=== PATIENT | female | born 1945 | race Caucasian/White ===

== ENCOUNTER → 2019-07-01 11:04 | Outpatient (REF) | payer MEDICARE, SELFPAY | LOC: ANHLAB 11:04 | PROVIDERS: PCP Family Medicine; Visit Provider Nurse Practitioner Family | DX: C44.519 Basal cell carcinoma of skin of other part of trunk (principal) | CPT/HCPCS: 88305; 88331 ==

== ENCOUNTER 2019-09-17 15:41 | Outpatient (CLI) | payer MEDICARE, SELFPAY ==
[2019-09-17 15:53] LABS: Basophils Percent Auto 0.2 % (0.2-1.2); Eosinophils Absolute Auto 0.1 K/mm3 (0-0.3); Eosinophils Percent Auto 2.5 % (0-4.4); Hematocrit 38.9 % (37.0-47.0); Hemoglobin 12.9 g/dL (12.0-15.0); Immature Granulocyte Absolute 0.01 K/mm3 (0.00-0.031); Immature Granulocyte Percent A 0.2 % (0-0.5); Lymphocytes Absolute Auto 0.54 K/mm3 (0.9-3.2); Lymphocytes Percent Auto 10.2 % (18.3-44.2); Mean Corpuscular HGB Conc 33.2 g/dl (32-36); Mean Corpuscular Volume 90.5 fl (80-100); Mean Platelet Volume 9.7 fl (7.4-10.4); Monocytes Absolute Auto 0.5 K/mm3 (0.1-0.6); Monocytes Percent Auto 8.7 % (2.6-8.5); Neutrophils Absolute Auto 4.1 K/mm3 (1.3-6.7); Neutrophils Percent Auto 78.2 % (45.5-73.1); Platelet Count Result 171 k/mm3 (150-375); Red Cell Distribution Width 13.5 % (11.5-14.5); White Blood Count 5.3 K/mm3 (4.5-10.0)
[2019-09-17 15:58] LABS: Blood Urea Nitrogen 20 mg/dL (8-26); Carbon Dioxide 28 mmol/L (22-30); Chloride 104 mmol/L (98-109); Estimated Glomerular Filt Rate > 60; Glucose 113 mg/dL (70-105); Potassium 3.3 mmol/L (3.5-4.9); Sodium 143 mmol/L (138-146)
[2019-09-17 16:30] LABS: Alanine Aminotransferase 19 U/L (4-35); Albumin Level 4.3 g/dL (3.5-5.1); Alkaline Phosphatase 82 U/L (38-126); Aspartate Amino Transferase 23 U/L (14-36); Bilirubin,Total 0.2 mg/dL (0.2-1.3); Blood Urea Nitrogen 19 mg/dL (7-17); Calcium 9.4 mg/dL (8.4-10.2); Carbon Dioxide 27 mmol/L (22-30); Chloride 106 mmol/L (98-107); Estimated Glomerular Filt Rate > 60; Glucose 118 mg/dL (65-105); Potassium 3.7 mmol/L (3.4-5.0); Sodium 139 mmol/L (137-145)
[2019-09-21 12:57] LABS: CA 27.29 <8 U/mL (<38)
== END 2019-09-17 15:42 | disposition home or self-care (01) ==
LOC: ANHLAB 15:49
PROVIDERS: PCP Family Medicine; Visit Provider Internal Medicine Hematology & Oncology
DX: C50.919 Malignant neoplasm of unspecified site of unspecified female breast (principal)
CPT/HCPCS: 36415; 80048; 80053; 85025; 86300

== ENCOUNTER → 2019-11-11 13:43 | Outpatient (REF) | payer MEDICARE, SELFPAY | LOC: ANHLAB 13:43 | PROVIDERS: PCP Family Medicine; Visit Provider Nurse Practitioner Family | DX: L72.0 Epidermal cyst (principal) | CPT/HCPCS: 88304 ==

== ENCOUNTER 2020-03-30 06:50 | Outpatient (NON) | payer MEDICARE, SELFPAY ==
[2020-03-30 23:47] LABS: SARS-CoV-2 RNA PCR Negative
== END 2020-03-30 06:51 ==
LOC: ANHCOVIDDT 07:02
PROVIDERS: PCP Family Medicine; Visit Provider Nurse Practitioner
DX: Z20.828 Contact with and (suspected) exposure to other viral communicable diseases (principal)
CPT/HCPCS: 87635; C9803; U0003

== ENCOUNTER 2020-04-13 13:48 | Outpatient (CLI) | payer MEDICARE, SELFPAY ==
[2020-04-13 14:03] LABS: Basophils Percent Auto 0.2 % (0.2-1.2); Eosinophils Absolute Auto 0.1 K/mm3 (0-0.3); Eosinophils Percent Auto 2.2 % (0-4.4); Hematocrit 42.3 % (37.0-47.0); Hemoglobin 13.8 g/dL (12.0-15.0); Immature Granulocyte Absolute 0.01 K/mm3 (0.00-0.031); Immature Granulocyte Percent A 0.2 % (0-0.5); Lymphocytes Absolute Auto 0.91 K/mm3 (0.9-3.2); Lymphocytes Percent Auto 22.3 % (18.3-44.2); Mean Corpuscular HGB Conc 32.6 g/dl (32-36); Mean Corpuscular Hemoglobin 29.6 pg (26-34); Mean Corpuscular Volume 90.6 fl (80-100); Monocytes Absolute Auto 0.4 K/mm3 (0.1-0.6); Monocytes Percent Auto 9.3 % (2.6-8.5); Neutrophils Absolute Auto 2.7 K/mm3 (1.3-6.7); Neutrophils Percent Auto 65.8 % (45.5-73.1); Platelet Count Result 193 k/mm3 (150-375); Red Blood Count 4.67 M/mm3 (4.2-5.4); Red Cell Distribution Width 13.5 % (11.5-14.5); White Blood Count 4.1 K/mm3 (4.5-10.0)
[2020-04-13 14:06] LABS: Blood Urea Nitrogen 18 mg/dL (8-26); Carbon Dioxide 30 mmol/L (22-30); Chloride 104 mmol/L (98-109); Estimated Glomerular Filt Rate 54; Glucose 90 mg/dL (70-105); Potassium 3.9 mmol/L (3.5-4.9); Sodium 141 mmol/L (138-146)
[2020-04-19 07:27] LABS: CA 15-3 2 U/mL (<32)
== END 2020-04-13 13:49 | disposition home or self-care (01) ==
LOC: ANHLAB 13:49
PROVIDERS: PCP Family Medicine; Visit Provider Internal Medicine Hematology & Oncology
DX: C50.411 Malignant neoplasm of upper-outer quadrant of right female breast (principal); Z17.0 Estrogen receptor positive status [ER+]
CPT/HCPCS: 36415; 80048; 85025; 86300

== ENCOUNTER 2020-07-06 11:24 | Outpatient (CLI) | payer MEDICARE, SELFPAY ==
[2020-07-06 11:38] LABS: Eosinophils Absolute Auto 0.1 K/mm3 (0-0.3); Eosinophils Percent Auto 2.8 % (0-4.4); Hematocrit 41.9 % (37.0-47.0); Hemoglobin 13.6 g/dL (12.0-15.0); Immature Granulocyte Absolute 0.01 K/mm3 (0.00-0.031); Immature Granulocyte Percent A 0.2 % (0-0.5); Lymphocytes Absolute Auto 0.99 K/mm3 (0.9-3.2); Lymphocytes Percent Auto 23.2 % (18.3-44.2); Mean Corpuscular HGB Conc 32.5 g/dl (32-36); Mean Corpuscular Hemoglobin 29.1 pg (26-34); Mean Corpuscular Volume 89.5 fl (80-100); Monocytes Absolute Auto 0.4 K/mm3 (0.1-0.6); Monocytes Percent Auto 10.3 % (2.6-8.5); Neutrophils Absolute Auto 2.7 K/mm3 (1.3-6.7); Neutrophils Percent Auto 63.5 % (45.5-73.1); Platelet Count Result 188 k/mm3 (150-375); Red Blood Count 4.68 M/mm3 (4.2-5.4); Red Cell Distribution Width 13.8 % (11.5-14.5); White Blood Count 4.3 K/mm3 (4.5-10.0)
[2020-07-06 12:29] LABS: Alanine Aminotransferase 28 U/L (4-35); Albumin Level 4.5 g/dL (3.5-5.1); Alkaline Phosphatase 83 U/L (38-126); Anion Gap 6 mmol/L (8-16); Aspartate Amino Transferase 29 U/L (14-36); Bilirubin,Total 0.4 mg/dL (0.2-1.3); Blood Urea Nitrogen 19 mg/dL (7-17); Calcium 9.6 mg/dL (8.4-10.2); Carbon Dioxide 29 mmol/L (22-30); Chloride 106 mmol/L (98-107); Estimated Glomerular Filt Rate > 60; Glucose 87 mg/dL (65-105); Potassium 4.1 mmol/L (3.4-5.0); Sodium 141 mmol/L (137-145)
[2020-07-09 07:44] LABS: CA 15-3 1 U/mL (<32)
== END 2020-07-06 11:25 | disposition home or self-care (01) ==
LOC: ANHLAB 11:26
PROVIDERS: PCP Family Medicine; Visit Provider Internal Medicine Hematology & Oncology
DX: C50.411 Malignant neoplasm of upper-outer quadrant of right female breast (principal); Z17.0 Estrogen receptor positive status [ER+]
CPT/HCPCS: 36415; 80053; 85025; 86300

== ENCOUNTER 2021-02-28 09:47 | Outpatient (CLI) | payer MEDICARE, SELFPAY ==
--- NOTE | ~2021-02-28 | CT_ITS ---
EXAMINATION: CT diagnostic chest w con DATE: 02/28/2021 10:34 INDICATION: Abnormal sputum TECHNIQUE: Transaxial computed tomographic images of the chest were obtained after the administration of 75 cc of Omnipaque 350 intravenous contrast. The dose-length product (DLP) was 375.63 mGy-cm. Ite rative reconstruction was used. COMPARISON: 05/09/2017 FINDINGS: There is severe emphysema. There are scattered small pulmonary nodules of the lungs which l ikely reflect old granulomatous disease. There is a 7 mm nodule of the right middle lobe abutting the major fissure on image 82. There is no pleural effusion or pneumothorax. The lungs are free of focal airspace opacities. Multinodular goiter is again noted. No pathologically enlarged thoracic lymph no nereyda are identified. The heart size is normal. Interval surgical changes noted in the breasts. There a re also changes of left axillary lymph node dissection. There is a small sliding hiatal hernia. The g allbladder is surgically absent. There is mild enlargement of the common bile duct and central intrah epatic ducts which is likely due to post cholecystectomy state. There is moderate thoracic spondylosi s. IMPRESSION: 1. 7 mm nodule of the right middle lobe which could reflect old granulomatous disease. Follow-up CT i n six months is recommended. 2. Severe emphysema. Reviewed, dictated and finalized at location A. IMPRESSION: 1. 7 mm nodule of the right middle lobe which could reflect old granulomatous d isease. Follow-up CT in six months is recommended. 2. Severe emphysema.
[2021-02-28 10:27] LABS: Estimated Glomerular Filt Rate 48
== END 2021-02-28 09:48 | disposition home or self-care (01) ==
PROVIDERS: PCP Hospitalist; Visit Provider Nurse Practitioner Family
DX: R05.8 Other specified cough (principal); R09.3 Abnormal sputum; A31.0 Pulmonary mycobacterial infection; J43.9 Emphysema, unspecified
CPT/HCPCS: 71260; Q9967

== ENCOUNTER 2022-07-03 09:30 | Outpatient (RCR) | payer MEDICARE, SELFPAY ==
[2022-04-17 11:32] VITALS: PULSE 65
== END 2022-07-31 09:55 | disposition home or self-care (01) ==
LOC: ANHCPREHAB 09:30
PROVIDERS: PCP Hospitalist
DX: J43.9 Emphysema, unspecified (principal)
CPT/HCPCS: 94625

== ENCOUNTER 2023-12-03 15:42 | Inpatient (IN) | payer MEDICARE, SELFPAY ==
[2023-12-03] VITALS (13 sets, daily range): BP systolic 107–165; BP diastolic 63–92; PULSE 74–106; RESP 13–24; TEMP 36.6; O2SAT 94–97; BMI 34.5
--- NOTE | ~2023-12-03 | XR_ITS ---
XR chest 2V 12/03/2023 16:29 Indication: Shortness of breath Procedure: AP and lateral views of the chest Comparison: Comparison to multiple prior studies sequentially, with oldest reviewed study dated 12/16/2008. Findings: There are bilateral interstitial infiltrates of the mid and lower lungs. No significant eff usion. The lungs are hyperinflated which is consistent with, but not diagnostic of chronic obstructiv e pulmonary disease. No acute osseous abnormality. Impression: 1: Bilateral interstitial infiltrates which may reflect edema or pneumonia. Reviewed, dictated and finalized at location B. Impression: 1: Bilateral interstitial infiltrates which may reflect edema or pneumonia.
--- NOTE | ~2023-12-03 | XR_ITS ---
XR thoracic spine 2V 12/06/2023 12:26 Indication: Back pain. Left flank pain and bruising. Procedure: 2 views thoracic spine Comparison: No prior studies for comparison. Findings: Vertebral body heights are maintained. There is mild scoliosis. Mild multilevel spondylosis . No acute fracture or traumatic malalignment. No paraspinal soft tissue abnormality. Impression: 1: Mild thoracic spondylosis with dextroscoliosis of the lower thoracic spine. Reviewed, dictated and finalized at location B. Impression: 1: Mild thoracic spondylosis with dextroscoliosis of the lower thoracic spine.
--- NOTE | ~2023-12-03 | US_ITS ---
EXAMINATION: US abdomen complete DATE: 12/05/2023 15:07 INDICATION: Right and left upper quadrant abdominal pain TECHNIQUE: Multiple grayscale and Doppler ultrasound images of the abdomen were obtained. COMPARISON: None FINDINGS: The pancreatic head and body are normal in appearance. The pancreatic tail is not visualized. Visual ized abdominal aorta is normal in caliber measuring 1.6 cm in the mid aorta tapering to 1.5 cm the di stal aorta. Visualized proximal inferior vena cava is normal. Liver has normal contour, with a smooth surface. There is increased parenchymal echogenicity and coarsened echotexture consistent with diffu se hepatic steatosis. No liver lesion identified. No intrahepatic biliary duct dilation suspected. P ortal venous flow was seen in the hepatopetal, normal direction and has normal Doppler waveform. Gall bladder is not visualized and reportedly surgically absent. Common bile duct measures 8 mm which is w ithin normal limits for age particularly post prior cholecystectomy. Visualized portion of the right kidney demonstrates normal contour and echogenicity with no hydronephrosis.. IMPRESSION: 1. Diffuse hepatic steatosis. 2. Status post cholecystectomy. Reviewed, dictated and finalized at location A.
--- NOTE | 2023-12-03 15:47 | ECG_ITS ---
Test Date: 2023-12-03 15:49:36 Measurements Intervals [employer] Rate: 83 P: 26 TX: 146 QRS: -24 QRSD: 129 T: 88 QT: 349 QTc: 412 Interpretive Statements SINUS RHYTHM INTRAVENTRICULAR CONDUCTION DELAY LEFT VENTRICULAR HYPERTROPHY AND ST-T CHANGE BORDERLINE R WAVE PROGRESSION, ANTERIOR LEADS CONSIDER HIGH LATERAL INFARCT, AGE INDETERMINATE BASELINE ARTIFACT- I, II, AVR, AVL ABNORMAL ECG No previous ECG available for comparison Electronically Signed On 12-03-2023 15:58:44 CDT by Jefferson Elias D.O.
[2023-12-03 16:14] LABS: Basophils Percent Auto 0.1 % (0.2-1.2); Hematocrit 42.7 % (37.0-47.0); Hemoglobin 14.1 g/dL (12.0-15.0); Immature Granulocyte Absolute 0.02 K/mm3 (0.00-0.031); Immature Granulocyte Percent A 0.3 % (0-0.5); Lymphocytes Absolute Auto 0.23 K/mm3 (0.9-3.2); Lymphocytes Percent Auto 3.4 % (18.3-44.2); Mean Corpuscular Hemoglobin 29.6 pg (26-34); Mean Corpuscular Volume 89.5 fl (80-100); Mean Platelet Volume 10.4 fl (7.4-10.4); Monocytes Absolute Auto 0.4 K/mm3 (0.1-0.6); Monocytes Percent Auto 5.9 % (2.6-8.5); Neutrophils Absolute Auto 6.2 K/mm3 (1.3-6.7); Neutrophils Percent Auto 90.3 % (45.5-73.1); Platelet Count Result 167 k/mm3 (150-375); Red Blood Count 4.77 M/mm3 (4.2-5.4); Red Cell Distribution Width 15.3 % (11.5-14.5); White Blood Count 6.8 K/mm3 (4.5-10.0)
[2023-12-03 16:21] LABS: Alanine Aminotransferase 33 U/L (6-35); Albumin Level 4.8 g/dL (3.5-5.1); Alkaline Phosphatase 66 U/L (38-126); Anion Gap 11 mmol/L (4-12); Aspartate Amino Transferase 43 U/L (14-36); Bilirubin,Total 0.7 mg/dL (0.2-1.3); Blood Urea Nitrogen 23 mg/dL (7-17); Calcium 9.7 mg/dL (8.4-10.2); Carbon Dioxide 26 mmol/L (22-30); Chloride 100 mmol/L (98-107); Estimated CRCL calculation 40 ml/min; Estimated Glomerular Filt Rate 53; Glucose 107 mg/dL (65-110); Potassium 3.5 mmol/L (3.4-5.0); Sodium 137 mmol/L (137-145)
[2023-12-03 16:54] LABS: Influenza A QL RT-PCR Negative (Negative); Influenza B QL RT-PCR Negative (Negative); RSV RNA, RT-PCR Negative (Negative); SARS-CoV-2 RNA PCR Negative (Negative)
--- NOTE | 2023-12-03 17:13 | ED.SOB ---
HPI - SOB/Dyspnea General Chief Complaint: Shortness of Breath/Dyspnea Stated Complaint: SOB/flank pain Time Seen by Provider: 12/03/23 16:14 History of Present Illness HPI Narrative: Patient is a 78-year-old female with a history of COPD presenting with shortness of breath. Patient states that about 5 days ago she noticed increasingly productive cough. States that she has been increasingly short of breath. She went to urgent care and was started on prednisone and a Z-Bill. Unfortunately her symptoms have continued. States that she usually only uses oxygen with exertion but she now needs that even when she is just sitting. States that she has some left flank pain that feels like a muscle strain that is worsened when she coughs. She denies any chest pain. No lightheadedness or fevers. No abdominal pain, nausea vomiting, diarrhea. No leg swelling. Related Data Home Medications Medication Instructions Recorded Confirmed celecoxib 200 mg capsule (Celebrex) 200 mg PO DAILY 06/03/19 12/03/23 docusate sodium 100 mg capsule 100 mg PO DAILY 06/03/19 01/02/21 (Stool Softener) magnesium 200 mg tablet 200 mg PO HS 02/04/20 12/03/23 calcium carbonate 250 mg-vitamin 2 tablet PO BID 12/03/23 12/03/23 D3 3.125 mcg (125 unit) tablet chlordiazepoxide HCl 10 mg capsule 10 - 20 mg PO PRN PRN Anxiety 12/03/23 12/03/23 diltiazem HCl 120 mg 120 mg PO DAILY 12/03/23 12/03/23 capsule,extended release 24 hr, controlled famotidine 20 mg tablet 20 mg PO HS 12/03/23 12/03/23 fluticasone fur. 200 mcg-umeclid 1 inh inhalation DAILY 12/03/23 12/03/23 62.5 mcg-vilant 25 mcg inhalat.powder (Trelegy Ellipta) hydrochlorothiazide 25 mg tablet 25 mg PO DAILY 12/03/23 12/03/23 levalbuterol HCl 1.25 mg/3 mL 1.25 mg inhalation TID 12/03/23 12/03/23 solution for nebulization levothyroxine 150 mcg tablet 150 mcg PO DAILY 12/03/23 12/03/23 montelukast 10 mg tablet 10 mg PO HS 12/03/23 12/03/23 omeprazole 40 mg capsule,delayed 40 mg PO DAILY 12/03/23 12/03/23 release sertraline 100 mg tablet 100 mg PO HS 12/03/23 12/03/23 Allergies Allergy/AdvReac Type Severity Reaction Status Date / Time naproxen Allergy Unknown unk Verified 12/03/23 15:52 nitrofurantoin Allergy Unknown unk Verified 12/03/23 15:52 Penicillins Allergy Unknown hives Verified 12/03/23 15:52 Sulfa (Sulfonamide Allergy Unknown Nausea and Verified 12/03/23 15:52 Antibiotics) Vomiting Review of Systems Review of Systems: All systems reviewed & are unremarkable except as noted in HPI and below [facility] Past Medical History Medical History (Updated 12/03/23 @ 22:24 by Rebecca Branch MD) Allergies Anxiety Arthritis Basal cell carcinoma of skin Bilateral breast cancer Invasive lobular carcinoma right breast status post mastectomy and 2018 and radiation and 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 Cancer of right lung Status post radiation in 2023. Chronic obstructive pulmonary disease Chronic respiratory failure with hypoxia Colon polyps Depression Dyslipidemia Gastroesophageal reflux disease Hypertension Thyroid cancer Status post thyroidectomy and radioactive iodine. Surgical History Surgical History (Updated 12/03/23 @ 20:22 by Sherri Graham PA-C) History of arthroscopy of left knee (09/2015) History of bladder repair surgery History of bunionectomy (2002) History of cardiac catheterization History of cholecystectomy (1968) History of colonoscopy with polypectomy History of lumpectomy of left breast (2019) History of partial mastectomy of right breast (2017) History of tonsillectomy (1960) History of total abdominal hysterectomy and bilateral salpingo-oophorectomy (1987) History of tubal ligation Family History Family History Mother Family history of lung cancer, Onset Age: 72 Father COPD (chronic obstructive pulmonary disease) Other Family history of malignant neoplasm Social History Social History (Updated 12/03/23 @ 20:23 by Sherri Graham PA-C) Social History: Surrogate medical decision maker: Gee Zarate (spouse) and Kaitlynn Jackson (daughter). Code status: Full code. She would not want to be on prolonged life support. Smoking packs per day: 1.5 Smoking cigarettes per day: 30.0 Years smoked: 30 Smoking pack-years: 45.00 Smoking status: Former smoker Tobacco type: cigarettes Second hand tobacco smoke exposure: No Smoking end date: 05/13/96 Alcohol intake: current Alcohol use details: 1 mixed drink a week. Substance use: never Substance use type: does not use Do You Feel Safe in your Home?: Yes Lack of Transportation: No Lack of Food: Never True Current Housing: I Have Housing Concerned About Future Housing: No Difficulty Paying Gas/Electric Bills: No Difficulty Paying for Meds: No Currently Unemployed: No Education: Associate Degree Difficulty w/ Childcare or Family Care: No Additional occupation/education comments: Lives with spouse at [employer]. 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 Spiritual care concerns: No Exam Narrative: GENERAL: Nontoxic, in no acute distress, pleasant cooperative HEAD: Normocephalic, atraumatic. EYES: PERRLA and EOMI. ENT: Grossly unremarkable NECK: Supple. CHEST: Coarse breath sounds bilaterally with expiratory wheezing, patient on 4 L nasal cannula, able to speak in 5-6 word sentences HEART: Regular rate and rhythm ABDOMEN: Soft, nontender, nondistended, no CVA tenderness EXTREMITIES: Normal range of motion. No edema. SKIN: Warm, dry, no rash. NEURO: No focal deficits. Alert and oriented x3. PSYCH: Normal mood and affect. Course Vital Signs Vital signs: Vital Signs Pulse Rate 90 12/03/23 15:41 Respiratory Rate 18 12/03/23 15:41 Blood Pressure 137/87 12/03/23 15:41 Pulse Oximetry 97 12/03/23 15:41 Oxygen Delivery Room Air 12/03/23 15:41 Temperature 97.8 F 12/03/23 21:42 Pulse Rate 86 12/03/23 21:42 Respiratory Rate 18 12/03/23 21:42 Blood Pressure 124/66 12/03/23 21:42 Pulse Oximetry 97 12/03/23 21:42 Oxygen Delivery Nasal Cannula 12/03/23 19:10 Oxygen Flow Rate 4 12/03/23 19:10 MDM - SOB/Dyspnea MDM Narrative Medical decision making narrative: 78-year-old female presenting with shortness of breath. Patient is on 4 L, maintaining her sats in the low to mid 90s. EKG per my interpretation shows normal sinus rhythm,+ IVCD, nonspecific ST changes. Blood work without significant abnormalities. Troponin is undetectable. ProBNP is unremarkable. Negative for COVID and influenza. Chest x-ray is concerning for bibasilar opacities. Suspect is related to her COPD and possible pneumonia. Less concern for edema. Patient has received breathing treatments, IV steroids and antibiotics. She requires admission for further management. She is agreeable with this plan. I spoke with the hospitalist who has accepted her for admission. Differential Diagnosis Differential diagnosis: Likely acute exacerbation of chronic obstructive airways disease, congestive heart failure and community acquired pneumonia Medical Records Attestation: I reviewed the patient's medical records. Lab Data Attestation: I reviewed the patient's lab results. 12/03/23 16:01 12/03/23 16:01 Labs: Lab Results 12/03/23 12/03/23 Range/Units 15:59 16:01 WBC 6.8 (4.5-10.0) K/mm3 RBC 4.77 (4.2-5.4) M/mm3 Hgb 14.1 (12.0-15.0) g/dL Hct 42.7 (37.0-47.0) % MCV 89.5 (80-100) fl MCH 29.6 (26-34) pg MCHC 33.0 (32-36) g/dl RDW 15.3 H (11.5-14.5) % Plt Count 167 (150-375) k/mm3 MPV 10.4 (7.4-10.4) fl Immature Gran % (Auto) 0.3 (0-0.5) % Neut % (Auto) 90.3 H (45.5-73.1) % Lymph % (Auto) 3.4 L (18.3-44.2) % [place] % (Auto) 5.9 (2.6-8.5) % Eos % (Auto) 0.0 (0-4.4) % Baso % (Auto) 0.1 L (0.2-1.2) % Lymph # (Auto) 0.23 L (0.9-3.2) K/mm3 [place] # (Auto) 0.4 (0.1-0.6) K/mm3 Eos # (Auto) 0.0 (0-0.3) K/mm3 Baso # (Auto) 0.0 (0.0-0.1) K/mm3 Abs Immat Gran (auto) 0.02 (0.00-0.031) K/mm3 Absolute Neuts (auto) 6.2 (1.3-6.7) K/mm3 Absolute Nucleated RBC 0.000 (0.0-0.012) K/mm3 Nucleated RBC % 0.0 (0.0-0.2) % PT 13.8 (11.1-14.7) Seconds INR 1.0 APTT 24.0 (22.3-36.8) Seconds Sodium 137 (137-145) mmol/L Potassium 3.5 (3.4-5.0) mmol/L Chloride 100 (98-107) mmol/L Carbon Dioxide 26 (22-30) mmol/L Anion Gap 11 (4-12) mmol/L BUN 23 H (7-17) mg/dL Creatinine 1.00 (0.7-1.0) mg/dL Estim Creat Clear Calc 40 ml/min Estimated GFR 53 L (59 - ) Glucose 107 (65-110) mg/dL Lactic Acid 2.0 (0.7-2.0) mmol/L Calcium 9.7 (8.4-10.2) mg/dL Total Bilirubin 0.7 (0.2-1.3) mg/dL AST 43 H (14-36) U/L ALT 33 (6-35) U/L Alkaline Phosphatase 66 (38-126) U/L Troponin I < 0.012 (0.000-0.034) ng/mL NT-Pro-B Natriuret Pep 164 H (19.9-100) pg/mL Total Protein 9.0 H (6.3-8.2) g/dL Albumin 4.8 (3.5-5.1) g/dL Influenza A (RT-PCR) Negative (Negative) Influenza B (RT-PCR) Negative (Negative) RSV (RT-PCR) Negative (Negative) SARS-CoV-2 RNA (RT-PCR) Negative (Negative) Imaging Data Radiologist's impression: ITS Impressions Chest X-Ray 12/03/23 16:32 Impression: 1: Bilateral interstitial infiltrates which may reflect edema or pneumonia. Critical Care Time Critical Care Time Critical Care Time: No Discharge Plan Discharge Clinical Impression: COPD exacerbation, Pneumonia Patient Disposition: Still a Patient Condition: Stable
[2023-12-03] MEDS: SODIUM CHLORIDE 0.9% IV 1,000 ML 999 ML IV CONT (17:32)
[2023-12-03] MEDS: FAMOTIDINE 20 MG TABLET PO ×2 (17:32→23:57)
[2023-12-03] MEDS: methylPREDNISolone SOD SUCC 125 MG VIAL IV PUSH (17:33)
[2023-12-03] MEDS: IPRATROPIUM BR 0.02% INH SOLN 0.5 MG/2.5 ML VIAL INHALATION (17:36)
[2023-12-03] MEDS: ALBUTEROL SULFATE NEB 2.5 MG/3 ML INH 10 MG INHALATION (17:36)
[2023-12-03 17:46] LABS: Prothrombin Time 13.8 Seconds (11.1-14.7)
[2023-12-03 17:56] LABS: NT Pro B Type Natriuretic Pept 164 pg/mL (19.9-100); Troponin I < 0.012 ng/mL (0.000-0.034)
--- NOTE | 2023-12-03 18:20 | P.HP_ITS ---
H&P: HPI History of Present Illness Date/Time: 12/03/23 18:30 Chief Complaint: Shortness of breath. 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 The patient provides the following history. She has a chronic cough at baseline which is occasionally productive of clear sputum and chronic dyspnea on exertion, to the point where she now uses an electric scooter when shopping at the store. She has been feeling worse since last Saturday with increasing cough and frequent coughing jags, increasing sputum production which is now thick and green, and progressive dyspnea on lesser and lesser exertion with wheezing. She was seen at urgent care on Saturday and was prescribed azithromycin, prednisone, and benzonatate which have not helped much. She denies fever, chills, sweats, chest pain, orthopnea, paroxysmal nocturnal dyspnea, lower extremity edema, calf pain, nausea, vomiting, and diarrhea. In the ED: She was afebrile on arrival with stable blood pressures. SpO2 was 95% on 4 L nasal cannula. Labs were significant for a WBC count of 6.8, hemoglobin 14.1, platelet 167, BUN 23, creatinine 1.00, lactic acid 2.0. Influenza, RSV, and COVID were negative. Chest x-ray showed bilateral interstitial infiltrates which may reflect edema or pneumonia. She was given a continuous nebulizer treatment, methylprednisolone 125 mg, and ceftriaxone 2 g and she is being admitted in this setting for further treatment. Review of Systems Review of Systems: 12 systems were reviewed and are negativ e except for as per HPI. [facility] Past Medical History Medical History (Updated 12/03/23 @ 21:33 by Sherri Graham PA-C) Allergies Anxiety Arthritis Basal cell carcinoma of skin Bilateral breast cancer Invasive lobular carcinoma right breast status post mastectomy and 2018 and radiation and 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 Cancer of right lung Status post radiation in 2023. Chronic obstructive pulmonary disease Chronic respiratory failure with hypoxia Colon polyps Depression Dyslipidemia Gastroesophageal reflux disease Hypertension Thyroid cancer Status post thyroidectomy and radioactive iodine. Surgical History Surgical History (Updated 12/03/23 @ 20:22 by Sherri Graham PA-C) History of arthroscopy of left knee (09/2015) History of bladder repair surgery History of bunionectomy (2002) History of cardiac catheterization History of cholecystectomy (1968) History of colonoscopy with polypectomy History of lumpectomy of left breast (2019) History of partial mastectomy of right breast (2017) History of tonsillectomy (1960) History of total abdominal hysterectomy and bilateral salpingo-oophorectomy (1987) History of tubal ligation Family History Family History Mother Family history of lung cancer, Onset Age: 72 Father COPD (chronic obstructive pulmonary disease) Other Family history of malignant neoplasm Social History Social History (Updated 12/03/23 @ 20:23 by Sherri Graham PA-C) Social History: Surrogate medical decision maker: Gee Zarate (spouse) and Kaitlynn Jackson ( daughter). Code status: Full code. She would not want to be on prolonged life support. Smoking packs per day: 2 Smoking cigarettes per day: 40.0 Years smoked: 30 Smoking pack-years: 60.00 Smoking status: Former smoker Tobacco type: cigarettes Second hand tobacco smoke exposure: No Smoking end date: 05/13/96 Alcohol intake: current Alcohol use details: 1 mixed drink a week. Substance use: never Substance use type: does not use Additional occupation/education comments: Lives with spouse at [facility]. 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 Meds Home Medications and Allergies Home Medications Medication Instructions Recorded Confirmed Type celecoxib 200 mg capsule (Celebrex) 200 mg PO BID 06/03/19 01/02/21 History docusate sodium 100 mg capsule 100 mg PO DAILY 06/03/19 01/02/21 History (Stool Softener) azelastine 205.5 mcg (0.15 %) 205.5 mcg (0.137 mL) intranasal 08/24/19 01/02/21 Rx nasal spray DAILY #30 mL magnesium 200 mg tablet 200 mg PO DAILY 02/04/20 01/02/21 History levalbuterol HCl 0.63 mg/3 mL 0.63 mg inhalation TID PRN 01/02/21 01/02/21 History solution for nebulization shortness of breath or wheezing benzonatate 200 mg capsule 200 mg PO TID PRN cough #90 caps 05/08/21 Rx calcium carbonate 250 mg-vitamin 2 tablet PO BID 12/03/23 12/03/23 History D3 3.125 mcg (125 unit) tablet chlordiazepoxide HCl 10 mg capsule 10 - 20 mg PO PRN PRN Anxiety 12/03/23 12/03/23 History diltiazem HCl 120 mg 120 mg PO DAILY 12/03/23 12/03/23 History capsule,extended release 24 hr, controlled famotidine 20 mg tablet 20 mg PO HS 12/03/23 12/03/23 History fluticasone fur. 200 mcg-umeclid 1 inh inhalation DAILY 12/03/23 12/03/23 History 62.5 mcg-vilant 25 mcg inhalat.powder (Trelegy Ellipta) hydrochlorothiazide 25 mg tablet 25 mg PO DAILY 12/03/23 12/03/23 History levalbuterol HCl 1.25 mg/3 mL 1.25 mg inhalation TID 12/03/23 12/03/23 History solution for nebulization levothyroxine 150 mcg tablet 150 mcg PO DAILY 12/03/23 12/03/23 History montelukast 10 mg tablet 10 mg PO HS 12/03/23 12/03/23 History omeprazole 40 mg capsule,delayed 40 mg PO DAILY 12/03/23 12/03/23 History release sertraline 100 mg tablet 100 mg PO HS 12/03/23 12/03/23 History Allergies Allergy/AdvReac Type Severity Reaction Status Date / Time naproxen Allergy Unknown unk Verified 12/03/23 15:52 nitrofurantoin Allergy Unknown unk Verified 12/03/23 15:52 Penicillins Allergy Unknown hives Verified 12/03/23 15:52 Sulfa (Sulfonamide Allergy Unknown Nausea and Verified 12/03/23 15:52 Antibiotics) Vomiting Vital Signs Vital Signs - 24 hr 12/03/23 15:41 12/03/23 15:45 12/03/23 17:38 Pulse Rate 90 106 H Respiratory Rate 18 24 H Blood Pressure 137/87 Pulse Oximetry 97 95 Oxygen Delivery Room Air Nasal Cannula Oxygen Flow Rate 4 Exam Narrative: General: Mildly ill-appearing female sitting up in bed on continuous nebulizer. Weight: 86.3 kg. BMI: 35.9. HEENT: PERRL, EOMI. Sclera anicteric. Tacky mucous membranes. Neck: Supple. No JVD or lymphadenopathy. Respiratory: Currently on continuous nebulizer. Mild conversational dyspnea however she is able to hold a good conversation. Lung sounds are significantly diminished and tight throughout with occasional end-expiratory wheezing. Cardiovascular: Regular rate and rhythm with S1-S2. Gastrointestinal: Abdomen is soft, nontender, and nondistended with positive bowel sounds. Skin: Warm and dry. No rash or lesions on limited exam. Extremities: No cyanosis, clubbing, or edema. Radial and pedal pulses intact. No palpable knots or cords. Negative Indu sign bilaterally peer Neurological: Alert. Cranial nerves 2-12 are grossly intact. No gross focal deficits to casual conversation. Psychiatric: Pleasant and cooperative with normal mood and affect. Judgment and insight intact. She is in good spirits. H&P: Results Labs Labs: Short CBC 12/03/23 Range/Units 16:01 WBC 6.8 (4.5-10.0) K/mm3 Hgb 14.1 (12.0-15.0) g/dL Hct 42.7 (37.0-47.0) % Plt Count 167 (150-375) k/mm3 BMP 12/03/23 16:01 Sodium 137 Potassium 3.5 Chloride 100 Carbon Dioxide 26 BUN 23 H Creatinine 1.00 Glucose 107 Calcium 9.7 Cardiac Enzymes 12/03/23 Range/Units 15:59 Troponin I < 0.012 (0.000-0.034) ng/mL Liver Function 12/03/23 Range/Units 16:01 Total Bilirubin 0.7 (0.2-1.3) mg/dL AST 43 H (14-36) U/L ALT 33 (6-35) U/L Alkaline Phosphatase 66 (38-126) U/L Albumin 4.8 (3.5-5.1) g/dL Imaging Chest X-Ray 12/03/23 16:32 Impression: 1: Bilateral interstitial infiltrates which may reflect edema or pneumonia. Assessment and Plan Assessment and plan (1) Pneumonia: Code(s): J18.9 - Pneumonia, unspecified organism Status: Acute (2) Chronic obstructive pulmonary disease: Code(s): J44.9 - Chronic obstructive pulmonary disease, unspecified Status: Acute (3) Chronic respiratory failure with hypoxia: Code(s): J96.11 - Chronic respiratory failure with hypoxia Status: Acute (4) Hypertension: Code(s): I10 - Essential (primary) hypertension Status: Acute Plan The patient presented to the emergency department for evaluation increasing shortness of breath and cough as detailed in HPI. Labs, imaging, EKG, and all reports were personally reviewed. Chest x-ray shows bilateral interstitial infiltrate which may reflect edema or pneumonia. She is afebrile with normal WBC count however her history is concerning for pneumonia and she has been started on azithromycin and ceftriaxone. Send sputum for culture and AFB given history of BRYNN. Check Legionella and pneumococcal antigens as well as mycoplasma IgM. ProBNP is barely elevated given her age and she does not have edema or orthopnea to suggest congestive heart failure however will obtain echocardiogram given her underlying lung disease. She completed 5 days of prednisone and receive Solu- Medrol in the ED; will hold on further steroids that she has minimal wheezing on exam. Continue scheduled bronchodilators. Her blood pressures were reviewed and they are stable. Her home medications will be reviewed and resumed as appropriate. Findings and treatment plan were discussed with the patient and her and daughter at bedside. Questions were solicited and answered to satisfaction. The patient's medical management will be taken over by the hospitalist team in a.m. Quality VTE Prophylaxis VTE prophylaxis: pharmacologic ordered The patient has been admitted under observation status. Hospitalist MIPS Advance Care Plan I have confirmed that the patient's Advanced Care Plan is present, code status is documented, or surrogate decision maker is listed in patient medical record.: Yes Medication Reconciliation I have utilized all available resources to obtain, update and review the patients current medications (includes all prescriptions, OTC, herbals, cannabis, and nutritional supplements).: Yes
[2023-12-03] MEDS: cefTRIAXone 2 GM/NS 100 ML 2 GM/100 ML BAG IVPB (18:26)
--- NOTE | 2023-12-03 19:12 | ECG_ITS ---
Test Date: 2023-12-03 19:06:57 Measurements Intervals [place] Rate: 100 P: 38 NM: 168 QRS: -25 QRSD: 129 T: 102 QT: 352 QTc: 455 Interpretive Statements SINUS TACHYCARDIA INTRAVENTRICULAR CONDUCTION DELAY POOR R WAVE PROGRESSION CONSIDER HIGH LATERAL INFARCT, AGE INDETERMINATE BASELINE ARTIFACT- I, II, III, AVR, AVL, AVF ABNORMAL ECG Compared to ECG 12/03/2023 15:49:36 HEART RATE HAS INCREASED Electronically Signed On 12-03-2023 19:27:10 CDT by Jefferson Elias D.O.
[2023-12-03 19:29] LABS: Troponin I < 0.012 ng/mL (0.000-0.034)
[2023-12-03] MEDS: AZITHROMYCIN 500 MG/NS 250 ML 500 MG/250 ML BAG 250 MG IVPB (20:30)
--- NOTE | 2023-12-03 21:36 | ADMGEN ---
This patient, Romi Zarate, was admitted to Medical Room 243-01. Patient/family oriented to hospital policies and general routines including ID bracelet, bed and alarms, visiting hours, pain management, procedures, bathroom and other care routines, personal items, smoking policy, room service/diet, and visiting hours. Information on how to activate the Rapid Response Team has been discussed. Patient/Family are encouraged to report perceived risks to care and to ask questions if they do not understand what they are told or what they should do.
[2023-12-03 22:35] LABS: Troponin I < 0.012 ng/mL (0.000-0.034)
[2023-12-03 23:44] LABS: MRSA (PCR) NOT DETECTED (NOT DETECTE)
[2023-12-03] MEDS: ACETAMINOPHEN 325 MG TABLET 650 MG PO (23:57)
[2023-12-03] MEDS: MONTELUKAST SODIUM 10 MG TABLET PO (23:57)
[2023-12-03] MEDS: guaiFENesin 12 HR 600 MG TABCR 1200 MG PO (23:57)
[2023-12-03] MEDS: SERTRALINE HCL 50 MG TABLET 100 MG PO (23:57)
[2023-12-03] MEDS: chlordiazePOXIDE (*CRX) 10 MG CAPSULE PO (23:57)
[2023-12-03] MEDS: MAGNESIUM OXIDE 200 MG TABLET PO (23:57)
[2023-12-04] VITALS (19 sets, daily range): BP systolic 109–137; BP diastolic 59–80; PULSE 59–101; RESP 14–22; TEMP 36.4–36.5; O2SAT 91–98
--- NOTE | 2023-12-04 | ECHO_ITS ---
Patient Info Name: Romi Zarate Age: 78 years : 1945 Gender: Female Ht: 61 in Wt: 190 lbs BSA: 1.97 m2 HR: 59 bpm BP: 111 / 57 mmHg Heart Rhythm: Sinus Rhythm Technical Quality: Good Exam Date: 12/04/2023 10:53 AM Exam Location: Echo Lab Patient Status: Outpatient Admit Date: 12/03/2023 Staff Ordering Physician: Sherri Graham PA-C Senior Behavioral Scientist: Dinesh Casper RDCS Attending Provider: Chacha Ortiz MD Referring Physician: Gladys FERGUSON; Exam Type: CA echo doppler color flow Study Info Indications - hypoxia, HTN, COPD Complete two-dimensional, color flow and Doppler transthoracic echocardiogram is performed. Summary 1. Left ventricular chamber dimension is normal. 2. Left ventricular systolic function is normal, estimated at 60-65%. 3. There is mildly increased left ventricular wall thickness. 4. The left ventricular diastolic function is grade I diastolic dysfunction. 5. Right ventricular systolic function is normal. 6. Left atrial chamber dimension is moderately enlarged. 7. Right atrial chamber dimension is moderately enlarged. 8. There is mild aortic valve regurgitation. 9. There is mild mitral valve regurgitation. 10. There is mild tricuspid valve regurgitation. Left Ventricle Left ventricular chamber dimension is normal. Left ventricular systolic function is normal, estimated at 60-65%. There is mildly increased left ventricular wall thickness. The left ventricular diastolic function is grade I diastolic dysfunction. Right Ventricle Right ventricular chamber dimension is normal. Right ventricular systolic function is normal. Left Atria Left atrial chamber dimension is moderately enlarged. Right Atria Right atrial chamber dimension is moderately enlarged. Atrial Septum Intact interatrial septum visualized by color flow imaging. Aortic Valve The aortic valve is trileaflet. There is no aortic valve stenosis. There is mild aortic valve regurgitation. There is mild aortic valve calcification. Pulmonic Valve The pulmonic valve is not well visualized. There is trace pulmonic regurgitation. Mitral Valve There is mild mitral valve regurgitation. Tricuspid Valve There is mild tricuspid valve regurgitation. Pericardium/Pleural There is no pericardial effusion. Inferior Vena Cava Normal inferior vena cava with <50% collapse upon inspiration consistent with elevated right atrial pressure, 8 mmHg. Aorta The aortic root size at the sinus of Valsalva is normal. Left Ventricular Outflow Tract Name Value Normal LVOT 2D LVOT Diameter 1.9 cm LVOT Doppler LVOT Peak Gradient 6 mmHg LVOT Mean Gradient 3 mmHg LVOT VTI 27 cm LVOT VTI/AV VTI Ratio 0.8 LVOT Stroke Volume 73 ml LVOT CO 4.6 l/min LVOT CI 2.4 l/min/m2 Mitral Valve Name Value Normal MV Doppler MV Decel [facility] 260 cm/s2 MV PHT 90 ms MV Area (PHT) 2.5 cm2 4.0-5.0 MV Regurgitation Doppler MR Peak Gradient 80 mmHg MV Diastolic Function MV E Peak Velocity 80 cm/s MV A Peak Velocity 113 cm/s MV E/A 0.7 MV Decel Time 310 ms MV Annular TDI MV E/e' (Septal) 12.7 <=8.0 MV E/e' (Lateral) 10.3 <=8.0 MV E/e' (Average) 11.5 Tricuspid Valve Name Value Normal TV Regurgitation Doppler TR Peak Velocity 326 cm/s TR Peak Gradient 42 mmHg Estimated PAP/RSVP RA Pressure 8 mmHg <=5 PA Systolic Pressure 50 mmHg <36 RV Systolic Pressure 50 mmHg <36 Aortic Valve Name Value Normal AV Doppler AV Peak Velocity 149 cm/s AV Peak Gradient 9 mmHg AV Mean Gradient 5 mmHg AV VTI 32 cm AV Area (Cont Eq VTI) 2.3 cm2 >=3.0 AV Area (Cont Eq [place]) 2.2 cm2 AV Regurgitation 2D LVOT Area 2.7 cm2 AV Regurgitation Doppler AR Decel Time 1,[address] [facility] 407 cm/s2 AR PHT 316 ms Ventricles Name Value Normal LV Dimensions 2D/MM IVS Diastolic Thickness (2D) 1.0 cm 0.6-1.0 LVID Diastole (2D) 4.3 cm 3.8-5.2 LVIW Diastolic Thickness (2D) 1.0 cm 0.6-0.9 LVID Systole (2D) 2.6 cm 2.2-3.5 LVOT Diameter 1.9 cm LV Mass (2D Cubed) 143.89 g 67.00-162.00 LV Mass Index (2D Cubed) 73 g/m2 43-95 Relative Wall Thickness (2D) 0.46 LV Fractional Shortening/Ejection Fraction 2D/MM LV Fractional Shortening (2D) 39 % 27-45 LV EF (2D Teicholz) 69 % 54-74 LV Diastolic Volume (4C MOD) 88 ml LV EF (4C MOD) 72 % LV Diastolic Volume (2C MOD) 89 ml LV EF (2C MOD) 52 % LV Diastolic Volume (BP MOD) 90 ml 46-106 LV Diastolic Volume Index (BP MOD) 46 ml/m2 29-61 LV Systolic Volume (BP MOD) 35 ml 14-42 LV Systolic Volume Index (BP MOD) 18 ml/m2 8-24 LV EF (BP MOD) 61 % 54-74 LV Diastolic Length (4C) 7.4 cm LV Systolic Length (4C) 5.2 cm LV Stroke Volume (4C MOD) 63 ml Atria Name Value Normal LA Dimensions LA Volume (4C A-L) 24 ml RA Dimensions RA Area (4C) 11.6 cm2 <=18.0 Report Signatures
[2023-12-04] MEDS: IPRATROPIUM 0.5 MG/ALBUTEROL SULFATE 2.5 MG AMPUL.NEB 3 ML INHALATION ×4 (02:10→20:22)
[2023-12-04 05:38] LABS: Hematocrit 39.6 % (37.0-47.0); Hemoglobin 12.8 g/dL (12.0-15.0); Mean Corpuscular HGB Conc 32.3 g/dl (32-36); Mean Corpuscular Hemoglobin 29.4 pg (26-34); Mean Corpuscular Volume 90.8 fl (80-100); Mean Platelet Volume 10.7 fl (7.4-10.4); Platelet Count Result 164 k/mm3 (150-375); Red Blood Count 4.36 M/mm3 (4.2-5.4); Red Cell Distribution Width 15.3 % (11.5-14.5); White Blood Count 4.7 K/mm3 (4.5-10.0)
[2023-12-04] MEDS: chlordiazePOXIDE (*CRX) 10 MG CAPSULE PO ×2 (05:45→22:29)
[2023-12-04] MEDS: LEVOTHYROXINE SODIUM 150 MCG TABLET PO (05:45)
[2023-12-04 05:50] LABS: Anion Gap 12 mmol/L (4-12); Blood Urea Nitrogen 18 mg/dL (7-17); Calcium 8.9 mg/dL (8.4-10.2); Carbon Dioxide 26 mmol/L (22-30); Chloride 101 mmol/L (98-107); Estimated CRCL calculation 48 ml/min; Estimated Glomerular Filt Rate > 60; Glucose 132 mg/dL (65-110); Magnesium 2.3 mg/dL (1.6-2.3); Potassium 3.6 mmol/L (3.4-5.0); Sodium 139 mmol/L (137-145)
[2023-12-04] MEDS: dilTIAZem HCL CD 120 MG CAP.24HR PO (09:37)
[2023-12-04] MEDS: PANTOPRAZOLE 40 MG TABLET PO ×2 (09:38→16:35)
[2023-12-04] MEDS: CALCIUM/VITAMIN D 500 MG/5 MCG (200 I.U.) TABLET PO ×2 (09:38→16:35)
[2023-12-04] MEDS: guaiFENesin 12 HR 600 MG TABCR 1200 MG PO ×2 (09:38→20:47)
[2023-12-04] MEDS: CELECOXIB 200 MG CAPSULE PO (09:38)
[2023-12-04] MEDS: hydroCHLOROthiazide 25 MG TABLET PO (09:38)
[2023-12-04] MEDS: ENOXAPARIN 40 MG/0.4 ML SYRINGE SUB-Q (09:39)
[2023-12-04] MEDS: AZITHROMYCIN 250 MG TABLET 500 MG PO (09:41)
[2023-12-04] MEDS: AZELASTINE HCL NASAL 0.1% 137 MCG/SPR 30 ML BTL 2 SPRAY NASAL (09:45)
--- NOTE | 2023-12-04 10:41 | P.PNIM_ITS ---
Progress Note: A&P Assessment and Plan (1) Chronic respiratory failure with hypoxia: Code(s): J96.11 - Chronic respiratory failure with hypoxia Status: Acute Assessment and Plan: 12/04/23: * Likely secondary to COPD exacerbation * Chest x-ray showing possible pneumonia * Patient was started on Rocephin and azithromycin, we will go ahead and deescalate to just azithromycin considering she does not have a white blood cell count, she is afebrile. Likely this is more COPD exacerbation with acute bronchitis * White blood cell count was 6.8 on arrival now 4.7 * Respiratory panel was negative for influenza a and B, RSV, COVID * Urine strep, urine Legionella, mycoplasma are pending * Continue DuoNebs * Wean oxygen to keep O2 saturation 88-92% * Will trend obtain sputum culture * Continue Solu-Medrol 60 mg Q 8 hour * Continue guaifenesin and Singulair (2) Pneumonia: Code(s): J18.9 - Pneumonia, unspecified organism Status: Acute Assessment and Plan: See above plan of care (3) Chronic obstructive pulmonary disease: Code(s): J44.9 - Chronic obstructive pulmonary disease, unspecified Status: Acute Assessment and Plan: 12/04/23: * Patient wears 4-5 L of oxygen with exertion at home and normally sats between 88-92% * See above plan of care (4) Hypertension: Code(s): I10 - Essential (primary) hypertension Status: Acute Assessment and Plan: 12/04/23: * Blood pressures ranging 111/59-135/63 * Continue hydrochlorothiazide Time Spent With Patient Time with patient: 25 - 35 minutes Subjective Date/time seen: 12/04/23 10:41 Interval history: Interval history: This is a 78-year-old female who presented to the hospital on 12/05/2023 with worsening shortness of breath requiring increased oxygen. workup in the hospital includes a chest x-ray shows bilateral interstitial infiltrates which may reflect edema or pneumonia. Echocardiogram is pending. Initial labs showed a normal white blood cell count of 6.8 EGFR 53, troponin negative x3, proBNP 164. MRSA was negative. Respiratory panel was negative influenza a and B, RSV, COVID. Urine strep, urine Legionella, and mycoplasma are pending. Patient was started on Rocephin and azithromycin. She was also given Solu-Medrol 125 mg IV push and DuoNebs while in the ED. 12/04/23: Patient denies any fever, chills, nausea, vomiting, diarrhea, abdominal pain, chest pain. She reports shortness of breath rest and is currently on 5 L nasal cannula today. She does wear home O2 but only with exertion. She normally has oxygen saturation between 88-92%. Review of Systems Review of Systems: 12 systems were reviewed and are negativ e except for as per HPI. Constitutional: Constitutional: Reports as per HPI and Reports no additional constitutional complaints Eyes: Eyes: Reports as per HPI and Reports no additional eye complaints ENT: Reports system reviewed and no additional complaints, except as documented and Reports as per HPI Cardiovascular: Cardiovascular: Reports as per HPI and Reports no additional cardiovascular complaints Respiratory: Respiratory: Reports as per HPI and Reports no additional respiratory complaints Gastrointestinal: Gastrointestinal: Reports as per HPI and Reports no additional gastrointestinal complaints Genitourinary: Genitourinary: Reports no additional female genitourinary complaints and Reports as per HPI Musculoskeletal: Musculoskeletal: Reports no additional musculoskeletal complaints and Reports as per HPI Integumentary/Breasts: Skin/Breast: Reports system reviewed and no additional complaints, except as docu and Reports as per HPI Neurologic: Reports system reviewed and no additional complaints, except as documented and Reports as per HPI Psychiatric: Psychiatric: Reports no additional psychiatric complaints and Reports as per HPI Exam Narrative: General: In no acute distress, well nourished Head: atraumatic, no encephalopathy Eyes: EOMI, PERRLA, sclera clear ENT: moist mucous membranes, nasal passages clear Neck: supple, no JVD, no adenopathy, trachea midline Cardiac: Normal S1 and S2. RRR No murmur, gallops or friction rubs, peripheral pulses intact. Respiratory: Rhonchi noted right greater than left lung, no adventitious lung sounds noted, currently on 5 L nasal cannula with use of accessory muscles and dyspnea at rest Gastrointestinal: soft, non-distended, non-tender, normoactive bowel sounds. : voiding without difficulty. Extremities: moves all extremities well, no edema Skin: clean, dry, intact. No wounds or lesions. Neuro: Alert and oriented x4, cranial nerves intact, no neuro deficits. Psych: normal mood, normal affect, interactive Objective Data Vital Signs Vital Signs: Vital Signs - 24 hr 12/03/23 15:41 07/23/24 15:45 12/03/23 17:38 Temperature Pulse Rate 90 106 H Respiratory Rate 18 24 H Blood Pressure 137/87 Pulse Oximetry 97 95 Oxygen Delivery Room Air Nasal Cannula Oxygen Flow Rate 4 12/03/23 18:39 12/03/23 16:02 12/03/23 16:16 Temperature Pulse Rate 97 76 74 Respiratory Rate 21 H 16 13 Blood Pressure 125/88 107/70 Pulse Oximetry 97 95 Oxygen Delivery Oxygen Flow Rate 12/03/23 17:01 12/03/23 17:17 12/03/23 17:39 Temperature Pulse Rate 76 76 81 Respiratory Rate 19 20 20 Blood Pressure 121/72 151/77 H 165/78 H Pulse Oximetry 95 94 95 Oxygen Delivery Oxygen Flow Rate 12/03/23 18:01 12/03/23 19:25 12/03/23 19:25 Temperature Pulse Rate 85 96 96 Respiratory Rate 16 19 Blood Pressure 118/92 H 135/63 Pulse Oximetry 94 97 Oxygen Delivery Oxygen Flow Rate 12/03/23 19:10 12/03/23 21:42 12/04/23 02:10 Temperature 97.8 F Pulse Rate 86 73 Respiratory Rate 18 20 Blood Pressure 124/66 Pulse Oximetry 97 97 Oxygen Delivery Nasal Cannula Oxygen Flow Rate 4 12/04/23 02:25 12/04/23 02:25 12/04/23 04:18 Temperature 97.7 F Pulse Rate 75 73 59 L Respiratory Rate 20 20 Blood Pressure 111/59 L Pulse Oximetry 94 93 Oxygen Delivery Nasal Cannula Oxygen Flow Rate 4 12/04/23 00:00 12/04/23 04:00 12/04/23 07:46 Temperature Pulse Rate 101 H 65 Respiratory Rate Blood Pressure Pulse Oximetry 91 Oxygen Delivery Nasal Cannula Oxygen Flow Rate 4 12/04/23 07:46 12/04/23 08:00 12/04/23 09:21 Temperature Pulse Rate 71 75 88 Respiratory Rate 20 20 22 H Blood Pressure 114/72 Pulse Oximetry 97 Oxygen Delivery Oxygen Flow Rate Intake/Output Intake/Output: Intake & Output 12/01/23 12/02/23 12/03/23 12/04/23 23:59 23:59 23:59 23:59 Intake Total 1100 340 Output Total 500 Balance 1100 -160 Meds/Results Medications: Active Medications Generic Name Dose Route Start Last Admin Trade Name Freq PRN Reason Stop Dose Admin Acetaminophen 650 mg 12/03/23 21:23 12/03/23 23:57 Acetaminophen 325 Mg Tablet PO 650 mg Q6H PRN Administration Mild Pain (1-3) or Fever Albuterol/Ipratropium 3 ml 12/04/23 02:00 12/04/23 07:44 Ipratropium 0.5 Mg/Albuterol Sulfate 2.5 Mg Ampul.Neb 3 Ml INHALATION 3 ml Q6HRT DONAVAN Administration Azelastine HCl 2 spray 12/04/23 09:00 12/04/23 09:45 Azelastine Hcl Nasal 0.1% 137 Mcg/Spr 30 Ml Btl NASAL 2 spray DAILY DONAVAN Administration Azithromycin 500 mg 12/04/23 09:00 12/04/23 09:41 Azithromycin 250 Mg Tablet PO 500 mg DAILY DONAVAN Administration Calcium Carbonate 500 mg 12/04/23 09:00 12/04/23 09:38 Calcium/Vitamin D 500 Mg/5 Mcg (200 I.U.) Tablet PO 500 mg BID DONAVAN Administration Celecoxib 200 mg 12/04/23 08:00 12/04/23 09:38 Celecoxib 200 Mg Capsule PO 200 mg DAILY@0800 DONAVAN Administration Chlordiazepoxide HCl 10 mg 12/03/23 23:21 12/04/23 05:45 Chlordiazepoxide (*Crx) 10 Mg Capsule PO 10 mg PRN PRN Administration Anxiety Diltiazem HCl 120 mg 12/04/23 09:00 12/04/23 09:37 Diltiazem Hcl Cd 120 Mg Cap.24hr PO 120 mg DAILY DONAVAN Administration Enoxaparin Sodium 40 mg 12/04/23 09:00 12/04/23 09:39 Enoxaparin 40 Mg/0.4 Ml Syringe SUB-Q 40 mg DAILY DONAVAN Administration Famotidine 20 mg 12/03/23 23:30 12/03/23 23:57 Famotidine 20 Mg Tablet PO 20 mg HS DONAVAN Administration Fluticasone/Umeclidinium/Vilanterol 1 puff 12/04/23 08:00 12/04/23 08:09 Fluticasone/Umeclidin/Vilanter 200-62.5-25 Mcg Ellipta INHALATION Not Given DAILYRT DONAVAN Guaifenesin 1,200 mg 12/03/23 23:30 12/04/23 09:38 Guaifenesin 12 Hr 600 Mg Tabcr PO 1,200 mg Q12HR DONAVAN Administration Hydrochlorothiazide 25 mg 12/04/23 09:00 12/04/23 09:38 Hydrochlorothiazide 25 Mg Tablet PO 25 mg DAILY DONAVAN Administration Ceftriaxone Sodium 1 gm in 50 mls @ 100 mls/hr 12/04/23 18:00 Rocephin 1 Gm/Ns 50 Ml IVPB Q24H DONAVAN Levothyroxine Sodium 150 mcg 12/04/23 06:30 12/04/23 05:45 Levothyroxine Sodium 150 Mcg Tablet PO 150 mcg DAILY@0630 DONAVAN Administration Magnesium Oxide 200 mg 12/03/23 23:30 12/03/23 23:57 Magnesium Oxide 200 Mg Tablet PO 200 mg HS DONAVAN Administration Montelukast Sodium 10 mg 12/03/23 23:30 12/03/23 23:57 Montelukast Sodium 10 Mg Tablet PO 10 mg HS DONAVAN Administration Pantoprazole Sodium 40 mg 12/04/23 09:00 12/04/23 09:38 Pantoprazole 40 Mg Tablet PO 40 mg BID DONAVAN Administration Perflutren Lipid Microsphere 0 ml 12/03/23 21:23 Perflutren Lipid Microspheres 1.5 Ml Vial Diluted To 10 Ml Total Volume IV PUSH 12/06/23 21:26 ONCE PRN adequate visualization Protocol Sertraline HCl 100 mg 12/03/23 23:30 12/03/23 23:57 Sertraline Hcl 50 Mg Tablet PO 100 mg HS DONAVAN Administration Radiology Results: ITS Impressions Chest X-Ray 12/03/23 16:32 Impression: 1: Bilateral interstitial infiltrates which may reflect edema or pneumonia. Labs Labs: Laboratory Results - last 24 hr 12/03/23 12/03/23 12/03/23 15:59 16:01 18:59 WBC 6.8 RBC 4.77 Hgb 14.1 Hct 42.7 MCV 89.5 MCH 29.6 MCHC 33.0 RDW 15.3 H Plt Count 167 MPV 10.4 Immature Gran % (Auto) 0.3 Neut % (Auto) 90.3 H Lymph % (Auto) 3.4 L [place] % (Auto) 5.9 Eos % (Auto) 0.0 Baso % (Auto) 0.1 L Lymph # (Auto) 0.23 L [place] # (Auto) 0.4 Eos # (Auto) 0.0 Baso # (Auto) 0.0 Abs Immat Gran (auto) 0.02 Absolute Neuts (auto) 6.2 Absolute Nucleated RBC 0.000 Nucleated RBC % 0.0 PT 13.8 INR 1.0 APTT 24.0 Sodium 137 Potassium 3.5 Chloride 100 Carbon Dioxide 26 Anion Gap 11 BUN 23 H Creatinine 1.00 Estim Creat Clear Calc 40 Estimated GFR 53 L Glucose 107 Lactic Acid 2.0 Calcium 9.7 Magnesium Total Bilirubin 0.7 AST 43 H ALT 33 Alkaline Phosphatase 66 Troponin I < 0.012 < 0.012 NT-Pro-B Natriuret Pep 164 H Total Protein 9.0 H Albumin 4.8 Nasal MRSA (PCR) Influenza A (RT-PCR) Negative Influenza B (RT-PCR) Negative RSV (RT-PCR) Negative SARS-CoV-2 RNA (RT-PCR) Negative 12/03/23 12/03/23 12/04/23 22:02 22:27 05:05 WBC 4.7 RBC 4.36 Hgb 12.8 Hct 39.6 MCV 90.8 MCH 29.4 MCHC 32.3 RDW 15.3 H Plt Count 164 MPV 10.7 H Immature Gran % (Auto) Neut % (Auto) Lymph % (Auto) [place] % (Auto) Eos % (Auto) Baso % (Auto) Lymph # (Auto) [place] # (Auto) Eos # (Auto) Baso # (Auto) Abs Immat Gran (auto) Absolute Neuts (auto) Absolute Nucleated RBC Nucleated RBC % PT INR APTT Sodium 139 Potassium 3.6 Chloride 101 Carbon Dioxide 26 Anion Gap 12 BUN 18 H Creatinine 0.80 Estim Creat Clear Calc 48 Estimated GFR > 60 Glucose 132 H Lactic Acid Calcium 8.9 Magnesium 2.3 Total Bilirubin AST ALT Alkaline Phosphatase Troponin I < 0.012 NT-Pro-B Natriuret Pep Total Protein Albumin Nasal MRSA (PCR) Not detected Influenza A (RT-PCR) Influenza B (RT-PCR) RSV (RT-PCR) SARS-CoV-2 RNA (RT-PCR) Quality VTE Prophylaxis VTE prophylaxis: pharmacologic ordered Hospitalist MIPS Advance Care Plan I have confirmed that the patient's Advanced Care Plan is present, code status is documented, or surrogate decision maker is listed in patient medical record.: Yes Medication Reconciliation I have utilized all available resources to obtain, update and review the patients current medications (includes all prescriptions, OTC, herbals, cannabis, and nutritional supplements).: Yes
[2023-12-04] MEDS: ACETAMINOPHEN 325 MG TABLET 650 MG PO ×2 (14:30→22:28)
[2023-12-04] MEDS: methylPREDNISolone SOD SUCC 125 MG VIAL 60 MG IV PUSH ×2 (14:32→20:48)
[2023-12-04] MEDS: SERTRALINE HCL 50 MG TABLET 100 MG PO (20:47)
[2023-12-04] MEDS: MONTELUKAST SODIUM 10 MG TABLET PO (20:47)
[2023-12-04] MEDS: MAGNESIUM OXIDE 200 MG TABLET PO (20:48)
[2023-12-04] MEDS: FAMOTIDINE 20 MG TABLET PO (20:48)
[2023-12-05] VITALS (18 sets, daily range): BP systolic 118–138; BP diastolic 71–74; PULSE 67–82; RESP 18–20; TEMP 36.5–36.8; O2SAT 93–96
[2023-12-05] MEDS: traMADol HCL (*CRX) 25 MG TABLET PO ×4 (00:31→22:14)
[2023-12-05] MEDS: IPRATROPIUM 0.5 MG/ALBUTEROL SULFATE 2.5 MG AMPUL.NEB 3 ML INHALATION ×4 (02:36→20:15)
[2023-12-05] MEDS: methylPREDNISolone SOD SUCC 125 MG VIAL 60 MG IV PUSH ×2 (05:39→18:08)
[2023-12-05] MEDS: FLUTICASONE/UMECLIDIN/VILANTER 200-62.5-25 MCG ELLIPTA 1 PUFF INHALATION (07:21)
[2023-12-05] MEDS: ENOXAPARIN 40 MG/0.4 ML SYRINGE SUB-Q (08:31)
[2023-12-05] MEDS: hydroCHLOROthiazide 25 MG TABLET PO (08:31)
[2023-12-05] MEDS: dilTIAZem HCL CD 120 MG CAP.24HR PO (08:31)
[2023-12-05] MEDS: PANTOPRAZOLE 40 MG TABLET PO (08:31)
[2023-12-05] MEDS: CALCIUM/VITAMIN D 500 MG/5 MCG (200 I.U.) TABLET PO ×2 (08:31→17:15)
[2023-12-05] MEDS: AZITHROMYCIN 250 MG TABLET 500 MG PO (08:31)
[2023-12-05] MEDS: CELECOXIB 200 MG CAPSULE PO (08:31)
[2023-12-05] MEDS: guaiFENesin 12 HR 600 MG TABCR 1200 MG PO ×2 (08:31→20:20)
[2023-12-05] MEDS: AZELASTINE HCL NASAL 0.1% 137 MCG/SPR 30 ML BTL 2 SPRAY NASAL (08:36)
[2023-12-05] MEDS: DOCUSATE SODIUM 100 MG CAPSULE PO (09:22)
[2023-12-05 09:37] LABS: Hematocrit 41.6 % (37.0-47.0); Hemoglobin 13.6 g/dL (12.0-15.0); Immature Granulocyte Absolute 0.02 K/mm3 (0.00-0.031); Immature Granulocyte Percent A 0.4 % (0-0.5); Lymphocytes Absolute Auto 0.12 K/mm3 (0.9-3.2); Lymphocytes Percent Auto 2.6 % (18.3-44.2); Mean Corpuscular HGB Conc 32.7 g/dl (32-36); Mean Corpuscular Hemoglobin 29.8 pg (26-34); Mean Corpuscular Volume 91.2 fl (80-100); Mean Platelet Volume 10.8 fl (7.4-10.4); Monocytes Absolute Auto 0.1 K/mm3 (0.1-0.6); Monocytes Percent Auto 2.2 % (2.6-8.5); Neutrophils Absolute Auto 4.4 K/mm3 (1.3-6.7); Neutrophils Percent Auto 94.8 % (45.5-73.1); Platelet Count Result 183 k/mm3 (150-375); Red Blood Count 4.56 M/mm3 (4.2-5.4); Red Cell Distribution Width 15.3 % (11.5-14.5); White Blood Count 4.6 K/mm3 (4.5-10.0)
[2023-12-05 09:49] LABS: Alanine Aminotransferase 34 U/L (6-35); Albumin Level 4.7 g/dL (3.5-5.1); Alkaline Phosphatase 54 U/L (38-126); Anion Gap 11 mmol/L (4-12); Aspartate Amino Transferase 46 U/L (14-36); Bilirubin,Total 0.5 mg/dL (0.2-1.3); Blood Urea Nitrogen 22 mg/dL (7-17); Calcium 9.2 mg/dL (8.4-10.2); Carbon Dioxide 28 mmol/L (22-30); Chloride 98 mmol/L (98-107); Estimated CRCL calculation 43 ml/min; Estimated Glomerular Filt Rate 60; Glucose 182 mg/dL (65-110); Potassium 3.4 mmol/L (3.4-5.0); Sodium 137 mmol/L (137-145)
[2023-12-05] MEDS: LIDOCAINE 5% PATCH 1 PATCH TRANSDERM (10:33)
--- NOTE | 2023-12-05 12:06 | P.PNIM_ITS ---
Progress Note: A&P Assessment and Plan (1) Chronic respiratory failure with hypoxia: Code(s): J96.11 - Chronic respiratory failure with hypoxia Status: Acute Assessment and Plan: 12/04/23: * Likely secondary to COPD exacerbation * Chest x-ray showing possible pneumonia * Patient was started on Rocephin and azithromycin, we will go ahead and deescalate to just azithromycin considering she does not have a white blood cell count, she is afebrile. Likely this is more COPD exacerbation with acute bronchitis * White blood cell count was 6.8 on arrival now 4.7 * Respiratory panel was negative for influenza a and B, RSV, COVID * Urine strep, urine Legionella, mycoplasma are pending * Continue DuoNebs * Wean oxygen to keep O2 saturation 88-92% * Will trend obtain sputum culture * Continue Solu-Medrol 60 mg Q 8 hour * Continue guaifenesin and Singulair 12/05/23: * continue with current treatment plan (2) Pneumonia: Code(s): J18.9 - Pneumonia, unspecified organism Status: Acute Assessment and Plan: See above plan of care (3) Chronic obstructive pulmonary disease: Code(s): J44.9 - Chronic obstructive pulmonary disease, unspecified Status: Acute Assessment and Plan: 12/04/23: * Patient wears 4-5 L of oxygen with exertion at home and normally sats between 88-92% * See above plan of care 12/05/23: * Currently on 2 L nasal cannula * See above plan care (4) Hypertension: Code(s): I10 - Essential (primary) hypertension Status: Acute Assessment and Plan: 12/04/23: * Blood pressures ranging 111/59-135/63 * Continue hydrochlorothiazide 12/05/23: * No change to current treatment Time Spent With Patient Time with patient: 25 - 35 minutes Subjective Date/time seen: 12/05/23 12:06 Interval history: Interval history: This is a 78-year-old female who presented to the hospital on 12/05/2023 with worsening shortness of breath requiring increased oxygen. workup in the hospital includes a chest x-ray shows bilateral interstitial infiltrates which may refle ct edema or pneumonia. Echocardiogram is pending. Initial labs showed a normal white blood cell count of 6.8 EGFR 53, troponin negative x3, proBNP 164. MRSA was negative. Respiratory panel was negative influenza a and B, RSV, COVID. Urine strep, urine Legionella, and mycoplasma are pending. Patient was started on Rocephin and azithromycin. She was also given Solu-Medrol 125 mg IV push and DuoNebs while in the ED. 12/04/23: Patient denies any fever, chills, nausea, vomiting, diarrhea, abdominal pain, chest pain. She reports shortness of breath rest and is currently on 5 L nasal cannula today. She does wear home O2 but only with exertion. She normally has oxygen saturation between 88-92%. 12/05/23: Denies any new complaints today. She is down to 2L NC today and does not appear to be in any acute distress. Review of Systems Review of Systems: 12 systems were reviewed and are negativ e except for as per HPI. Constitutional: Constitutional: Reports as per HPI and Reports no additional constitutional complaints Eyes: Eyes: Reports as per HPI and Reports no additional eye complaints ENT: Reports system reviewed and no additional complaints, except as documented and Reports as per HPI Cardiovascular: Cardiovascular: Reports as per HPI and Reports no additional cardiovascular complaints Respiratory: Respiratory: Reports as per HPI and Reports no additional respiratory complaints Gastrointestinal: Gastrointestinal: Reports as per HPI and Reports no additional gastrointestinal complaints Genitourinary: Genitourinary: Reports no additional female genitourinary complaints and Reports as per HPI Musculoskeletal: Musculoskeletal: Reports no additional musculoskeletal complaints and Reports as per HPI Integumentary/Breasts: Skin/Breast: Reports system reviewed and no additional complaints, except as docu and Reports as per HPI Neurologic: Reports system reviewed and no additional complaints, except as documented and Reports as per HPI Psychiatric: Psychiatric: Reports no additional psychiatric complaints and Reports as per HPI Exam Narrative: General: In no acute distress, well nourished Cardiac: Normal S1 and S2. RRR No murmur, gallops or friction rubs, peripheral pulses intact. Respiratory: Lungs are clear, currently on 2 L NC, no acute distress noted today Gastrointestinal: soft, non-distended, non-tender, normoactive bowel sounds. : voiding without difficulty. Neuro: Alert and oriented x4 Objective Data Vital Signs Vital Signs: Vital Signs - 24 hr 12/04/23 13:35 12/04/23 13:36 12/04/23 13:47 Temperature Pulse Rate 74 78 Respiratory Rate 20 20 Blood Pressure Pulse Oximetry 96 Oxygen Delivery Nasal Cannula Oxygen Flow Rate 4 Fraction of Inspired Oxygen 12/04/23 14:00 12/04/23 16:00 12/04/23 20:24 Temperature 97.5 F L Pulse Rate 80 66 74 Respiratory Rate 14 Blood Pressure 109/60 Pulse Oximetry 98 93 Oxygen Delivery Nasal Cannula Oxygen Flow Rate 2 Fraction of Inspired Oxygen 12/04/23 20:24 12/04/23 20:28 12/04/23 20:31 Temperature 97.6 F Pulse Rate 73 78 83 Respiratory Rate 20 20 20 Blood Pressure 137/80 Pulse Oximetry 97 Oxygen Delivery Oxygen Flow Rate Fraction of Inspired Oxygen 12/04/23 20:00 12/05/23 02:38 12/05/23 02:47 Temperature Pulse Rate 74 73 Respiratory Rate 18 18 Blood Pressure Pulse Oximetry 97 Oxygen Delivery Nasal Cannula Oxygen Flow Rate 4 Fraction of Inspired Oxygen 12/04/23 20:00 12/05/23 00:00 12/05/23 04:00 Temperature Pulse Rate 74 74 74 Respiratory Rate Blood Pressure Pulse Oximetry Oxygen Delivery Oxygen Flow Rate Fraction of Inspired Oxygen 12/05/23 05:43 12/05/23 07:21 12/05/23 07:21 Temperature 98.1 F Pulse Rate 67 72 Respiratory Rate 18 18 Blood Pressure 138/71 Pulse Oximetry 94 96 Oxygen Delivery Nasal Cannula Oxygen Flow Rate 3 Fraction of Inspired Oxygen 32 12/05/23 07:31 12/05/23 08:00 12/05/23 08:00 Temperature Pulse Rate 74 79 Respiratory Rate 18 Blood Pressure Pulse Oximetry 96 Oxygen Delivery Nasal Cannula Oxygen Flow Rate 2 Fraction of Inspired Oxygen Intake/Output Intake/Output: Intake & Output 12/02/23 12/03/23 12/04/23 12/05/23 23:59 23:59 23:59 23:59 Intake Total 1100 801 420 Output Total 500 Balance 1100 301 420 Meds/Results Medications: Active Medications Generic Name Dose Route Start Last Admin Trade Name Freq PRN Reason Stop Dose Admin Acetaminophen 650 mg 12/03/23 21:23 12/04/23 22:28 Acetaminophen 325 Mg Tablet PO 650 mg Q6H PRN Administration Mild Pain (1-3) or Fever Albuterol/Ipratropium 3 ml 12/04/23 02:00 12/05/23 07:21 Ipratropium 0.5 Mg/Albuterol Sulfate 2.5 Mg Ampul.Neb 3 Ml INHALATION 3 ml Q6HRT DONAVAN Administration Azelastine HCl 2 spray 12/04/23 09:00 12/05/23 08:36 Azelastine Hcl Nasal 0.1% 137 Mcg/Spr 30 Ml Btl NASAL 2 spray DAILY DONAVAN Administration Azithromycin 500 mg 12/04/23 09:00 12/05/23 08:31 Azithromycin 250 Mg Tablet PO 12/07/23 09:01 500 mg DAILY DONAVAN Administration Benzocaine 1 lozenge 12/04/23 20:41 Benzocaine/Menthol (*Bkc) 18 Ea Lozenge PO PRN PRN Sore Throat Bisacodyl 5 mg 12/05/23 09:00 Bisacodyl 5 Mg Tablet Ec PO DAILY PRN Constipation Calcium Carbonate 500 mg 12/04/23 09:00 12/05/23 08:31 Calcium/Vitamin D 500 Mg/5 Mcg (200 I.U.) Tablet PO 500 mg BID DONAVAN Administration Celecoxib 200 mg 12/04/23 08:00 12/05/23 08:31 Celecoxib 200 Mg Capsule PO 200 mg DAILY@0800 DONAVAN Administration Chlordiazepoxide HCl 10 mg 12/03/23 23:21 12/04/23 22:29 Chlordiazepoxide (*Crx) 10 Mg Capsule PO 10 mg PRN PRN Administration Anxiety Diltiazem HCl 120 mg 12/04/23 09:00 12/05/23 08:31 Diltiazem Hcl Cd 120 Mg Cap.24hr PO 120 mg DAILY DONAVAN Administration Docusate Sodium 100 mg 12/05/23 09:03 12/05/23 09:22 Docusate Sodium 100 Mg Capsule PO 100 mg Q12H PRN Administration Constipation Enoxaparin Sodium 40 mg 12/04/23 09:00 12/05/23 08:31 Enoxaparin 40 Mg/0.4 Ml Syringe SUB-Q 40 mg DAILY DONAVAN Administration Famotidine 20 mg 12/03/23 23:30 12/04/23 20:48 Famotidine 20 Mg Tablet PO 20 mg HS DONAVAN Administration Fluticasone/Umeclidinium/Vilanterol 1 puff 12/04/23 08:00 12/05/23 07:21 Fluticasone/Umeclidin/Vilanter 200-62.5-25 Mcg Ellipta INHALATION 1 puff DAILYRT DONAVAN Administration Guaifenesin 1,200 mg 12/03/23 23:30 12/05/23 08:31 Guaifenesin 12 Hr 600 Mg Tabcr PO 1,200 mg Q12HR DONAVAN Administration Hydrochlorothiazide 25 mg 12/04/23 09:00 12/05/23 08:31 Hydrochlorothiazide 25 Mg Tablet PO 25 mg DAILY DONAVAN Administration Levothyroxine Sodium 150 mcg 12/04/23 06:30 12/05/23 08:27 Levothyroxine Sodium 150 Mcg Tablet PO Not Given DAILY@0630 DONAVAN Lidocaine 1 patch 12/05/23 09:00 12/05/23 10:33 Lidocaine 5% Patch TRANSDERM 1 patch DAILY DONAVAN Administration Magnesium Oxide 200 mg 12/03/23 23:30 12/04/23 20:48 Magnesium Oxide 200 Mg Tablet PO 200 mg HS DONAVAN Administration Methylprednisolone Sodium Succinate 60 mg 12/05/23 18:00 Methylprednisolone Sod Succ 125 Mg Vial IV PUSH Q12H DONAVAN Montelukast Sodium 10 mg 12/03/23 23:30 12/04/23 20:47 Montelukast Sodium 10 Mg Tablet PO 10 mg HS DONAVAN Administration Pantoprazole Sodium 40 mg 12/04/23 15:50 12/05/23 08:31 Pantoprazole 40 Mg Tablet PO 40 mg QAM DONAVAN Administration Perflutren Lipid Microsphere 0 ml 12/03/23 21:23 Perflutren Lipid Microspheres 1.5 Ml Vial Diluted To 10 Ml Total Volume IV PUSH 12/06/23 21:26 ONCE PRN adequate visualization Protocol Sertraline HCl 100 mg 12/03/23 23:30 12/04/23 20:47 Sertraline Hcl 50 Mg Tablet PO 100 mg HS DONAVAN Administration Tramadol HCl 25 mg 12/05/23 08:51 Tramadol Hcl (*Crx) 25 Mg Tablet PO Q4H PRN Pain Rated 4-6 Radiology Results: ITS Impressions Chest X-Ray 12/03/23 16:32 Impression: 1: Bilateral interstitial infiltrates which may reflect edema or pneumonia. Labs Labs: Laboratory Results - last 24 hr 12/05/23 09:08 WBC 4.6 RBC 4.56 Hgb 13.6 Hct 41.6 MCV 91.2 MCH 29.8 MCHC 32.7 RDW 15.3 H Plt Count 183 MPV 10.8 H Immature Gran % (Auto) 0.4 Neut % (Auto) 94.8 H Lymph % (Auto) 2.6 L [place] % (Auto) 2.2 L Eos % (Auto) 0.0 Baso % (Auto) 0.0 L Lymph # (Auto) 0.12 L [place] # (Auto) 0.1 Eos # (Auto) 0.0 Baso # (Auto) 0.0 Abs Immat Gran (auto) 0.02 Absolute Neuts (auto) 4.4 Absolute Nucleated RBC 0.000 Nucleated RBC % 0.0 Sodium 137 Potassium 3.4 Chloride 98 Carbon Dioxide 28 Anion Gap 11 BUN 22 H Creatinine 0.90 Estim Creat Clear Calc 43 Estimated GFR 60 Glucose 182 H Calcium 9.2 Total Bilirubin 0.5 AST 46 H ALT 34 Alkaline Phosphatase 54 Total Protein 9.0 H Albumin 4.7 Quality VTE Prophylaxis VTE prophylaxis: pharmacologic ordered Hospitalist MIPS Advance Care Plan I have confirmed that the patient's Advanced Care Plan is present, code status is documented, or surrogate decision maker is listed in patient medical record.: Yes Medication Reconciliation I have utilized all available resources to obtain, update and review the patients current medications (includes all prescriptions, OTC, herbals, cannabis, and nutritional supplements).: Yes
[2023-12-05] MEDS: SERTRALINE HCL 50 MG TABLET 100 MG PO (20:20)
[2023-12-05] MEDS: MONTELUKAST SODIUM 10 MG TABLET PO (20:20)
[2023-12-05] MEDS: FAMOTIDINE 20 MG TABLET PO (20:20)
[2023-12-05] MEDS: MAGNESIUM OXIDE 200 MG TABLET PO (20:20)
[2023-12-05] MEDS: chlordiazePOXIDE (*CRX) 10 MG CAPSULE PO (22:14)
[2023-12-06] VITALS (11 sets, daily range): BP systolic 119; BP diastolic 55; PULSE 7–78; RESP 18–20; TEMP 36.8; O2SAT 92–93
[2023-12-06] MEDS: IPRATROPIUM 0.5 MG/ALBUTEROL SULFATE 2.5 MG AMPUL.NEB 3 ML INHALATION ×3 (02:26→13:26)
[2023-12-06] MEDS: traMADol HCL (*CRX) 25 MG TABLET PO ×3 (03:06→13:28)
[2023-12-06 05:37] LABS: Hematocrit 38.4 % (37.0-47.0); Hemoglobin 12.6 g/dL (12.0-15.0); Immature Granulocyte Absolute 0.02 K/mm3 (0.00-0.031); Immature Granulocyte Percent A 0.3 % (0-0.5); Lymphocytes Absolute Auto 0.19 K/mm3 (0.9-3.2); Lymphocytes Percent Auto 2.9 % (18.3-44.2); Mean Corpuscular HGB Conc 32.8 g/dl (32-36); Mean Corpuscular Hemoglobin 30.1 pg (26-34); Mean Corpuscular Volume 91.6 fl (80-100); Mean Platelet Volume 10.3 fl (7.4-10.4); Monocytes Absolute Auto 0.3 K/mm3 (0.1-0.6); Monocytes Percent Auto 4.7 % (2.6-8.5); Neutrophils Absolute Auto 6.1 K/mm3 (1.3-6.7); Neutrophils Percent Auto 92.1 % (45.5-73.1); Platelet Count Result 182 k/mm3 (150-375); Red Blood Count 4.19 M/mm3 (4.2-5.4); Red Cell Distribution Width 15.3 % (11.5-14.5); White Blood Count 6.6 K/mm3 (4.5-10.0)
[2023-12-06 05:50] LABS: Alanine Aminotransferase 37 U/L (6-35); Albumin Level 4.5 g/dL (3.5-5.1); Alkaline Phosphatase 48 U/L (38-126); Anion Gap 11 mmol/L (4-12); Aspartate Amino Transferase 44 U/L (14-36); Bilirubin,Total 0.4 mg/dL (0.2-1.3); Blood Urea Nitrogen 23 mg/dL (7-17); Calcium 9.2 mg/dL (8.4-10.2); Carbon Dioxide 30 mmol/L (22-30); Chloride 95 mmol/L (98-107); Estimated CRCL calculation 44 ml/min; Estimated Glomerular Filt Rate 60; Glucose 140 mg/dL (65-110); Potassium 3.4 mmol/L (3.4-5.0); Sodium 136 mmol/L (137-145)
[2023-12-06] MEDS: methylPREDNISolone SOD SUCC 125 MG VIAL 60 MG IV PUSH (05:55)
--- NOTE | 2023-12-06 07:10 | P.PNIM_ITS ---
Progress Note: A&P Assessment and Plan (1) Chronic respiratory failure with hypoxia: Code(s): J96.11 - Chronic respiratory failure with hypoxia Status: Acute Assessment and Plan: 12/04/23: * Likely secondary to COPD exacerbation * Chest x-ray showing possible pneumonia * Patient was started on Rocephin and azithromycin, we will go ahead and deescalate to just azithromycin considering she does not have a white blood cell count, she is afebrile. Likely this is more COPD exacerbation with acute bronchitis * White blood cell count was 6.8 on arrival now 4.7 * Respiratory panel was negative for influenza a and B, RSV, COVID * Urine strep, urine Legionella, mycoplasma are pending * Continue DuoNebs * Wean oxygen to keep O2 saturation 88-92% * Will trend obtain sputum culture * Continue Solu-Medrol 60 mg Q 8 hour * Continue guaifenesin and Singulair 12/05/23: * continue with current treatment plan 12/06/23: * Continue to wean O2 * Will decrease steroid down to once a day. (2) Pneumonia: Code(s): J18.9 - Pneumonia, unspecified organism Status: Acute Assessment and Plan: See above plan of care (3) Chronic obstructive pulmonary disease: Code(s): J44.9 - Chronic obstructive pulmonary disease, unspecified Status: Acute Assessment and Plan: see above plan of care (4) Hypertension: Code(s): I10 - Essential (primary) hypertension Status: Acute Assessment and Plan: 12/04/23: * Blood pressures ranging 111/59-135/63 * Continue hydrochlorothiazide 12/05/23: * No change to current treatment Time Spent With Patient Time with patient: Greater than 35 minutes Subjective Date/time seen: 12/06/23 07:10 Interval history: Interval history: This is a 78-year-old female who presented to the hospital on 12/05/2023 with worsening shortness of breath requiring increased oxygen. workup in the hospital includes a chest x-ray shows bilateral interstitial infiltrates which may reflect edema or pneumonia. Echocardiogram is pending. Initial labs showed a normal white blood cell count of 6.8 EGFR 53, troponin negative x3, proBNP 164. MRSA was negative. Respiratory panel was negative influenza a and B, RSV, COVID. Urine strep, urine Legionella, and mycoplasma are pending. Patient was started on Rocephin and azithromycin. She was also given Solu-Medrol 125 mg IV push and DuoNebs while in the ED. 12/04/23: Patient denies any fever, chills, nausea, vomiting, diarrhea, abdominal pain, chest pain. She reports shortness of breath rest and is currently on 5 L nasal cannula today. She does wear home O2 but only with exertion. She normally has oxygen saturation between 88-92%. 12/05/23: Denies any new complaints today. She is down to 2L NC today and does not appear to be in any acute distress. 12/06/23: Currently still on 2L NC. Patient denies any new complaints Review of Systems Review of Systems: 12 systems were reviewed and are negativ e except for as per HPI. Constitutional: Constitutional: Reports as per HPI and Reports no additional constitutional complaints Eyes: Eyes: Reports as per HPI and Reports no additional eye complaints ENT: Reports system reviewed and no additional complaints, except as documented and Reports as per HPI Cardiovascular: Cardiovascular: Reports as per HPI and Reports no additional cardiovascular complaints Respiratory: Respiratory: Reports as per HPI and Reports no additional respiratory complaints Gastrointestinal: Gastrointestinal: Reports as per HPI and Reports no additional gastrointestinal complaints Genitourinary: Genitourinary: Reports no additional female genitourinary complaints and Reports as per HPI Musculoskeletal: Musculoskeletal: Reports no additional musculoskeletal complaints and Reports as per HPI Integumentary/Breasts: Skin/Breast: Reports system reviewed and no additional complaints, except as docu and Reports as per HPI Neurologic: Reports system reviewed and no additional complaints, except as documented and Reports as per HPI Psychiatric: Psychiatric: Reports no additional psychiatric complaints and Reports as per HPI Exam Narrative: General: In no acute distress, well nourished Cardiac: Normal S1 and S2. RRR No murmur, gallops or friction rubs, peripheral pulses intact. Respiratory: Lungs are clear, currently on 2 L NC, no acute distress noted today Gastrointestinal: soft, non-distended, non-tender, normoactive bowel sounds. : voiding without difficulty. Neuro: Alert and oriented x4 Objective Data Vital Signs Vital Signs: Vital Signs - 24 hr 12/05/23 07:21 12/05/23 07:21 12/05/23 07:31 Temperature Pulse Rate 72 74 Respiratory Rate 18 18 Blood Pressure Pulse Oximetry 96 Oxygen Delivery Nasal Cannula Oxygen Flow Rate 3 Fraction of Inspired Oxygen 32 12/05/23 08:00 12/05/23 08:00 12/05/23 12:00 Temperature Pulse Rate 79 68 Respiratory Rate Blood Pressure Pulse Oximetry 96 Oxygen Delivery Nasal Cannula Oxygen Flow Rate 2 Fraction of Inspired Oxygen 12/05/23 13:30 12/05/23 13:42 12/05/23 16:00 Temperature Pulse Rate 77 75 82 Respiratory Rate 20 20 Blood Pressure Pulse Oximetry Oxygen Delivery Oxygen Flow Rate Fraction of Inspired Oxygen 12/05/23 14:10 12/05/23 19:50 12/05/23 20:17 Temperature 97.7 F 98.2 F Pulse Rate 72 72 73 Respiratory Rate 19 18 18 Blood Pressure 130/74 118/73 Pulse Oximetry 95 93 Oxygen Delivery Oxygen Flow Rate Fraction of Inspired Oxygen 12/05/23 20:21 12/05/23 20:27 12/05/23 20:00 Temperature Pulse Rate 75 Respiratory Rate 18 Blood Pressure Pulse Oximetry 94 94 Oxygen Delivery Nasal Cannula Nasal Cannula Oxygen Flow Rate 2 2 Fraction of Inspired Oxygen 12/06/23 02:29 12/05/23 20:00 12/06/23 00:00 Temperature Pulse Rate 72 73 58 L Respiratory Rate 18 Blood Pressure Pulse Oximetry Oxygen Delivery Oxygen Flow Rate Fraction of Inspired Oxygen 12/06/23 04:00 12/06/23 04:45 Temperature 98.3 F Pulse Rate 59 L 62 Respiratory Rate 20 Blood Pressure 119/55 L Pulse Oximetry 92 Oxygen Delivery Oxygen Flow Rate Fraction of Inspired Oxygen Intake/Output Intake/Output: Intake & Output 12/03/23 12/04/23 12/05/23 12/06/23 23:59 23:59 23:59 23:59 Intake Total 1100 801 960 221 Output Total 500 Balance 1100 301 960 221 Meds/Results Medications: Active Medications Generic Name Dose Route Start Last Admin Trade Name Freq PRN Reason Stop Dose Admin Acetaminophen 650 mg 12/03/23 21:23 12/04/23 22:28 Acetaminophen 325 Mg Tablet PO 650 mg Q6H PRN Administration Mild Pain (1-3) or Fever Albuterol/Ipratropium 3 ml 12/04/23 02:00 12/06/23 02:26 Ipratropium 0.5 Mg/Albuterol Sulfate 2.5 Mg Ampul.Neb 3 Ml INHALATION 3 ml Q6HRT DONAVAN Administration Azelastine HCl 2 spray 12/04/23 09:00 12/05/23 08:36 Azelastine Hcl Nasal 0.1% 137 Mcg/Spr 30 Ml Btl NASAL 2 spray DAILY DONAVAN Administration Azithromycin 500 mg 12/04/23 09:00 12/05/23 08:31 Azithromycin 250 Mg Tablet PO 12/07/23 09:01 500 mg DAILY DONAVAN Administration Benzocaine 1 lozenge 12/04/23 20:41 Benzocaine/Menthol (*Bkc) 18 Ea Lozenge PO PRN PRN Sore Throat Bisacodyl 5 mg 12/05/23 09:00 Bisacodyl 5 Mg Tablet Ec PO DAILY PRN Constipation Calcium Carbonate 500 mg 12/04/23 09:00 12/05/23 17:15 Calcium/Vitamin D 500 Mg/5 Mcg (200 I.U.) Tablet PO 500 mg BID DONAVAN Administration Celecoxib 200 mg 12/04/23 08:00 12/05/23 08:31 Celecoxib 200 Mg Capsule PO 200 mg DAILY@0800 DONAVAN Administration Chlordiazepoxide HCl 10 mg 12/03/23 23:21 12/05/23 22:14 Chlordiazepoxide (*Crx) 10 Mg Capsule PO 10 mg PRN PRN Administration Anxiety Diltiazem HCl 120 mg 12/04/23 09:00 12/05/23 08:31 Diltiazem Hcl Cd 120 Mg Cap.24hr PO 120 mg DAILY DONAVAN Administration Docusate Sodium 100 mg 12/05/23 09:03 12/05/23 09:22 Docusate Sodium 100 Mg Capsule PO 100 mg Q12H PRN Administration Constipation Enoxaparin Sodium 40 mg 12/04/23 09:00 12/05/23 08:31 Enoxaparin 40 Mg/0.4 Ml Syringe SUB-Q 40 mg DAILY DONAVAN Administration Famotidine 20 mg 12/03/23 23:30 12/05/23 20:20 Famotidine 20 Mg Tablet PO 20 mg HS DONAVAN Administration Fluticasone/Umeclidinium/Vilanterol 1 puff 12/04/23 08:00 12/05/23 07:21 Fluticasone/Umeclidin/Vilanter 200-62.5-25 Mcg Ellipta INHALATION 1 puff DAILYRT DONAVAN Administration Guaifenesin 1,200 mg 12/03/23 23:30 12/05/23 20:20 Guaifenesin 12 Hr 600 Mg Tabcr PO 1,200 mg Q12HR DONAVAN Administration Hydrochlorothiazide 25 mg 12/04/23 09:00 12/05/23 08:31 Hydrochlorothiazide 25 Mg Tablet PO 25 mg DAILY DONAVAN Administration Levothyroxine Sodium 150 mcg 12/04/23 06:30 12/05/23 08:27 Levothyroxine Sodium 150 Mcg Tablet PO Not Given DAILY@0630 DONAVAN Lidocaine 1 patch 12/05/23 09:00 12/05/23 10:33 Lidocaine 5% Patch TRANSDERM 1 patch DAILY DONAVAN Administration Magnesium Oxide 200 mg 12/03/23 23:30 12/05/23 20:20 Magnesium Oxide 200 Mg Tablet PO 200 mg HS DONAVAN Administration Methylprednisolone Sodium Succinate 60 mg 12/05/23 18:00 12/06/23 05:55 Methylprednisolone Sod Succ 125 Mg Vial IV PUSH 60 mg Q12H DONAVAN Administration Montelukast Sodium 10 mg 12/03/23 23:30 12/05/23 20:20 Montelukast Sodium 10 Mg Tablet PO 10 mg HS DONAVAN Administration Pantoprazole Sodium 40 mg 12/04/23 15:50 12/05/23 08:31 Pantoprazole 40 Mg Tablet PO 40 mg QAM DONAVAN Administration Perflutren Lipid Microsphere 0 ml 12/03/23 21:23 Perflutren Lipid Microspheres 1.5 Ml Vial Diluted To 10 Ml Total Volume IV PUSH 12/06/23 21:26 ONCE PRN adequate visualization Protocol Sertraline HCl 100 mg 12/03/23 23:30 12/05/23 20:20 Sertraline Hcl 50 Mg Tablet PO 100 mg HS DONAVAN Administration Tramadol HCl 25 mg 12/05/23 08:51 12/06/23 03:06 Tramadol Hcl (*Crx) 25 Mg Tablet PO 25 mg Q4H PRN Administration Pain Rated 4-6 Radiology Results: ITS Impressions Chest X-Ray 12/03/23 16:32 Impression: 1: Bilateral interstitial infiltrates which may reflect edema or pneumonia. Abdomen Ultrasound 12/05/23 15:23 IMPRESSION: 1. Diffuse hepatic steatosis. 2. Status post cholecystectomy. Labs Labs: Laboratory Results - last 24 hr 12/05/23 12/06/23 09:08 05:03 WBC 4.6 6.6 RBC 4.56 4.19 L Hgb 13.6 12.6 Hct 41.6 38.4 MCV 91.2 91.6 MCH 29.8 30.1 MCHC 32.7 32.8 RDW 15.3 H 15.3 H Plt Count 183 182 MPV 10.8 H 10.3 Immature Gran % (Auto) 0.4 0.3 Neut % (Auto) 94.8 H 92.1 H Lymph % (Auto) 2.6 L 2.9 L [place] % (Auto) 2.2 L 4.7 Eos % (Auto) 0.0 0.0 Baso % (Auto) 0.0 L 0.0 L Lymph # (Auto) 0.12 L 0.19 L [place] # (Auto) 0.1 0.3 Eos # (Auto) 0.0 0.0 Baso # (Auto) 0.0 0.0 Abs Immat Gran (auto) 0.02 0.02 Absolute Neuts (auto) 4.4 6.1 Absolute Nucleated RBC 0.000 0.000 Nucleated RBC % 0.0 0.0 Sodium 137 136 L Potassium 3.4 3.4 Chloride 98 95 L Carbon Dioxide 28 30 Anion Gap 11 11 BUN 22 H 23 H Creatinine 0.90 0.90 Estim Creat Clear Calc 43 44 Estimated GFR 60 60 Glucose 182 H 140 H Calcium 9.2 9.2 Total Bilirubin 0.5 0.4 AST 46 H 44 H ALT 34 37 H Alkaline Phosphatase 54 48 Total Protein 9.0 H 8.0 Albumin 4.7 4.5 Quality VTE Prophylaxis VTE prophylaxis: pharmacologic ordered Hospitalist MIPS Advance Care Plan I have confirmed that the patient's Advanced Care Plan is present, code status is documented, or surrogate decision maker is listed in patient medical record.: Yes Medication Reconciliation I have utilized all available resources to obtain, update and review the patients current medications (includes all prescriptions, OTC, herbals, cannabis, and nutritional supplements).: Yes
[2023-12-06] MEDS: CELECOXIB 200 MG CAPSULE PO (08:54)
[2023-12-06] MEDS: LEVOTHYROXINE SODIUM 150 MCG TABLET PO (08:54)
[2023-12-06] MEDS: AZELASTINE HCL NASAL 0.1% 137 MCG/SPR 30 ML BTL 2 SPRAY NASAL (08:54)
[2023-12-06] MEDS: AZITHROMYCIN 250 MG TABLET 500 MG PO (08:55)
[2023-12-06] MEDS: ENOXAPARIN 40 MG/0.4 ML SYRINGE SUB-Q (08:56)
[2023-12-06] MEDS: dilTIAZem HCL CD 120 MG CAP.24HR PO (08:56)
[2023-12-06] MEDS: guaiFENesin 12 HR 600 MG TABCR 1200 MG PO (08:56)
[2023-12-06] MEDS: CALCIUM/VITAMIN D 500 MG/5 MCG (200 I.U.) TABLET PO (08:56)
[2023-12-06] MEDS: hydroCHLOROthiazide 25 MG TABLET PO (08:57)
[2023-12-06] MEDS: PANTOPRAZOLE 40 MG TABLET PO (08:57)
[2023-12-06] MEDS: FLUTICASONE/UMECLIDIN/VILANTER 200-62.5-25 MCG ELLIPTA 1 PUFF INHALATION (13:26)
--- NOTE | 2023-12-06 13:41 | P.DS_ITS ---
DS: Admitting Diagnosis Discharge Date 12/06/23 Admitting Diagnosis Pneumonia COPD Chronic respiratory failure with hypoxia Hypertension DS: Discharge Diagnosis Discharge Diagnosis (1) Chronic respiratory failure with hypoxia: Code(s): J96.11 - Chronic respiratory failure with hypoxia Status: Acute (2) Pneumonia: Code(s): J18.9 - Pneumonia, unspecified organism Status: Acute (3) Chronic obstructive pulmonary disease: Code(s): J44.9 - Chronic obstructive pulmonary disease, unspecified Status: Acute (4) Hypertension: Code(s): I10 - Essential (primary) hypertension Status: Acute DS: Summary Hospital Course Reason for hospitalization: Pneumonia COPD Chronic respiratory failure with hypoxia Hypertension Hospital Course: This is a 78-year-old female who presented to the hospital on 12/05/2023 with worsening shortness of breath requiring increased oxygen. workup in the hospital includes a chest x-ray shows bilateral interstitial infiltrates which may reflect edema or pneumonia. Echocardiogram is pending. Initial labs showed a normal white blood cell count of 6.8 EGFR 53, troponin negative x3, proBNP 164. MRSA was negative. Respiratory panel was negative influenza a and B, RSV, COVID. Urine strep, urine Legionella, and mycoplasma are pending. Patient was started on Rocephin and azithromycin. She was also given Solu-Medrol 125 mg IV push and DuoNebs while in the ED. Her Rocephin was discontinued as she had not had an increase in WBC, nor was she febrile. On examination her lungs were clear and this was likely a COPD exacerbation and not pneumonia. I started patient on Solu-medrol and tapered her during her stay. She was reporting of left flank pain and was noted to have ecchymosis to her left flank without any known histo ry of injury. Thoracic spine x-ray was negative. Likely due to coughing fits. She was started on tramadol for pain control and instructed to splint that area when she coughs. She is now down to 2L NC for the past 48 hours. I will discharge her home today with a solu medrol dose pack, Azithromycin, and chicken stuffer follow up. Final diagnosis: Acute respiratory failure with hypoxia due to COPD exacerbation Status at Discharge Cognitive/behavioral status at discharge: Alert oriented x4 Functional status at discharge: independent ambulation Overall status at discharge: patient is progressing back to baseline Time Spent with Patient Time attestation: Total time spent providing and/or coordinating discharge services: Time spent: Greater than 30 minutes Exam Narrative: General: In no acute distress, well nourished Cardiac: Normal S1 and S2. RRR No murmur, gallops or friction rubs, peripheral pulses intact. Respiratory: Lungs are clear, currently on 2 L NC, no acute distress noted today Gastrointestinal: soft, non-distended, non-tender, normoactive bowel sounds. : voiding without difficulty. Neuro: Alert and oriented x4 DS: Data Data Completed and Pending Completed studies during hospitalization: Thoracic spine x-ray Abdomen ultrasound Chest x-ray Pending studies at discharge: Blood cultures Labs on day of discharge: Labs from last 24 hours 12/06/23 05:03 WBC 6.6 RBC 4.19 L Hgb 12.6 Hct 38.4 MCV 91.6 MCH 30.1 MCHC 32.8 RDW 15.3 H Plt Count 182 MPV 10.3 Immature Gran % (Auto) 0.3 Neut % (Auto) 92.1 H Lymph % (Auto) 2.9 L Spencer % (Auto) 4.7 Eos % (Auto) 0.0 Baso % (Auto) 0.0 L Lymph # (Auto) 0.19 L Spencer # (Auto) 0.3 Eos # (Auto) 0.0 Baso # (Auto) 0.0 Abs Immat Gran (auto) 0.02 Absolute Neuts (auto) 6.1 Absolute Nucleated RBC 0.000 Nucleated RBC % 0.0 Sodium 136 L Potassium 3.4 Chloride 95 L Carbon Dioxide 30 Anion Gap 11 BUN 23 H Creatinine 0.90 Estim Creat Clear Calc 44 Estimated GFR 60 Glucose 140 H Calcium 9.2 Total Bilirubin 0.4 AST 44 H ALT 37 H Alkaline Phosphatase 48 Total Protein 8.0 Albumin 4.5 Preliminary micro results at discharge 12/03/23 17:50 Blood Culture - Preliminary Blood 12/03/23 17:49 Blood Culture - Preliminary Blood Procedures/Treatments: None Discharge Plan Discharge Attending physician on discharge: Mike Willoughby Consulting providers: Valentina Castellanos Discharging Clinician: Valentina Castellanos Anticipated Discharge Date/Time: 12/06/23 12:12 Patient Disposition: Home, Self-Care Activity: as tolerated Diet: as tolerated Discharge Instructions: * Finish your course of azithromycin and steroid Dosepak * Follow-up with your primary care doctor in 1 week Patient Instructions: Antibiotic Form, Azithromycin (By mouth), Tramadol (By mouth), COPD (Chronic Obstructive Pulmonary Disease) (DC) Patient Language: Tamaz[place] Stand Alone Forms: General Discharge Information Follow-up/Referrals: KellyCortez MD [Primary Care Provider] - 1 Week Romi Cade MD [Physician] - 2 Weeks (COPD/PFTs, needs new chicken stuffer ) Discharge Medications: New azithromycin [Zithromax] 250 mg Tablet 500 mg PO DAILY Qty: 2 0RF tramadol 25 mg tablet 25 mg PO Q4H PRN (Reason: pain) Qty: 30 0RF methylprednisolone [Medrol (Bill)] 4 mg tablets,dose pack See Rx Instructions .ROUTE .COMPLEX Qty: 21 0RF Rx Instructions: orally per package directions Continued celecoxib [Celebrex] 200 mg capsule 200 mg PO DAILY magnesium 200 mg tablet 200 mg PO HS sertraline 100 mg tablet 100 mg PO HS omeprazole 40 mg capsule,delayed release(DR/EC) 40 mg PO DAILY famotidine 20 mg tablet 20 mg PO HS levothyroxine 150 mcg tablet 150 mcg PO DAILY diltiazem HCl 120 mg capsule,ext.rel 24h degradable 120 mg PO DAILY chlordiazepoxide HCl 10 mg capsule 10 - 20 mg PO PRN PRN (Reason: Anxiety) montelukast 10 mg tablet 10 mg PO HS hydrochlorothiazide 25 mg tablet 25 mg PO DAILY levalbuterol HCl 1.25 mg/3 mL solution for nebulization 1.25 mg INHALATION TID calcium carbonate-vitamin D3 250 mg-3.125 mcg (125 unit) tablet 2 tablet PO BID Trelegy Ellipta 200-62.5-25 mcg blister with device 1 inh INHALATION DAILY azelastine 0.15 % (205.5 mcg) spray,non-aerosol 205.5 mcg NASAL DAILY Qty: 30 3RF Rx Instructions: administer into each nostril benzonatate 200 mg capsule 200 mg PO TID PRN (Reason: cough) Qty: 90 1RF Date of admission: 12/05/23 13:39 Primary Care Provider: LalithaCortez Admitting Provider: Chacha Ortiz Attending physician on admission: Chacha Ortiz Condition: Improved Quality VTE Prophylaxis VTE prophylaxis: pharmacologic ordered
[2023-12-09 17:26] LABS: Reference Lab Test Name M AVIUM DNA PCR
[2023-12-09 17:29] LABS: Reference Lab Test Result Not Detected
[2023-12-09 19:33] LABS: Pneumococcal Antigen Urine NOT DETECTED
[2023-12-10 02:58] LABS: Legionella pneumophila Ag Ur NOT DETECTED
[2023-12-10 18:54] LABS: Mycoplasma IgM Antibody Titer 227 U/mL
== END 2023-12-06 14:58 | disposition home or self-care (01) | DRG 191 ==
LOC: ANHED 16:38 → ANH2MED 21:01
PROVIDERS: Physician Assistant; Admitting Provider General Practice; Emergency Provider Emergency Medicine; PCP Hospitalist; Visit Provider Nurse Practitioner Acute Care
DX: J44.1 Chronic obstructive pulmonary disease with (acute) exacerbation (principal); J96.11 Chronic respiratory failure with hypoxia; J44.0 Chronic obstructive pulmonary disease with (acute) lower respiratory infection; J20.9 Acute bronchitis, unspecified; I10 Essential (primary) hypertension; M19.90 Unspecified osteoarthritis, unspecified site; K21.9 Gastro-esophageal reflux disease without esophagitis; E78.5 Hyperlipidemia, unspecified; I48.0 Paroxysmal atrial fibrillation; F32.A Depression, unspecified; F41.9 Anxiety disorder, unspecified; Z20.822 Contact with and (suspected) exposure to COVID-19; Z85.828 Personal history of other malignant neoplasm of skin; Z85.3 Personal history of malignant neoplasm of breast; Z85.850 Personal history of malignant neoplasm of thyroid; Z85.118 Personal history of other malignant neoplasm of bronchus and lung; Z90.49 Acquired absence of other specified parts of digestive tract; Z90.710 Acquired absence of both cervix and uterus; Z87.891 Personal history of nicotine dependence; Z99.81 Dependence on supplemental oxygen
CPT/HCPCS: 36415; 71046; 72070; 76700; 80048; 80053; 83605; 83735; 83880; 84484; 85025; 85027; 85610; 85730; 86738; 87040; 87070; 87205; 87449; 87637; 87641; 87899; 93005; 93306; 94640; 94667; 94668; 96361; 96365; 96372; 96375; 96376; 99285; A9270; G0378; J0456; J0696; J1650; J2919; J7030

== ENCOUNTER 2023-12-10 14:34 | Inpatient (IN) | payer MEDICARE, SELFPAY ==
--- NOTE | ~2023-12-10 | XR_ITS ---
XR chest 2V Ordering provider: Alex Watson MD History: 78 years Female with . sob . Comparison: December 03, 2023 FINDINGS: MEDIASTINUM: The cardiac silhouette is not enlarged. LUNGS: No effusions or pneumothorax. Bilateral basal pneumonia. OTHER: No free air under the diaphragm. IMPRESSION: Bilateral basal pneumonia. Reviewed, dictated and finalized at location A. IMPRESSION: Bilateral basal pneumonia.
--- NOTE | ~2023-12-10 | CT_ITS ---
EXAMINATION:CT diagnostic chest wo con DATE: 12/10/2023 17:06 INDICATION: Pneumonia. TECHNIQUE: Computed tomography (CT) of the chest was performed without intravenous contrast. Automate d exposure control and iterative reconstruction technique were employed. The dose-length product (DLP ) was 993.01 mGy-cm. COMPARISON: Chest CT 02/28/2021 FINDINGS: There is severe emphysema. There are patchy airspace opacities in the lower lobes, right mi ddle lobe, and left upper lobe with a lower lung predominance, consistent with pneumonia. No pleural effusion. The heart size is normal. No pericardial effusion. The central pulmonary is enlarged, consi stent with pulmonary arterial hypertension. There is a small sliding hiatal hernia. There is moderate thoracic spondylosis and severe lumbar spondylosis. IMPRESSION: 1. Bilateral pneumonia with a lower lung predominance. 2. Severe emphysema. Reviewed, dictated and finalized at location A.
--- NOTE | ~2023-12-10 | XR_ITS ---
EXAMINATION: XR chest 1V portable DATE: 12/13/2023 16:32 INDICATION: Shortness of breath. Cough. TECHNIQUE: A single frontal view of the chest was obtained. COMPARISON: Chest 2 views 12/10/2023, chest CT 12/10/2023 FINDINGS: There are lucencies and interstitial opacities in the lungs, consistent with emphysema. The re are airspace opacities in right lower lung zone and left mid and lower lung zones, consistent with pneumonia. No pleural effusion or pneumothorax. The heart size is normal. There are surgical clips i n left axilla. IMPRESSION: 1. Airspace opacities in right lower lung zone and left mid and lower lung zones with interval improv ement, consistent with pneumonia. 2. Severe emphysema. Reviewed, dictated and finalized at location A. IMPRESSION: 1. Airspace opacities in right lower lung zone and left mid and lower lung zone s with interval improvement, consistent with pneumonia. 2. Severe emphysema.
--- NOTE | ~2023-12-10 | XR_ITS ---
EXAMINATION: XR chest 2V DATE: 12/17/2023 10:21 INDICATION: Emphysema. TECHNIQUE: Frontal and lateral views of the chest were obtained. COMPARISON: Chest single view 12/13/2023 FINDINGS: There are lucencies in the lungs, consistent with emphysema. There are airspace opacities i n the mid and lower lung zones with a basilar and peripheral predominance. No pleural effusion or pne umothorax. The heart size is normal. There are surgical clips in left axilla. IMPRESSION: 1. Airspace opacities in the mid and lower lung zones with slight worsening on the left, consistent w ith pneumonia. 2. Severe emphysema. Reviewed, dictated and finalized at location A. IMPRESSION: 1. Airspace opacities in the mid and lower lung zones with slight worsening on the left, consistent with pneumonia. 2. Severe emphysema.
--- NOTE | ~2023-12-10 | US_ITS ---
EXAMINATION: US venous doppler [facility] DATE: 12/17/2023 10:51 INDICATION: Lower limb edema and swelling. TECHNIQUE: Grayscale ultrasound images without and with compression and Doppler ultrasound images of the bilateral lower extremity veins were obtained. COMPARISON: None. FINDINGS: The visualized portions of right common femoral vein, profunda (deep) femoral vein, femoral vein, pop liteal vein, peroneal veins, posterior tibial veins, and greater saphenous vein outflow are patent. The visualized portions of left common femoral vein, profunda femoral vein, femoral vein, popliteal v ein, peroneal veins, posterior tibial veins, and greater saphenous vein outflow are patent. IMPRESSION: 1. No deep venous thrombosis. Reviewed, dictated and finalized at location A.
--- NOTE | ~2023-12-10 | CT_ITS ---
CT diagnostic chest wo con Ordering provider: Romi Cade MD History: 78 years Female with . nonresolving pneumonia . Comparison: November 23, 2023 Technique: CT chest without IV contrast. Radiation reduction technique utilized. DLP is 367.6 mGy-cm. FINDINGS: VISUALIZED THORACIC INLET: Normal. MEDIASTINUM: Aorta/coronary arteries: Mild atheromatous disease. Heart/other: The heart is not enlarged. Lymph nodes: Small prevascular and paratracheal lymph nodes are noted Precarinal lymph node is noted measuring 2 cm. LUNGS: Emphysematous changes of the lungs. Nodule is seen in the right upper lobe laterally measuring 8 mm. Atelectasis versus pneumonia is seen in the middle lobe and to a lesser extent the right lower lobe. Minimal atelectasis versus pneumonia seen in the left lower lobe and lingula.. No pulmonary no dules or masses. No infiltrates or effusions. No pneumothorax. VISUALIZED UPPER ABDOMEN: the visualized upper abdomen is normal. MUSCULOSKELETAL: Soft tissues: The superficial soft tissues are normal. Bones: Age appropriate degenerative changes of the spine. IMPRESSION: 1. Residual pneumonia seen in the right lower lobe, right middle lobe, left lower lobe and the lingu la which is markedly improved compared to previous study. 2. Enlarged precarinal lymph nodes. Follow-up advised. 3. Underlying emphysematous changes. 4. Nodule in the right upper lobe measuring [address] follow-up advised. Reviewed, dictated and finalized at location A. IMPRESSION: 1. Residual pneumonia seen in the right lower lobe, right middle lobe, left lo wer lobe and the lingula which is markedly improved compared to previous study. 2. Enlarged precarinal lymph nodes. Follow-up advised. 3. Underlying emphysematous changes. 4. Nodule in the right upper lobe measuring [address] follow-up advise coby
--- NOTE | ~2023-12-10 | XR_ITS ---
EXAMINATION: XR barium swallow modified DATE: 12/20/2023 10:20 INDICATION: Silent aspiration. TECHNIQUE: The patient was given barium-containing material of multiple consistencies to swallow by t joyce speech pathologist while I performed fluoroscopy. Fluoroscopy exposure time was 2.4 minutes. The n umber of fluoroscopy images saved to the PACS was 1. Dose-area product was 1.516 Gy-cm^2. FINDINGS: There is laryngeal penetration with thin liquids via straw. IMPRESSION: 1. Laryngeal penetration with thin liquids via straw. 2. Please refer to the speech therapy report for recommendations. Reviewed, dictated and finalized at location A.
[2023-12-10 14:52] VITALS: BP 108/58; PULSE 73; RESP 18; TEMP 36.7; O2SAT 94
[2023-12-10 15:11] VITALS: O2SAT 94
--- NOTE | 2023-12-10 15:14 | ECG_ITS ---
Test Date: 2023-12-10 16:03:24 Measurements Intervals [place] Rate: 67 P: 36 SD: 162 QRS: -11 QRSD: 128 T: 84 QT: 388 QTc: 410 Interpretive Statements SINUS RHYTHM INTRAVENTRICULAR CONDUCTION DELAY LEFT VENTRICULAR HYPERTROPHY AND ST-T CHANGE BORDERLINE R WAVE PROGRESSION, ANTERIOR LEADS CONSIDER HIGH LATERAL INFARCT, AGE INDETERMINATE BASELINE ARTIFACT- I, II, III, AVR, AVL, AVF, V2 ABNORMAL ECG Compared to ECG 12/03/2023 19:06:57 HEART RATE HAS DECREASED Electronically Signed On 12-10-2023 16:18:50 CDT by Jefferson Elias D.O.
[2023-12-10 15:24] LABS: Basophils Percent Auto 0.4 % (0.2-1.2); Eosinophils Percent Auto 0.1 % (0-4.4); Hematocrit 35.7 % (37.0-47.0); Hemoglobin 11.9 g/dL (12.0-15.0); Immature Granulocyte Absolute 0.05 K/mm3 (0.00-0.031); Immature Granulocyte Percent A 0.6 % (0-0.5); Lymphocytes Absolute Auto 0.14 K/mm3 (0.9-3.2); Lymphocytes Percent Auto 1.6 % (18.3-44.2); Mean Corpuscular HGB Conc 33.3 g/dl (32-36); Mean Corpuscular Hemoglobin 30.4 pg (26-34); Mean Corpuscular Volume 91.1 fl (80-100); Mean Platelet Volume 9.8 fl (7.4-10.4); Monocytes Absolute Auto 0.3 K/mm3 (0.1-0.6); Neutrophils Absolute Auto 7.9 K/mm3 (1.3-6.7); Neutrophils Percent Auto 93.3 % (45.5-73.1); Platelet Count Result 184 k/mm3 (150-375); Red Blood Count 3.92 M/mm3 (4.2-5.4); White Blood Count 8.5 K/mm3 (4.5-10.0)
[2023-12-10 15:35] LABS: Alanine Aminotransferase 30 U/L (6-35); Albumin Level 3.9 g/dL (3.5-5.1); Alkaline Phosphatase 77 U/L (38-126); Anion Gap 8 mmol/L (4-12); Aspartate Amino Transferase 25 U/L (14-36); Bilirubin,Total 1.3 mg/dL (0.2-1.3); Blood Urea Nitrogen 18 mg/dL (7-17); Calcium 8.6 mg/dL (8.4-10.2); Carbon Dioxide 31 mmol/L (22-30); Chloride 91 mmol/L (98-107); Estimated CRCL calculation 48 ml/min; Estimated Glomerular Filt Rate > 60; Glucose 128 mg/dL (65-110); Potassium 3.6 mmol/L (3.4-5.0); Sodium 130 mmol/L (137-145)
[2023-12-10 15:45] LABS: Alveolar/Arterial O2 Gradient 97.2 mmHg; Fractional Inspired Oxygen 30 %; HCO3 ABG 26.4 mEq/l (22.0-26.0); Oxygen Content ABG 16.2 %vol (16.0-22.0); Oxygen Saturation ABG 95.9 % (95.0-100.0); Oxyhemoglobin 93.5 % THb (90.0-100.0); PCO2 ABG 36.2 mmHg (35.0-45.0); PO2 ABG 74.2 mmHg (80.0-100.0); PO2 FiO2 Ratio Arterial Blood 2.47 %; Total Hemoglobin 12.3 g/dL (12.0-18.0); pH ABG 7.481 (7.350-7.450)
[2023-12-10 15:46] LABS: Device NASAL CANNULA; Liters per Minute 3.5 LPM; Modified Allen's Test Pass; Site Drawn RIGHT RADIAL
[2023-12-10] MEDS: IPRATROPIUM 0.5 MG/ALBUTEROL SULFATE 2.5 MG AMPUL.NEB 3 ML INHALATION ×3 (15:49→16:35)
[2023-12-10] MEDS: ALBUTEROL SULFATE NEB 2.5 MG/3 ML INH 5 MG INHALATION ×3 (15:49→16:35)
[2023-12-10] MEDS: LACTATED RINGERS 1,000 ML 999 ML IV CONT (15:53)
[2023-12-10] MEDS: LIDOCAINE 5% PATCH 1 PATCH TRANSDERM (15:54)
[2023-12-10] MEDS: MAGNESIUM SULF 2 GM/WATER 50ML 2 GM/50 ML BAG IVPB (15:54)
[2023-12-10] MEDS: methylPREDNISolone SOD SUCC 125 MG VIAL IV PUSH (15:54)
--- NOTE | 2023-12-10 17:15 | PM.IMHP ---
H&P: HPI History of Present Illness Date/Time: 12/10/23 17:15 Chief Complaint: Shortness of breath. 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 The patient is known to myself and the hospitalist service from an admission 1 week ago in which she was treated for COPD and pneumonia with nebs, steroids, and antibiotics. She was discharged home on 12/06/2023 with azithromycin and a Medrol Dosepak. Sputum culture and AFB smear and cultures were ordered but were not collected during that stay. She felt okay when she was discharged however the last several days she has developed increasing cough, sputum production, and shortness of breath with fevers up to 101? F. Appetite has been fair and she denies nausea, vomiting, and diarrhea. She continues to have pain in the back ribs related to coughing. She denies exertional chest pain, syncope, near syncope, palpitations, hemoptysis, lower extremity edema, and calf pain. In the ED: She was afebrile on arrival. SpO2 has been in the low to mid 90s on 5 L. labs are significant for a WBC count of 8.5, hemoglobin 11.9, platelet 184, sodium 130, chloride 91, BUN 18, creatinine 0.80. Chest x-ray showed bibasilar pneumonia. She was given a nebulizer treatment, magnesium sulfate, methylprednisolone, cefepime, and vancomycin and she is is being admitted in this setting for further treatment. Review of Systems Review of Systems: 12 systems were reviewed and are negative except for as per HPI. 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 Cancer of right lung Status post radiation in 2023. Chronic obstructive pulmonary disease Chronic respiratory failure with hypoxia Colon polyps Depression Diastolic dysfunction Echo from 12/04/2023 showed normal LV chamber dimension and function with an EF of 60 65%, grade 1 diastolic dysfunction, and biatrial enlargement. Dyslipidemia Gastroesophageal reflux disease Hypertension Thyroid cancer Status post thyroidectomy and radioactive iodine. Surgical History Surgical History History of arthroscopy of left knee (09/2015) History of bladder repair surgery History of bunionectomy (2002) History of cardiac catheterization History of cholecystectomy (1968) History of colonoscopy with polypectomy History of lumpectomy of left breast (2019) History of partial mastectomy of right breast (2017) History of tonsillectomy (1960) History of total abdominal hysterectomy and bilateral salpingo-oophorectomy (1987) History of tubal ligation Family History Family History Mother Family history of lung cancer, Onset Age: 72 Father COPD (chronic obstructive pulmonary disease) Other Family history of malignant neoplasm Social History Social History Social History: Surrogate medical decision maker: Gee Zarate (spouse) and Kaitlynn Jackson (daughter). Code status: Full code. She would not want to be on prolonged life support. Smoking packs per day: 1.5 Smoking cigarettes per day: 30.0 Years smoked: 30 Smoking pack-years: 45.00 Smoking status: For
[2023-12-10] MEDS: CEFEPIME 2 GM/NS 50 ML 2 GM/50 ML BAG IVPB (17:28)
[2023-12-10 17:30] VITALS: BP 111/71; PULSE 87; RESP 24; TEMP 36.7; O2SAT 94
[2023-12-10 18:08] VITALS: BMI 34.5
[2023-12-10] MEDS: AZITHROMYCIN 500 MG/NS 250 ML 500 MG/250 ML BAG 250 MG IVPB (18:38)
[2023-12-10 18:50] VITALS: O2SAT 94
[2023-12-10 19:50] VITALS: O2SAT 94
[2023-12-10] MEDS: VANCOMYCIN 2,000 MG/NS 500 ML 2,000 MG/500 ML BAG 250 MG IVPB (19:51)
[2023-12-10 20:41] VITALS: BP 128/65; PULSE 79; RESP 20; TEMP 36.6; O2SAT 95
[2023-12-10 21:03] LABS: MRSA (PCR) NOT DETECTED (NOT DETECTE)
[2023-12-10] MEDS: traMADol HCL (*CRX) 25 MG TABLET PO (21:56)
[2023-12-10] MEDS: BENZOCAINE/MENTHOL (*BKC) 18 EA LOZENGE 1 LOZENGE PO (21:56)
[2023-12-10] MEDS: SERTRALINE HCL 50 MG TABLET 100 MG PO (22:33)
[2023-12-10] MEDS: MONTELUKAST SODIUM 10 MG TABLET PO (22:33)
[2023-12-10] MEDS: MAGNESIUM OXIDE 200 MG TABLET PO (22:34)
[2023-12-10] MEDS: FAMOTIDINE 20 MG TABLET PO (22:34)
--- NOTE | 2023-12-10 23:20 | ED.SOB ---
HPI - SOB/Dyspnea General Chief Complaint: Shortness of Breath/Dyspnea Stated Complaint: SOB Time Seen by Provider: 12/10/23 15:10 History of Present Illness HPI Narrative: This is a 78-year-old female with a past medical history significant for COPD with oxygen dependence at home. She was recently discharged from inpatient stay for minor COPD exacerbation with suspected pneumonia. She has been taking her home antibiotics and further prescriptions as directed but has been having worsening dyspnea over last several days. She has been having increased oxygen requirements and went from 2 L to 5 L today. She has been taking her nebulizer treatments without any significant relief of her symptoms. She has been having a productive cough of yellow and green sputum. Denies any chest pain or pressure, no fever, chills, headache, vision changes. No urinary complaints and states that initially she felt improved upon discharge but this slowly worsened. Related Data Home Medications Medication Instructions Recorded Confirmed celecoxib 200 mg capsule (Celebrex) 200 mg PO DAILY 06/03/19 12/10/23 magnesium 200 mg tablet 200 mg PO HS 02/04/20 12/10/23 calcium carbonate 250 mg-vitamin 2 tablet PO BID 12/03/23 12/10/23 D3 3.125 mcg (125 unit) tablet chlordiazepoxide HCl 10 mg capsule 10 - 20 mg PO PRN PRN Anxiety 12/03/23 12/10/23 diltiazem HCl 120 mg 120 mg PO DAILY 12/03/23 12/10/23 capsule,extended release 24 hr, controlled famotidine 20 mg tablet 20 mg PO HS 12/03/23 12/10/23 fluticasone fur. 200 mcg-umeclid 1 inh inhalation DAILY 12/03/23 12/10/23 62.5 mcg-vilant 25 mcg inhalat.powder (Trelegy Ellipta) hydrochlorothiazide 25 mg tablet 25 mg PO DAILY 12/03/23 12/10/23 levalbuterol HCl 1.25 mg/3 mL 1.25 mg inhalation TID PRN 12/03/23 12/10/23 solution for nebulization Shortness Of Breath levothyroxine 150 mcg tablet 150 mcg PO DAILY 12/03/23 12/10/23 montelukast 10 mg tablet 10 mg PO HS 12/03/23 12/10/23 omeprazole 40 mg capsule,delayed 40 mg PO DAILY 12/03/23 12/10/23 release sertraline 100 mg tablet 100 mg PO HS 12/03/23 12/10/23 Allergies Allergy/AdvReac Type Severity Reaction Status Date / Time naproxen Allergy Unknown unk Verified 12/10/23 14:35 nitrofurantoin Allergy Unknown unk Verified 12/10/23 14:35 Penicillins Allergy Unknown hives Verified 12/10/23 14:35 Sulfa (Sulfonamide AdvReac Unknown Nausea and Verified 12/10/23 14:35 Antibiotics) Vomiting Review of Systems Review of Systems: As above in the HPI [facility] Past Medical History Medical History Allergies Anxiety Arthritis Basal cell carcinoma of skin Bilateral breast cancer Invasive lobular carcinoma right breast status post mastectomy and 2018 and radiation and 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 Cancer of right lung Status post radiation in 2023. Chronic obstructive pulmonary disease Chronic respiratory failure with hypoxia Colon polyps Depression Diastolic dysfunction Echo from 12/04/2023 showed normal LV chamber dimension and function with an EF of 60 65%, grade 1 diastolic dysfunction, and biatrial enlargement. Dyslipidemia Gastroesophageal reflux disease Hypertension Thyroid cancer Status post thyroidectomy and radioactive iodine. Surgical History Surgical History History of arthroscopy of left knee (09/2015) History of bladder repair surgery History of bunionectomy (2002) History of cardiac catheterization History of cholecystectomy (1968) History of colonoscopy with polypectomy History of lumpectomy of left breast (2019) History of partial mastectomy of right breast (2017) History of tonsillectomy (1960) History of total abdominal hysterectomy and bilateral salpingo-oophorectomy (1987) History of tubal ligation Family History Family History (Reviewed 12/10/23
[2023-12-11] VITALS (17 sets, daily range): BP systolic 112–125; BP diastolic 55–66; PULSE 60–98; RESP 17–20; TEMP 36.4–36.7; O2SAT 91–100; BMI 34.1
[2023-12-11] MEDS: ACETAMINOPHEN 500 MG TABLET 1000 MG PO (02:07)
[2023-12-11] MEDS: IPRATROPIUM 0.5 MG/ALBUTEROL SULFATE 2.5 MG AMPUL.NEB 3 ML INHALATION ×4 (02:15→20:23)
[2023-12-11 03:54] LABS: Hematocrit 31.6 % (37.0-47.0); Hemoglobin 10.4 g/dL (12.0-15.0); Mean Corpuscular HGB Conc 32.9 g/dl (32-36); Mean Corpuscular Volume 91.1 fl (80-100); Mean Platelet Volume 9.8 fl (7.4-10.4); Platelet Count Result 151 k/mm3 (150-375); Red Blood Count 3.47 M/mm3 (4.2-5.4); Red Cell Distribution Width 14.8 % (11.5-14.5)
[2023-12-11 04:06] LABS: Anion Gap 10 mmol/L (4-12); Blood Urea Nitrogen 16 mg/dL (7-17); Calcium 7.8 mg/dL (8.4-10.2); Carbon Dioxide 27 mmol/L (22-30); Chloride 96 mmol/L (98-107); Estimated CRCL calculation 63 ml/min; Estimated Glomerular Filt Rate > 60; Glucose 201 mg/dL (65-110); Magnesium 2.6 mg/dL (1.6-2.3); Potassium 3.4 mmol/L (3.4-5.0); Sodium 133 mmol/L (137-145)
[2023-12-11] MEDS: SODIUM CHLOR 3% 15 ML NEB (RESPIRATORY THERAPY) 6 ML INHALATION (05:27)
[2023-12-11] MEDS: traMADol HCL (*CRX) 25 MG TABLET PO ×3 (05:46→20:03)
[2023-12-11] MEDS: guaiFENesin 12 HR 600 MG TABCR 1200 MG PO ×2 (08:12→20:04)
[2023-12-11] MEDS: CELECOXIB 200 MG CAPSULE PO (08:12)
[2023-12-11] MEDS: LEVOTHYROXINE SODIUM 150 MCG TABLET PO (08:12)
[2023-12-11] MEDS: dilTIAZem HCL CD 120 MG CAP.24HR PO (08:12)
[2023-12-11] MEDS: PANTOPRAZOLE 40 MG TABLET PO (08:12)
[2023-12-11] MEDS: LIDOCAINE 5% PATCH 1 PATCH TRANSDERM (08:13)
[2023-12-11] MEDS: AZELASTINE HCL NASAL 0.1% 137 MCG/SPR 30 ML BTL 1 SPRAY NASAL ×2 (08:13→20:05)
[2023-12-11] MEDS: FLUTICASONE/UMECLIDIN/VILANTER 200-62.5-25 MCG ELLIPTA 1 PUFF INHALATION (12:01)
[2023-12-11] MEDS: CALCIUM/VITAMIN D 250 MG/3.125 MCG (125 I.U.) TABLET 2 TABLET PO ×2 (12:06→17:56)
--- NOTE | 2023-12-11 16:55 | PM.IMPN ---
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 The patient is known to hospitalist service from an admission 1 week ago in which she was treated for COPD and pneumonia with nebs, steroids, and antibiotics. She was discharged home on 12/06/2023 with azithromycin and a Medrol Dosepak. Sputum culture and AFB smear and cultures were ordered but were not collected during that stay. She felt okay when she was discharged however the last several days she has developed increasing cough, sputum production, and shortness of breath with fevers up to 101? F. Appetite has been fair and she denies nausea, vomiting, and diarrhea. She continues to have pain in the back ribs related to coughing. She denies exertional chest pain, syncope, near syncope, palpitations, hemoptysis, lower extremity edema, and calf pain. In the ED: She was afebrile on arrival. SpO2 has been in the low to mid 90s on 5 L. labs are significant for a WBC count of 8.5, hemoglobin 11.9, platelet 184, sodium 130, chloride 91, BUN 18, creatinine 0.80. Chest x-ray showed bibasilar pneumonia. She was given a nebulizer treatment, magnesium sulfate, methylprednisolone, cefepime, and vancomycin and she is is being admitted in this setting for further treatment. ----- Serum microbacterium avium DNA PCR negative on last admission 12/02. Pending acid-fast bacilli sputum culture of the sputum on 12/10/2023. Unlikely she has active BRYNN. Continue ceftriaxone, azithromycin, DuoNeb scheduled for bacterial community-acquired pneumonia. Mycoplasma IgM from last admission low, pending urinary antigens for pneumococcus and Legionella. Pending blood culture from 12/09. December 09 sputum culture is a contaminated oropharyngeal sample. Her breathing is improved although she still requires 3 L rest. Continue to wean oxygen as tolerated. Acute on chronic respiratory failure. F/E/N: saline lock IV, replace lytes as needed, heart healthy diet GI prophylaxis: Not indicated DVT prophylaxis: SCDs only. She has ecchymosis on the left flank from coughing. Lines: Peripheral IV Code Status: Patient wishes to be full code Dispo: Stable on medical floor. Anticipate discharge back to home Note to the patient: The 21st Century Cures Act makes medical notes like these available to patients in the interest of transparency. Please be advised this is a medical document. It is intended for [id number] communication. It is written in medical language and may contain unfamiliar abbreviations or verbiage. Components may appear blunt or direct. Medical documents are intended to carry relevant information, facts as evident, and the clinical opinion of the practitioner at the time of the encounter. This note was generated by a speech recognition system and may contain inherent errors or omissions not intended by the user. Grammatical errors, random word insertions, deletions, pronoun errors and incomplete sentences are occasional consequences of this technology due to software limitations. Not all errors are caught or corrected. If there are questions or
[2023-12-11] MEDS: AZITHROMYCIN 500 MG/NS 250 ML 500 MG/250 ML BAG 250 MG IVPB (17:59)
[2023-12-11] MEDS: MONTELUKAST SODIUM 10 MG TABLET PO (20:04)
[2023-12-11] MEDS: FAMOTIDINE 20 MG TABLET PO (20:04)
[2023-12-11] MEDS: MAGNESIUM OXIDE 200 MG TABLET PO (20:05)
[2023-12-11] MEDS: SERTRALINE HCL 50 MG TABLET 100 MG PO (20:05)
[2023-12-12] VITALS (15 sets, daily range): BP systolic 108–121; BP diastolic 52–67; PULSE 74–105; RESP 18–24; TEMP 35.9–37.4; O2SAT 85–92
[2023-12-12] MEDS: IPRATROPIUM 0.5 MG/ALBUTEROL SULFATE 2.5 MG AMPUL.NEB 3 ML INHALATION ×4 (02:01→20:33)
[2023-12-12] MEDS: traMADol HCL (*CRX) 25 MG TABLET PO ×3 (05:05→21:52)
[2023-12-12] MEDS: SODIUM CHLOR 3% 15 ML NEB (RESPIRATORY THERAPY) 6 ML INHALATION (05:31)
[2023-12-12 05:46] LABS: Basophils Absolute Auto 0.1 K/mm3 (0.0-0.1); Basophils Percent Auto 0.5 % (0.2-1.2); Hematocrit 36.3 % (37.0-47.0); Hemoglobin 11.9 g/dL (12.0-15.0); Immature Granulocyte Absolute 0.08 K/mm3 (0.00-0.031); Immature Granulocyte Percent A 0.8 % (0-0.5); Lymphocytes Absolute Auto 0.25 K/mm3 (0.9-3.2); Lymphocytes Percent Auto 2.7 % (18.3-44.2); Mean Corpuscular HGB Conc 32.8 g/dl (32-36); Mean Corpuscular Hemoglobin 30.1 pg (26-34); Mean Corpuscular Volume 91.9 fl (80-100); Monocytes Absolute Auto 0.5 K/mm3 (0.1-0.6); Monocytes Percent Auto 5.4 % (2.6-8.5); Neutrophils Absolute Auto 8.5 K/mm3 (1.3-6.7); Neutrophils Percent Auto 90.6 % (45.5-73.1); Platelet Count Result 218 k/mm3 (150-375); Red Blood Count 3.95 M/mm3 (4.2-5.4); Red Cell Distribution Width 15.2 % (11.5-14.5); White Blood Count 9.4 K/mm3 (4.5-10.0)
[2023-12-12 05:59] LABS: Anion Gap 10 mmol/L (4-12); Blood Urea Nitrogen 14 mg/dL (7-17); Calcium 8.3 mg/dL (8.4-10.2); Carbon Dioxide 30 mmol/L (22-30); Chloride 95 mmol/L (98-107); Estimated CRCL calculation 54 ml/min; Estimated Glomerular Filt Rate > 60; Glucose 104 mg/dL (65-110); Magnesium 2.2 mg/dL (1.6-2.3); Potassium 3.3 mmol/L (3.4-5.0); Sodium 135 mmol/L (137-145)
[2023-12-12] MEDS: FLUTICASONE/UMECLIDIN/VILANTER 200-62.5-25 MCG ELLIPTA 1 PUFF INHALATION (07:26)
[2023-12-12] MEDS: PANTOPRAZOLE 40 MG TABLET PO (08:24)
[2023-12-12] MEDS: LEVOTHYROXINE SODIUM 150 MCG TABLET PO (08:24)
[2023-12-12] MEDS: dilTIAZem HCL CD 120 MG CAP.24HR PO (08:24)
[2023-12-12] MEDS: CELECOXIB 200 MG CAPSULE PO (08:24)
[2023-12-12] MEDS: AZELASTINE HCL NASAL 0.1% 137 MCG/SPR 30 ML BTL 1 SPRAY NASAL ×2 (08:24→21:53)
[2023-12-12] MEDS: guaiFENesin 12 HR 600 MG TABCR 1200 MG PO ×2 (08:24→21:52)
[2023-12-12] MEDS: LIDOCAINE 5% PATCH 1 PATCH TRANSDERM (08:25)
--- NOTE | 2023-12-12 09:20 | PM.IMPN ---
Progress Note: A&P Assessment and Plan (1) Pneumonia: Code(s): J18.9 - Pneumonia, unspecified organism Status: Acute (2) COPD (chronic obstructive pulmonary disease): Code(s): J44.9 - Chronic obstructive pulmonary disease, unspecified Status: Acute (3) Acute and chronic respiratory failure with hypoxia: Code(s): J96.21 - Acute and chronic respiratory failure with hypoxia Status: Acute (4) Thrush: Code(s): B37.0 - Candidal stomatitis Status: Acute (5) Rib pain on left side: Code(s): R07.81 - Pleurodynia Status: Acute (6) COPD exacerbation: Code(s): J44.1 - Chronic obstructive pulmonary disease with (acute) exacerbation Status: Acute (7) Acute hypokalemia: Code(s): E87.6 - Hypokalemia Status: Acute Plan This is a pleasant 78-year-old female with chronic respiratory failure on 4-5 L oxygen which she wears only with activity and at nighttime, chronic obstructive pulmonary disease, 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 The patient is known to hospitalist service from an admission 1 week ago in which she was treated for COPD and pneumonia with nebs, steroids, and antibiotics. She was discharged home on 12/06/2023 with azithromycin and a Medrol Dosepak. Sputum culture and AFB smear and cultures were ordered but were not collected during that stay. She felt okay when she was discharged however the last several days she has developed increasing cough, sputum production, and shortness of breath with fevers up to 101? F. Appetite has been fair and she denies nausea, vomiting, and diarrhea. She continues to have pain in the back ribs related to coughing. She denies exertional chest pain, syncope, near syncope, palpitations, hemoptysis, lower extremity edema, and calf pain. In the ED: She was afebrile on arrival. SpO2 has been in the low to mid 90s on 5 L. labs are significant for a WBC count of 8.5, hemoglobin 11.9, platelet 184, sodium 130, chloride 91, BUN 18, creatinine 0.80. Chest x-ray showed bibasilar pneumonia. She was given a nebulizer treatment, magnesium sulfate, methylprednisolone, cefepime, and vancomycin and she is is being admitted in this setting for further treatment. ----- Serum microbacterium avium DNA PCR negative on last admission 12/02. Pending acid-fast bacilli sputum culture of the sputum on 12/10/2023. Unlikely she has active BRYNN. Continue ceftriaxone, azithromycin, DuoNeb scheduled for bacterial community-acquired pneumonia. Mycoplasma IgM from last admission low, pending urinary antigens for pneumococcus and Legionella. Pending blood culture from 12/09. December 09 sputum culture is a contaminated oropharyngeal sample. Her breathing is improved although she still requires 3 L rest. Continue to wean oxygen as tolerated. Acute on chronic respiratory failure. December 11: 2 sputum cultures for acid-fast bacilli obtained. They are pending. Blood cultures no growth to date. She remains on 3 L at rest resting and exertional dyspnea with active cough with sputum production. Continue ceftriaxone and azithromycin. Has upper airway wheezing and severely diminished breath sounds. Will add Solu-Medrol 60 mg t.i.d.. Continue scheduled nebulizers. She has pleuritic chest pain upon coughing which is reproducible on palpation of the intercostal muscles. Continue tramadol q.4 hours p.r.n.. Continue to wean oxygen as appropriate. Pneumococcal Legionella and mycoplasma from last admission are now negative. She has the onset of thrush. Start nystatin swish and swallow q.i.d.. Hypokalemia, replaced with 20 mEq of KCL tab x1. F/E/N: saline lock IV, replace lytes as needed, heart healthy diet GI
--- NOTE | 2023-12-12 10:21 | PC.NURSE ---
Patient complaining of pain in mouth and throat- appears to be oral thrush provider notified for orders
[2023-12-12] MEDS: POTASSIUM CHLORIDE 20 MEQ ER TABLET PO (11:30)
[2023-12-12] MEDS: NYSTATIN 100,000 UNITS/ML SUSP 5 ML ORAL.SUSP PO ×3 (11:30→21:53)
[2023-12-12] MEDS: CALCIUM/VITAMIN D 250 MG/3.125 MCG (125 I.U.) TABLET 2 TABLET PO ×2 (11:31→18:55)
[2023-12-12] MEDS: methylPREDNISolone SOD SUCC 125 MG VIAL 60 MG IV PUSH ×2 (14:28→21:53)
[2023-12-12] MEDS: AZITHROMYCIN 500 MG/NS 250 ML 500 MG/250 ML BAG 250 MG IVPB (18:54)
[2023-12-12] MEDS: MAGNESIUM OXIDE 200 MG TABLET PO (21:52)
[2023-12-12] MEDS: MONTELUKAST SODIUM 10 MG TABLET PO (21:52)
[2023-12-12] MEDS: FAMOTIDINE 20 MG TABLET PO (21:53)
[2023-12-12] MEDS: SERTRALINE HCL 50 MG TABLET 100 MG PO (21:53)
[2023-12-13] VITALS (14 sets, daily range): BP systolic 103–143; BP diastolic 51–73; PULSE 60–88; RESP 12–20; TEMP 36.6; O2SAT 92–94
[2023-12-13] MEDS: IPRATROPIUM 0.5 MG/ALBUTEROL SULFATE 2.5 MG AMPUL.NEB 3 ML INHALATION ×4 (02:38→20:33)
[2023-12-13 04:39] LABS: Hematocrit 33.8 % (37.0-47.0); Hemoglobin 10.6 g/dL (12.0-15.0); Mean Corpuscular HGB Conc 31.4 g/dl (32-36); Mean Corpuscular Hemoglobin 29.4 pg (26-34); Mean Corpuscular Volume 93.6 fl (80-100); Mean Platelet Volume 10.2 fl (7.4-10.4); Platelet Count Result 185 k/mm3 (150-375); Red Blood Count 3.61 M/mm3 (4.2-5.4); Red Cell Distribution Width 15.3 % (11.5-14.5); White Blood Count 6.4 K/mm3 (4.5-10.0)
[2023-12-13] MEDS: SODIUM CHLOR 3% 15 ML NEB (RESPIRATORY THERAPY) 6 ML INHALATION (05:22)
[2023-12-13 05:48] LABS: Anion Gap 8 mmol/L (4-12); Blood Urea Nitrogen 14 mg/dL (7-17); Calcium 8.2 mg/dL (8.4-10.2); Carbon Dioxide 30 mmol/L (22-30); Chloride 98 mmol/L (98-107); Estimated CRCL calculation 63 ml/min; Estimated Glomerular Filt Rate > 60; Glucose 151 mg/dL (65-110); Magnesium 2.2 mg/dL (1.6-2.3); Potassium 4.3 mmol/L (3.4-5.0); Sodium 136 mmol/L (137-145)
[2023-12-13] MEDS: LEVOTHYROXINE SODIUM 150 MCG TABLET PO (05:55)
[2023-12-13] MEDS: methylPREDNISolone SOD SUCC 125 MG VIAL 60 MG IV PUSH ×3 (05:55→21:13)
[2023-12-13] MEDS: FLUTICASONE/UMECLIDIN/VILANTER 200-62.5-25 MCG ELLIPTA 1 PUFF INHALATION ×2 (07:09)
[2023-12-13] MEDS: dilTIAZem HCL CD 120 MG CAP.24HR PO (08:33)
[2023-12-13] MEDS: CELECOXIB 200 MG CAPSULE PO (08:33)
[2023-12-13] MEDS: guaiFENesin 12 HR 600 MG TABCR 1200 MG PO ×2 (08:33→21:12)
[2023-12-13] MEDS: PANTOPRAZOLE 40 MG TABLET PO (08:33)
[2023-12-13] MEDS: NYSTATIN 100,000 UNITS/ML SUSP 5 ML ORAL.SUSP PO ×4 (08:34→21:12)
[2023-12-13] MEDS: LIDOCAINE 5% PATCH 1 PATCH TRANSDERM (08:34)
[2023-12-13] MEDS: AZELASTINE HCL NASAL 0.1% 137 MCG/SPR 30 ML BTL 1 SPRAY NASAL ×2 (08:36→21:13)
[2023-12-13] MEDS: traMADol HCL (*CRX) 25 MG TABLET PO ×2 (12:15→17:17)
[2023-12-13] MEDS: SENNA/DOCUSATE SODIUM TABLET 1 TAB PO ×2 (12:15→17:07)
[2023-12-13] MEDS: CALCIUM/VITAMIN D 250 MG/3.125 MCG (125 I.U.) TABLET 2 TABLET PO ×2 (13:49→17:07)
[2023-12-13 16:38] LABS: NT Pro B Type Natriuretic Pept 456 pg/mL (19.9-100)
[2023-12-13] MEDS: AZITHROMYCIN 250 MG TABLET 500 MG PO (17:07)
--- NOTE | 2023-12-13 18:28 | P.PNIM_ITS ---
Progress Note: A&P Assessment and Plan (1) Pneumonia: Code(s): J18.9 - Pneumonia, unspecified organism Status: Acute (2) COPD (chronic obstructive pulmonary disease): Code(s): J44.9 - Chronic obstructive pulmonary disease, unspecified Status: Acute (3) Acute and chronic respiratory failure with hypoxia: Code(s): J96.21 - Acute and chronic respiratory failure with hypoxia Status: Acute (4) Thrush: Code(s): B37.0 - Candidal stomatitis Status: Acute (5) Rib pain on left side: Code(s): R07.81 - Pleurodynia Status: Acute (6) COPD exacerbation: Code(s): J44.1 - Chronic obstructive pulmonary disease with (acute) exacerbation Status: Acute (7) Acute hypokalemia: Code(s): E87.6 - Hypokalemia Status: Acute Plan This is a pleasant 78-year-old female with chronic respiratory failure on 4-5 L oxygen which she wears only with activity and at nighttime, chronic obstructive pulmonary disease, 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 The patient is known to hospitalist service from an admission 1 week ago in which she was treated for COPD and pneumonia wit h nebs, steroids, and antibiotics. She was discharged home on 12/06/2023 with azithromycin and a Medrol Dosepak. Sputum culture and AFB smear and cultures were ordered but were not collected during that stay. She felt okay when she was discharged however the last several days she has developed increasing cough, sputum production, and shortness of breath with fevers up to 101? F. Appetite has been fair and she denies nausea, vomiting, and diarrhea. She continues to have pain in the back ribs related to coughing. She denies exertional chest pain, syncope, near syncope, palpitations, hemoptysis, lower extremity edema, and calf pain. In the ED: She was afebrile on arrival. SpO2 has been in the low to mid 90s on 5 L. labs are significant for a WBC count of 8.5, hemoglobin 11.9, platelet 184, s odium 130, chloride 91, BUN 18, creatinine 0.80. Chest x-ray showed bibasilar pneumonia. She was given a nebulizer treatment, magnesium sulfate, methylprednisolone, cefepime, and vancomycin and she is is being admitted in this setting for further treatment. ----- Serum microbacterium avium DNA PCR negative on last admission 12/02. Pending acid-fast bacilli sputum culture of the sputum on 12/10/2023. Unlikely she has active BRYNN. Continue ceftriaxone, azithromycin, DuoNeb scheduled for bacterial community-acquired pneumonia. Mycoplasma IgM from last admission low, pending urinary antigens for pneumococcus and Legionella. Pending blood culture from 12/09. December 09 sputum culture is a contaminated oropharyngeal sample. Her breathing is improved although she still requires 3 L rest. Continue to wean oxygen as tolerated. Acute on chronic respiratory failure. December 11: 2 sputum cultures for acid-fast bacilli obtained. They are pending. Blood cultures no growth to date. She remains on 3 L at rest resting and exertional dyspnea with active cough with sputum production. Continue ceftriaxone and azithromycin. Has upper airway wheezing and severely diminished breath sounds. Will add Solu-Medrol 60 mg t.i.d.. Continue scheduled nebulizers. She has pleuritic chest pain upon coughing which is reproducible on palpation of the intercostal muscles. Continue tramadol q.4 hours p.r.n.. Continue to wean oxygen as appropriate.
[2023-12-13] MEDS: FUROSEMIDE INJ 40 MG/4 ML VIAL 20 MG IV PUSH (19:00)
[2023-12-13] MEDS: FAMOTIDINE 20 MG TABLET PO (21:12)
[2023-12-13] MEDS: MONTELUKAST SODIUM 10 MG TABLET PO (21:12)
[2023-12-13] MEDS: SERTRALINE HCL 50 MG TABLET 100 MG PO (21:12)
[2023-12-13] MEDS: CEFDINIR 300 MG CAPSULE PO (21:12)
[2023-12-13] MEDS: MAGNESIUM OXIDE 200 MG TABLET PO (21:13)
[2023-12-14] VITALS (19 sets, daily range): BP systolic 124–146; BP diastolic 60–68; PULSE 58–92; RESP 16–20; TEMP 36.7–37.1; O2SAT 85–94
[2023-12-14] MEDS: IPRATROPIUM 0.5 MG/ALBUTEROL SULFATE 2.5 MG AMPUL.NEB 3 ML INHALATION ×4 (02:25→20:01)
[2023-12-14] MEDS: SODIUM CHLOR 3% 15 ML NEB (RESPIRATORY THERAPY) 6 ML INHALATION (02:38)
[2023-12-14] MEDS: traMADol HCL (*CRX) 25 MG TABLET PO ×4 (02:56→20:39)
[2023-12-14 04:30] LABS: Basophils Percent Auto 0.2 % (0.2-1.2); Hemoglobin 10.6 g/dL (12.0-15.0); Immature Granulocyte Absolute 0.11 K/mm3 (0.00-0.031); Immature Granulocyte Percent A 1.1 % (0-0.5); Lymphocytes Absolute Auto 0.21 K/mm3 (0.9-3.2); Lymphocytes Percent Auto 2.1 % (18.3-44.2); Mean Corpuscular HGB Conc 32.1 g/dl (32-36); Mean Corpuscular Hemoglobin 29.9 pg (26-34); Monocytes Absolute Auto 0.3 K/mm3 (0.1-0.6); Monocytes Percent Auto 2.8 % (2.6-8.5); Neutrophils Absolute Auto 9.4 K/mm3 (1.3-6.7); Neutrophils Percent Auto 93.8 % (45.5-73.1); Platelet Count Result 233 k/mm3 (150-375); Red Blood Count 3.55 M/mm3 (4.2-5.4); Red Cell Distribution Width 15.5 % (11.5-14.5)
[2023-12-14 04:57] LABS: Anion Gap 8 mmol/L (4-12); Blood Urea Nitrogen 16 mg/dL (7-17); Calcium 8.3 mg/dL (8.4-10.2); Carbon Dioxide 29 mmol/L (22-30); Chloride 98 mmol/L (98-107); Estimated CRCL calculation 63 ml/min; Estimated Glomerular Filt Rate > 60; Glucose 150 mg/dL (65-110); Magnesium 2.4 mg/dL (1.6-2.3); Potassium 3.5 mmol/L (3.4-5.0); Procalcitonin 0.1 ng/mL; Sodium 135 mmol/L (137-145)
[2023-12-14] MEDS: methylPREDNISolone SOD SUCC 125 MG VIAL 60 MG IV PUSH (06:29)
[2023-12-14] MEDS: LEVOTHYROXINE SODIUM 150 MCG TABLET PO (06:30)
[2023-12-14] MEDS: guaiFENesin 12 HR 600 MG TABCR 1200 MG PO ×2 (09:26→20:15)
[2023-12-14] MEDS: PANTOPRAZOLE 40 MG TABLET PO (09:26)
[2023-12-14] MEDS: SENNA/DOCUSATE SODIUM TABLET 1 TAB PO ×2 (09:26→17:27)
[2023-12-14] MEDS: CELECOXIB 200 MG CAPSULE PO (09:26)
[2023-12-14] MEDS: CEFDINIR 300 MG CAPSULE PO ×2 (09:26→20:15)
[2023-12-14] MEDS: dilTIAZem HCL CD 120 MG CAP.24HR PO (09:27)
[2023-12-14] MEDS: NYSTATIN 100,000 UNITS/ML SUSP 5 ML ORAL.SUSP PO ×4 (09:27→20:18)
[2023-12-14] MEDS: LIDOCAINE 5% PATCH 1 PATCH TRANSDERM (09:28)
[2023-12-14] MEDS: DORNASE ALFA INH SOLN 1 MG/ML 2.5 ML AMP 2.5 MG INHALATION (09:31)
[2023-12-14] MEDS: predniSONE 20 MG TABLET 60 MG PO (09:41)
[2023-12-14] MEDS: FUROSEMIDE INJ 40 MG/4 ML VIAL IV PUSH ×2 (09:41→17:27)
[2023-12-14] MEDS: AZELASTINE HCL NASAL 0.1% 137 MCG/SPR 30 ML BTL 1 SPRAY NASAL ×2 (09:42→20:16)
[2023-12-14 10:13] LABS: Anion Gap 7 mmol/L (4-12); Blood Urea Nitrogen 17 mg/dL (7-17); Calcium 8.2 mg/dL (8.4-10.2); Carbon Dioxide 32 mmol/L (22-30); Chloride 97 mmol/L (98-107); Estimated CRCL calculation 63 ml/min; Estimated Glomerular Filt Rate > 60; Glucose 184 mg/dL (65-110); Potassium 3.6 mmol/L (3.4-5.0); Sodium 136 mmol/L (137-145)
[2023-12-14 13:28] LABS: Pneumococcal Antigen Urine NOT DETECTED
[2023-12-14] MEDS: CALCIUM/VITAMIN D 250 MG/3.125 MCG (125 I.U.) TABLET 2 TABLET PO ×2 (13:58→17:29)
[2023-12-14] MEDS: BENZONATATE 100 MG CAPSULE 200 MG PO (14:57)
[2023-12-14] MEDS: AZITHROMYCIN 250 MG TABLET 500 MG PO (17:27)
[2023-12-14] MEDS: MONTELUKAST SODIUM 10 MG TABLET PO (20:15)
[2023-12-14] MEDS: FAMOTIDINE 20 MG TABLET PO (20:15)
[2023-12-14] MEDS: SERTRALINE HCL 50 MG TABLET 100 MG PO (20:15)
[2023-12-14] MEDS: MAGNESIUM OXIDE 200 MG TABLET PO (20:15)
[2023-12-15] VITALS (16 sets, daily range): BP systolic 114–139; BP diastolic 54–75; PULSE 60–82; RESP 18–20; TEMP 36.3–37.2; O2SAT 88–95
[2023-12-15] MEDS: IPRATROPIUM 0.5 MG/ALBUTEROL SULFATE 2.5 MG AMPUL.NEB 3 ML INHALATION ×4 (02:29→20:08)
[2023-12-15] MEDS: traMADol HCL (*CRX) 25 MG TABLET PO (02:53)
[2023-12-15] MEDS: chlordiazePOXIDE (*CRX) 10 MG CAPSULE PO (04:14)
[2023-12-15] MEDS: BENZONATATE 100 MG CAPSULE 200 MG PO (04:14)
[2023-12-15 04:30] LABS: Hematocrit 36.6 % (37.0-47.0); Hemoglobin 11.8 g/dL (12.0-15.0); Mean Corpuscular HGB Conc 32.2 g/dl (32-36); Mean Corpuscular Hemoglobin 29.6 pg (26-34); Mean Platelet Volume 9.8 fl (7.4-10.4); Platelet Count Result 250 k/mm3 (150-375); Red Blood Count 3.98 M/mm3 (4.2-5.4); Red Cell Distribution Width 15.3 % (11.5-14.5); White Blood Count 11.8 K/mm3 (4.5-10.0)
[2023-12-15 04:47] LABS: Anion Gap 7 mmol/L (4-12); Blood Urea Nitrogen 20 mg/dL (7-17); Calcium 8.4 mg/dL (8.4-10.2); Carbon Dioxide 34 mmol/L (22-30); Chloride 94 mmol/L (98-107); Estimated CRCL calculation 55 ml/min; Estimated Glomerular Filt Rate > 60; Glucose 103 mg/dL (65-110); Magnesium 2.2 mg/dL (1.6-2.3); Potassium 3.1 mmol/L (3.4-5.0); Sodium 135 mmol/L (137-145)
--- NOTE | 2023-12-15 05:18 | PCRCNOTE ---
Sodium Chloride nebulizer treatment not given to patient due to patient being able to cough up sputum on her own. Nurse to send sample to lab
[2023-12-15] MEDS: FLUTICASONE/UMECLIDIN/VILANTER 200-62.5-25 MCG ELLIPTA 1 PUFF INHALATION (07:03)
[2023-12-15] MEDS: DORNASE ALFA INH SOLN 1 MG/ML 2.5 ML AMP 2.5 MG INHALATION (07:10)
[2023-12-15] MEDS: predniSONE 20 MG TABLET 60 MG PO (08:04)
[2023-12-15] MEDS: LEVOTHYROXINE SODIUM 150 MCG TABLET PO (08:04)
[2023-12-15] MEDS: AZELASTINE HCL NASAL 0.1% 137 MCG/SPR 30 ML BTL 1 SPRAY NASAL ×2 (08:05→20:39)
[2023-12-15] MEDS: CELECOXIB 200 MG CAPSULE PO (08:06)
[2023-12-15] MEDS: guaiFENesin 12 HR 600 MG TABCR 1200 MG PO ×2 (08:06→20:39)
[2023-12-15] MEDS: PANTOPRAZOLE 40 MG TABLET PO (08:06)
[2023-12-15] MEDS: SENNA/DOCUSATE SODIUM TABLET 1 TAB PO ×2 (08:06→16:50)
[2023-12-15] MEDS: dilTIAZem HCL CD 120 MG CAP.24HR PO (08:06)
[2023-12-15] MEDS: CEFDINIR 300 MG CAPSULE PO (08:06)
[2023-12-15] MEDS: NYSTATIN 100,000 UNITS/ML SUSP 5 ML ORAL.SUSP PO ×4 (08:11→20:39)
[2023-12-15] MEDS: FUROSEMIDE INJ 40 MG/4 ML VIAL IV PUSH ×2 (08:12→16:52)
--- NOTE | 2023-12-15 09:18 | PM.IMPN ---
Progress Note: A&P Assessment and Plan (1) Pneumonia: Code(s): J18.9 - Pneumonia, unspecified organism Status: Acute (2) COPD (chronic obstructive pulmonary disease): Code(s): J44.9 - Chronic obstructive pulmonary disease, unspecified Status: Acute (3) Acute and chronic respiratory failure with hypoxia: Code(s): J96.21 - Acute and chronic respiratory failure with hypoxia Status: Acute (4) Thrush: Code(s): B37.0 - Candidal stomatitis Status: Acute (5) Rib pain on left side: Code(s): R07.81 - Pleurodynia Status: Acute (6) COPD exacerbation: Code(s): J44.1 - Chronic obstructive pulmonary disease with (acute) exacerbation Status: Acute (7) Acute hypokalemia: Code(s): E87.6 - Hypokalemia Status: Acute Plan This is a pleasant 78-year-old female with chronic respiratory failure on 4-5 L oxygen which she wears only with activity and at nighttime, chronic obstructive pulmonary disease, 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 The patient is known to hospitalist service from an admission 1 week prior to admission in which she was treated for COPD and pneumonia with nebs, steroids, and antibiotics. She was discharged home on 12/06/2023 with azithromycin and a Medrol Dosepak, antibiotics were not given for the full course. Sputum culture and AFB smear and cultures were ordered but were not collected during that stay. She felt okay when she was discharged however the last several days she has developed increasing cough, sputum production, and shortness of breath with fevers up to 101? F. Appetite has been fair and she denies nausea, vomiting, and diarrhea. She continues to have pain in the back ribs related to coughing. She denies exertional chest pain, syncope, near syncope, palpitations, hemoptysis, lower extremity edema, and calf pain. In the ED: She was afebrile on arrival. SpO2 has been in the low to mid 90s on 5 L. labs are significant for a WBC count of 8.5, hemoglobin 11.9, platelet 184, sodium 130, chloride 91, BUN 18, creatinine 0.80. Chest x-ray showed bibasilar pneumonia. She was given a nebulizer treatment, magnesium sulfate, methylprednisolone, cefepime, and vancomycin and she is is being admitted in this setting for further treatment. ----- She was initially doing okay. Feeling better with Solu-Medrol, scheduled nebulizers, she had also received ceftriaxone and azithromycin. On 12/13/2023 ceftriaxone switched to cefdinir 300 mg p.o. b.i.d. On 12/15/2023 we are still unable to wean her rest. This is worse than her baseline. She is also having dyspnea at rest. She still has a cough productive of sputum, it has changed from green to a thick white mucoid character. She does not have wheezing but has rhonchi and crackles very appreciable at the bases. She also has junky upper airway sounds diffusely. She reports she has felt fantastic after Pulmozyme treatment. Will continue that daily. Suspect much of her symptomatology is related to bronchitis. Continue Cornet therapy, guaifenesin 1200 mg p.o. b.i.d., scheduled DuoNebs, dextromethorphan, prednisone On 12/14 will also discontinue cefdinir and start levofloxacin 750 mg IV q.day. she takes hydrochlorothiazide 25 mg p.o. q.day at home that was held early on in the admission. She complains of increased ankle swelling which is the worst it has been. Her BNP is only very mildly elevated, a repeat chest x-ray on 12/12 demonstrates bilateral lower lobe pneumonia and severe emphysema. On 12/13 her cumulative balance noted to be greater than 6 L, unclear the accuracy of this, however started Lasix 40 mg IV and will continue that to try to get her lungs on the dry
[2023-12-15] MEDS: POTASSIUM CHLORIDE 20 MEQ ER TABLET 40 MEQ PO (10:49)
[2023-12-15] MEDS: levoFLOXacin 750 MG/D5W 150 ML 750 MG/150 ML BAG 100 MG IVPB (10:50)
[2023-12-15] MEDS: CALCIUM/VITAMIN D 250 MG/3.125 MCG (125 I.U.) TABLET 2 TABLET PO ×2 (11:58→16:50)
[2023-12-15] MEDS: MONTELUKAST SODIUM 10 MG TABLET PO (20:39)
[2023-12-15] MEDS: FAMOTIDINE 20 MG TABLET PO (20:39)
[2023-12-15] MEDS: MAGNESIUM OXIDE 200 MG TABLET PO (20:39)
[2023-12-15] MEDS: SERTRALINE HCL 50 MG TABLET 100 MG PO (20:40)
[2023-12-16] VITALS (13 sets, daily range): BP systolic 110–128; BP diastolic 56–67; PULSE 72–92; RESP 16–22; TEMP 36.6–37.2; O2SAT 91–95
[2023-12-16] MEDS: traMADol HCL (*CRX) 25 MG TABLET PO ×2 (00:30→20:39)
[2023-12-16] MEDS: IPRATROPIUM 0.5 MG/ALBUTEROL SULFATE 2.5 MG AMPUL.NEB 3 ML INHALATION ×4 (02:15→21:06)
[2023-12-16] MEDS: BENZOCAINE/MENTHOL (*BKC) 18 EA LOZENGE 1 LOZENGE PO (03:24)
[2023-12-16 05:01] LABS: Basophils Percent Auto 0.2 % (0.2-1.2); Hematocrit 36.6 % (37.0-47.0); Hemoglobin 11.5 g/dL (12.0-15.0); Immature Granulocyte Absolute 0.08 K/mm3 (0.00-0.031); Immature Granulocyte Percent A 0.8 % (0-0.5); Lymphocytes Absolute Auto 0.34 K/mm3 (0.9-3.2); Lymphocytes Percent Auto 3.3 % (18.3-44.2); Mean Corpuscular HGB Conc 31.4 g/dl (32-36); Mean Corpuscular Volume 92.4 fl (80-100); Mean Platelet Volume 9.9 fl (7.4-10.4); Monocytes Absolute Auto 0.3 K/mm3 (0.1-0.6); Monocytes Percent Auto 2.5 % (2.6-8.5); Neutrophils Absolute Auto 9.5 K/mm3 (1.3-6.7); Neutrophils Percent Auto 93.2 % (45.5-73.1); Platelet Count Result 227 k/mm3 (150-375); Red Blood Count 3.96 M/mm3 (4.2-5.4); Red Cell Distribution Width 15.1 % (11.5-14.5); White Blood Count 10.2 K/mm3 (4.5-10.0)
[2023-12-16 05:16] LABS: Alanine Aminotransferase 29 U/L (6-35); Albumin Level 3.7 g/dL (3.5-5.1); Alkaline Phosphatase 81 U/L (38-126); Anion Gap 6 mmol/L (4-12); Aspartate Amino Transferase 22 U/L (14-36); Bilirubin,Total 0.8 mg/dL (0.2-1.3); Blood Urea Nitrogen 19 mg/dL (7-17); Calcium 8.3 mg/dL (8.4-10.2); Carbon Dioxide 38 mmol/L (22-30); Chloride 92 mmol/L (98-107); Estimated CRCL calculation 49 ml/min; Estimated Glomerular Filt Rate > 60; Glucose 98 mg/dL (65-110); Magnesium 2.1 mg/dL (1.6-2.3); Potassium 2.8 mmol/L (3.4-5.0); Sodium 136 mmol/L (137-145)
[2023-12-16 05:32] LABS: Procalcitonin 0.1 ng/mL
[2023-12-16] MEDS: KCL 40 MEQ/0.9% SOD CHL 1,000 ML 100 ML IV CONT (05:50)
[2023-12-16] MEDS: POTASSIUM CHLORIDE 20 MEQ ER TABLET 40 MEQ PO (05:50)
[2023-12-16] MEDS: DORNASE ALFA INH SOLN 1 MG/ML 2.5 ML AMP 2.5 MG INHALATION (07:22)
[2023-12-16] MEDS: FLUTICASONE/UMECLIDIN/VILANTER 200-62.5-25 MCG ELLIPTA 1 PUFF INHALATION (07:38)
[2023-12-16] MEDS: dilTIAZem HCL CD 120 MG CAP.24HR PO (08:17)
[2023-12-16] MEDS: LEVOTHYROXINE SODIUM 150 MCG TABLET PO (08:17)
[2023-12-16] MEDS: predniSONE 20 MG TABLET 60 MG PO (08:17)
[2023-12-16] MEDS: guaiFENesin 12 HR 600 MG TABCR 1200 MG PO ×2 (08:17→20:38)
[2023-12-16] MEDS: AZELASTINE HCL NASAL 0.1% 137 MCG/SPR 30 ML BTL 1 SPRAY NASAL ×2 (08:18→20:38)
[2023-12-16] MEDS: PANTOPRAZOLE 40 MG TABLET PO (08:18)
[2023-12-16] MEDS: CELECOXIB 200 MG CAPSULE PO (08:18)
[2023-12-16] MEDS: SENNA/DOCUSATE SODIUM TABLET 1 TAB PO (08:18)
[2023-12-16] MEDS: FUROSEMIDE INJ 40 MG/4 ML VIAL IV PUSH ×2 (08:21→16:20)
[2023-12-16] MEDS: NYSTATIN 100,000 UNITS/ML SUSP 5 ML ORAL.SUSP PO ×4 (08:21→20:38)
--- NOTE | 2023-12-16 11:00 | PCNFU ---
Nutrition Follow-Up Complete: Potential for inadequate oral intake related to acute pneumonia, loss of appetite as evidenced by patient report of poor appetite, recorded intakes ~60% Goal: Adequate PO intake at least 75% meals Patient is progressing towards goal. We will continue current goal. Pt current nutrition is Heart Healthy with Ensure Compact BID. Last recorded weight is 82.1 kg, up from 81.9 kg on admit. Bowel Motility: +Bm reported 12/13 Labs Reviewed:BUN 19, Na 136, ,Hct 36.6,Hgb 11.5 Meds Noted: Lasix,Mucinex, Protonix, Prednisone. Skin: WNL Additional Notes: Patient current with a heart healthy diet. Intake 50-100% of most meals. Patient has Ensure compact BID ordered providing an additional 220 kcals and 9 gms protein. Agree with diet orders. Monitoring intakes, weights, labs, plan of care Follow up in 5 days
[2023-12-16] MEDS: levoFLOXacin 750 MG/D5W 150 ML 750 MG/150 ML BAG 100 MG IVPB (12:11)
[2023-12-16] MEDS: CALCIUM/VITAMIN D 250 MG/3.125 MCG (125 I.U.) TABLET 2 TABLET PO ×2 (12:15→16:20)
[2023-12-16] MEDS: LIDOCAINE 5% PATCH 1 PATCH TRANSDERM (12:22)
--- NOTE | 2023-12-16 16:39 | PM.CNPUL ---
Assessment and Plan Assessment and plan (1) COPD (chronic obstructive pulmonary disease): Code(s): J44.9 - Chronic obstructive pulmonary disease, unspecified Status: Acute Assessment and Plan: Long hx of COPD, has been on home medications : lev-albuterol 1.35 neb t.i.d. and Trelegy 100/62/4.5 and montelukast Now while in-patient she is managed with steroids, duonebs, Dornase mike which has been excellent at improving expectoration, and Levaquin for pneumonia. she is using a Cornet valve with good results. continue ot have wheezing, and diuresis is encouraged. She is up several kg and has leg swelling, R > L, no prior hx of CHF, echo with good systolic function and grade I diastolic dysfunction. (2) Acute and chronic respiratory failure with hypoxia: Code(s): J96.21 - Acute and chronic respiratory failure with hypoxia Status: Acute Assessment and Plan: O2 use for the last 7-10 years, at home was on none at rest and 5 L with exertion and sleep after her last discharge December 05 Continues to need O2 at rest, 4 L/min, not easily weanable, resp rate 20, and she is using some accessory muscles. She has not had good sleep for a month when her symptoms started to escalate. (3) Pneumonia: Qualifiers: Lung location: unspecified part of lung Pneumonia type: due to unspecified organism Code(s): J18.9 - Pneumonia, unspecified organism Status: Acute Assessment and Plan: non-resolving; had bilateral infiltrates December 02- with admission, no organisms recovered. Readmitted December 09 with recurrent symptoms, now with increased volume of sputum thicker and discolored, with all studies so far negative. This included all serology last admission for SARS-CoV-2, influenza A &B, RSV, sputum this admission was poor quality, therefore will re-attempt tomorrow with sputum for Gram stain C&S and Fungal smear and culture. Sputum for AFB x 3 has been collected. She may have sinusitis in addition to pneumonia. She is on nasal saline and steroids. Current antibiotics include Levaquin; Extended respiratory pathogen panel is pending this has extensive viral pathogens. She has not had fungal studies yet and these have been ordered. White blood cell count improved. 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 this was diagnosed in July of this year and she has had radiation. She likely has underlying cancer in the area that we see pneumonia. She does not appear to have a postobstructive pneumonia. We may end up repeating a CT scan in another day or so. Her last was 12/10/2023. (5) Atrial enlargement, bilateral: Code(s): I51.7 - Cardiomegaly Status: Acute Assessment and Plan: echo 12/04/23 shows biatrial enlargement, likely due to conduction delay. She has normal systolic function, no reported increase in RVSP however pulmonary artery is enlarged on CT consistent with pulmonary hypertension. This is consistent with long standing pulmonary disease, on O2 for 7-10 years. She has mild diastolic dysfunction, an increased weight compared to admission, also has had leg swelling for the first time this admission; Right leg is more swollen that the left leg. I will order LE venous Doppler nilaterally tomorrow, not urgent. Plan 1. Sputum for fungal and bacterial smear and culture; quantiferon GOLD for mycobacterial evaluation. 2. Acetazolamide 250 mg Q am x 3 days for contraction alk
--- NOTE | 2023-12-16 19:18 | P.PNIM_ITS ---
Progress Note: A&P Assessment and Plan (1) Pneumonia: Code(s): J18.9 - Pneumonia, unspecified organism Status: Acute (2) COPD (chronic obstructive pulmonary disease): Code(s): J44.9 - Chronic obstructive pulmonary disease, unspecified Status: Acute (3) Acute and chronic respiratory failure with hypoxia: Code(s): J96.21 - Acute and chronic respiratory failure with hypoxia Status: Acute (4) Thrush: Code(s): B37.0 - Candidal stomatitis Status: Acute (5) Rib pain on left side: Code(s): R07.81 - Pleurodynia Status: Acute (6) COPD exacerbation: Code(s): J44.1 - Chronic obstructive pulmonary disease with (acute) exacerbation Status: Acute (7) Acute hypokalemia: Code(s): E87.6 - Hypokalemia Status: Acute Plan This is a pleasant 78-year-old female with chronic respiratory failure on 4-5 L oxygen which she wears only with activity and at nighttime, chronic obstructive pulmonary disease, 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 The patient is known to hospitalist service from an admission 1 week prior to admission in which she was treated for COPD an d pneumonia with nebs, steroids, and antibiotics. She was discharged home on 12/06/2023 with azithromycin and a Medrol Dosepak, antibiotics were not given for the full course. Sputum culture and AFB smear and cultures were ordered but were not collected during that stay. She felt okay when she was discharged however the last several days she has developed increasing cough, sputum production, and shortness of breath with fevers up to 101? F. Appetite has been fair and she denies nausea, vomiting, and diarrhea. She continues to have pain in the back ribs related to coughing. She denies exertional chest pain, syncope, near syncope, palpitations, hemoptysis, lower extremity edema, and calf pain. In the ED: She was afebrile on arrival. SpO2 has been in the low to mid 90s on 5 L. labs are significant for a WBC count of 8.5, hemoglobin 11.9, platelet 184, sodium 130, chloride 91, BUN 18, creatinine 0.80. Chest x-ray showed bibasilar pneumonia. She was given a nebulizer treatment, magnesium sulfate, methylprednisolone, cefepime, and vancomycin and she is is being admitted in this setting for further treatment. ----- She was initially doing okay. Feeling better with Solu-Medrol, scheduled nebulizers, she had also received ceftriaxone and azithromycin. On 12/13/2023 ceftriaxone switched to cefdinir 300 mg p.o. b.i.d. On 12/15/2023 we are still unable to wean her rest. This is worse than her baseline. She is also having dyspnea at rest. She still has a cough productive of sputum, it has changed from green to a thick white mucoid character. She does not have wheezing but has rhonchi and crackles very appreciable at the bases. She also has junky upper airway sounds diffusely. She reports she has felt fantastic after Pulmozyme treatment. Will continue that daily. Suspect much of her symptomatology is related to bronchitis. Continue Cornet therapy, guaifenesin 1200 mg p.o. b.i.d., scheduled DuoNebs, dextromethorphan, prednisone On 12/14 will also discontinue cefdinir and start levofloxacin 750 mg IV q.day. she takes hydrochlorothiazide 25 mg p.o. q.day at home that was held early on in the admission. She complains of increased ankle swelling which is the worst it has been. Her BNP is only very mildly elevated, a ayanaa
[2023-12-16] MEDS: MAGNESIUM OXIDE 200 MG TABLET PO (20:38)
[2023-12-16] MEDS: MONTELUKAST SODIUM 10 MG TABLET PO (20:38)
[2023-12-16] MEDS: SERTRALINE HCL 50 MG TABLET 100 MG PO (20:38)
[2023-12-16] MEDS: FAMOTIDINE 20 MG TABLET PO (20:38)
[2023-12-16] MEDS: chlordiazePOXIDE (*CRX) 10 MG CAPSULE PO (20:39)
[2023-12-17] VITALS (12 sets, daily range): BP systolic 112–120; BP diastolic 57–69; PULSE 73–98; RESP 16–20; TEMP 36.6–36.8; O2SAT 90–96
[2023-12-17] MEDS: traMADol HCL (*CRX) 25 MG TABLET PO ×2 (00:35→20:36)
[2023-12-17] MEDS: IPRATROPIUM 0.5 MG/ALBUTEROL SULFATE 2.5 MG AMPUL.NEB 3 ML INHALATION ×3 (01:43→14:22)
[2023-12-17 03:54] LABS: Legionella pneumophila Ag Ur NOT DETECTED
--- NOTE | 2023-12-17 06:07 | PC.NURSE ---
On 12/17/23, the CORPORATE MANAGER, [VALERIE ALEJANDRO ], provided care and completed [facility] documentation on this patient. I have reviewed the CORPORATE MANAGER's documentation and agree with the findings.
[2023-12-17 06:50] LABS: Hematocrit 36.7 % (37.0-47.0); Hemoglobin 11.8 g/dL (12.0-15.0); Mean Corpuscular HGB Conc 32.2 g/dl (32-36); Mean Corpuscular Hemoglobin 30.3 pg (26-34); Mean Corpuscular Volume 94.3 fl (80-100); Mean Platelet Volume 10.4 fl (7.4-10.4); Platelet Count Result 235 k/mm3 (150-375); Red Blood Count 3.89 M/mm3 (4.2-5.4); Red Cell Distribution Width 15.6 % (11.5-14.5); White Blood Count 8.5 K/mm3 (4.5-10.0)
[2023-12-17 07:14] LABS: Alanine Aminotransferase 29 U/L (6-35); Albumin Level 3.6 g/dL (3.5-5.1); Alkaline Phosphatase 79 U/L (38-126); Anion Gap 6 mmol/L (4-12); Aspartate Amino Transferase 25 U/L (14-36); Bilirubin,Total 0.7 mg/dL (0.2-1.3); Blood Urea Nitrogen 20 mg/dL (7-17); Calcium 8.5 mg/dL (8.4-10.2); Carbon Dioxide 37 mmol/L (22-30); Chloride 95 mmol/L (98-107); Estimated CRCL calculation 43 ml/min; Estimated Glomerular Filt Rate 60; Glucose 90 mg/dL (65-110); Potassium 3.6 mmol/L (3.4-5.0); Sodium 138 mmol/L (137-145)
[2023-12-17] MEDS: FLUTICASONE/UMECLIDIN/VILANTER 200-62.5-25 MCG ELLIPTA 1 PUFF INHALATION (07:43)
[2023-12-17] MEDS: DORNASE ALFA INH SOLN 1 MG/ML 2.5 ML AMP 2.5 MG INHALATION (07:43)
[2023-12-17] MEDS: acetaZOLAMIDE TAB 250 MG TABLET PO (08:57)
[2023-12-17] MEDS: LEVOTHYROXINE SODIUM 150 MCG TABLET PO (08:57)
[2023-12-17] MEDS: FUROSEMIDE INJ 40 MG/4 ML VIAL IV PUSH ×2 (08:58→17:36)
[2023-12-17] MEDS: dilTIAZem HCL CD 120 MG CAP.24HR PO (08:58)
[2023-12-17] MEDS: SENNA/DOCUSATE SODIUM TABLET 1 TAB PO (08:58)
[2023-12-17] MEDS: AZELASTINE HCL NASAL 0.1% 137 MCG/SPR 30 ML BTL 1 SPRAY NASAL ×2 (08:58→20:32)
[2023-12-17] MEDS: CELECOXIB 200 MG CAPSULE PO (08:58)
[2023-12-17] MEDS: guaiFENesin 12 HR 600 MG TABCR 1200 MG PO ×2 (08:59→20:32)
[2023-12-17] MEDS: levoFLOXacin 750 MG/D5W 150 ML 750 MG/150 ML BAG 100 MG IVPB (08:59)
[2023-12-17] MEDS: predniSONE 20 MG TABLET 60 MG PO (09:00)
[2023-12-17] MEDS: NYSTATIN 100,000 UNITS/ML SUSP 5 ML ORAL.SUSP PO ×4 (09:00→20:32)
[2023-12-17] MEDS: LIDOCAINE 5% PATCH 1 PATCH TRANSDERM (09:01)
[2023-12-17] MEDS: PANTOPRAZOLE 40 MG TABLET PO (09:01)
--- NOTE | 2023-12-17 10:53 | PM.IMPN ---
Progress Note: A&P Assessment and Plan (1) Pneumonia: Qualifiers: Lung location: unspecified part of lung Pneumonia type: due to unspecified organism Code(s): J18.9 - Pneumonia, unspecified organism Status: Acute (2) COPD (chronic obstructive pulmonary disease): Code(s): J44.9 - Chronic obstructive pulmonary disease, unspecified Status: Acute (3) Acute and chronic respiratory failure with hypoxia: Code(s): J96.21 - Acute and chronic respiratory failure with hypoxia Status: Acute (4) Thrush: Code(s): B37.0 - Candidal stomatitis Status: Acute (5) Rib pain on left side: Code(s): R07.81 - Pleurodynia Status: Acute (6) COPD exacerbation: Code(s): J44.1 - Chronic obstructive pulmonary disease with (acute) exacerbation Status: Acute (7) Acute hypokalemia: Code(s): E87.6 - Hypokalemia Status: Acute Plan This is a pleasant 78-year-old female with chronic respiratory failure on 4-5 L oxygen which she wears only with activity and at nighttime, chronic obstructive pulmonary disease, 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 The patient is known to hospitalist service from an admission 1 week prior to admission in which she was treated for COPD and pneumonia with nebs, steroids, and antibiotics. She was discharged home on 12/06/2023 with azithromycin and a Medrol Dosepak, antibiotics were not given for the full course. Sputum culture and AFB smear and cultures were ordered but were not collected during that stay. She felt okay when she was discharged however the last several days she has developed increasing cough, sputum production, and shortness of breath with fevers up to 101? F. Appetite has been fair and she denies nausea, vomiting, and diarrhea. She continues to have pain in the back ribs related to coughing. She denies exertional chest pain, syncope, near syncope, palpitations, hemoptysis, lower extremity edema, and calf pain. In the ED: She was afebrile on arrival. SpO2 has been in the low to mid 90s on 5 L. labs are significant for a WBC count of 8.5, hemoglobin 11.9, platelet 184, sodium 130, chloride 91, BUN 18, creatinine 0.80. Chest x-ray showed bibasilar pneumonia. She was given a nebulizer treatment, magnesium sulfate, methylprednisolone, cefepime, and vancomycin and she is is being admitted in this setting for further treatment. ----- She was initially doing okay. Feeling better with Solu-Medrol, scheduled nebulizers, she had also received ceftriaxone and azithromycin. On 12/13/2023 ceftriaxone switched to cefdinir 300 mg p.o. b.i.d. On 12/15/2023 we are still unable to wean her rest. This is worse than her baseline. She is also having dyspnea at rest. She still has a cough productive of sputum, it has changed from green to a thick white mucoid character. She does not have wheezing but has rhonchi and crackles very appreciable at the bases. She also has junky upper airway sounds diffusely. She reports she has felt fantastic after Pulmozyme treatment. Will continue that daily. Suspect much of her symptomatology is related to bronchitis. Continue Cornet therapy, guaifenesin 1200 mg p.o. b.i.d., scheduled DuoNebs, dextromethorphan, prednisone On 12/14 will also discontinue cefdinir and start levofloxacin 750 mg IV q.day. she takes hydrochlorothiazide 25 mg p.o. q.day at home that was held early on in the admission. She complains of increased ankle swelling which is the worst it has been. Her BNP is only very mildly elevated, a repeat chest x-ray on 12/12 demonstrates bilateral lower lobe pneumonia and severe emphysema. On 12/13 her cumulative balance noted to be greater than 6 L, unclea
[2023-12-17] MEDS: CALCIUM/VITAMIN D 250 MG/3.125 MCG (125 I.U.) TABLET 2 TABLET PO ×2 (12:09→17:36)
[2023-12-17] MEDS: SODIUM CHLORIDE NASAL GEL 14.1 GM 1 APPLIC NASAL (17:35)
[2023-12-17 18:13] LABS: Mycoplasma IgM Antibody Titer 147 U/mL
[2023-12-17] MEDS: SERTRALINE HCL 50 MG TABLET 100 MG PO (20:31)
[2023-12-17] MEDS: MONTELUKAST SODIUM 10 MG TABLET PO (20:31)
[2023-12-17] MEDS: MAGNESIUM OXIDE 200 MG TABLET PO (20:31)
[2023-12-17] MEDS: FAMOTIDINE 20 MG TABLET PO (20:32)
[2023-12-17] MEDS: chlordiazePOXIDE (*CRX) 10 MG CAPSULE PO (20:36)
[2023-12-18] VITALS (12 sets, daily range): BP systolic 116–119; BP diastolic 66–71; PULSE 71–95; RESP 16–20; TEMP 36.4–36.6; O2SAT 92–100
[2023-12-18 05:58] LABS: Alanine Aminotransferase 26 U/L (6-35); Albumin Level 3.6 g/dL (3.5-5.1); Alkaline Phosphatase 71 U/L (38-126); Anion Gap 8 mmol/L (4-12); Aspartate Amino Transferase 21 U/L (14-36); Bilirubin,Total 0.7 mg/dL (0.2-1.3); Blood Urea Nitrogen 21 mg/dL (7-17); Calcium 8.5 mg/dL (8.4-10.2); Carbon Dioxide 32 mmol/L (22-30); Chloride 94 mmol/L (98-107); Estimated CRCL calculation 39 ml/min; Estimated Glomerular Filt Rate 53; Glucose 98 mg/dL (65-110); Potassium 3.2 mmol/L (3.4-5.0); Sodium 134 mmol/L (137-145)
[2023-12-18] MEDS: LEVOTHYROXINE SODIUM 150 MCG TABLET PO (06:49)
[2023-12-18] MEDS: IPRATROPIUM 0.5 MG/ALBUTEROL SULFATE 2.5 MG AMPUL.NEB 3 ML INHALATION ×3 (07:56→20:43)
[2023-12-18] MEDS: FLUTICASONE/UMECLIDIN/VILANTER 200-62.5-25 MCG ELLIPTA 1 PUFF INHALATION (07:59)
[2023-12-18] MEDS: DORNASE ALFA INH SOLN 1 MG/ML 2.5 ML AMP 2.5 MG INHALATION (07:59)
--- NOTE | 2023-12-18 08:00 | P.PNIM_ITS ---
Progress Note: A&P Assessment and Plan (1) Pneumonia: Qualifiers: Lung location: unspecified part of lung Pneumonia type: due to unspecified organism Code(s): J18.9 - Pneumonia, unspecified organism Status: Acute (2) COPD (chronic obstructive pulmonary disease): Code(s): J44.9 - Chronic obstructive pulmonary disease, unspecified Status: Acute (3) Acute and chronic respiratory failure with hypoxia: Code(s): J96.21 - Acute and chronic respiratory failure with hypoxia Status: Acute (4) Thrush: Code(s): B37.0 - Candidal stomatitis Status: Acute (5) Rib pain on left side: Code(s): R07.81 - Pleurodynia Status: Acute (6) COPD exacerbation: Code(s): J44.1 - Chronic obstructive pulmonary disease with (acute) exacerbation Status: Acute (7) Acute hypokalemia: Code(s): E87.6 - Hypokalemia Status: Acute Plan This is a pleasant 78-year-old female with chronic respiratory failure on 4-5 L oxygen which she wears only with activity and at nighttime, chronic obstructive pulmonary disease, 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 The patient is known to hospitalist service from an admission 1 week prior to admission in which she was treated for COPD and pneumonia with nebs, steroids, and antibiotics. She was discharged home on 12/06/2023 with azithromycin and a Medrol Dosepak, antibiotics were not given for the full course. Sputum culture and AFB smear and cultures were ordered but were not collected during that stay. She felt okay when she was discharged however the last several days she has developed increasing cough, sputum production, and shortness of breath with fevers up to 101? F. Appetite has been fair and she denies nausea, vomiting, and diarrhea. She continues to have pain in the back ribs related to coughing. She denies exertional chest pain, syncope, near syncope, palpitations, hemoptysis, lower extremity edema, and calf pain. In the ED: She was afebrile on arrival. SpO2 has been in the low to mid 90s on 5 L. labs are significant for a WBC count of 8.5, hemoglobin 11.9, platelet 184, sodium 130, chloride 91, BUN 18, creatinine 0.80. Chest x-ray showed bibasilar pneumonia. She was given a nebulizer treatment, magnesium sulfate, methylprednisolone, cefepime, and vancomycin and she is is being admitted in this setting for further treatment. ----- She was initially doing okay. Feeling better with Solu-Medrol, scheduled nebulizers, she had also received ceftriaxone and azithromycin. On 12/13/2023 ceftriaxone switched to cefdinir 300 mg p.o. b.i.d. On 12/15/2023 we are still unable to wean her rest. This is worse than her baseline. She is also having dyspnea at rest. She still has a cough productive of sputum, it has changed from green to a thick white mucoid character. She does not have wheezing but has rhonchi and crackles very appreciable at the bases. She also has junky upper airway sounds diffusely. She reports she has felt fantastic after Pulmozyme treatment. Will continue that daily. Suspect much of her symptomatology is related to bronchitis. Continue Cornet therapy, guaifenesin 1200 mg p.o. b.i.d., scheduled DuoNebs, dextromethorphan, prednisone On 12/14 will also discontinue cefdinir and start levofloxacin 750 mg IV q.day. she takes hydrochlorothiazide 25 mg p.o. q.day at home that was held early on in the admission.
[2023-12-18] MEDS: POTASSIUM CHLORIDE 20 MEQ PACKET (FOR LIQUID) 40 MEQ PO (08:57)
[2023-12-18] MEDS: NYSTATIN 100,000 UNITS/ML SUSP 5 ML ORAL.SUSP PO ×4 (08:58→21:53)
[2023-12-18] MEDS: guaiFENesin 12 HR 600 MG TABCR 1200 MG PO (08:58)
[2023-12-18] MEDS: CELECOXIB 200 MG CAPSULE PO (08:59)
[2023-12-18] MEDS: acetaZOLAMIDE TAB 250 MG TABLET PO (08:59)
[2023-12-18] MEDS: FUROSEMIDE INJ 40 MG/4 ML VIAL IV PUSH ×2 (08:59→16:32)
[2023-12-18] MEDS: predniSONE 20 MG TABLET 60 MG PO (09:00)
[2023-12-18] MEDS: dilTIAZem HCL CD 120 MG CAP.24HR PO (09:00)
[2023-12-18] MEDS: LIDOCAINE 5% PATCH 1 PATCH TRANSDERM (09:01)
[2023-12-18] MEDS: PANTOPRAZOLE 40 MG TABLET PO (09:01)
[2023-12-18] MEDS: AZELASTINE HCL NASAL 0.1% 137 MCG/SPR 30 ML BTL 1 SPRAY NASAL ×2 (09:18→21:49)
[2023-12-18] MEDS: SODIUM CHLORIDE NASAL GEL 14.1 GM 1 APPLIC NASAL ×2 (09:18→16:32)
[2023-12-18] MEDS: CALCIUM/VITAMIN D 250 MG/3.125 MCG (125 I.U.) TABLET 2 TABLET PO ×2 (11:48→16:38)
--- NOTE | 2023-12-18 16:32 | PM.PNPUL ---
Progress Note: A&P Assessment and Plan (1) Chronic cough: Code(s): R05.3 - Chronic cough Status: Acute Assessment and Plan: I am adding this as a new independent diagnosis as she tells me that she has coughed non-stop for a month, with thick mucoid clear secretions that are usually easy to expectorate. She is using Pulmozyme and Cornet valve. She has not had any evaluation for swallowing problems although she denies obvious problems with eating or drinking. (2) COPD (chronic obstructive pulmonary disease): Code(s): J44.9 - Chronic obstructive pulmonary disease, unspecified Status: Acute Assessment and Plan: Long hx of COPD, has been on home medications : lev-albuterol 1.35 neb t.i.d. and Trelegy 100/62/4.5 and montelukast Now while in-patient she is managed with steroids, duonebs, Dornase mike which has been excellent at improving expectoration, and Levaquin for pneumonia. she is using a Cornet valve with good results. continue ot have wheezing, and diuresis is encouraged. She is up several kg and has leg swelling, R > L, no prior hx of CHF, echo with good systolic function and grade I diastolic dysfunction. (3) Acute and chronic respiratory failure with hypoxia: Code(s): J96.21 - Acute and chronic respiratory failure with hypoxia Status: Acute Assessment and Plan: On O2 now at 4 L/min, 92% saturatoin. O2 use for the last 7-10 years, at home was on none at rest and 5 L with exertion and sleep after her last discharge December 05 Continues to need O2 at rest, 4 L/min, not easily weanable, resp rate 20, and she is using some accessory muscles. She has not had good sleep for a month when her symptoms started to escalate. (4) Pneumonia: Qualifiers: Lung location: unspecified part of lung Pneumonia type: due to unspecified organism Code(s): J18.9 - Pneumonia, unspecified organism Status: Acute Assessment and Plan: non-resolving; had bilateral infiltrates December 02- with admission, no organisms recovered. Readmitted December 09 with recurrent symptoms, now with increased volume of sputum thicker and discolored, with all studies so far negative. This included all serology last admission for SARS-CoV-2, influenza A &B, RSV, sputum this admission was poor quality, therefore will re-attempt tomorrow with sputum for Gram stain C&S and Fungal smear and culture. Sputum for AFB x 3 has been collected. She may have sinusitis in addition to pneumonia. She is on nasal saline and steroids. Current antibiotics include Levaquin; Extended respiratory pathogen panel is pending this has extensive viral pathogens. She has not had fungal studies yet and these have been ordered. White blood cell count improved. 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 this was diagnosed in July of this year and she has had radiation. She likely has underlying cancer in the area that we see pneumonia. She does not appear to have a postobstructive pneumonia. We may end up repeating a CT scan in another day or so. Her last was 12/10/2023. (6) Atrial enlargement, bilateral: Code(s): I51.7 - Cardiomegaly Status: Acute Assessment and Plan: Echo 12/04/23 shows biatrial enlargement, likely due to conduction delay. She has normal systolic function, no reported increase in RVSP however pulmonary artery is enlarged on CT consistent with pulmonary hypertension. This is c
[2023-12-18 17:18] LABS: Hematocrit 37.4 % (37.0-47.0); Hemoglobin 11.6 g/dL (12.0-15.0); Mean Corpuscular Hemoglobin 29.8 pg (26-34); Mean Corpuscular Volume 96.1 fl (80-100); Mean Platelet Volume 10.7 fl (7.4-10.4); Platelet Count Result 250 k/mm3 (150-375); Red Blood Count 3.89 M/mm3 (4.2-5.4); Red Cell Distribution Width 15.8 % (11.5-14.5); White Blood Count 7.9 K/mm3 (4.5-10.0)
[2023-12-18] MEDS: FAMOTIDINE 20 MG TABLET PO (21:45)
[2023-12-18] MEDS: MAGNESIUM OXIDE 200 MG TABLET PO (21:45)
[2023-12-18] MEDS: MONTELUKAST SODIUM 10 MG TABLET PO (21:45)
[2023-12-18] MEDS: SERTRALINE HCL 50 MG TABLET 100 MG PO (21:46)
[2023-12-18] MEDS: traMADol HCL (*CRX) 25 MG TABLET PO (21:53)
[2023-12-18] MEDS: guaiFENesin 200 MG/10 ML UDC 400 MG PO (22:26)
[2023-12-19] VITALS (12 sets, daily range): BP systolic 112–129; BP diastolic 60–79; PULSE 63–77; RESP 16–20; TEMP 36.6–36.7; O2SAT 95–100
[2023-12-19] MEDS: guaiFENesin 200 MG/10 ML UDC 400 MG PO ×6 (01:37→21:27)
[2023-12-19] MEDS: IPRATROPIUM 0.5 MG/ALBUTEROL SULFATE 2.5 MG AMPUL.NEB 3 ML INHALATION ×4 (02:24→20:12)
[2023-12-19] MEDS: DORNASE ALFA INH SOLN 1 MG/ML 2.5 ML AMP 2.5 MG INHALATION (07:46)
[2023-12-19] MEDS: FLUTICASONE/UMECLIDIN/VILANTER 200-62.5-25 MCG ELLIPTA 1 PUFF INHALATION (07:47)
[2023-12-19 09:17] LABS: Hematocrit 36.8 % (37.0-47.0); Hemoglobin 11.9 g/dL (12.0-15.0); Mean Corpuscular HGB Conc 32.3 g/dl (32-36); Mean Corpuscular Hemoglobin 29.9 pg (26-34); Mean Corpuscular Volume 92.5 fl (80-100); Mean Platelet Volume 10.2 fl (7.4-10.4); Platelet Count Result 218 k/mm3 (150-375); Red Blood Count 3.98 M/mm3 (4.2-5.4); White Blood Count 6.6 K/mm3 (4.5-10.0)
[2023-12-19] MEDS: predniSONE 20 MG TABLET 60 MG PO (09:19)
[2023-12-19] MEDS: LEVOTHYROXINE SODIUM 150 MCG TABLET PO (09:19)
[2023-12-19] MEDS: AZELASTINE HCL NASAL 0.1% 137 MCG/SPR 30 ML BTL 1 SPRAY NASAL ×2 (09:20→21:26)
[2023-12-19] MEDS: acetaZOLAMIDE TAB 250 MG TABLET PO (09:20)
[2023-12-19] MEDS: CELECOXIB 200 MG CAPSULE PO (09:20)
[2023-12-19] MEDS: dilTIAZem HCL CD 120 MG CAP.24HR PO (09:21)
[2023-12-19] MEDS: levoFLOXacin 750 MG TABLET PO (09:21)
[2023-12-19] MEDS: PANTOPRAZOLE 40 MG TABLET PO (09:22)
[2023-12-19] MEDS: FUROSEMIDE INJ 40 MG/4 ML VIAL IV PUSH ×2 (09:22→16:59)
[2023-12-19] MEDS: LIDOCAINE 5% PATCH 1 PATCH TRANSDERM (09:23)
[2023-12-19] MEDS: NYSTATIN 100,000 UNITS/ML SUSP 5 ML ORAL.SUSP PO ×4 (09:23→21:28)
[2023-12-19] MEDS: SODIUM CHLORIDE NASAL GEL 14.1 GM 1 APPLIC NASAL ×2 (09:24→16:59)
[2023-12-19 09:31] LABS: Alanine Aminotransferase 27 U/L (6-35); Albumin Level 3.6 g/dL (3.5-5.1); Alkaline Phosphatase 73 U/L (38-126); Anion Gap 9 mmol/L (4-12); Aspartate Amino Transferase 23 U/L (14-36); Bilirubin,Total 0.6 mg/dL (0.2-1.3); Blood Urea Nitrogen 23 mg/dL (7-17); Calcium 8.9 mg/dL (8.4-10.2); Carbon Dioxide 30 mmol/L (22-30); Chloride 95 mmol/L (98-107); Estimated CRCL calculation 39 ml/min; Estimated Glomerular Filt Rate 53; Glucose 92 mg/dL (65-110); Sodium 134 mmol/L (137-145)
[2023-12-19] MEDS: traMADol HCL (*CRX) 25 MG TABLET PO ×2 (11:52→21:26)
[2023-12-19] MEDS: CALCIUM/VITAMIN D 250 MG/3.125 MCG (125 I.U.) TABLET 2 TABLET PO ×2 (11:53→16:58)
[2023-12-19 12:44] LABS: Adenovirus DNA Not Detected (Not Detected); Chlamydophila pneumoniae Not Detected (Not Detected); Coronavirus 229E Not Detected (Not Detected); Coronavirus HKU1 Not Detected (Not Detected); Coronavirus NL63 Not Detected (Not Detected); Coronavirus OC43 Not Detected (Not Detected); Human Metapneumovirus Not Detected (Not Detected); Human Parainfluenza Virus 1 Not Detected (Not Detected); Human Parainfluenza Virus 2 Not Detected (Not Detected); Human Parainfluenza Virus 3 Not Detected (Not Detected); Human Parainfluenza Virus 4 Not Detected (Not Detected); Human RSV B Not Detected (Not Detected); Influenza A Not Detected (Not Detected); Influenza B Not Detected (Not Detected); Mycoplasma pneumoniae Not Detected (Not Detected); Rhinovirus/Enterovirus Not Detected (Not Detected)
--- NOTE | 2023-12-19 14:08 | PC.NURSE ---
Dr Cade notified of sputum showing acid fast bacilli
--- NOTE | 2023-12-19 14:25 | PM.PNPUL ---
Progress Note: A&P Assessment and Plan (1) Chronic cough: Code(s): R05.3 - Chronic cough Status: Acute Assessment and Plan: She has coughed non-stop for a month, with thick mucoid clear secretions that are usually easy to expectorate. She is using Pulmozyme and Cornet valve. She has not had any evaluation for swallowing problems although she denies obvious problems with eating or drinking. Speech Evaluation and Modified Barium Swallow. (2) COPD (chronic obstructive pulmonary disease): Code(s): J44.9 - Chronic obstructive pulmonary disease, unspecified Status: Acute Assessment and Plan: Long hx of COPD, has been on home medications : lev-albuterol 1.35 neb t.i.d. and Trelegy 100/62/4.5 and montelukast Now while in-patient she is managed with steroids, duonebs, Dornase mike which has been excellent at improving expectoration, and Levaquin for pneumonia. she is using a Cornet valve with good results. continue ot have wheezing, and diuresis is encouraged. She is up several kg and has leg swelling, R > L, no prior hx of CHF, echo with good systolic function and grade I diastolic dysfunction. (3) Acute and chronic respiratory failure with hypoxia: Code(s): J96.21 - Acute and chronic respiratory failure with hypoxia Status: Acute Assessment and Plan: On O2 now at 4 L/min, 92% saturation. O2 use for the last 7-10 years, at home was on none at rest and 5 L with exertion and sleep after her last discharge December 05 Continues to need O2 at rest, 4 L/min, not easily weanable, resp rate 20, and she is using some accessory muscles. She has not had good sleep for a month when her symptoms started to escalate. (4) Pneumonia: Qualifiers: Lung location: unspecified part of lung Pneumonia type: due to unspecified organism Code(s): J18.9 - Pneumonia, unspecified organism Status: Acute Assessment and Plan: She has a non-resolving; had bilateral infiltrates December 02- with admission at [place], no organisms recovered. Readmitted December 09 with recurrent symptoms, now with increased volume of sputum thicker and discolored, with all studies so far negative. This included all serology last admission for SARS-CoV-2, influenza A &B, RSV, sputum this admission was poor quality. Extended respiratory pathogen panel is negative 12/19/23, and sputum sent 12/12/23 had a negative AFB smear, now with (+) mycobacteria recovered 7 days later, Dec 18. The other 2 samples are not showing any growth. The second sample was sent Dec 16, and the third sample had too many epithelial cells. She had significant sinus symptoms 3 days ago. She is on nasal saline and steroids. Current antibiotics include Levaquin; Extended respiratory pathogen panel is negative Dec 18. White blood cell count improved, now 6.6 K on Dec 18. . 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 This was diagnosed in July 2023 and she has had radiation. She likely has underlying cancer in the area that we see pneumonia. She does not appear to have a postobstructive pneumonia. We are repeating CT scan without contrast; last was 12/10/2023. (6) Atrial enlargement, bilateral: Code(s): I51.7 - Cardiomegaly Status: Acute Assessment and Plan: Echo 12/04/23 shows biatrial enlargement, likely due to conduction delay. She has normal systolic function, no reported increase in RVSP however pulmonary artery is
[2023-12-19] MEDS: POTASSIUM CHLORIDE 20 MEQ ER TABLET 40 MEQ PO (16:57)
[2023-12-19] MEDS: SPIRONOLACTONE 12.5 MG TABLET PO (17:00)
[2023-12-19 18:28] LABS: NIL 0.02 IU/mL; Quantiferon TB Plus, 1T INDETERMINATE (NEGATIVE)
[2023-12-19] MEDS: SERTRALINE HCL 50 MG TABLET 100 MG PO (21:26)
[2023-12-19] MEDS: MONTELUKAST SODIUM 10 MG TABLET PO (21:26)
[2023-12-19] MEDS: FAMOTIDINE 20 MG TABLET PO (21:27)
[2023-12-19] MEDS: MAGNESIUM OXIDE 200 MG TABLET PO (21:27)
[2023-12-20] VITALS (14 sets, daily range): BP systolic 105–132; BP diastolic 61–67; PULSE 64–90; RESP 18–20; TEMP 36.2–36.6; O2SAT 92–99
[2023-12-20] MEDS: guaiFENesin 200 MG/10 ML UDC 400 MG PO ×6 (00:46→20:36)
[2023-12-20] MEDS: IPRATROPIUM 0.5 MG/ALBUTEROL SULFATE 2.5 MG AMPUL.NEB 3 ML INHALATION ×3 (02:10→13:10)
[2023-12-20 05:29] LABS: Hematocrit 37.4 % (37.0-47.0); Hemoglobin 11.6 g/dL (12.0-15.0); Mean Corpuscular Hemoglobin 29.4 pg (26-34); Mean Corpuscular Volume 94.7 fl (80-100); Mean Platelet Volume 10.2 fl (7.4-10.4); Platelet Count Result 221 k/mm3 (150-375); Red Blood Count 3.95 M/mm3 (4.2-5.4); Red Cell Distribution Width 14.9 % (11.5-14.5); White Blood Count 5.8 K/mm3 (4.5-10.0)
[2023-12-20] MEDS: LEVOTHYROXINE SODIUM 150 MCG TABLET PO (05:31)
[2023-12-20 05:51] LABS: Alanine Aminotransferase 27 U/L (6-35); Albumin Level 3.6 g/dL (3.5-5.1); Alkaline Phosphatase 63 U/L (38-126); Anion Gap 9 mmol/L (4-12); Aspartate Amino Transferase 22 U/L (14-36); Bilirubin,Total 0.6 mg/dL (0.2-1.3); Blood Urea Nitrogen 25 mg/dL (7-17); Calcium 8.7 mg/dL (8.4-10.2); Carbon Dioxide 29 mmol/L (22-30); Chloride 96 mmol/L (98-107); Estimated CRCL calculation 35 ml/min; Estimated Glomerular Filt Rate 48; Glucose 100 mg/dL (65-110); Potassium 3.9 mmol/L (3.4-5.0); Sodium 134 mmol/L (137-145)
[2023-12-20] MEDS: FLUTICASONE/UMECLIDIN/VILANTER 200-62.5-25 MCG ELLIPTA 1 PUFF INHALATION (07:37)
[2023-12-20] MEDS: AZELASTINE HCL NASAL 0.1% 137 MCG/SPR 30 ML BTL 1 SPRAY NASAL ×2 (09:03→20:36)
[2023-12-20] MEDS: NYSTATIN 100,000 UNITS/ML SUSP 5 ML ORAL.SUSP PO ×4 (09:03→20:40)
[2023-12-20] MEDS: LIDOCAINE 5% PATCH 1 PATCH TRANSDERM (09:03)
[2023-12-20] MEDS: FUROSEMIDE INJ 40 MG/4 ML VIAL IV PUSH (09:05)
[2023-12-20] MEDS: PANTOPRAZOLE 40 MG TABLET PO (09:06)
[2023-12-20] MEDS: SODIUM CHLORIDE NASAL GEL 14.1 GM 1 APPLIC NASAL ×2 (09:06→17:10)
[2023-12-20] MEDS: SPIRONOLACTONE 12.5 MG TABLET PO ×2 (09:06→17:09)
[2023-12-20] MEDS: dilTIAZem HCL CD 120 MG CAP.24HR PO (09:06)
[2023-12-20] MEDS: predniSONE 20 MG TABLET 60 MG PO (09:07)
[2023-12-20] MEDS: CELECOXIB 200 MG CAPSULE PO (09:07)
[2023-12-20] MEDS: SENNA/DOCUSATE SODIUM TABLET 1 TAB PO (09:44)
--- NOTE | 2023-12-20 10:51 | PCSTNOTE ---
Please refer to the Modified Barium Swallow Evaluation in the EMR.
--- NOTE | 2023-12-20 10:56 | PCNFU ---
Nutrition Follow-Up Complete: Potential for inadequate oral intake related to acute pneumonia, loss of appetite as evidenced by patient report of poor appetite, recorded intakes ~60% Goal: Adequate PO intake at least 75% meals Patient is meeting goal. No new goal. Pt current nutrition is Heart Healthy with Ensure compact BID. Last recorded weight is 78.3 kg, down from 81.9 kg Bowel Motility: +Bm reported 12/17 Labs Reviewed:Cr 1.10,BUN 25, GFR 48, Na 134, Hgb 11.6 Meds Noted:Mucinex, Protonix, Prednisone, Lasix Skin: WNL Additional Notes: Patient remains on a heart healthy diet with ensure compact BID. MBS today recommending regular consistencies. Oral Intake has been 50-90% of meals. Agree with diet orders. Monitoring intakes, weights, labs, plan of care Follow up in 5 days
[2023-12-20] MEDS: CALCIUM/VITAMIN D 250 MG/3.125 MCG (125 I.U.) TABLET 2 TABLET PO ×2 (12:35→17:09)
[2023-12-20] MEDS: traMADol HCL (*CRX) 25 MG TABLET PO (12:37)
--- NOTE | 2023-12-20 14:10 | PM.IMPN ---
Progress Note: A&P Assessment and Plan (1) Pneumonia: Qualifiers: Lung location: unspecified part of lung Pneumonia type: due to unspecified organism Code(s): J18.9 - Pneumonia, unspecified organism Status: Acute (2) COPD (chronic obstructive pulmonary disease): Code(s): J44.9 - Chronic obstructive pulmonary disease, unspecified Status: Acute (3) Acute and chronic respiratory failure with hypoxia: Code(s): J96.21 - Acute and chronic respiratory failure with hypoxia Status: Acute (4) Thrush: Code(s): B37.0 - Candidal stomatitis Status: Acute (5) Rib pain on left side: Code(s): R07.81 - Pleurodynia Status: Acute (6) COPD exacerbation: Code(s): J44.1 - Chronic obstructive pulmonary disease with (acute) exacerbation Status: Acute (7) Acute hypokalemia: Code(s): E87.6 - Hypokalemia Status: Acute Plan This is a pleasant 78-year-old female with chronic respiratory failure on 4-5 L oxygen which she wears only with activity and at nighttime, chronic obstructive pulmonary disease, 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 The patient is known to hospitalist service from an admission 1 week prior to admission in which she was treated for COPD and pneumonia with nebs, steroids, and antibiotics. She was discharged home on 12/06/2023 with azithromycin and a Medrol Dosepak, antibiotics were not given for the full course. Sputum culture and AFB smear and cultures were ordered but were not collected during that stay. She felt okay when she was discharged however the last several days she has developed increasing cough, sputum production, and shortness of breath with fevers up to 101? F. Appetite has been fair and she denies nausea, vomiting, and diarrhea. She continues to have pain in the back ribs related to coughing. She denies exertional chest pain, syncope, near syncope, palpitations, hemoptysis, lower extremity edema, and calf pain. In the ED: She was afebrile on arrival. SpO2 has been in the low to mid 90s on 5 L. labs are significant for a WBC count of 8.5, hemoglobin 11.9, platelet 184, sodium 130, chloride 91, BUN 18, creatinine 0.80. Chest x-ray showed bibasilar pneumonia. She was given a nebulizer treatment, magnesium sulfate, methylprednisolone, cefepime, and vancomycin and she is is being admitted in this setting for further treatment. BNP mildly elevated. Also started on diuresis with 40 mg IV b.i.d. Repeat chest x-ray on 12/13/2023 demonstrated bilateral lower lobe pneumonia and severe emphysema She had been treated for COPD exacerbation and pneumonia with Solu Medrol which has been switched to prednisone along with IV antibiotics which has been switched to oral She is currently on levofloxacin. Legionella Mycobacterium pneumococcal studies are negative. Blood culture no growth to date. Continue Cornet therapy, guaifenesin 1200 mg p.o. b.i.d., scheduled DuoNebs, dextromethorphan, Hypokalemia replace and monitor Sputum culture from 12/09 remarkable. Pending acid-fast bacilli sputum culture x3. Mycobacterium avium DNA serum PCR negative from 12/03/2023. Pulmonary has been consulted. Venous duplex came back negative for DVT CT chest consistent with bilateral pneumonia with lower lung predominance pulmonary hypertension and long-standing pulmonary disease. Repeat CT chest 12/19/2023 with residual pneumonia right lower lobe right middle lobe left lower lobe and lingula moderately improved compared to previous studies. Underlying emphysematous changes. Modified barium swallow with laryngeal penetration with thin liquids via straw Echo with EF of 60-65% AV positive sputum from 12/12/2023, 2 others ar
--- NOTE | 2023-12-20 16:55 | PM.PNPUL ---
Progress Note: A&P Assessment and Plan (1) Chronic cough: Code(s): R05.3 - Chronic cough Status: Acute Assessment and Plan: She has coughed non-stop for a month, with thick mucoid clear secretions that are usually easy to expectorate. She is using Pulmozyme and Cornet valve. She has not had any evaluation for swallowing problems although she denies obvious problems with eating or drinking. Speech Evaluation and Modified Barium Swallow today showed that she does have a mildly abnormal swallow wit hthin liquids, and should not use straw. She also needs to tuck her chin when she swallow. (2) COPD (chronic obstructive pulmonary disease): Code(s): J44.9 - Chronic obstructive pulmonary disease, unspecified Status: Acute Assessment and Plan: Long hx of COPD, has been on home medications : lev-albuterol 1.35 neb t.i.d. and Trelegy 100/62/4.5 and montelukast Now while in-patient she is managed with steroids, duonebs, Dornase mike which has been excellent at improving expectoration,and Levaquin for pneumonia; using a Cornet valve with good results. She has less wheezing, diuresis is helping. encouraged. Has leg swelling which is better, R > L, no prior hx of CHF, echo with good systolic function and grade I diastolic dysfunction. (3) Acute and chronic respiratory failure with hypoxia: Code(s): J96.21 - Acute and chronic respiratory failure with hypoxia Status: Acute Assessment and Plan: On O2 now lower at 3 L/min, 92% saturation. O2 use for the last 7-10 years; at home was on none at rest and 5 L with exertion and sleep after her last discharge December 05. Continues to need O2 at rest, 3 L/min, slowly weaning; she has not had good sleep for a month when her symptoms started to escalate. (4) Pneumonia: Qualifiers: Lung location: unspecified part of lung Pneumonia type: due to unspecified organism Code(s): J18.9 - Pneumonia, unspecified organism Status: Acute Assessment and Plan: CT yesterday 12/19/23 shows improvement, finally, in infiltrates both side. Previously, had non-resolving bilateral infiltrates December 02- with admission at [place], no organisms recovered. Readmitted December 09 with recurrent symptoms, now with increased volume of sputum thicker and discolored, (+) mycobacteria on 12/11 sputum recovered 12/18. All serology last admission for SARS-CoV-2, influenza A &B, RSV were negative. Extended respiratory pathogen panel is negative 12/19/23. She had significant sinus symptoms 4 days ago. She is on nasal saline and steroids. Current antibiotics include Levaquin; White blood cell count improved, now 6.6 K on Dec 18. 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 This was diagnosed in July 2023 and she has had radiation. She likely has underlying cancer in the area that we see pneumonia. She does not appear to have a postobstructive pneumonia. She has an 8 mm nodule in the right lung, needs [address] (6) Atrial enlargement, bilateral: Code(s): I51.7 - Cardiomegaly Status: Acute Assessment and Plan: Echo 12/04/23 shows biatrial enlargement, likely due to conduction delay. She has normal systolic function, no reported increase in RVSP however pulmonary artery is enlarged on CT consistent with pulmonary hypertension. This is consistent with long standing pulmonary disease, on O2 for 7-10 years. She has mild diastolic d
[2023-12-20] MEDS: FAMOTIDINE 20 MG TABLET PO (20:36)
[2023-12-20] MEDS: MONTELUKAST SODIUM 10 MG TABLET PO (20:37)
[2023-12-20] MEDS: MAGNESIUM OXIDE 200 MG TABLET PO (20:37)
[2023-12-20] MEDS: SERTRALINE HCL 50 MG TABLET 100 MG PO (20:37)
[2023-12-21] VITALS (14 sets, daily range): BP systolic 113–129; BP diastolic 57–71; PULSE 68–81; RESP 16–20; TEMP 36.3–36.9; O2SAT 91–98
[2023-12-21] MEDS: guaiFENesin 200 MG/10 ML UDC 400 MG PO ×6 (01:07→21:04)
[2023-12-21] MEDS: IPRATROPIUM 0.5 MG/ALBUTEROL SULFATE 2.5 MG AMPUL.NEB 3 ML INHALATION ×4 (02:41→20:20)
[2023-12-21 04:48] LABS: Basophils Percent Auto 0.2 % (0.2-1.2); Eosinophils Percent Auto 0.2 % (0-4.4); Hematocrit 36.1 % (37.0-47.0); Hemoglobin 11.6 g/dL (12.0-15.0); Immature Granulocyte Absolute 0.11 K/mm3 (0.00-0.031); Immature Granulocyte Percent A 1.7 % (0-0.5); Lymphocytes Absolute Auto 0.35 K/mm3 (0.9-3.2); Lymphocytes Percent Auto 5.5 % (18.3-44.2); Mean Corpuscular HGB Conc 32.1 g/dl (32-36); Mean Corpuscular Hemoglobin 29.4 pg (26-34); Mean Corpuscular Volume 91.6 fl (80-100); Mean Platelet Volume 10.1 fl (7.4-10.4); Monocytes Absolute Auto 0.3 K/mm3 (0.1-0.6); Monocytes Percent Auto 4.4 % (2.6-8.5); Neutrophils Absolute Auto 5.7 K/mm3 (1.3-6.7); Platelet Count Result 227 k/mm3 (150-375); Red Blood Count 3.94 M/mm3 (4.2-5.4); Red Cell Distribution Width 14.8 % (11.5-14.5); White Blood Count 6.4 K/mm3 (4.5-10.0)
[2023-12-21 05:01] LABS: Alanine Aminotransferase 24 U/L (6-35); Albumin Level 3.5 g/dL (3.5-5.1); Alkaline Phosphatase 72 U/L (38-126); Anion Gap 7 mmol/L (4-12); Aspartate Amino Transferase 21 U/L (14-36); Bilirubin,Total 0.5 mg/dL (0.2-1.3); Blood Urea Nitrogen 20 mg/dL (7-17); Calcium 8.9 mg/dL (8.4-10.2); Carbon Dioxide 33 mmol/L (22-30); Chloride 94 mmol/L (98-107); Estimated CRCL calculation 38 ml/min; Estimated Glomerular Filt Rate 53; Glucose 109 mg/dL (65-110); Magnesium 2.5 mg/dL (1.6-2.3); Potassium 4.2 mmol/L (3.4-5.0); Sodium 134 mmol/L (137-145)
[2023-12-21] MEDS: FLUTICASONE/UMECLIDIN/VILANTER 200-62.5-25 MCG ELLIPTA 1 PUFF INHALATION (08:12)
[2023-12-21] MEDS: NYSTATIN 100,000 UNITS/ML SUSP 5 ML ORAL.SUSP PO ×2 (09:12→12:24)
[2023-12-21] MEDS: CELECOXIB 200 MG CAPSULE PO (09:12)
[2023-12-21] MEDS: SPIRONOLACTONE 12.5 MG TABLET PO ×2 (09:12→17:11)
[2023-12-21] MEDS: PANTOPRAZOLE 40 MG TABLET PO (09:13)
[2023-12-21] MEDS: levoFLOXacin 750 MG TABLET PO (09:13)
[2023-12-21] MEDS: LEVOTHYROXINE SODIUM 150 MCG TABLET PO (09:13)
[2023-12-21] MEDS: predniSONE 20 MG TABLET 60 MG PO (09:13)
[2023-12-21] MEDS: dilTIAZem HCL CD 120 MG CAP.24HR PO (09:13)
[2023-12-21] MEDS: AZELASTINE HCL NASAL 0.1% 137 MCG/SPR 30 ML BTL 1 SPRAY NASAL ×2 (09:14→20:31)
[2023-12-21] MEDS: SODIUM CHLORIDE NASAL GEL 14.1 GM 1 APPLIC NASAL ×2 (09:14→17:11)
[2023-12-21] MEDS: LIDOCAINE 5% PATCH 1 PATCH TRANSDERM (09:14)
[2023-12-21] MEDS: traMADol HCL (*CRX) 25 MG TABLET PO (11:10)
[2023-12-21] MEDS: CALCIUM/VITAMIN D 250 MG/3.125 MCG (125 I.U.) TABLET 2 TABLET PO ×2 (11:10→17:11)
--- NOTE | 2023-12-21 11:11 | PM.IMPN ---
Progress Note: A&P Assessment and Plan (1) Pneumonia: Qualifiers: Lung location: unspecified part of lung Pneumonia type: due to unspecified organism Code(s): J18.9 - Pneumonia, unspecified organism Status: Acute (2) COPD (chronic obstructive pulmonary disease): Code(s): J44.9 - Chronic obstructive pulmonary disease, unspecified Status: Acute (3) Acute and chronic respiratory failure with hypoxia: Code(s): J96.21 - Acute and chronic respiratory failure with hypoxia Status: Acute (4) Thrush: Code(s): B37.0 - Candidal stomatitis Status: Acute (5) Rib pain on left side: Code(s): R07.81 - Pleurodynia Status: Acute (6) COPD exacerbation: Code(s): J44.1 - Chronic obstructive pulmonary disease with (acute) exacerbation Status: Acute (7) Acute hypokalemia: Code(s): E87.6 - Hypokalemia Status: Acute Plan This is a pleasant 78-year-old female with chronic respiratory failure on 4-5 L oxygen which she wears only with activity and at nighttime, chronic obstructive pulmonary disease, 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 The patient is known to hospitalist service from an admission 1 week prior to admission in which she was treated for COPD and pneumonia with nebs, steroids, and antibiotics. She was discharged home on 12/06/2023 with azithromycin and a Medrol Dosepak, antibiotics were not given for the full course. Sputum culture and AFB smear and cultures were ordered but were not collected during that stay. She felt okay when she was discharged however the last several days she has developed increasing cough, sputum production, and shortness of breath with fevers up to 101? F. Appetite has been fair and she denies nausea, vomiting, and diarrhea. She continues to have pain in the back ribs related to coughing. She denies exertional chest pain, syncope, near syncope, palpitations, hemoptysis, lower extremity edema, and calf pain. In the ED: She was afebrile on arrival. SpO2 has been in the low to mid 90s on 5 L. labs are significant for a WBC count of 8.5, hemoglobin 11.9, platelet 184, sodium 130, chloride 91, BUN 18, creatinine 0.80. Chest x-ray showed bibasilar pneumonia. She was given a nebulizer treatment, magnesium sulfate, methylprednisolone, cefepime, and vancomycin and she is is being admitted in this setting for further treatment. BNP mildly elevated. Also started on diuresis with 40 mg IV b.i.d. Repeat chest x-ray on 12/13/2023 demonstrated bilateral lower lobe pneumonia and severe emphysema She had been treated for COPD exacerbation and pneumonia with Solu Medrol which has been switched to prednisone along with IV antibiotics which has been switched to oral She is currently on levofloxacin and finished the course of treatment. Legionella Mycobacterium pneumococcal studies are negative. Blood culture no growth to date. Continue Cornet therapy, guaifenesin 1200 mg p.o. b.i.d., scheduled DuoNebs, dextromethorphan, Hypokalemia replace and monitor Sputum culture from 12/09 remarkable. Pending acid-fast bacilli sputum culture x3. Mycobacterium avium DNA serum PCR negative from 12/03/2023.AFB positive sputum from 12/12/2023, 2 others are negative. She does have history of MAC in the past. awaiti identification Pulmonary has been consulted. Venous duplex came back negative for DVT CT chest consistent with bilateral pneumonia with lower lung predominance pulmonary hypertension and long-standing pulmonary disease. Repeat CT chest 12/19/2023 with residual pneumonia right lower lobe right middle lobe left lower lobe and lingula moderately improved compared to previous studies. Underlying emphysematous
[2023-12-21 12:10] LABS: NT Pro B Type Natriuretic Pept 86 pg/mL (19.9-100)
[2023-12-21] MEDS: FUROSEMIDE 40 MG TABLET PO (12:23)
[2023-12-21] MEDS: FAMOTIDINE 20 MG TABLET PO (20:31)
[2023-12-21] MEDS: MAGNESIUM OXIDE 200 MG TABLET PO (20:32)
[2023-12-21] MEDS: MONTELUKAST SODIUM 10 MG TABLET PO (20:32)
[2023-12-21] MEDS: SERTRALINE HCL 50 MG TABLET 100 MG PO (20:32)
[2023-12-22] VITALS (18 sets, daily range): BP systolic 111–114; BP diastolic 58–64; PULSE 64–101; RESP 16–20; TEMP 36.2–36.4; O2SAT 80–96
[2023-12-22] MEDS: IPRATROPIUM 0.5 MG/ALBUTEROL SULFATE 2.5 MG AMPUL.NEB 3 ML INHALATION ×3 (02:18→14:11)
[2023-12-22] MEDS: guaiFENesin 200 MG/10 ML UDC 400 MG PO ×4 (02:23→13:58)
[2023-12-22] MEDS: traMADol HCL (*CRX) 25 MG TABLET PO (02:25)
[2023-12-22 04:58] LABS: Basophils Percent Auto 0.5 % (0.2-1.2); Eosinophils Percent Auto 0.2 % (0-4.4); Hematocrit 34.8 % (37.0-47.0); Immature Granulocyte Absolute 0.12 K/mm3 (0.00-0.031); Immature Granulocyte Percent A 2.1 % (0-0.5); Lymphocytes Absolute Auto 0.32 K/mm3 (0.9-3.2); Lymphocytes Percent Auto 5.5 % (18.3-44.2); Mean Corpuscular HGB Conc 31.6 g/dl (32-36); Mean Corpuscular Hemoglobin 29.1 pg (26-34); Mean Corpuscular Volume 92.1 fl (80-100); Mean Platelet Volume 10.3 fl (7.4-10.4); Monocytes Absolute Auto 0.3 K/mm3 (0.1-0.6); Monocytes Percent Auto 5.7 % (2.6-8.5); Platelet Count Result 205 k/mm3 (150-375); Red Blood Count 3.78 M/mm3 (4.2-5.4); Red Cell Distribution Width 14.8 % (11.5-14.5); White Blood Count 5.8 K/mm3 (4.5-10.0)
[2023-12-22 05:17] LABS: Alanine Aminotransferase 23 U/L (6-35); Albumin Level 3.3 g/dL (3.5-5.1); Alkaline Phosphatase 59 U/L (38-126); Anion Gap 6 mmol/L (4-12); Aspartate Amino Transferase 19 U/L (14-36); Bilirubin,Total 0.4 mg/dL (0.2-1.3); Blood Urea Nitrogen 21 mg/dL (7-17); Calcium 8.4 mg/dL (8.4-10.2); Carbon Dioxide 32 mmol/L (22-30); Chloride 95 mmol/L (98-107); Estimated CRCL calculation 38 ml/min; Estimated Glomerular Filt Rate 53; Glucose 172 mg/dL (65-110); Magnesium 2.4 mg/dL (1.6-2.3); Potassium 3.2 mmol/L (3.4-5.0); Sodium 133 mmol/L (137-145)
[2023-12-22] MEDS: FLUTICASONE/UMECLIDIN/VILANTER 200-62.5-25 MCG ELLIPTA 1 PUFF INHALATION (07:54)
[2023-12-22] MEDS: predniSONE 10 MG TABLET 50 MG PO (08:29)
[2023-12-22] MEDS: SPIRONOLACTONE 12.5 MG TABLET PO (08:29)
[2023-12-22] MEDS: PANTOPRAZOLE 40 MG TABLET PO (08:29)
[2023-12-22] MEDS: FUROSEMIDE 40 MG TABLET PO (08:29)
[2023-12-22] MEDS: LEVOTHYROXINE SODIUM 150 MCG TABLET PO (08:29)
[2023-12-22] MEDS: dilTIAZem HCL CD 120 MG CAP.24HR PO (08:29)
[2023-12-22] MEDS: SENNA/DOCUSATE SODIUM TABLET 1 TAB PO (08:29)
[2023-12-22] MEDS: CELECOXIB 200 MG CAPSULE PO (08:29)
[2023-12-22] MEDS: AZELASTINE HCL NASAL 0.1% 137 MCG/SPR 30 ML BTL 1 SPRAY NASAL (08:30)
[2023-12-22] MEDS: LIDOCAINE 5% PATCH 1 PATCH TRANSDERM (08:30)
[2023-12-22] MEDS: SODIUM CHLORIDE NASAL GEL 14.1 GM 1 APPLIC NASAL (08:31)
--- NOTE | 2023-12-22 08:45 | PC.NURSE ---
pt refuses to take levothyroxine on empty stomach. takes with other medications/breakfast
--- NOTE | 2023-12-22 13:16 | PM.DS ---
DS: Admitting Diagnosis Discharge Date 12/22/2023 Admitting Diagnosis Shortness of breath DS: Discharge Diagnosis Discharge Diagnosis (1) Pneumonia: Qualifiers: Lung location: unspecified part of lung Pneumonia type: due to unspecified organism Code(s): J18.9 - Pneumonia, unspecified organism Status: Acute (2) COPD (chronic obstructive pulmonary disease): Code(s): J44.9 - Chronic obstructive pulmonary disease, unspecified Status: Acute (3) Acute and chronic respiratory failure with hypoxia: Code(s): J96.21 - Acute and chronic respiratory failure with hypoxia Status: Acute (4) Thrush: Code(s): B37.0 - Candidal stomatitis Status: Acute (5) Rib pain on left side: Code(s): R07.81 - Pleurodynia Status: Acute (6) COPD exacerbation: Code(s): J44.1 - Chronic obstructive pulmonary disease with (acute) exacerbation Status: Acute (7) Acute hypokalemia: Code(s): E87.6 - Hypokalemia Status: Acute DS: Summary Hospital Course Hospital Course: This is a pleasant 78-year-old female with chronic respiratory failure on 4-5 L oxygen which she wears only with activity and at nighttime, chronic obstructive pulmonary disease, 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 The patient is known to hospitalist service from an admission 1 week prior to admission in which she was treated for COPD and pneumonia with nebs, steroids, and antibiotics. She was discharged home on 12/06/2023 with azithromycin and a Medrol Dosepak, antibiotics were not given for the full course. Sputum culture and AFB smear and cultures were ordered but were not collected during that stay. She felt okay when she was discharged however the last several days she has developed increasing cough, sputum production, and shortness of breath with fevers up to 101? F. Appetite has been fair and she denies nausea, vomiting, and diarrhea. She continues to have pain in the back ribs related to coughing. She denies exertional chest pain, syncope, near syncope, palpitations, hemoptysis, lower extremity edema, and calf pain. In the ED: She was afebrile on arrival. SpO2 has been in the low to mid 90s on 5 L. labs are significant for a WBC count of 8.5, hemoglobin 11.9, platelet 184, sodium 130, chloride 91, BUN 18, creatinine 0.80. Chest x-ray showed bibasilar pneumonia. She was given a nebulizer treatment, magnesium sulfate, methylprednisolone, cefepime, and vancomycin and she is is being admitted in this setting for further treatment. BNP mildly elevated. Also started on diuresis with 40 mg IV b.i.d. Repeat chest x-ray on 12/13/2023 demonstrated bilateral lower lobe pneumonia and severe emphysema She had been treated for COPD exacerbation and pneumonia with Solu Medrol which has been switched to prednisone along with IV antibiotics which has been switched to oral. Prednisone will be tapered slowly as an outpatient She was also treated with levofloxacin and finished the course of treatment. Legionella Mycobacterium pneumococcal studies are negative. Blood culture no growth to date. Continue Cornet therapy, guaifenesin 1200 mg p.o. b.i.d., scheduled DuoNebs, dextromethorphan, Hypokalemia replace and monitor Sputum culture from 12/09 remarkable. Pending acid-fast bacilli sputum culture x3. Mycobacterium avium DNA serum PCR negative from 12/03/2023.AFB positive sputum from 12/12/2023, 2 others are negative. She does have history of MAC in the past. awaiti identification and this will be followed up as an outpatient basis Pulmonary has been consulted. Venous duplex came back negative for DVT CT chest consistent with bilateral pneumonia with lower lung predominan
[2023-12-22] MEDS: POTASSIUM CHLORIDE 20 MEQ ER TABLET 40 MEQ PO (13:58)
--- NOTE | 2023-12-22 14:20 | PCRCNOTE ---
Home o2 eval complete. Patient requires 2 lpm with rest and 5 lpm with activity. No change to current home oxygen settings. RN and patient aware.
== END 2023-12-22 16:10 | disposition home health service (06) | DRG 193 ==
LOC: ANHED 17:32 → ANH2MED 17:33
PROVIDERS: General Practice; Internal Medicine Critical Care Medicine; Physician Assistant; Admitting Provider Internal Medicine; Emergency Provider Student in an Organized Health Care Education/Training Program; PCP Hospitalist; Visit Provider Internal Medicine
DX: J18.9 Pneumonia, unspecified organism (principal); I50.33 Acute on chronic diastolic (congestive) heart failure; J96.21 Acute and chronic respiratory failure with hypoxia; J44.0 Chronic obstructive pulmonary disease with (acute) lower respiratory infection; J44.1 Chronic obstructive pulmonary disease with (acute) exacerbation; B37.0 Candidal stomatitis; C34.2 Malignant neoplasm of middle lobe, bronchus or lung; A31.0 Pulmonary mycobacterial infection; I11.0 Hypertensive heart disease with heart failure; J44.9 Chronic obstructive pulmonary disease, unspecified; K21.9 Gastro-esophageal reflux disease without esophagitis; F41.9 Anxiety disorder, unspecified; I48.0 Paroxysmal atrial fibrillation; R05.3 Chronic cough; E87.6 Hypokalemia; F32.A Depression, unspecified; Z85.850 Personal history of malignant neoplasm of thyroid; Z87.891 Personal history of nicotine dependence; Z85.3 Personal history of malignant neoplasm of breast; Z90.11 Acquired absence of right breast and nipple; Z85.828 Personal history of other malignant neoplasm of skin; Z79.52 Long term (current) use of systemic steroids; Z85.118 Personal history of other malignant neoplasm of bronchus and lung; Z99.81 Dependence on supplemental oxygen; Z20.822 Contact with and (suspected) exposure to COVID-19; I27.20 Pulmonary hypertension, unspecified
CPT/HCPCS: 36415; 36600; 71045; 71046; 71250; 80048; 80053; 82805; 83735; 83880; 84145; 85025; 85027; 86480; 86738; 87015; 87040; 87070; 87102; 87106; 87107; 87116; 87118; 87205; 87206; 87449; 87633; 87641; 87899; 92611; 93005; 93970; 94618; 94640; 94667; 94668; 96365; 96375; 99285; A9270; J0456; J0692; J0696; J1940; J1956; J2919; J3370; J3475; J7120; J7512

== ENCOUNTER 2023-12-30 11:20 | Outpatient (NON) | payer MEDICARE, SELFPAY ==
[2023-12-30 12:16] LABS: Alanine Aminotransferase 25 U/L (6-35); Albumin Level 3.4 g/dL (3.5-5.1); Alkaline Phosphatase 74 U/L (38-126); Anion Gap 13 mmol/L (4-12); Aspartate Amino Transferase 24 U/L (14-36); Bilirubin,Total 0.5 mg/dL (0.2-1.3); Blood Urea Nitrogen 20 mg/dL (7-17); Calcium 8.3 mg/dL (8.4-10.2); Carbon Dioxide 22 mmol/L (22-30); Chloride 104 mmol/L (98-107); Estimated Glomerular Filt Rate 60; Glucose 90 mg/dL (65-110); Potassium 3.3 mmol/L (3.4-5.0); Sodium 139 mmol/L (137-145)
[2023-12-30 14:54] LABS: Basophils Percent Auto 0.2 % (0.2-1.2); Eosinophils Absolute Auto 0.1 K/mm3 (0-0.3); Eosinophils Percent Auto 0.5 % (0-4.4); Hematocrit 37.6 % (37.0-47.0); Hemoglobin 11.7 g/dL (12.0-15.0); Immature Granulocyte Absolute 0.12 K/mm3 (0.00-0.031); Immature Granulocyte Percent A 1.3 % (0-0.5); Lymphocytes Absolute Auto 0.26 K/mm3 (0.9-3.2); Lymphocytes Percent Auto 2.7 % (18.3-44.2); Mean Corpuscular HGB Conc 31.1 g/dl (32-36); Mean Corpuscular Hemoglobin 29.3 pg (26-34); Mean Corpuscular Volume 94.2 fl (80-100); Mean Platelet Volume 10.6 fl (7.4-10.4); Monocytes Absolute Auto 0.2 K/mm3 (0.1-0.6); Monocytes Percent Auto 2.4 % (2.6-8.5); Neutrophils Absolute Auto 8.9 K/mm3 (1.3-6.7); Neutrophils Percent Auto 92.9 % (45.5-73.1); Platelet Count Result 160 k/mm3 (150-375); Red Blood Count 3.99 M/mm3 (4.2-5.4); Red Cell Distribution Width 16.2 % (11.5-14.5); White Blood Count 9.6 K/mm3 (4.5-10.0)
== END 2023-12-30 11:21 | disposition home or self-care (01) ==
PROVIDERS: PCP Hospitalist; Visit Provider Hospitalist
DX: J18.9 Pneumonia, unspecified organism (principal); Z99.81 Dependence on supplemental oxygen
CPT/HCPCS: 80053; 85025

== ENCOUNTER 2024-03-10 14:49 | Inpatient (IN) | payer MEDICARE, SELFPAY ==
[2024-03-10] VITALS (17 sets, daily range): BP systolic 98–168; BP diastolic 58–109; PULSE 68–103; RESP 16–25; TEMP 36.4–36.8; O2SAT 86–95; BMI 31.6
--- NOTE | ~2024-03-10 | CT_ITS ---
EXAMINATION:CT diagnostic chest wo con DATE: 03/11/2024 09:47 INDICATION: Right-sided pneumonia. TECHNIQUE: Computed tomography (CT) of the chest was performed without intravenous contrast. Automate d exposure control and iterative reconstruction technique were employed. The dose-length product (DLP ) was 359.25 mGy-cm. COMPARISON: Chest CT 12/19/2023, 02/28/2021, chest 2 views 03/10/2024 FINDINGS: There is severe emphysema. There are worsened airspace opacities in right upper lobe. There are worsened airspace opacities with volume loss in right middle lobe. There is peripheral septal th ickening in the inferior lungs. There is bronchiectasis in the inferior lungs. There is a 5 mm nodule in lingula. There is a 6 mm nodule in right upper lobe. There are a few nodules in left lower lobe m easuring up to 7 mm. No pleural effusion. The heart size is normal. There are coronary artery calcifi cations. No pericardial effusion. There is severe cervical and lumbar spondylosis and moderate thorac ic spondylosis. IMPRESSION: 1. Worsened multifocal lung disease, predominantly on the right, consistent with pneumonia. 2. Severe emphysema. Reviewed, dictated and finalized at location B. IMPRESSION: 1. Worsened multifocal lung disease, predominantly on the right, consistent wit h pneumonia. 2. Severe emphysema.
--- NOTE | ~2024-03-10 | XR_ITS ---
EXAMINATION: XR chest 2V DATE: 03/10/2024 15:38 INDICATION: Shortness of breath and cough. TECHNIQUE: Frontal and lateral views of the chest were obtained. COMPARISON: Chest 2 views 12/17/2023, chest CT 12/19/2023 FINDINGS: There are lucencies in the lungs, consistent with emphysema. There are airspace opacities i n the mid and lower lung zones, right worse than left. No pleural effusion or pneumothorax. The heart size is normal. There are surgical clips in left axilla. IMPRESSION: 1. Stable airspace opacities in the mid and lower lung zones, right worse than left, consistent with atelectasis/scarring versus pneumonia. 2. Severe emphysema. Reviewed, dictated and finalized at location B.
[2024-03-10 15:30] LABS: Basophils Percent Auto 0.2 % (0.2-1.2); Eosinophils Percent Auto 0.2 % (0-4.4); Hematocrit 40.3 % (37.0-47.0); Hemoglobin 12.9 g/dL (12.0-15.0); Immature Granulocyte Absolute 0.03 K/mm3 (0.00-0.031); Immature Granulocyte Percent A 0.3 % (0-0.5); Lymphocytes Absolute Auto 0.67 K/mm3 (0.9-3.2); Lymphocytes Percent Auto 7.7 % (18.3-44.2); Mean Corpuscular Hemoglobin 28.2 pg (26-34); Mean Corpuscular Volume 88.2 fl (80-100); Mean Platelet Volume 10.7 fl (7.4-10.4); Monocytes Absolute Auto 0.3 K/mm3 (0.1-0.6); Monocytes Percent Auto 3.4 % (2.6-8.5); Neutrophils Absolute Auto 7.7 K/mm3 (1.3-6.7); Neutrophils Percent Auto 88.2 % (45.5-73.1); Platelet Count Result 239 k/mm3 (150-375); Red Blood Count 4.57 M/mm3 (4.2-5.4); Red Cell Distribution Width 15.4 % (11.5-14.5); White Blood Count 8.8 K/mm3 (4.5-10.0)
[2024-03-10 15:49] LABS: Alanine Aminotransferase 21 U/L (6-35); Albumin Level 4.5 g/dL (3.5-5.1); Alkaline Phosphatase 73 U/L (38-126); Anion Gap 12 mmol/L (4-12); Aspartate Amino Transferase 25 U/L (14-36); Bilirubin,Total 0.5 mg/dL (0.2-1.3); Blood Urea Nitrogen 23 mg/dL (7-17); Calcium 9.1 mg/dL (8.4-10.2); Carbon Dioxide 23 mmol/L (22-30); Chloride 105 mmol/L (98-107); Estimated CRCL calculation 46 ml/min; Estimated Glomerular Filt Rate > 60; Glucose 108 mg/dL (65-110); Potassium 3.5 mmol/L (3.4-5.0); Sodium 140 mmol/L (137-145)
[2024-03-10 16:07] LABS: Influenza A QL RT-PCR Negative (Negative); Influenza B QL RT-PCR Negative (Negative); RSV RNA, RT-PCR Negative (Negative); SARS-CoV-2 RNA PCR Negative (Negative)
[2024-03-10 16:09] LABS: Partial Thromboplastin Time 29.3 Seconds (22.3-36.8); Prothrombin Time 13.5 Seconds (11.1-14.7)
[2024-03-10 16:26] LABS: NT Pro B Type Natriuretic Pept 330 pg/mL (19.9-100)
[2024-03-10] MEDS: methylPREDNISolone SOD SUCC 125 MG VIAL IV PUSH (16:26)
[2024-03-10] MEDS: IPRATROPIUM 0.5 MG/ALBUTEROL SULFATE 2.5 MG AMPUL.NEB 3 ML INHALATION ×3 (16:26→17:00)
--- NOTE | 2024-03-10 17:55 | P.HP_ITS ---
H&P: HPI History of Present Illness Date/Time: 03/10/24 17:55 Chief Complaint: Shortness of breath. 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 The patient provides the following history. She gives a 7 to 10 day history of increasing shortness of breath and cough productive of white phlegm. She has been using her nebulizer treatments and is taking Mucinex D without much benefit. She saw her primary care provider last and was prescribed prednisone 50 mg daily and doxycycline 100 mg twice daily. Unfortunately she has not had any improvement in her breathing with those therapies. She denies fever, chills, sweats, sinus congestion, sore throat, chest pain, pleuritic pain, nausea, vomiting, diarrhea, lower extremity edema, and calf pain. In the ED: She was afebrile on arrival with stable vital signs. CMP and CBC were pretty unremarkable. She tested negative for influenza, RSV, and COVID. Chest x- ray showed stable airspace opacities in the mid and lower lung zones, right greater than left, consistent with atelectasis list/scarring versus pneumonia and severe emphysema. She received multiple nebulizer treatments and methylprednisolone with only minimal improvement she is being admitted in this setting for further treatment. Review of Systems Review of Systems: 12 systems were reviewed and are negativ e except for as per HPI. 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 Cancer of right lung Status post radiation in 2023. Chronic obstructive pulmonary disease Chronic respiratory failure with hypoxia Colon polyps Depression Diastolic dysfunction Echo from 12/04/2023 showed normal LV chamber dimension and function with an EF of 60 65%, grade 1 diastolic dysfunction, and biatrial enlargement. Dyslipidemia Gastroesophageal reflux disease Hypertension Thyroid cancer Status post thyroidectomy and radioactive iodine. Surgical History Surgical History History of arthroscopy of left knee (09/2015) History of bladder repair surgery History of bunionectomy (2002) History of cardiac catheterization History of cholecystectomy (1968) History of colonoscopy with polypectomy History of lumpectomy of left breast (2019) History of partial mastectomy of right breast (2017) History of tonsillectomy (1960) History of total abdominal hysterectomy and bilateral salpingo-oophorectomy (1987) History of tubal ligation Family History Family History Mother Family history of lung cancer, Onset Age: 72 Father COPD (chronic obstructive pulmonary disease) Other Family history of malignant neoplasm Social History Social History (Updated 03/10/24 @ 23:51 by Sherri Graham PA-C) Social History: Surrogate medical decision maker: Gee Zarate (spouse) and Kaitlynn Jackson (daughter). Code status: Modified code, no intubation. Smoking packs per day: 1.5 Smoking cigarettes per day: 30.0 Years smoked: 24 Smoking pack-years: 36.00 Smoking status: Former smoker Tobacco type: cigarettes Second hand tobacco smoke exposure: No Alcohol intake: never Alcohol use details: 1 mixed drink a week. Substance use: never Substance use type: does not use Do You Feel Safe in your Home?: Yes Lack of Transportation: No Lack of Food: Never True Current Housing: I Have Housing Concerned About Future Housing: No Difficulty Paying Gas/Electric Bills: No Difficulty Paying for Meds: No Currently Unemployed: No Education: Associate Degree Difficulty w/ Childcare or Family Care: No Additional occupation/education comments: Lives with spouse at [employer]. 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 Spiritual care concerns: No Meds Home Medications and Allergies Home Medications Medication Instructions Recorded Confirmed Type celecoxib 200 mg capsule (Celebrex) 200 mg PO DAILY 06/03/19 03/10/24 History azelastine 205.5 mcg (0.15 %) 205.5 mcg (0.137 mL) intranasal 08/24/19 03/10/24 Rx nasal spray DAILY #30 mL magnesium 200 mg tablet 200 mg PO HS 02/04/20 03/10/24 History diltiazem HCl 120 mg 120 mg PO DAILY 12/03/23 03/10/24 History capsule,extended release 24 hr, controlled famotidine 20 mg tablet 20 mg PO HS 12/03/23 03/10/24 History fluticasone fur. 200 mcg-umeclid 1 inh inhalation DAILY 12/03/23 03/10/24 History 62.5 mcg-vilant 25 mcg inhalat.powder (Trelegy Ellipta) levalbuterol HCl 1.25 mg/3 mL 1.25 mg inhalation TID PRN 12/03/23 03/10/24 History solution for nebulization Shortness Of Breath levothyroxine 150 mcg tablet 150 mcg PO DAILY 12/03/23 03/10/24 History montelukast 10 mg tablet 10 mg PO HS 12/03/23 03/10/24 History omeprazole 40 mg capsule,delayed 40 mg PO DAILY 12/03/23 03/10/24 History release sertraline 100 mg tablet 100 mg PO HS 12/03/23 03/10/24 History tramadol 25 mg tablet 25 mg PO Q4H PRN pain #30 tabs 12/06/23 03/10/24 Rx furosemide 40 mg tablet 40 mg PO DAILY #30 tabs 12/22/23 03/10/24 Rx spironolactone 25 mg tablet 12.5 mg PO DAILY #30 tabs 12/22/23 03/10/24 Rx azithromycin 250 mg tablet 250 mg PO 3XW 01/28/24 03/10/24 History calcium 250 mg (as 2 tablet PO BID 03/10/24 03/10/24 History carbonate)-vitamin D3 3.125 mcg (125 unit) tablet potassium chloride 10 mEq 10 meq PO DAILY 03/10/24 03/10/24 History capsule,extended release Allergies Allergy/AdvReac Type Severity Reaction Status Date / Time naproxen Allergy Unknown unk Verified 03/10/24 20:49 nitrofurantoin Allergy Unknown unk Verified 03/10/24 20:49 Penicillins Allergy Unknown hives Verified 03/10/24 20:49 Sulfa (Sulfonamide AdvReac Unknown Nausea and Verified 03/10/24 20:49 Antibiotics) Vomiting Vital Signs Vital Signs - 24 hr 03/10/24 14:52 03/10/24 15:12 03/10/24 15:21 Temperature 98.2 F 97.9 F Pulse Rate 103 H 100 Respiratory Rate 24 H 17 Blood Pressure 159/109 H 168/77 H Pulse Oximetry 86 L 95 Oxygen Delivery Nasal Cannula Nasal Cannula Room Air Oxygen Flow Rate 5 5 03/10/24 16:15 03/10/24 16:38 03/10/24 17:00 Temperature Pulse Rate 68 77 72 Respiratory Rate 20 20 20 Blood Pressure Pulse Oximetry Oxygen Delivery Oxygen Flow Rate 03/10/24 17:11 Temperature Pulse Rate 78 Respiratory Rate 20 Blood Pressure Pulse Oximetry Oxygen Delivery Oxygen Flow Rate Exam Narrative: General: Mildly ill-appearing female sitting up in bed. Weight: 75.8 kg. BMI: 31.6. HEENT: PERRL, EOMI. Sclera anicteric. Moist mucous membranes. Neck: Supple. No JVD or lymphadenopathy. Respiratory: Occasional cough. Respirations appear nonlabored and she is speaking in full sentences. Lung sounds are a bit tight and diminished with coarse rales and expiratory wheezing. Cardiovascular: Regular rate and rhythm with S1-S2. Gastrointestinal: Abdomen is soft, nontender, and nondistended with positive bowel sounds. Skin: Warm and dry. No rash or lesions on limited exam. Extremities: No cyanosis, clubbing, or edema. Radial and pedal pulses intact. No palpable knots or cords. Negative Indu sign bilaterally peer Neurological: Alert. Cranial nerves 2-12 are grossly intact. No gross focal deficits to casual conversation. Psychiatric: Pleasant and cooperative with normal mood and affect. Judgment and insight intact. She is in good spirits. H&P: Results Labs Labs: Short CBC 03/10/24 Range/Units 15:16 WBC 8.8 (4.5-10.0) K/mm3 Hgb 12.9 (12.0-15.0) g/dL Hct 40.3 (37.0-47.0) % Plt Count 239 (150-375) k/mm3 BMP 03/10/24 15:16 Sodium 140 Potassium 3.5 Chloride 105 Carbon Dioxide 23 BUN 23 H Creatinine 0.80 Glucose 108 Calcium 9.1 Liver Function 03/10/24 Range/Units 15:16 Total Bilirubin 0.5 (0.2-1.3) mg/dL AST 25 (14-36) U/L ALT 21 (6-35) U/L Alkaline Phosphatase 73 (38-126) U/L Albumin 4.5 (3.5-5.1) g/dL Imaging Chest X-Ray 03/10/24 15:40 IMPRESSION: 1. Stable airspace opacities in the mid and lower lung zones, right worse than left, consistent with atelectasis/scarring versus pneumonia. 2. Severe emphysema. Assessment and Plan Assessment and plan (1) COPD exacerbation: Code(s): J44.1 - Chronic obstructive pulmonary disease with (acute) exacerbation Status: Inactive (2) Chronic respiratory failure with hypoxia: Code(s): J96.11 - Chronic respiratory failure with hypoxia Status: Acute (3) Diastolic dysfunction: Code(s): I51.89 - Other ill-defined heart diseases Status: Acute (4) Hypertension: Code(s): I10 - Essential (primary) hypertension Status: Acute Plan The patient presented to the emergency department for evaluation of increasing shortness of breath and productive cough as detailed in HPI. Labs, imaging, EKG, and all reports were personally reviewed. Clinically she has a COPD exacerbation; I do not think she has acute pneumonia though she has been started on azithromycin given her history of BRYNN. Continue scheduled bronchodilators and methylprednisolone in addition to her home inhalers. She is at her baseline oxygen requirement. Patient requests to see pulmonology while in the hospital. She appears euvolemic on exam. Blood pressures are stable. Her medications will be reviewed and resumed as appropriate. Findings and treatment plan were discussed with the patient. Questions were solicited and answered to satisfaction. The patient's medical management will be taken over by the hospitalist team in a.m. Quality VTE Prophylaxis VTE prophylaxis: pharmacologic ordered The patient has been admitted under observation status. Hospitalist [facility] Advance Care Plan I have confirmed that the patient's Advanced Care Plan is present, code status is documented, or surrogate decision maker is listed in patient medical record.: Yes Medication Reconciliation I have utilized all available resources to obtain, update and review the patients current medications (includes all prescriptions, OTC, herbals, cannabis, and nutritional supplements).: Yes
--- NOTE | 2024-03-10 18:01 | ED_ITS ---
HPI - SOB/Dyspnea General Chief Complaint: Shortness of Breath/Dyspnea Stated Complaint: sob Time Seen by Provider: 03/10/24 15:21 Source: patient Mode of arrival: ambulatory Limitations: no limitations History of Present Illness HPI Narrative: 78-year-old with a history of COPD on home oxygen here with the complaints of cough and shortness of breath for last 4-5 days. Patient states that she is presently taking steroids and inhalers and doxycycline as prescribed by her primary doctor with no relief. She denies any fever or chills. Cough is mostly nonproductive in nature. MD elicited complaint: shortness of breath and cough Pertinent past history: COPD Timing: constant Severity: moderate Exacerbating factors: nothing Relieving factors: nothing Known history of: COPD Associated symptoms: cough Treatment prior to arrival: oxygen and bronchodilator Related Data Home Medications Medication Instructions Recorded Confirmed celecoxib 200 mg capsule (Celebrex) 200 mg PO DAILY 06/03/19 01/28/24 magnesium 200 mg tablet 200 mg PO HS 02/04/20 01/28/24 calcium 250 mg (as 2 tablet PO BID 12/03/23 01/28/24 carbonate)-vitamin D3 3.125 mcg (125 unit) tablet chlordiazepoxide HCl 10 mg capsule 10 - 20 mg PO PRN PRN Anxiety 12/03/23 01/28/24 diltiazem HCl 120 mg 120 mg PO DAILY 12/03/23 01/28/24 capsule,extended release 24 hr, controlled famotidine 20 mg tablet 20 mg PO HS 12/03/23 01/28/24 fluticasone fur. 200 mcg-umeclid 1 inh inhalation DAILY 12/03/23 01/28/24 62.5 mcg-vilant 25 mcg inhalat.powder (Trelegy Ellipta) levalbuterol HCl 1.25 mg/3 mL 1.25 mg inhalation TID PRN 12/03/23 01/28/24 solution for nebulization Shortness Of Breath levothyroxine 150 mcg tablet 150 mcg PO DAILY 12/03/23 01/28/24 montelukast 10 mg tablet 10 mg PO HS 12/03/23 01/28/24 omeprazole 40 mg capsule,delayed 40 mg PO DAILY 12/03/23 01/28/24 release sertraline 100 mg tablet 100 mg PO HS 12/03/23 01/28/24 azithromycin 250 mg tablet 250 mg PO 3XW 01/28/24 01/28/24 Allergies Allergy/AdvReac Type Severity Reaction Status Date / Time naproxen Allergy Unknown unk Verified 12/10/23 14:35 nitrofurantoin Allergy Unknown unk Verified 12/10/23 14:35 Penicillins Allergy Unknown hives Verified 12/10/23 14:35 Sulfa (Sulfonamide AdvReac Unknown Nausea and Verified 12/10/23 14:35 Antibiotics) Vomiting Review of Systems Review of Systems: All systems reviewed & are unremarkable except as noted in HPI and below Constitutional: Constitutional: Reports no additional constitutional complaints Eyes: Eyes: Reports no additional eye complaints ENT: Reports system reviewed and no additional complaints, except as documented Cardiovascular: Cardiovascular: Reports no additional cardiovascular complaints Respiratory: Respiratory: Reports as per HPI Gastrointestinal: Gastrointestinal: Reports no additional gastrointestinal complaints Musculoskeletal: Musculoskeletal: Reports no additional musculoskeletal complaints Neurologic: Reports system reviewed and no additional complaints, except as documented Psychiatric: Psychiatric: Reports no additional psychiatric complaints Endocrine: Endocrine: Reports no additional endocrine complaints [facility] Past Medical History Medical History Allergies Anxiety Arthritis Basal cell carcinoma of skin Bilateral breast cancer Invasive lobular carcinoma right breast status post mastectomy and 2018 and radiation and 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 Cancer of right lung Status post radiation in 2023. Chronic obstructive pulmonary disease Chronic respiratory failure with hypoxia Colon polyps Depression Diastolic dysfunction Echo from 12/04/2023 showed normal LV chamber dimension and function with an EF of 60 65%, grade 1 diastolic dysfunction, and biatrial enlargement. Dyslipidemia Gastroesophageal reflux disease Hypertension Thyroid cancer Status post thyroidectomy and radioactive iodine. Surgical History Surgical History History of arthroscopy of left knee (09/2015) History of bladder repair surgery History of bunionectomy (2002) History of cardiac catheterization History of cholecystectomy (1968) History of colonoscopy with polypectomy History of lumpectomy of left breast (2019) History of partial mastectomy of right breast (2017) History of tonsillectomy (1960) History of total abdominal hysterectomy and bilateral salpingo-oophorectomy (1987) History of tubal ligation Family History Family History Mother Family history of lung cancer, Onset Age: 72 Father COPD (chronic obstructive pulmonary disease) Other Family history of malignant neoplasm Social History Social History Social History: Surrogate medical decision maker: Gee Zarate (spouse) and Kaitlynn Jackson ( daughter). Code status: Full code. She would not want to be on prolonged life support. Smoking packs per day: 1.5 Smoking cigarettes per day: 30.0 Years smoked: 30 Smoking pack-years: 45.00 Smoking status: Former smoker Second hand tobacco smoke exposure: No Alcohol intake: never Alcohol use details: 1 mixed drink a week. Substance use: never Substance use type: does not use Do You Feel Safe in your Home?: Yes Lack of Transportation: No Lack of Food: Never True Current Housing: I Have Housing Concerned About Future Housing: No Difficulty Paying Gas/Electric Bills: No Difficulty Paying for Meds: No Currently Unemployed: No Education: Associate Degree Difficulty w/ Childcare or Family Care: No Additional occupation/education comments: Lives with spouse at [employer]. 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 Spiritual care concerns: No Exam Narrative: GENERAL: Well-appearing, well-nourished, and in no acute distress. HEAD: Normocephalic, atraumatic. EYES: PERRLA and EOMI. ENT: Nares clear, no rhinorrhea or epistaxis. Mucous membranes moist. NECK: Supple. CHEST: Bilateral wheeze HEART: Regular rate and rhythm. No murmur heard. Normal peripheral pulses. ABDOMEN: Soft, nontender, nondistended, normal active bowel sounds. EXTREMITIES: Normal range of motion. No edema. SKIN: Warm, dry, no rash. NEURO: No focal deficits. Alert and oriented x3. PSYCH: Normal mood and affect. Course Course Emergency Course: Notified patient about her lab work, chest x-ray findings. She continues to have bilateral wheeze however feels slightly better after 3 neb treatments. she agreed with admission. Vital Signs Vital signs: Vital Signs Temperature 36.8 C 03/10/24 14:52 Pulse Rate 103 H 03/10/24 14:52 Respiratory Rate 24 H 03/10/24 14:52 Blood Pressure 159/109 H 03/10/24 14:52 Pulse Oximetry 86 L 03/10/24 14:52 Oxygen Delivery Nasal Cannula 03/10/24 14:52 Oxygen Flow Rate 5 03/10/24 14:52 Temperature 36.6 C 03/10/24 15:12 Pulse Rate 90 03/10/24 18:15 Respiratory Rate 25 H 03/10/24 18:15 Blood Pressure 98/58 L 03/10/24 18:15 Pulse Oximetry 94 03/10/24 18:15 Oxygen Delivery Room Air 03/10/24 15:21 Oxygen Flow Rate 5 03/10/24 15:12 MDM - SOB/Dyspnea Differential Diagnosis Differential diagnosis: Likely acute exacerbation of chronic obstructive airways disease, congestive heart failure, community acquired pneumonia and other Medical Records Attestation: I reviewed the patient's medical records. Lab Data Attestation: I reviewed the patient's lab results. 03/10/24 15:16 03/10/24 15:16 Labs: Lab Results 03/10/24 Range/Units 15:16 WBC 8.8 (4.5-10.0) K/mm3 RBC 4.57 (4.2-5.4) M/mm3 Hgb 12.9 (12.0-15.0) g/dL Hct 40.3 (37.0-47.0) % MCV 88.2 (80-100) fl MCH 28.2 (26-34) pg MCHC 32.0 (32-36) g/dl RDW 15.4 H (11.5-14.5) % Plt Count 239 (150-375) k/mm3 MPV 10.7 H (7.4-10.4) fl Immature Gran % (Auto) 0.3 (0-0.5) % Neut % (Auto) 88.2 H (45.5-73.1) % Lymph % (Auto) 7.7 L (18.3-44.2) % [place] % (Auto) 3.4 (2.6-8.5) % Eos % (Auto) 0.2 (0-4.4) % Baso % (Auto) 0.2 (0.2-1.2) % Lymph # (Auto) 0.67 L (0.9-3.2) K/mm3 [place] # (Auto) 0.3 (0.1-0.6) K/mm3 Eos # (Auto) 0.0 (0-0.3) K/mm3 Baso # (Auto) 0.0 (0.0-0.1) K/mm3 Abs Immat Gran (auto) 0.03 (0.00-0.031) K/mm3 Absolute Neuts (auto) 7.7 H (1.3-6.7) K/mm3 Absolute Nucleated RBC 0.000 (0.0-0.012) K/mm3 Nucleated RBC % 0.0 (0.0-0.2) % PT 13.5 (11.1-14.7) Seconds INR 1.0 APTT 29.3 (22.3-36.8) Seconds Sodium 140 (137-145) mmol/L Potassium 3.5 (3.4-5.0) mmol/L Chloride 105 (98-107) mmol/L Carbon Dioxide 23 (22-30) mmol/L Anion Gap 12 (4-12) mmol/L BUN 23 H (7-17) mg/dL Creatinine 0.80 (0.7-1.0) mg/dL Estim Creat Clear Calc 46 ml/min Estimated GFR > 60 (59 - ) Glucose 108 (65-110) mg/dL Lactic Acid 2.0 (0.7-2.0) mmol/L Calcium 9.1 (8.4-10.2) mg/dL Magnesium 2.0 (1.6-2.3) mg/dL Total Bilirubin 0.5 (0.2-1.3) mg/dL AST 25 (14-36) U/L ALT 21 (6-35) U/L Alkaline Phosphatase 73 (38-126) U/L NT-Pro-B Natriuret Pep 330 H (19.9-100) pg/mL Total Protein 8.0 (6.3-8.2) g/dL Albumin 4.5 (3.5-5.1) g/dL Influenza A (RT-PCR) Negative (Negative) Influenza B (RT-PCR) Negative (Negative) RSV (RT-PCR) Negative (Negative) SARS-CoV-2 RNA (RT-PCR) Negative (Negative) Imaging Data Radiologist's impression: ITS Impressions Chest X-Ray 03/10/24 15:40 IMPRESSION: 1. Stable airspace opacities in the mid and lower lung zones, right worse than left, consistent with atelectasis/scarring versus pneumonia. 2. Severe emphysema. ECG Data EKG #1: ECG completion date: 03/10/24 ECG completion time: 18:20 EKG Interpretation: tachycardia (111), no ectopy, no ST changes, normal QT and NL axis Discharge Plan Discharge Clinical Impression: Acute exacerbation of chronic obstructive pulmonary disease Patient Disposition: Still a Patient Condition: Stable Prescriptions: No Action celecoxib [Celebrex] 200 mg capsule 200 mg PO DAILY magnesium 200 mg tablet 200 mg PO HS azithromycin 250 mg tablet 250 mg PO 3XW sertraline 100 mg tablet 100 mg PO HS omeprazole 40 mg capsule,delayed release(DR/EC) 40 mg PO DAILY famotidine 20 mg tablet 20 mg PO HS levothyroxine 150 mcg tablet 150 mcg PO DAILY diltiazem HCl 120 mg capsule,ext.rel 24h degradable 120 mg PO DAILY chlordiazepoxide HCl 10 mg capsule 10 - 20 mg PO PRN PRN (Reason: Anxiety) montelukast 10 mg tablet 10 mg PO HS levalbuterol HCl 1.25 mg/3 mL solution for nebulization 1.25 mg INHALATION TID PRN (Reason: Shortness Of Breath) calcium carbonate-vitamin D3 250 mg-3.125 mcg (125 unit) tablet 2 tablet PO BID Trelegy Ellipta 200-62.5-25 mcg blister with device 1 inh INHALATION DAILY tramadol 25 mg tablet 25 mg PO Q4H PRN (Reason: pain) Qty: 30 0RF furosemide 40 mg Tablet 40 mg PO DAILY Qty: 30 0RF spironolactone 25 mg tablet 12.5 mg PO DAILY Qty: 30 0RF azelastine 0.15 % (205.5 mcg) spray,non-aerosol 205.5 mcg NASAL DAILY Qty: 30 3RF Rx Instructions: administer into each nostril Follow-up/Referrals: Kelly,MD Cortez [Primary Care Provider] - Time of Disposition: 18:23
--- NOTE | 2024-03-10 18:12 | ECG_ITS ---
Test Date: 2024-03-10 18:20:00 Measurements Intervals Superior Rate: 111 P: 38 KS: 142 QRS: -23 QRSD: 126 T: 87 QT: 327 QTc: 446 Interpretive Statements SINUS TACHYCARDIA LEFT VENTRICULAR HYPERTROPHY AND ST-T CHANGE [VOLTAGE CRITERIA PLUS ST/T ABNORMALITY] POSSIBLE SEPTAL MYOCARDIAL INFARCTION , OF INDETERMINATE AGE [30 ms Q WAVE IN V1/V2] Compared to ECG 12/10/2023 16:03:24 NO SIGNIFICANT CHANGES Electronically Signed On 03-11-2024 14:26:31 CDT by Toni Jessica M.D.
[2024-03-10] MEDS: DOXYCYCLINE 100 MG/NS 100 ML 100 MG/100 ML BAG IVPB (19:08)
[2024-03-10] MEDS: IPRATROPIUM BR 0.02% INH SOLN 0.5 MG/2.5 ML VIAL INHALATION (19:36)
[2024-03-10] MEDS: LEVALBUTEROL NEB 1.25 MG/3 ML 0.63 MG INHALATION (19:36)
--- NOTE | 2024-03-10 21:00 | ADMGEN ---
This patient, Romi Zarate, was admitted to 3 [facility] Surg Room 315-02. Patient/family oriented to hospital policies and general routines including ID bracelet, bed and alarms, visiting hours, pain management, procedures, bathroom and other care routines, personal items, smoking policy, room service/diet, and visiting hours. Information on how to activate the Rapid Response Team has been discussed. Patient/Family are encouraged to report perceived risks to care and to ask questions if they do not understand what they are told or what they should do.
[2024-03-10] MEDS: methylPREDNISolone SOD SUCC 125 MG VIAL 60 MG IV PUSH (23:37)
[2024-03-11] VITALS (12 sets, daily range): BP systolic 129–166; BP diastolic 64–100; PULSE 68–81; RESP 18–22; TEMP 36.1–36.7; O2SAT 91–95; BMI 31.6
[2024-03-11] MEDS: LEVALBUTEROL NEB 1.25 MG/3 ML 0.63 MG INHALATION ×4 (02:38→20:45)
[2024-03-11] MEDS: IPRATROPIUM BR 0.02% INH SOLN 0.5 MG/2.5 ML VIAL INHALATION ×4 (02:38→20:45)
[2024-03-11] MEDS: MONTELUKAST SODIUM 10 MG TABLET PO ×2 (03:20→20:36)
[2024-03-11] MEDS: MAGNESIUM OXIDE 200 MG TABLET PO ×2 (03:20→20:36)
[2024-03-11] MEDS: SERTRALINE HCL 50 MG TABLET 100 MG PO ×2 (03:21→20:36)
[2024-03-11] MEDS: AZITHROMYCIN 250 MG TABLET 500 MG PO (03:36)
[2024-03-11] MEDS: methylPREDNISolone SOD SUCC 125 MG VIAL 60 MG IV PUSH (05:30)
[2024-03-11] MEDS: LEVOTHYROXINE SODIUM 150 MCG TABLET PO (05:31)
[2024-03-11 07:03] LABS: Hematocrit 37.6 % (37.0-47.0); Hemoglobin 12.3 g/dL (12.0-15.0); Mean Corpuscular HGB Conc 32.7 g/dl (32-36); Mean Corpuscular Hemoglobin 28.9 pg (26-34); Mean Corpuscular Volume 88.3 fl (80-100); Mean Platelet Volume 10.6 fl (7.4-10.4); Platelet Count Result 190 k/mm3 (150-375); Red Blood Count 4.26 M/mm3 (4.2-5.4); Red Cell Distribution Width 15.4 % (11.5-14.5); White Blood Count 3.6 K/mm3 (4.5-10.0)
[2024-03-11 07:18] LABS: Anion Gap 9 mmol/L (4-12); Blood Urea Nitrogen 21 mg/dL (7-17); Calcium 9.1 mg/dL (8.4-10.2); Carbon Dioxide 28 mmol/L (22-30); Chloride 104 mmol/L (98-107); Estimated CRCL calculation 46 ml/min; Estimated Glomerular Filt Rate > 60; Glucose 182 mg/dL (65-110); Magnesium 2.2 mg/dL (1.6-2.3); Potassium 4.2 mmol/L (3.4-5.0); Sodium 141 mmol/L (137-145)
[2024-03-11] MEDS: FLUTICASONE/UMECLIDIN/VILANTER 200-62.5-25 MCG ELLIPTA 1 PUFF INHALATION (07:25)
[2024-03-11] MEDS: AZELASTINE HCL NASAL 0.1% 137 MCG/SPR 30 ML BTL 1 SPRAY NASAL (09:06)
[2024-03-11] MEDS: POTASSIUM CHLORIDE 10 MEQ ER TABLET PO (09:08)
[2024-03-11] MEDS: SPIRONOLACTONE 12.5 MG TABLET PO (09:09)
[2024-03-11] MEDS: ENOXAPARIN 40 MG/0.4 ML SYRINGE SUB-Q (09:09)
[2024-03-11] MEDS: dilTIAZem HCL CD 120 MG CAP.24HR PO (09:10)
[2024-03-11] MEDS: FUROSEMIDE 40 MG TABLET PO (09:12)
[2024-03-11] MEDS: PANTOPRAZOLE 40 MG TABLET PO ×2 (09:12→16:49)
[2024-03-11] MEDS: CELECOXIB 200 MG CAPSULE PO (09:12)
[2024-03-11] MEDS: CALCIUM/VITAMIN D 250 MG/3.125 MCG (125 I.U.) TABLET 2 TABLET PO ×2 (09:13→16:48)
--- NOTE | 2024-03-11 09:14 | PM.CNPUL ---
Assessment and Plan Assessment and plan (1) Acute exacerbation of chronic obstructive pulmonary disease: Code(s): J44.1 - Chronic obstructive pulmonary disease with (acute) exacerbation Status: Acute Assessment and Plan: A chest CT performed earlier today revealed severe confluent centrilobular emphysema, a right middle lobe infiltrate, and a new right upper lobe infiltrate since December of this year. Compared to the previous CT scan from December, the right middle lobe infiltrate appears smaller, but the right upper lobe infiltrate is new and was not present a couple of months ago. The rapid doubling time of the right upper lobe infiltrate suggests it is unlikely related to her known lung cancer and is more likely due to a new infection or her known atypical mycobacterial infection. Regarding BRYNN, she was evaluated by Infectious Disease Services and treated with doxycycline and levofloxacin since mid-January. However, the patient reported experiencing gastric upset with vomiting and diarrhea, leading her to discontinue levofloxacin after a few days and continue with Zithromax three times a week. She has a follow-up appointment in approximately two weeks with her infectious disease specialist regarding the mycobacterial infection. The chronic right middle lobe infiltrate could be related to atypical mycobacterial infection rather than to bacterial pneumonia for which she was hospitalized in late November. Plan: Given the known atypical mycobacterial infection and the absence of wheezing on physical examination, I have discontinued the IV steroids and the triple inhaler containing ICS, as they may exacerbate her atypical mycobacterial infection. We will continue with nebulized short-acting bronchodilators, antibiotics, for now and consider discharging her home in the morning. (2) Cancer of right lung: Code(s): C34.91 - Malignant neoplasm of unspecified part of right bronchus or lung Status: Acute (3) COPD (chronic obstructive pulmonary disease): Code(s): J44.9 - Chronic obstructive pulmonary disease, unspecified Status: Acute (4) BRYNN (mycobacterium avium-intracellulare): Code(s): A31.0 - Pulmonary mycobacterial infection Status: Acute (5) Breast cancer: Qualifiers: Breast location: unspecified site of breast Estrogen receptor status: positive Laterality: right Patient sex: female Qualified Code(s): C50.911 - Malignant neoplasm of unspecified site of right female breast; Z17.0 - Estrogen receptor positive status [ER+] Code(s): C50.919 - Malignant neoplasm of unspecified site of unspecified female breast Status: Acute History of Present Illness History of Present Illness Consult date: 03/11/24 Chief complaint: copd excerbation Narrative: This patient, who has a known history of COPD, presented with a one-week history of cough, wheezing, and shortness of breath. The patient has multiple medical conditions, including severe centrilobular emphysema as evidenced by a chest CT, Mycobacterium avium-intracellulare infection, a history of lung cancer treated with radiation, breast cancer, thyroid cancer, and hypertension. She was in her usual state of health until approximately a week ago when she began experiencing shortness of breath, wheezing, and cough, but without fever, chills, or hemoptysis. Her primary care provider initiated treatment with doxycycline and oral prednisone, which she took for about four days without improvement. She then presented to the emergency room with complaints of shortness of breath and cough. In the hospital, she has been receiving IV steroids, nebulized short-acting bronchodilators, and antibiotics for a COPD exacerbation. Over the past 24 hours, her respiratory status has improved; she no longer experiences wheezing or shortness of breath at rest, although she still has a mostly dry cough. The patient has no previous hospitalizations related to her COPD. She has been using a Trelegy inhaler and supplemental oxygen at 2 liters per minute at rest and 5 liters per minute with activity. Regarding her Mycobacterium avium-intracellulare infection, she was evaluated by an Infectious Diseases clinical sales consultant elsewhere and was reportedly on two antibiotics for this atypical mycobacterial infection. Last November, she was diagnosed with right lower lobe pneumonia, and a follow-up chest CT in early December showed partial clearing of the right lower lobe infiltrate. The admission chest X-ray shows evidence of a right lower lobe infiltrate, likely related to her previous pneumonia. 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 Cancer of right lung Status post radiation in 2023. Chronic obstructive pulmonary disease Chronic respiratory failure with hypoxia Colon polyps Depression Diastolic dysfunction Echo from 12/04/2023 showed normal LV chamber dimension and function with an EF of 60 65%, grade 1 diastolic dysfunction, and biatrial enlargement. Dyslipidemia Gastroesophageal reflux disease Hypertension Thyroid cancer Status post thyroidectomy and radioactive iodine. Surgical History Surgical History History of arthroscopy of left knee (09/2015) History of bladder repair surgery History of bunionectomy (2002) History of cardiac catheterization History of cholecystectomy (1968) History of colonoscopy with polypectomy History of lumpectomy of left breast (2019) History of partial mastectomy of right breast (2017) History of tonsillectomy (1960) History of total abdominal hysterectomy and bilateral salpingo-oophorectomy (1987) History of tubal ligation Family History Family History Mother Family history of lung cancer, Onset Age: 72 Father COPD (chronic obstructive pulmonary disease) Other Family history of malignant neoplasm Social History Social History (Updated 03/10/24 @ 23:51 by Sherri Graham PA-C) Social History: Surrogate medical decision maker: Gee Zarate (spouse) and Kaitlynn Jackson (daughter). Code status: Modified code, no intubation. Smoking packs per day: 1.5 Smoking cigarettes per day: 30.0 Years smoked: 24 Smoking pack-years: 36.00 Smoking status: Former smoker Tobacco type: cigarettes Second hand tobacco smoke exposure: No Alcohol intake: never Alcohol use details: 1 mixed drink a week. Substance use: never Substance use type: does not use Do You Feel Safe in your Home?: Yes Lack of Transportation: No Lack of Food: Never True Current Housing: I Have Housing Concerned About Future Housing: No Difficulty Paying Gas/Electric Bills: No Difficulty Paying for Meds: No Currently Unemployed: No Education: Associate Degree Difficulty w/ Childcare or Family Care: No Additional occupation/education comments: Lives with spouse at [employer]. 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 Spiritual care concerns: No Meds Home Medications and Allergies Home Medications Medication Instructions Recorded Confirmed Type celecoxib 200 mg capsule (Celebrex) 200 mg PO DAILY 06/03/19 03/10/24 History azelastine 205.5 mcg (0.15 %) 205.5 mcg (0.137 mL) intranasal 08/24/19 03/10/24 Rx nasal spray DAILY #30 mL magnesium 200 mg tablet 200 mg PO HS 02/04/20 03/10/24 History diltiazem HCl 120 mg 120 mg PO DAILY 12/03/23 03/10/24 History capsule,extended release 24 hr, controlled famotidine 20 mg tablet 20 mg PO HS 12/03/23 03/10/24 History fluticasone fur. 200 mcg-umeclid 1 inh inhalation DAILY 12/03/23 03/10/24 History 62.5 mcg-vilant 25 mcg inhalat.powder (Trelegy Ellipta) levalbuterol HCl 1.25 mg/3 mL 1.25 mg inhalation TID PRN 12/03/23 03/10/24 History solution for nebulization Shortness Of Breath levothyroxine 150 mcg tablet 150 mcg PO DAILY 12/03/23 03/10/24 History montelukast 10 mg tablet 10 mg PO HS 12/03/23 03/10/24 History omeprazole 40 mg capsule,delayed 40 mg PO DAILY 12/03/23 03/10/24 History release sertraline 100 mg tablet 100 mg PO HS 12/03/23 03/10/24 History tramadol 25 mg tablet 25 mg PO Q4H PRN pain #30 tabs 12/06/23 03/10/24 Rx furosemide 40 mg tablet 40 mg PO DAILY #30 tabs 12/22/23 03/10/24 Rx spironolactone 25 mg tablet 12.5 mg PO DAILY #30 tabs 12/22/23 03/10/24 Rx azithromycin 250 mg tablet 250 mg PO 3XW 01/28/24 03/10/24 History calcium 250 mg (as 2 tablet PO BID 03/10/24 03/10/24 History carbonate)-vitamin D3 3.125 mcg (125 unit) tablet potassium chloride 10 mEq 10 meq PO DAILY 03/10/24 03/10/24 History capsule,extended release Allergies Allergy/AdvReac Type Severity Reaction Status Date / Time naproxen Allergy Unknown unk Verified 03/10/24 20:49 nitrofurantoin Allergy Unknown unk Verified 03/10/24 20:49 Penicillins Allergy Unknown hives Verified 03/10/24 20:49 Sulfa (Sulfonamide AdvReac Unknown Nausea and Verified 03/10/24 20:49 Antibiotics) Vomiting Vital Signs Vital Signs - 24 hr 03/10/24 14:52 03/10/24 15:12 03/10/24 15:21 Temperature 36.8 C 36.6 C Pulse Rate 103 H 100 Respiratory Rate 24 H 17 Blood Pressure 159/109 H 168/77 H Pulse Oximetry 86 L 95 Oxygen Delivery Nasal Cannula Nasal Cannula Room Air Oxygen Flow Rate 5 5 Fraction of Inspired Oxygen 03/10/24 16:15 03/10/24 16:38 03/10/24 17:00 Temperature Pulse Rate 68 77 72 Respiratory Rate 20 20 20 Blood Pressure Pulse Oximetry Oxygen Delivery Oxygen Flow Rate Fraction of Inspired Oxygen 03/10/24 17:11 03/10/24 15:18 03/10/24 17:15 Temperature Pulse Rate 78 78 75 Respiratory Rate 20 22 H 16 Blood Pressure 101/60 Pulse Oximetry 94 Oxygen Delivery Oxygen Flow Rate Fraction of Inspired Oxygen 03/10/24 18:15 03/10/24 19:10 03/10/24 19:37 Temperature Pulse Rate 90 78 79 Respiratory Rate 25 H 18 24 H Blood Pressure 98/58 L 142/98 H Pulse Oximetry 94 95 Oxygen Delivery Oxygen Flow Rate Fraction of Inspired Oxygen 03/10/24 19:36 03/10/24 19:40 03/10/24 19:53 Temperature 36.6 C Pulse Rate 80 77 Respiratory Rate 19 20 Blood Pressure 123/70 Pulse Oximetry 93 93 Oxygen Delivery Nasal Cannula Oxygen Flow Rate 2 Fraction of Inspired Oxygen 03/10/24 21:05 03/10/24 22:00 03/10/24 23:00 Temperature 36.4 C Pulse Rate 88 Respiratory Rate 22 H Blood Pressure 123/64 Pulse Oximetry 92 92 92 Oxygen Delivery Nasal Cannula Nasal Cannula Oxygen Flow Rate 2 2 Fraction of Inspired Oxygen 28 03/11/24 02:40 03/11/24 02:52 03/11/24 05:50 Temperature 36.7 C Pulse Rate 74 68 81 Respiratory Rate 20 20 22 H Blood Pressure 166/64 H Pulse Oximetry 93 Oxygen Delivery Oxygen Flow Rate Fraction of Inspired Oxygen 03/11/24 07:25 03/11/24 07:25 03/11/24 07:40 Temperature Pulse Rate 78 76 Respiratory Rate 18 18 Blood Pressure Pulse Oximetry 91 Oxygen Delivery Nasal Cannula Oxygen Flow Rate 2 Fraction of Inspired Oxygen Exam Narrative: GENERAL APPEARANCE: Well developed, well nourished, alert and cooperative, and appears to be in no acute distress SKIN: Inspection of the skin reveals no rashes, ulcerations or petechiae. HEENT: Sclerae anicteric and conjunctivae pink and moist. Extraocular movements were intact and pupils were equal, round, and reactive to light. The oral mucosa, hard and soft palate, tongue and posterior pharynx were normal. NECK: Supple. There was no thyroid enlargement, and no tenderness, or masses were felt. LUNGS: Distant breath sounds bilaterally no wheezing CARDIAC: There was a regular rate and rhythm without any murmurs, gallops, rubs. ABDOMEN: Soft and nontender with normal bowel sounds. There was no organomegaly. LYMPH NODES: No lymphadenopathy was appreciated in the neck. EXTREMITIES: No cyanosis, clubbing or edema. NEUROLOGIC: Alert and oriented x 3. Normal affect. Results Laboratory Findings 03/11/24 06:41 03/11/24 06:41 ABG, PT/INR, D-dimer: PT/INR, D-dimer PT 13.5 Seconds (11.1-14.7) 03/10/24 15:16 INR 1.0 03/10/24 15:16 Abnormal lab findings: Abnormal Labs 03/10/24 03/11/24 15:16 06:41 WBC 3.6 L RDW 15.4 H 15.4 H MPV 10.7 H 10.6 H Neut % (Auto) 88.2 H Lymph % (Auto) 7.7 L Lymph # (Auto) 0.67 L Absolute Neuts (auto) 7.7 H BUN 23 H 21 H Glucose 182 H NT-Pro-B Natriuret Pep 330 H
--- NOTE | 2024-03-11 12:16 | P.PNIM_ITS ---
Progress Note: A&P Assessment and Plan (1) Chronic respiratory failure with hypoxia: Code(s): J96.11 - Chronic respiratory failure with hypoxia Status: Acute Assessment and Plan: * Likely secondary to COPD exacerbation * Currently on 2L NC (2) COPD exacerbation: Code(s): J44.1 - Chronic obstructive pulmonary disease with (acute) exacerbation Status: Inactive Assessment and Plan: * Solu-Medrol discontinued as she sees Infectious Disease doctor on outpatient basis and was told not to use steroids. * Continue Duonebs as needed * Pulmonology consulted * Continue Azithromycin while here and then she will go back on her 3 times a week dosing * Continue Singulair (3) Diastolic dysfunction: Code(s): I51.89 - Other ill-defined heart diseases Status: Acute Assessment and Plan: * Echocardiogram showing LV systolic function as normal with an estimated EF of 60-65%, grade 1 diastolic dysfunction * Continue Spironolactone, Lasix (4) Hypertension: Code(s): I10 - Essential (primary) hypertension Status: Acute Assessment and Plan: * Blood pressures ranging 123/64 to 166/64 * Continue diuretics Time Spent With Patient Time with patient: 25 - 35 minutes Subjective Date/time seen: 03/11/24 12:16 Interval history: Interval history: This is a 78-year-old female who presented to the hospital on 03/10/2024 with complaints of shortness of breath. Workup in the hospital included a chest x- ray which shown severe emphysema, stable airspace opacities in the mid and lower lung zone, right greater than left. Chest CT showed worsened multifocal lung disease predominantly on the right consistent with pneumonia, severe emphysema. Initial labs showed a normal white blood cell count of 8.8, proBNP 330, otherwise unremarkable. Respiratory panel was negative for influenza a and B, COVID, RSV. Sputum and blood cultures were obtained and are pending. Patient was given 125 mg IV push methylprednisone, DuoNeb, doxycycline, azithromycin while in the ED. pulmonology was consulted. Subjective: Patient feeling much better today. She denies any fever, chills, nausea, vomiting, diarrhea, abdominal pain, shortness for breath, chest pain. She is currently on 2 L nasal cannula which is her baseline for at rest and then 5 L with activity. Review of Systems Review of Systems: All systems reviewed & are unremarkable except as noted in HPI and below Constitutional: Constitutional: Reports as per HPI and Reports no additional constitutional complaints Eyes: Eyes: Reports as per HPI and Reports no additional eye complaints ENT: Reports system reviewed and no additional complaints, except as documented and Reports as per HPI Cardiovascular: Cardiovascular: Reports as per HPI and Reports no additional cardiovascular complaints Respiratory: Respiratory: Reports as per HPI and Reports no additional respiratory complaints Gastrointestinal: Gastrointestinal: Reports as per HPI and Reports no additional gastrointestinal complaints Genitourinary: Genitourinary: Reports no additional female genitourinary complaints and Reports as per HPI Musculoskeletal: Musculoskeletal: Reports no additional musculoskeletal complaints and Reports as per HPI Integumentary/Breasts: Skin/Breast: Reports system reviewed and no additional complaints, except as docu and Reports as per HPI Neurologic: Reports system reviewed and no additional complaints, except as documented and Reports as per HPI Psychiatric: Psychiatric: Reports no additional psychiatric complaints and Reports as per HPI Exam Narrative: General: In no acute distress, well nourished Head: atraumatic, no encephalopathy Eyes: PERRLA, sclera clear ENT: moist mucous membranes, nasal passages clear Neck: supple, no JVD, no adenopathy, trachea midline Cardiac: Normal S1 and S2. No murmur, gallops or friction rubs, peripheral pulses intact. Respiratory: Lungs clear to auscultation, no adventitious lung sounds, currently on 2 L nasal cannula which is her baseline Gastrointestinal: soft, non-distended, non-tender, normoactive bowel sounds. : voiding without difficulty. Extremities: moves all extremities well, mild lower extremity edema Skin: clean, dry, intact. No wounds or lesions. Neuro: Alert and oriented x4, cranial nerves intact, no neuro deficits. Psych: normal mood, normal affect, interactive Objective Data Vital Signs Vital Signs: Vital Signs - 24 hr 03/10/24 14:52 03/10/24 15:12 03/10/24 15:21 Temperature 98.2 F 97.9 F Pulse Rate 103 H 100 Respiratory Rate 24 H 17 Blood Pressure 159/109 H 168/77 H Pulse Oximetry 86 L 95 Oxygen Delivery Nasal Cannula Nasal Cannula Room Air Oxygen Flow Rate 5 5 Fraction of Inspired Oxygen 03/10/24 16:15 03/10/24 16:38 03/10/24 17:00 Temperature Pulse Rate 68 77 72 Respiratory Rate 20 20 20 Blood Pressure Pulse Oximetry Oxygen Delivery Oxygen Flow Rate Fraction of Inspired Oxygen 03/10/24 17:11 03/10/24 15:18 03/10/24 17:15 Temperature Pulse Rate 78 78 75 Respiratory Rate 20 22 H 16 Blood Pressure 101/60 Pulse Oximetry 94 Oxygen Delivery Oxygen Flow Rate Fraction of Inspired Oxygen 03/10/24 18:15 03/10/24 19:10 03/10/24 19:37 Temperature Pulse Rate 90 78 79 Respiratory Rate 25 H 18 24 H Blood Pressure 98/58 L 142/98 H Pulse Oximetry 94 95 Oxygen Delivery Oxygen Flow Rate Fraction of Inspired Oxygen 03/10/24 19:36 03/10/24 19:40 03/10/24 19:53 Temperature 97.9 F Pulse Rate 80 77 Respiratory Rate 19 20 Blood Pressure 123/70 Pulse Oximetry 93 93 Oxygen Delivery Nasal Cannula Oxygen Flow Rate 2 Fraction of Inspired Oxygen 03/10/24 21:05 03/10/24 22:00 03/10/24 23:00 Temperature 97.6 F Pulse Rate 88 Respiratory Rate 22 H Blood Pressure 123/64 Pulse Oximetry 92 92 92 Oxygen Delivery Nasal Cannula Nasal Cannula Oxygen Flow Rate 2 2 Fraction of Inspired Oxygen 03/11/24 02:40 03/11/24 02:52 03/11/24 05:50 Temperature 98.1 F Pulse Rate 74 68 81 Respiratory Rate 20 20 22 H Blood Pressure 166/64 H Pulse Oximetry 93 Oxygen Delivery Oxygen Flow Rate Fraction of Inspired Oxygen 03/11/24 07:25 03/11/24 07:25 03/11/24 07:40 Temperature Pulse Rate 78 76 Respiratory Rate 18 18 Blood Pressure Pulse Oximetry 91 Oxygen Delivery Nasal Cannula Oxygen Flow Rate 2 Fraction of Inspired Oxygen 03/11/24 08:00 Temperature Pulse Rate 77 Respiratory Rate Blood Pressure Pulse Oximetry 92 Oxygen Delivery Nasal Cannula Oxygen Flow Rate 2 Fraction of Inspired Oxygen Intake/Output Intake/Output: Intake & Output 03/08/24 03/09/24 03/10/24 03/11/24 23:59 23:59 23:59 23:59 Intake Total 200 Output Total 200 Balance -200 200 Meds/Results Medications: Active Medications Generic Name Dose Route Start Last Admin Trade Name Freq PRN Reason Stop Dose Admin Acetaminophen 650 mg 03/10/24 18:13 Acetaminophen 325 Mg Tablet PO Q4H PRN Mild Pain (1-3) or Fever Azelastine HCl 1 spray 03/11/24 09:00 03/11/24 09:06 Azelastine Hcl Nasal 0.1% 137 Mcg/Spr 30 Ml Btl NASAL 1 spray DAILY DONAVAN Administration Azithromycin 250 mg 03/12/24 09:00 Azithromycin 250 Mg Tablet PO 03/15/24 09:01 DAILY DONAVAN Calcium Carbonate 2 tablet 03/11/24 09:00 03/11/24 09:13 Calcium/Vitamin D 250 Mg/3.125 Mcg (125 I.U.) Tablet PO 2 tablet BID DONAVAN Administration Celecoxib 200 mg 03/11/24 09:00 03/11/24 09:12 Celecoxib 200 Mg Capsule PO 200 mg DAILY DONAVAN Administration Diltiazem HCl 120 mg 03/11/24 09:00 03/11/24 09:10 Diltiazem Hcl Cd 120 Mg Cap.24hr PO 120 mg DAILY DONAVAN Administration Enoxaparin Sodium 40 mg 03/11/24 09:00 03/11/24 09:09 Enoxaparin 40 Mg/0.4 Ml Syringe SUB-Q 40 mg DAILY DONAVAN Administration Famotidine 20 mg 03/11/24 21:00 Famotidine 20 Mg Tablet PO HS DONAVAN Fluticasone/Umeclidinium/Vilanterol 1 puff 03/11/24 08:00 03/11/24 07:25 Fluticasone/Umeclidin/Vilanter 200-62.5-25 Mcg Ellipta INHALATION 1 puff DAILYRT DONAVAN Administration Furosemide 40 mg 03/11/24 09:00 03/11/24 09:12 Furosemide 40 Mg Tablet PO 40 mg DAILY DONAVAN Administration Guaifenesin/Dextromethorphan 5 ml 03/10/24 23:54 Guaifenesin/Dextromethorphan 10 Ml Udc PO Q4H PRN Cough Ipratropium [place] 0.5 mg 03/10/24 20:00 03/11/24 07:24 Ipratropium Br 0.02% Inh Soln 0.5 Mg/2.5 Ml Vial INHALATION 0.5 mg Q6HRT DONAVAN Administration Levalbuterol HCl 0.63 mg 03/10/24 20:00 03/11/24 07:24 Levalbuterol Neb 1.25 Mg/3 Ml INHALATION 0.63 mg Q6HRT DONAVAN Administration Levalbuterol HCl 1.25 mg 03/10/24 23:56 Levalbuterol Neb 1.25 Mg/3 Ml INHALATION TID PRN Shortness Of Breath Levothyroxine Sodium 150 mcg 03/11/24 06:30 03/11/24 05:31 Levothyroxine Sodium 150 Mcg Tablet PO 150 mcg DAILY@0630 DONAVAN Administration Magnesium Oxide 200 mg 03/11/24 00:15 03/11/24 03:20 Magnesium Oxide 200 Mg Tablet PO 200 mg HS DONAVAN Administration Montelukast Sodium 10 mg 03/11/24 00:15 03/11/24 03:20 Montelukast Sodium 10 Mg Tablet PO 10 mg HS DONAVAN Administration Morphine Sulfate 2 mg 03/10/24 18:13 Morphine Sulfate (*Crx) 2 Mg/Ml Inj IV PUSH Q2H PRN Pain Rated 7-10 Ondansetron HCl 4 mg 03/10/24 18:13 Ondansetron Inj 4 Mg/2 Ml Vial IV PUSH Q4H PRN Nausea Pantoprazole Sodium 40 mg 03/11/24 09:00 03/11/24 09:12 Pantoprazole 40 Mg Tablet PO 40 mg BID DONAVAN Administration Potassium Chloride 10 meq 03/11/24 08:00 03/11/24 09:08 Potassium Chloride 10 Meq Er Tablet PO 10 meq DAILY@0800 DONAVAN Administration Sertraline HCl 100 mg 03/11/24 00:15 03/11/24 03:21 Sertraline Hcl 50 Mg Tablet PO 100 mg HS DONAVAN Administration Spironolactone 12.5 mg 03/11/24 09:00 03/11/24 09:09 Spironolactone 12.5 Mg Tablet PO 12.5 mg DAILY DONAVAN Administration Tramadol HCl 25 mg 03/11/24 00:15 Tramadol Hcl (*Crx) 25 Mg Tablet PO Q4H PRN Pain Rated 4-6 Radiology Results: ITS Impressions Chest X-Ray 03/10/24 15:40 IMPRESSION: 1. Stable airspace opacities in the mid and lower lung zones, right worse than left, consistent with atelectasis/scarring versus pneumonia. 2. Severe emphysema. Chest CT 03/11/24 09:50 IMPRESSION: 1. Worsened multifocal lung disease, predominantly on the right, consistent with pneumonia. 2. Severe emphysema. Labs Labs: Laboratory Results - last 24 hr 03/10/24 03/11/24 15:16 06:41 WBC 8.8 3.6 L RBC 4.57 4.26 Hgb 12.9 12.3 Hct 40.3 37.6 MCV 88.2 88.3 MCH 28.2 28.9 MCHC 32.0 32.7 RDW 15.4 H 15.4 H Plt Count 239 190 MPV 10.7 H 10.6 H Immature Gran % (Auto) 0.3 Neut % (Auto) 88.2 H Lymph % (Auto) 7.7 L [place] % (Auto) 3.4 Eos % (Auto) 0.2 Baso % (Auto) 0.2 Lymph # (Auto) 0.67 L [place] # (Auto) 0.3 Eos # (Auto) 0.0 Baso # (Auto) 0.0 Abs Immat Gran (auto) 0.03 Absolute Neuts (auto) 7.7 H Absolute Nucleated RBC 0.000 Nucleated RBC % 0.0 PT 13.5 INR 1.0 APTT 29.3 Sodium 140 141 Potassium 3.5 4.2 Chloride 105 104 Carbon Dioxide 23 28 Anion Gap 12 9 BUN 23 H 21 H Creatinine 0.80 0.80 Estim Creat Clear Calc 46 46 Estimated GFR > 60 > 60 Glucose 108 182 H Lactic Acid 2.0 Calcium 9.1 9.1 Magnesium 2.0 2.2 Total Bilirubin 0.5 AST 25 ALT 21 Alkaline Phosphatase 73 NT-Pro-B Natriuret Pep 330 H Total Protein 8.0 Albumin 4.5 Influenza A (RT-PCR) Negative Influenza B (RT-PCR) Negative RSV (RT-PCR) Negative SARS-CoV-2 RNA (RT-PCR) Negative Quality VTE Prophylaxis VTE prophylaxis: pharmacologic ordered
[2024-03-11] MEDS: FAMOTIDINE 20 MG TABLET PO (20:36)
[2024-03-12 05:25] VITALS: BP 135/62; PULSE 63; RESP 20; TEMP 36.2; O2SAT 99
[2024-03-12] MEDS: LEVOTHYROXINE SODIUM 150 MCG TABLET PO (05:54)
[2024-03-12 07:00] VITALS: PULSE 61; RESP 18; O2SAT 96
[2024-03-12] MEDS: FLUTICASONE/UMECLIDIN/VILANTER 200-62.5-25 MCG ELLIPTA 1 PUFF INHALATION (07:00)
[2024-03-12] MEDS: IPRATROPIUM BR 0.02% INH SOLN 0.5 MG/2.5 ML VIAL INHALATION ×2 (07:00→12:51)
[2024-03-12] MEDS: LEVALBUTEROL NEB 1.25 MG/3 ML 0.63 MG INHALATION ×2 (07:01→12:51)
[2024-03-12 07:10] VITALS: PULSE 65; RESP 18
--- NOTE | 2024-03-12 07:59 | P.PNIM_ITS ---
Progress Note: A&P Assessment and Plan (1) Chronic respiratory failure with hypoxia: Code(s): J96.11 - Chronic respiratory failure with hypoxia Status: Acute Assessment and Plan: * Likely secondary to COPD exacerbation * Currently on 2L NC (2) COPD exacerbation: Code(s): J44.1 - Chronic obstructive pulmonary disease with (acute) exacerbation Status: Inactive Assessment and Plan: * Solu-Medrol discontinued as she sees Infectious Disease doctor on outpatient basis and was told not to use steroids. * Continue Duonebs as needed * Pulmonology consulted, appreciate recommendations * Starting doxycycline x10 days, prednisone 40mg x5 days * Stop Azithromycin until follow up with ID * Continue Singulair (3) Diastolic dysfunction: Code(s): I51.89 - Other ill-defined heart diseases Status: Acute Assessment and Plan: * Echocardiogram showing LV systolic function as normal with an estimated EF of 60-65%, grade 1 diastolic dysfunction * Continue Spironolactone, Lasix (4) Hypertension: Code(s): I10 - Essential (primary) hypertension Status: Acute Assessment and Plan: * Blood pressures ranging 123/64 to 166/64 * Continue diuretics Subjective Date/time seen: 03/12/24 07:59 Interval history: Feeling better today, wants to go home. Set up palliative care for home. ON on home O2 2L at rest/5L with activity Exam Narrative: General: In no acute distress, well nourished Head: atraumatic, no encephalopathy Eyes: PERRLA, sclera clear ENT: moist mucous membranes, nasal passages clear Neck: supple, no JVD, no adenopathy, trachea midline Cardiac: Normal S1 and S2. No murmur, gallops or friction rubs, peripheral pulses intact. Respiratory: Lungs clear, decreased, no adventitious lung sounds, currently on 2 L nasal cannula which is her baseline Gastrointestinal: soft, non-distended, non-tender, normoactive bowel sounds. : voiding without difficulty. Extremities: moves all extremities well, mild lower extremity edema Skin: clean, dry, intact. No wounds or lesions. Neuro: Alert and oriented x4, cranial nerves intact, no neuro deficits. Psych: normal mood, normal affect, interactive Objective Data Vital Signs Vital Signs: Vital Signs - 24 hr 03/11/24 08:00 03/11/24 13:33 03/11/24 13:44 Temperature Pulse Rate 77 80 76 Respiratory Rate 18 18 Blood Pressure Pulse Oximetry 92 Oxygen Delivery Nasal Cannula Oxygen Flow Rate 2 03/11/24 14:00 03/11/24 14:49 03/11/24 20:48 Temperature 97.0 F L Pulse Rate 74 72 Respiratory Rate 20 18 Blood Pressure 166/100 H 129/69 Pulse Oximetry 95 Oxygen Delivery Oxygen Flow Rate 03/11/24 20:48 03/11/24 22:00 03/12/24 05:25 Temperature 97.4 F L 97.2 F L Pulse Rate 71 63 Respiratory Rate 20 20 Blood Pressure 143/65 H 135/62 Pulse Oximetry 92 93 99 Oxygen Delivery Nasal Cannula Oxygen Flow Rate 2 03/12/24 07:00 03/12/24 07:00 03/12/24 07:10 Temperature Pulse Rate 61 61 65 Respiratory Rate 18 18 18 Blood Pressure Pulse Oximetry 96 Oxygen Delivery Nasal Cannula Oxygen Flow Rate 2 Intake/Output Intake/Output: Intake & Output 03/09/24 03/10/24 03/11/24 03/12/24 23:59 23:59 23:59 23:59 Intake Total 680 0 Output Total 200 Balance -200 680 0 Meds/Results Medications: Active Medications Generic Name Dose Route Start Last Admin Trade Name Freq PRN Reason Stop Dose Admin Acetaminophen 650 mg 03/10/24 18:13 Acetaminophen 325 Mg Tablet PO Q4H PRN Mild Pain (1-3) or Fever Azelastine HCl 1 spray 03/11/24 09:00 03/11/24 09:06 Azelastine Hcl Nasal 0.1% 137 Mcg/Spr 30 Ml Btl NASAL 1 spray DAILY DONAVAN Administration Azithromycin 250 mg 03/12/24 09:00 Azithromycin 250 Mg Tablet PO 03/15/24 09:01 DAILY [facility] Calcium Carbonate 2 tablet 03/11/24 09:00 03/11/24 16:48 Calcium/Vitamin D 250 Mg/3.125 Mcg (125 I.U.) Tablet PO 2 tablet BID DONAVAN Administration Celecoxib 200 mg 03/11/24 09:00 03/11/24 09:12 Celecoxib 200 Mg Capsule PO 200 mg DAILY DONAVAN Administration Diltiazem HCl 120 mg 03/11/24 09:00 03/11/24 09:10 Diltiazem Hcl Cd 120 Mg Cap.24hr PO 120 mg DAILY DONAVAN Administration Enoxaparin Sodium 40 mg 03/11/24 09:00 03/11/24 09:09 Enoxaparin 40 Mg/0.4 Ml Syringe SUB-Q 40 mg DAILY DONAVAN Administration Famotidine 20 mg 03/11/24 21:00 03/11/24 20:36 Famotidine 20 Mg Tablet PO 20 mg HS DONAVAN Administration Fluticasone/Umeclidinium/Vilanterol 1 puff 03/11/24 08:00 03/12/24 07:00 Fluticasone/Umeclidin/Vilanter 200-62.5-25 Mcg Ellipta INHALATION 1 puff DAILYRT DONAVAN Administration Furosemide 40 mg 03/11/24 09:00 03/11/24 09:12 Furosemide 40 Mg Tablet PO 40 mg DAILY DONAVAN Administration Guaifenesin/Dextromethorphan 5 ml 03/10/24 23:54 Guaifenesin/Dextromethorphan 10 Ml Udc PO Q4H PRN Cough Ipratropium [place] 0.5 mg 03/10/24 20:00 03/12/24 07:00 Ipratropium Br 0.02% Inh Soln 0.5 Mg/2.5 Ml Vial INHALATION 0.5 mg Q6HRT DONAVAN Administration Levalbuterol HCl 0.63 mg 03/10/24 20:00 03/12/24 07:01 Levalbuterol Neb 1.25 Mg/3 Ml INHALATION 0.63 mg Q6HRT DONAVAN Administration Levalbuterol HCl 1.25 mg 03/10/24 23:56 Levalbuterol Neb 1.25 Mg/3 Ml INHALATION TID PRN Shortness Of Breath Levothyroxine Sodium 150 mcg 03/11/24 06:30 03/12/24 05:54 Levothyroxine Sodium 150 Mcg Tablet PO 150 mcg DAILY@0630 DONAVAN Administration Magnesium Oxide 200 mg 03/11/24 00:15 03/11/24 20:36 Magnesium Oxide 200 Mg Tablet PO 200 mg HS DONAVAN Administration Montelukast Sodium 10 mg 03/11/24 00:15 03/11/24 20:36 Montelukast Sodium 10 Mg Tablet PO 10 mg HS DONAVAN Administration Morphine Sulfate 2 mg 03/10/24 18:13 Morphine Sulfate (*Crx) 2 Mg/Ml Inj IV PUSH Q2H PRN Pain Rated 7-10 Ondansetron HCl 4 mg 03/10/24 18:13 Ondansetron Inj 4 Mg/2 Ml Vial IV PUSH Q4H PRN Nausea Pantoprazole Sodium 40 mg 03/11/24 09:00 03/11/24 16:49 Pantoprazole 40 Mg Tablet PO 40 mg BID DONAVAN Administration Potassium Chloride 10 meq 03/11/24 08:00 03/11/24 09:08 Potassium Chloride 10 Meq Er Tablet PO 10 meq DAILY@0800 DONAVAN Administration Sertraline HCl 100 mg 03/11/24 00:15 03/11/24 20:36 Sertraline Hcl 50 Mg Tablet PO 100 mg HS DONAVAN Administration Spironolactone 12.5 mg 03/11/24 09:00 03/11/24 09:09 Spironolactone 12.5 Mg Tablet PO 12.5 mg DAILY DONAVAN Administration Tramadol HCl 25 mg 03/11/24 00:15 Tramadol Hcl (*Crx) 25 Mg Tablet PO Q4H PRN Pain Rated 4-6 Radiology Results: ITS Impressions Chest X-Ray 03/10/24 15:40 IMPRESSION: 1. Stable airspace opacities in the mid and lower lung zones, right worse than left, consistent with atelectasis/scarring versus pneumonia. 2. Severe emphysema. Chest CT 03/11/24 09:50 IMPRESSION: 1. Worsened multifocal lung disease, predominantly on the right, consistent with pneumonia. 2. Severe emphysema. Quality VTE Prophylaxis VTE prophylaxis: pharmacologic ordered Hospitalist [facility] Advance Care Plan I have confirmed that the patient's Advanced Care Plan is present, code status is documented, or surrogate decision maker is listed in patient medical record.: Yes Medication Reconciliation I have utilized all available resources to obtain, update and review the patients current medications (includes all prescriptions, OTC, herbals, cannabis, and nutritional supplements).: Yes
[2024-03-12 08:00] VITALS: PULSE 76; O2SAT 93
--- NOTE | 2024-03-12 08:46 | PM.PNPUL ---
Progress Note: A&P Assessment and Plan (1) Acute exacerbation of chronic obstructive pulmonary disease: Code(s): J44.1 - Chronic obstructive pulmonary disease with (acute) exacerbation Status: Acute Assessment and Plan: A chest CT conducted yesterday indicated significant findings, including severe confluent centrilobular emphysema, a right middle lobe infiltrate, and a new right upper lobe infiltrate since December of this year. When compared to the previous CT scan from December, the right middle lobe infiltrate has decreased in size, whereas the right upper lobe infiltrate is a new development. The rapid growth of the right upper lobe infiltrate suggests it is less likely associated with her known lung cancer and more likely due to a new infection or her existing atypical mycobacterial infection. 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 However, due to gastric upset, including vomiting and diarrhea, she discontinued both medications after a few days and continued with Zithromax three times a week. She has been on Zithromax for an extended period, likely for recurrent COPD exacerbations. During yesterday's physical examination, she exhibited no wheezing and was taken off IV steroids due to the BRYNN. However, today?s examination revealed wheezing, indicating incomplete treatment with the steroids. Otherwise, she has no new respiratory symptoms, such as shortness of breath, fever, or chills. Plan: Discharge: The patient is cleared for discharge home today. Medication Adjustments: Due to the recurrence of wheezing, she will continue with oral prednisone 40 mg daily for 5 days. The risks and benefits of continuing steroids considering her known atypical mycobacterial infection were discussed. She has not yet received the standard antibiotic regimen for atypical mycobacterial infection but has an appointment with her Infectious Disease specialist in approximately 2 weeks. Switch from Trelegy to Anoro inhaler daily for long-term bronchodilator therapy without inhaled corticosteroids (ICS). Continue using short-acting bronchodilators four times a day. Prescribe doxycycline 100 mg twice daily for 10 days. Discontinue Zithromax 3 times weekly until her follow-up with the infectious disease public relations consultant. Supplemental Oxygen: Continue with the same supplemental oxygen regimen as before. Follow-up Care: The patient was advised to contact the pulmonary clinic to schedule an appointment with her production machinist within the next 2-3 weeks. Will sign off please call with any questions. (2) Cancer of right lung: Code(s): C34.91 - Malignant neoplasm of unspecified part of right bronchus or lung Status: Acute (3) Acute and chronic respiratory failure with hypoxia: Code(s): J96.21 - Acute and chronic respiratory failure with hypoxia Status: Acute (4) BRYNN (mycobacterium avium-intracellulare): Code(s): A31.0 - Pulmonary mycobacterial infection Status: Acute (5) Breast cancer: Qualifiers: Breast location: unspecified site of breast Estrogen receptor status: positive Patient sex: female Laterality: right Qualified Code(s): C50.911 - Malignant neoplasm of unspecified site of right female breast; Z17.0 - Estrogen receptor positive status [ER+] Code(s): C50.919 - Malignant neoplasm of unspecified site of unspecified female breast Status: Acute Subjective Date/time seen: 03/12/24 08:46 Interval history: Patient has no change in shortness of breath but has wheezing this a.m.. She had the last nebulized treatment approximately 1 hour ago. Willing to go home. Review of Systems Review of Systems: All systems reviewed & are unremarkable except as noted in HPI and below (HPI and below) Exam Narrative: GENERAL APPEARANCE: Well developed, well nourished, alert and cooperative, and appears to be in no acute distress while on supplemental oxygen SKIN: Inspection of the skin reveals no rashes, ulcerations or petechiae. HEENT: Sclerae anicteric and conjunctivae pink and moist. Extraocular movements were intact and pupils were equal, round, and reactive to light. The oral mucosa, hard and soft palate, tongue and posterior pharynx were normal. NECK: Supple. There was no thyroid enlargement, and no tenderness, or masses were felt. LUNGS: Distant breath sounds bilaterally, mild expiratory wheezing CARDIAC: There was a regular rate and rhythm without any murmurs, gallops, rubs. ABDOMEN: Soft and nontender with normal bowel sounds. There was no organomegaly. LYMPH NODES: No lymphadenopathy was appreciated in the neck. EXTREMITIES: No cyanosis, clubbing or edema. NEUROLOGIC: Alert and oriented x 3. Normal affect. Objective Data Vital Signs Vital Signs: Vital Signs - 24 hr 03/11/24 13:33 03/11/24 13:44 03/11/24 14:00 Temperature 36.1 C L Pulse Rate 80 76 74 Respiratory Rate 18 18 20 Blood Pressure 166/100 H Pulse Oximetry 95 Oxygen Delivery Oxygen Flow Rate 03/11/24 14:49 03/11/24 20:48 03/11/24 20:48 Temperature Pulse Rate 72 Respiratory Rate 18 Blood Pressure 129/69 Pulse Oximetry 92 Oxygen Delivery Nasal Cannula Oxygen Flow Rate 2 03/11/24 22:00 03/12/24 05:25 03/12/24 07:00 Temperature 36.3 C L 36.2 C L Pulse Rate 71 63 61 Respiratory Rate 20 20 18 Blood Pressure 143/65 H 135/62 Pulse Oximetry 93 99 96 Oxygen Delivery Nasal Cannula Oxygen Flow Rate 2 03/12/24 07:00 03/12/24 07:10 Temperature Pulse Rate 61 65 Respiratory Rate 18 18 Blood Pressure Pulse Oximetry Oxygen Delivery Oxygen Flow Rate Intake/Output Intake/Output: Intake & Output 03/09/24 03/10/24 03/11/24 03/12/24 23:59 23:59 23:59 23:59 Intake Total 680 0 Output Total 200 Balance -200 680 0 Meds/Results Medications: Active Medications Generic Name Dose Route Start Last Admin Trade Name Freq PRN Reason Stop Dose Admin Acetaminophen 650 mg 03/10/24 18:13 Acetaminophen 325 Mg Tablet PO Q4H PRN Mild Pain (1-3) or Fever Azelastine HCl 1 spray 03/11/24 09:00 03/11/24 09:06 Azelastine Hcl Nasal 0.1% 137 Mcg/Spr 30 Ml Btl NASAL 1 spray DAILY DONAVAN Administration Azithromycin 250 mg 03/12/24 09:00 Azithromycin 250 Mg Tablet PO 03/15/24 09:01 DAILY [facility] Calcium Carbonate 2 tablet 03/11/24 09:00 03/11/24 16:48 Calcium/Vitamin D 250 Mg/3.125 Mcg (125 I.U.) Tablet PO 2 tablet BID DONAVAN Administration Celecoxib 200 mg 03/11/24 09:00 03/11/24 09:12 Celecoxib 200 Mg Capsule PO 200 mg DAILY DONAVAN Administration Diltiazem HCl 120 mg 03/11/24 09:00 03/11/24 09:10 Diltiazem Hcl Cd 120 Mg Cap.24hr PO 120 mg DAILY DONAVAN Administration Enoxaparin Sodium 40 mg 03/11/24 09:00 03/11/24 09:09 Enoxaparin 40 Mg/0.4 Ml Syringe SUB-Q 40 mg DAILY DONAVAN Administration Famotidine 20 mg 03/11/24 21:00 03/11/24 20:36 Famotidine 20 Mg Tablet PO 20 mg HS DONAVAN Administration Fluticasone/Umeclidinium/Vilanterol 1 puff 03/11/24 08:00 03/12/24 07:00 Fluticasone/Umeclidin/Vilanter 200-62.5-25 Mcg Ellipta INHALATION 1 puff DAILYRT DONAVAN Administration Furosemide 40 mg 03/11/24 09:00 03/11/24 09:12 Furosemide 40 Mg Tablet PO 40 mg DAILY DONAVAN Administration Guaifenesin/Dextromethorphan 5 ml 03/10/24 23:54 Guaifenesin/Dextromethorphan 10 Ml Udc PO Q4H PRN Cough Ipratropium [place] 0.5 mg 03/10/24 20:00 03/12/24 07:00 Ipratropium Br 0.02% Inh Soln 0.5 Mg/2.5 Ml Vial INHALATION 0.5 mg Q6HRT DONAVAN Administration Levalbuterol HCl 0.63 mg 03/10/24 20:00 03/12/24 07:01 Levalbuterol Neb 1.25 Mg/3 Ml INHALATION 0.63 mg Q6HRT DONAVAN Administration Levalbuterol HCl 1.25 mg 03/10/24 23:56 Levalbuterol Neb 1.25 Mg/3 Ml INHALATION TID PRN Shortness Of Breath Levothyroxine Sodium 150 mcg 03/11/24 06:30 03/12/24 05:54 Levothyroxine Sodium 150 Mcg Tablet PO 150 mcg DAILY@0630 DONAVAN Administration Magnesium Oxide 200 mg 03/11/24 00:15 03/11/24 20:36 Magnesium Oxide 200 Mg Tablet PO 200 mg HS DONAVAN Administration Montelukast Sodium 10 mg 03/11/24 00:15 03/11/24 20:36 Montelukast Sodium 10 Mg Tablet PO 10 mg HS DONAVAN Administration Morphine Sulfate 2 mg 03/10/24 18:13 Morphine Sulfate (*Crx) 2 Mg/Ml Inj IV PUSH Q2H PRN Pain Rated 7-10 Ondansetron HCl 4 mg 03/10/24 18:13 Ondansetron Inj 4 Mg/2 Ml Vial IV PUSH Q4H PRN Nausea Pantoprazole Sodium 40 mg 03/11/24 09:00 03/11/24 16:49 Pantoprazole 40 Mg Tablet PO 40 mg BID DONAVAN Administration Potassium Chloride 10 meq 03/11/24 08:00 03/11/24 09:08 Potassium Chloride 10 Meq Er Tablet PO 10 meq DAILY@0800 DONAVAN Administration Sertraline HCl 100 mg 03/11/24 00:15 03/11/24 20:36 Sertraline Hcl 50 Mg Tablet PO 100 mg HS DONAVAN Administration Spironolactone 12.5 mg 03/11/24 09:00 03/11/24 09:09 Spironolactone 12.5 Mg Tablet PO 12.5 mg DAILY DONAVAN Administration Tramadol HCl 25 mg 03/11/24 00:15 Tramadol Hcl (*Crx) 25 Mg Tablet PO Q4H PRN Pain Rated 4-6 Radiology Results: ITS Impressions Chest X-Ray 03/10/24 15:40 IMPRESSION: 1. Stable airspace opacities in the mid and lower lung zones, right worse than left, consistent with atelectasis/scarring versus pneumonia. 2. Severe emphysema. Chest CT 03/11/24 09:50 IMPRESSION: 1. Worsened multifocal lung disease, predominantly on the right, consistent with pneumonia. 2. Severe emphysema.
[2024-03-12] MEDS: AZELASTINE HCL NASAL 0.1% 137 MCG/SPR 30 ML BTL 1 SPRAY NASAL (09:15)
[2024-03-12] MEDS: POTASSIUM CHLORIDE 10 MEQ ER TABLET PO (09:16)
[2024-03-12] MEDS: FUROSEMIDE 40 MG TABLET PO (09:16)
[2024-03-12] MEDS: CALCIUM/VITAMIN D 250 MG/3.125 MCG (125 I.U.) TABLET 2 TABLET PO (09:17)
[2024-03-12] MEDS: CELECOXIB 200 MG CAPSULE PO (09:17)
[2024-03-12] MEDS: AZITHROMYCIN 250 MG TABLET PO (09:17)
[2024-03-12] MEDS: PANTOPRAZOLE 40 MG TABLET PO (09:17)
[2024-03-12] MEDS: SPIRONOLACTONE 12.5 MG TABLET PO (09:17)
[2024-03-12] MEDS: dilTIAZem HCL CD 120 MG CAP.24HR PO (09:17)
[2024-03-12 12:50] VITALS: PULSE 70; RESP 18
[2024-03-12 13:00] VITALS: PULSE 71; RESP 18
--- NOTE | 2024-03-31 16:55 | P.DS_ITS ---
DS: Admitting Diagnosis Discharge Date 03/12/24 Admitting Diagnosis Acute Respiratory failure COPD with acute exacerbation DS: Discharge Diagnosis Discharge Diagnosis (1) Acute exacerbation of chronic obstructive pulmonary disease: Code(s): J44.1 - Chronic obstructive pulmonary disease with (acute) exacerbation Status: Acute (2) Acute and chronic respiratory failure with hypoxia: Code(s): J96.21 - Acute and chronic respiratory failure with hypoxia Status: Acute DS: Summary Hospital Course Reason for hospitalization: Copied from [facility] 03/10: This is a pleasant 78-year-old female with with chronic respiratory failure on 4-5 L oxygen, chronic obstructive pulmonary disease, 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 The patient provides the following history. She gives a 7 to 10 day history of increasing shortness of breath and cough productive of white phlegm. She has been using her nebulizer treatments and is taking Mucinex D without much benefit. She saw her primary care provider last and was prescribed prednisone 50 mg daily and doxycycline 100 mg twice daily. Unfortunately she has not had any improvement in her breathing with those therapies. She denies fever, chills, sweats, sinus congestion, sore throat, chest pain, pleuritic pain, nausea, vomiting, diarrhea, lower extremity edema, and calf pain. In the ED: She was afebrile on arrival with stable vital signs. CMP and CBC were pretty unremarkable. She tested negative for influenza, RSV, and COVID. Chest x- ray showed stable airspace opacities in the mid and lower lung zones, right greater than left, consistent with atelectasis list/scarring versus pneumonia and severe emphysema. She received multiple nebulizer treatments and methylprednisolone with only minimal improvement she is being admitted in this setting for further treatment. Hospital Course: Romi Zarate was admitted for acute respiratory failure, treated for a COPD exacerbation. She would like to avoid coming to the hospital in the future so set up palliative care for herself outpatient. Chronic respiratory failure with hypoxia COPD exacerbation Hx Baseline 2L at rest, 5L of oxygen with activity, COPD, mycobacterium avium intracellulare on prophylactic azithromycin. Recent hx 7-10 days increasing shortness of breath and productive cough. Continued symptoms on oral prednisone and doxycycline. TTE showed LVEF 60-65%, grade 1 diastolic dysfunction Pulmonary was consulted during admission and she was treated with IV steroids and bronchodilators She was discharged with: Prednisone 40mg daily x5 days Changed Trelegy to Anoro daily Continuing bronchodilators QID Doxycycline 100mg BID x10 & Discontinued azithromycin 3 times weekly until follow up with ID Continued home oxygen Follow up with pulmonary in clinic, 2-3 weeks Mycobacterium Infection?Planning follow up with infectious disease outpatient in 2 weeks. ?? Other medical conditions stable during admission. HTN Diastolic dysfunction Continued Spironolactone, Lasix Status at Discharge Cognitive/behavioral status at discharge: Alert x Oriented x4 Time Spent with Patient Time attestation: Total time spent providing and/or coordinating discharge services: 58 minutes Exam Narrative: General: In no acute distress, well nourished Head: atraumatic, no encephalopathy Eyes: PERRLA, sclera clear ENT: moist mucous membranes, nasal passages clear Neck: supple, no JVD, no adenopathy, trachea midline Cardiac: Normal S1 and S2. No murmur, gallops or friction rubs, peripheral pulses intact. Respiratory: Lungs clear, decreased, no adventitious lung sounds, currently on 2 L nasal cannula which is her baseline Gastrointestinal: soft, non-distended, non-tender, normoactive bowel sounds. : voiding without difficulty. Extremities: moves all extremities well, mild lower extremity edema Skin: clean, dry, intact. No wounds or lesions. Neuro: Alert and oriented x4, cranial nerves intact, no neuro deficits. Psych: normal mood, normal affect, interactive Discharge Plan Discharge Attending physician on discharge: Emma Suazo Consulting providers: Valentina Castellanos; Zenon Conklin; Sherri Graham Ripa K.; Dennis Archibald V. Discharging Clinician: Emma Suazo Anticipated Discharge Date/Time: 03/12/24 13:18 Patient Disposition: Hospice - Home Activity: september shower Diet: regular Discharge Instructions: Per Care Coordination RN please fax discharge instructions to [facility] [phone], attn. Palliative Care Resume home oxygen. Follow up with your PCP in 1-2 weeks. Follow up with infectious disease as scheduled Patient Instructions: Antibiotic Form, Heart Failure (DC), Pain Management (DC), Pneumonia (GEN) Stand Alone Forms: General Discharge Information Follow-up/Referrals: Kelly,MD Cortez [Primary Care Provider] - Discharge Medications: New Anoro Ellipta 62.5-25 mcg/actuation blister with device 1 inh inhalation DAILY Qty: 60 11RF albuterol sulfate 90 mcg/actuation HFA aerosol inhaler 1 inh inhalation QID PRN (Reason: shortness of breath or wheezing) Qty: 8.5 11RF doxycycline monohydrate 100 mg capsule 100 mg PO BID Qty: 20 0RF prednisone 20 mg tablet 40 mg PO DAILY Qty: 10 0RF doxepin 6 mg tablet 6 mg PO HS PRN (Reason: sleep) Qty: 30 0RF levalbuterol HCl 0.63 mg/3 mL solution for nebulization 0.63 mg inhalation Q4-6H PRN (Reason: shortness of breath or wheezing) Qty: 90 11RF ipratropium bromide 0.02 % solution 0.5 mg inhalation Q6H PRN (Reason: shortness of breath or wheezing) Qty: 75 11RF Rx Instructions: Give with levalbuterol Continued celecoxib [Celebrex] 200 mg capsule 200 mg PO DAILY magnesium 200 mg tablet 200 mg PO HS sertraline 100 mg tablet 100 mg PO HS omeprazole 40 mg capsule,delayed release(DR/EC) 40 mg PO DAILY famotidine 20 mg tablet 20 mg PO HS levothyroxine 150 mcg tablet 150 mcg PO DAILY diltiazem HCl 120 mg capsule,ext.rel 24h degradable 120 mg PO DAILY montelukast 10 mg tablet 10 mg PO HS levalbuterol HCl 1.25 mg/3 mL solution for nebulization 1.25 mg INHALATION TID PRN (Reason: Shortness Of Breath) tramadol 25 mg tablet 25 mg PO Q4H PRN (Reason: pain) Qty: 30 0RF furosemide 40 mg Tablet 40 mg PO DAILY Qty: 30 0RF spironolactone 25 mg tablet 12.5 mg PO DAILY Qty: 30 0RF calcium carbonate-vitamin D3 250 mg-3.125 mcg (125 unit) tablet 2 tablet PO BID potassium chloride 10 mEq capsule, extended release 10 meq PO DAILY azelastine 0.15 % (205.5 mcg) spray,non-aerosol 205.5 mcg NASAL DAILY Qty: 30 3RF Rx Instructions: administer into each nostril Discontinued azithromycin 250 mg tablet 250 mg PO 3XW Rx Instructions: MWF administration Trelegy Ellipta 200-62.5-25 mcg blister with device 1 inh INHALATION DAILY No Action roflumilast 500 mcg tablet 500 mcg PO DAILY 90 Days Qty: 90.0 3RF Date of admission: 03/10/24 18:13 Primary Care Provider: KellyCortez Admitting Provider: Sagrario Lane Attending physician on admission: Emma Suazo Condition: Stable Quality VTE Prophylaxis VTE prophylaxis: pharmacologic ordered Hospitalist MIPS Heart Failure (Exclusion) Patient has history of Heart Transplant or Left Ventricular Assistive Device?: No IF YES, STOP HERE Heart Failure (Qualifier) Patient has current or prior documentation of LVEF less than or equal to 40%, or mod/servere depressed LVSF?: No IF NO, STOP HERE
== END 2024-03-12 14:55 | disposition hospice, home (50) | DRG 190 ==
LOC: ANHED 18:24 → ANH3MEDSUR 19:25
PROVIDERS: Physician Assistant; Registered Nurse; Admitting Provider Internal Medicine; Emergency Provider Family Medicine; PCP Hospitalist; Visit Provider Nurse Practitioner Acute Care
DX: J43.9 Emphysema, unspecified (principal); J96.21 Acute and chronic respiratory failure with hypoxia; A31.0 Pulmonary mycobacterial infection; C34.91 Malignant neoplasm of unspecified part of right bronchus or lung; C50.911 Malignant neoplasm of unspecified site of right female breast; I48.0 Paroxysmal atrial fibrillation; I10 Essential (primary) hypertension; M19.90 Unspecified osteoarthritis, unspecified site; E78.5 Hyperlipidemia, unspecified; I51.89 Other ill-defined heart diseases; K21.9 Gastro-esophageal reflux disease without esophagitis; Z20.822 Contact with and (suspected) exposure to COVID-19; Z17.0 Estrogen receptor positive status [ER+]; Z99.81 Dependence on supplemental oxygen; Z85.850 Personal history of malignant neoplasm of thyroid; Z85.828 Personal history of other malignant neoplasm of skin; Z90.49 Acquired absence of other specified parts of digestive tract; Z90.710 Acquired absence of both cervix and uterus; Z90.722 Acquired absence of ovaries, bilateral; Z87.891 Personal history of nicotine dependence; Z51.5 Encounter for palliative care
CPT/HCPCS: 36415; 71046; 71250; 80048; 80053; 83605; 83735; 83880; 85025; 85027; 85610; 85730; 87040; 87070; 87205; 87637; 93005; 94640; 94667; 96374; 99285; A9270; J1650; J2919

== ENCOUNTER 2024-12-31 13:00 | Emergency (ER) | payer MEDICARE, SELFPAY ==
--- NOTE | ~2024-12-31 | XR_ITS ---
EXAMINATION: XR hand RT min 3V DATE: 12/31/2024 14:28 INDICATION: Cat bite TECHNIQUE: Posteroanterior, oblique and lateral views of the right hand were obtained. COMPARISON: None. FINDINGS: Old healed fracture deformity distal right radius which is healed with mild dorsal angulation. Chronic corticated nonunited ulnar styloid avulsion fracture fragment. No acute fractures identified. Bone alignment is otherwise normal. Polyarticular osteoarthritis, severe at the distal radioulnar, triscaphe and the second third distal interphalangeal joints, moderate severity at the wrist, first carpometacarpal, first metacarpophalangeal and at the fourth and fifth distal interphalangeal and third-fifth proximal interphalangeal joints and mild at the midcarpal joint and remaining interphalangeal joints. No soft tissue gas or radiopaque foreign bodies. IMPRESSION: 1. 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 No acute osseous adenopathy. Reviewed, dictated and finalized at location A.
--- OUTSIDE RECORDS SUMMARY | 2024-12-31 13:07 | XMS_ITS | Encounter Summary ---
Author Organization [facility] Healthcare Address [address] [place] [address] Care Team Providers Care Kier Drier Name Role Phone Cortez Mendoza MD Primary Care Provider [phone] Vanessa De La Cruz Unavailable [phone] Kong Wright MD Unavailable [phone] Encounter Details Date Type Department Care Team (Late st Contact Info) Description 11/23/2024 Results Follow-Up [facility] [place] [address] [place] [address] Cherelle Villa, MEDICAL COST CONSULTANT [address] [place] [address] [address] [place] [address] XR Wrist Left 3 or More Views Social History Tobacco Use Types Packs/Day Years Used Date Smoking Tobacco: Former Cigarettes 1.5 1989 Passive Smoke Exposure: Past Smokeless Tobacco: Never Alcohol Use Standard Drinks/Week Comments Yes 0 (1 standard drink = 0.6 oz pur e alcohol) AUDIT-C Answer Date Recorded Q1: How often do you have a drink containing alc ohol? Monthly or less 07/21/2024 Q2: How many drinks containi ng alcohol do you have on a typical day when you are drinking? 1 or 2 07/21/2024 Q3: How often do you have si x or more drinks on one occasion? Never 07/21/2024 PHQ-2 Answer Date Recorded PHQ-2 Total Score (If total score is 3 or more points, staff should administer the PHQ-9) 6 11/26/2024 Hunger Vital Sign Answer Date Recorded Within the past 12 months, y ou worried that your food would run out before you got the money to buy more. Never true 06/22/19 25 Within the past 12 months, t he food you bought just didn't last and you didn't have money to get more. Never true 06/22/2024 PHQ-9 Answer Date Recorded PHQ-9 Total Score 9 11/26/2024 Personal Safety Answer Date Recorded Have you ever been in or are you currently in a harmful physical or emotional relationship or is someone making you feel afraid or unsafe? 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 Author [facility] No Cyndi Masterson, VICKY Note: Patient will establish a comfort-function goal and identify the pain level that will allow the patient to perform desired activities and achieve an acceptable quality of life. documented as of this encounter Visit Diagnoses Not on filedocumented in this encounter Care Teams Kier Drier Relationship Specialty Start Date End Date Cortez Mendoza MD [address] [place] [address] PCP - General Family Medicine 09/12/20 Vanessa De La Cruz PA [address] [address] Physician Poultry Pathologist Orthopedic Surgery 01/24/21 Kong Wright MD [address] [place] [address] Radiation Oncology 06/29/24 documented as of this encounter
--- OUTSIDE RECORDS SUMMARY | 2024-12-31 13:07 | XMS_ITS | Encounter Summary ---
Author Organization [facility] Address [address] [place] [address] Care Team Providers Care Habitat Biologist Name Role Phone Teofilo Vaca MD Primary Care Provider Encounter Details Date Type Department Care Team (Late st Contact Info) Description 12/25/2017 Chart Note [facility] Radiation Therapy [address] [place] [address] [place] [address] [place] [address] Social History Tobacco Use Types Packs/Day Years Used Date Smoking Tobacco: Former Cigarettes 2 25 1 965 - 1989 Smokeless Tobacco: Never Alcohol Use Standard Drinks/Week Comments Yes 0 (1 standard drink = 0.6 oz pur e alcohol) Ocassionally Comments No Sex and Gender Information Value Date Recorded Sex Assigned at Not on file Legal Sex Female 1:58 PM CDT Gender Identity Not on file Sexual Orientation Not on file documented as of this encounter Plan of Treatment Not on file documented as of this encounter Visit Diagnoses Not on filedocumented in this encounter Care Teams Habitat Biologist Relationship Specialty Start Date End Date Teofilo Vaca MD [address] [place] [address] PCP - General Family Practice 09/26/17 documented as of this encounter
--- OUTSIDE RECORDS SUMMARY | 2024-12-31 13:07 | XMS_ITS | Encounter Summary ---
Author Organization [facility] Address [address] [place] [address] Phone Care Team Providers Care Director Of Cardiac Rehabilitation Name Role Phone Lexii Zheng DO Unavailable [phone] Kong Wright MD Unavailable [phone] Cortez Mendoza MD Primary Care Provider [phone] Martín Wise MD Unavailable [phone] Gildardo Moss MD Unavailable [phone] Romi Cade MD Unavailable [phone] Thiago Magana MD Unavailable [phone] Martín Wise MD Unavailable [phone] Reason for Visit * Reason Comments Medication Refill Encounter Details Date Type Department Care Team (Late st Contact Info) Description 05/18/2024 [facility]ill [facility] Oncology Services [address] [place] [address] Kong Wright MD [address] [place], [place] [id number] Medication Refill Social History Tobacco Use Types Packs/Day Years Used Date Smoking Tobacco: Former Cigarettes 1.5 25 0 1964 - 1989 Smokeless Tobacco: Never Alcohol Use Standard Drinks/Week Comments Not Currently 0 (1 standard drink = 0.6 oz pur e alcohol) Comments No Sex and Gender Information Value Date Recorded Sex Assigned at Not on file Legal Sex Female 11:12 PM CDT Gender Identity Not on file Sexual Orientation Not on file documented as of this encounter Miscellaneous Notes * Telephone Encounter - Erma Espinoza RN - 05/18/2024 10:58 AM TRACK 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 Pt is due to have a PET scan on 05/20/2024 so, just one month refill of 175 mcg ordered in the event a change is required. K GRINDER documented in this encounter Plan of Treatment Upcoming Encounters Date Type Department Care Team (Late st Contact Info) Description 02/08/2025 2:00 PM CDT Office Visit [facility] [address] [place] [address] Kong Wright MD [address] [place] [address] Gee De Los Santos MD [address] [place] [address] Discharge Disposition: Discharged to home or Selfcare 02/10/2025 5:00 PM CDT Appointment [facility] [address] [place] [address] Kong Wright MD [address] [place] [address] Discharge Disposition: Discharged to home or Selfcare documented as of this encounter Visit Diagnoses Diagnosis Status post total thyroidectomy Other postprocedural status Acquired hypothyroidism Unspecified hypothyroidism Long-term current use of levothyroxine Elevated TSH Other abnormal blood chemistry documented in this encounter Care Teams Director Of Cardiac Rehabilitation Relationship Specialty Start Date End Date Cortez Mendoza MD [address] [place] [address] PCP - General Family Medicine 11/08/22 MarceLexii DO [address] [facility] [address] [place] [address] Consulting Physician Otolaryngology 11/07/22 Kong Wright MD [address] [place] [address] Consulting Physician Radiation Oncology 11/07/22 Martín Wise MD [address] [place] [address] [address] [place] [address] Consulting Physician Pulmonary Disease 05/03/23 05/21/24 Gildardo Moss MD [address] [place] [address] Consulting Physician Oncology 06/21/23 [place] [address] [facility] [address] [place] [address] Consulting Physician Pulmonary Disease 02/19/24 Thiago Magana MD [address] [address] Consulting Physician Infectious Disease 04/30/24 Martín Wise MD [address] [place] [address] [address] [place] [address] Consulting Physician Pulmonary Disease 05/27/24 documented as of this encounter
--- OUTSIDE RECORDS SUMMARY | 2024-12-31 13:07 | XMS_ITS | Clinical Summary ---
Author Organization [facility] Address [address] [place] [address] Care Team Providers Care Bible Reader Name Role Phone Teofilo Vaca MD Primary Care Provider Allergies Active Allergy Reactions Criticality Noted Date Comments Naproxen Hives High 09/26/2017 Nitrofurantoin Macrocrystalline Nausea and Vomiting Low 09/26/2017 Penicillins Other (See Comments),Nausea and Vomiting Low 09/26/2017 Reaction: Unknown, , Patient states that she got blisters that covered her hand and feet Patient states that she got blisters that covered her hand and feet Sulfa (Sulfonamide Antibiotics) Swelling,Nausea and Vomiting,Other (See Comments) Medium 09/26/2017 Reaction: Unknown, , Patient states that she had drainage from her eye. Patient states that she had drainage from her eye. Medications azithromycin (ZITHROMAX) 250 mg tablet TAKE ONE TABLET BY MOUTH ON SATURDAY, SATURDAY AND FRIDAYS 3 8 Active celecoxib (CeleBREX) 200 mg capsule TAKE 1 CAPSULE BY MOUTH TWICE A DAY NEEDED 2 8 Active hydroCHLOROthiazi de 25 mg tablet TAKE 1 TABLET BY MOUTH EVERY DAY 3 8 Active levalbuterol (XOPENEX) 1.25 mg/3 mL Solution for Nebulization INHALE THE CONTENTS OF ONE VIAL IN NEBULIZER THREE TIMES A DAY 11 8 Active omeprazole (PriLOSEC) 40 mg Capsule, Delayed Release(E.C.) TAKE ONE CAPSULE BY MOUTH EVERY DAY 1 8 Active calcium carbonate + vitamin D (CALTRATE+D) 600 mg(1,500mg) -400 unit Tablet take 1 tablet by oral route every day 5 Active docusate sodium (COLACE) 50 mg capsule Take 50 mg by mouth daily. Active multivitamin (DAILY-KRISHNA) tablet 5 Active montelukast (SINGULAIR) 10 mg tablet TAKE 1 TABLET BY MOUTH EVERY DAY IN THE EVENING 11 9 Active fluticasone propionate (FLONASE) 50 mcg/spray Plain, Suspension nasal inhaler INHALE 1 SPRAY INTO BOTH NOSTRILS TWICE A DAY 6 9 Active sertraline (ZOLOFT) 100 mg tablet 100 mg. 5 Active azelastine (ASTEPRO) 0.15 % (205.5 mcg) nasal spray USE ONE SPRAY IN EACH NOSTRIL TWO TIMES A DAY 8 Active albuterol HFA 90 mcg inhaler INHALE ONE PUFF BY MOUTH EVERY FOUR TO SIX HOURS NEEDED FOR SHORTNESS OF BREATH/WHEEZIN G 0 Active Calcium-Magnesium 300-300 mg Tablet Take by mouth. Active Trelegy Ellipta 200-62.5-25 mcg Disk with Device TAKE 1 PUFF BY MOUTH EVERY DAY 2 Active vit C,E-Cq-tdlqx-lute in-zeaxan 250-90-40-1 mg Capsule Take 1 Capsule by mouth 2 times daily. Active MAGNESIUM ORAL Take by mouth. Active alendronate (FOSAMAX) 70 mg tablet PLEASE SEE ATTACHED FOR DETAILED DIRECTIONS 3 Active Active Problems Patient Care Coordination No te Formatting of this note migh t be different from the original. Primary Care: Teofilo Vaca MD Referring Provider: No referring provider defined for this encounter. Other: Dr. Suze Grissom MD Problem Noted Date Diagnosed Date Unspecified mood (affective) disorder 12/23/2019 Malignant neoplasm of upper- inner quadrant of left breast in female, estrogen receptor positive 05/28/2019 Usual hyperplasia of lactiferous duct, left 10/11 Breast signs and symptoms 10/15/2018 Aromatase inhibitor use 07/16/2018 History of external beam radiation therapy 04/17 Seroma of breast 12/19/2017 Malignant neoplasm of upper- outer quadrant of right breast in female, estrogen receptor positive 10/23/2017 Abnormal mammogram 09/26/2017 Abnormal ultrasound of breast 09/26/2017 Resolved Problems Problem Noted Date Diagnosed Date Resolved Date Lump of right breast 09/26/2017 019 Immunizations Immunization Administration Dates Next Due Influenza Seasonal Unspecified Formulation IM Family History * Patient is adopted Medical History Relation Name Comments Healthy Father Cancer Mother Lung Cancer Mother Breast Cancer Neg Hx Ovarian Cancer Neg Hx Relation Name Status Comments Brother Alive Father Mother Social History Tobacco Use Types Packs/Day Years Used Date Smoking Tobacco: Former Cigarettes 2 25 1 965 - 1989 Smokeless Tobacco: Never Tobacco Cessation:Counseling Given: Not Answered Alcohol Use Standard Drinks/Week Comments Yes 0 (1 standard drink = 0.6 oz pur e alcohol) Ocassionally Comments No Sex and Gender Information Value Date Recorded Sex Assigned at Not on file Legal Sex Female 1:58 PM CDT Gender Identity Not on file Sexual Orientation Not on file Last Filed Vital Signs Vital Sign Reading Time Taken Comments Blood Pressure 128/72 07/26/2022 10:50 AM CDT Pulse 63 12/08/2020 11:30 AM CDT Temperature 36.4 C (97.5 F) 07/12/2020 2: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 Respiratory Rate 16 06/17/2019 4: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 Oxygen Saturation 91% 07/12/2020 2: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 Inhaled Oxygen Concentration - - Weight 88.5 kg (195 lb) 07/26/2022 10:50 AM CDT Height 157.5 cm (5' 2) 07/26/2022 10:50 AM CDT Body Mass Index 35.67 07/26/2022 10:50 AM CDT Plan of Treatment Health Maintenance Due Date Last Done Comments ZOSTER VACCINE (2 of 3) 11/24/2008 09/29/2008 RSV VACCINE (60+ or ) (1 - 1-dose 75+ series) 10/13/2019 PNEUMOCOCCAL VACCINE 50+ YEA RS (2 of 2 - PPSV23, PCV20, or PCV21) 11/07/2020 09/12/2020 COVID-19 Vaccine (4 - 2023-2 5 season) 2024 08/25/2021, 07/19/2020, 06/15/2020 INFLUENZA VACCINE (#1) 2024 0, 02/13/2019, 01/20/2019, Additional history exists OSTEOPOROSIS SCREENING 10/21/2025 10/21/2020, 2020 DTAP/TDAP/TD VACCINES (2 - T d or Tdap) 09/12/2030 09/12/2020 COLORECTAL SCREENING Discontinued 07/11/2021, 07/12/19 Colorectal Cancer Screening Discontinued FIT-DNA Q 3 years Discontinued FIT/FOBT Q 1 year Discontinued Flex Sig/CT Colonography Q 5 years Discontinued Medical Devices Implanted Type Area Emergency Nurse Device Identifier Shelf Expiration Date Model / Serial / Lot Hemostatic Surgicel 2x14in 1951 - [id number] Implanted:Qty : 1 on 06/17/2019 by Suze Grissom MD at [facility] Hemostatic Left: [employer] [id number] 05/12/20231950 / / [id number] Insurance [facility] [id number] RX [facility] Medicare Part D [facility] [id number] Advance Directives For more information, please contact: [phone] * Full Code (Latest Code Status on File) Date Activated Date Inactivated Comments 06/17/2019 12:14 PM 06/17/2019 7:00 PM Care Teams Bible Reader Relationship Specialty Start Date End Date Teofilo Vaca MD [address] [place] [address] PCP - General Family Practice 09/26/17
--- OUTSIDE RECORDS SUMMARY | 2024-12-31 13:07 | XMS_ITS | Clinical Summary ---
Author Organization [facility] [place] [address] Address [address] [place] [address] Care Team Providers Care Residential Carpenter Name Role Phone Cortez Mendoza MD Primary Care Provider [phone] Vanessa De La Cruz Unavailable [phone] Kong Wright MD Unavailable [phone] Allergies Active Allergy Reactions Criticality Noted Date Comments Naproxen Hives Medium 09/26/2017 Nitrofurantoin Hives Medium Penicillins Nausea And Vomiting,Other (See comments) Low 09/26/2017 Patient states that she got blisters that covered her hand and feet Sulfa (Sulfonamide Antibiotics) Nausea And Vomiting,Swelling,O ther (See comments) Medium 09/26/2017 Patient states that she had drainage from her eye. Medications docusate sodium (COLACE) 50 mg capsuleIndicatio ns:constipation Take 1 capsule (50 mg total) by mouth nightly Active albuterol HFA (PROVENTIL HFA,VENTOLIN HFA,PROAIR HFA) 90 mcg/actuation inhalerIndicatio ns:Chronic bronchitis with productive mucopurulent cough (HCC) Inhale 2 puffs every 6 (six) hours as needed for wheezing or shortness of breath 1 Inhaler 1 Active MAGNESIUM ORAL Take 1 tablet by mouth daily Active oxygenIndication s:Dyspnea Administer 2 L/min into each nostril as needed Patient wears 2L/NC at bedtime and wears 4L/NC when up moving around Active acetaminophen (TYLENOL) 500 mg tablet Take 1-2 tablets (500-1,000 mg total) by mouth every 6 (six) hours as needed for pain Active calcium carbonate-vitami n D3 250 mg (100 mg elemental)-125 unit tablet TAKE 2 TABLETS BY MOUTH TWICE A DAY 360 tablet 1 4 Active UNABLE TO FIND Administer 2 L/min into affected nostril(s) OXYGEN CONCENTRATOR Active levalbuterol (XOPENEX) 1.25 mg/3 mL nebulizer solution Take 3 mL (1.25 mg total) by nebulization 3 (three) times a day As needed 270 mL 4 Active azelastine (ASTELIN) 137 mcg (0.1 %) nasal sprayIndications :COPD exacerbation (HCC) Administer 1 spray into each nostril 2 (two) times a day Use in each nostril as directed 30 mL 11 4 Active traMADoL (ULTRAM) 50 mg tablet Take 1 tablet (50 mg total) by mouth every 6 (six) hours as needed for pain for up to 10 days 30 tablet 4 Active umeclidinium-christiano anteroL (ANORO ELLIPTA) 62.5-25 mcg/actuation blister with device Inhale 1 puff daily 1 each 3 5 Active fluticasone propionate (FLONASE) 50 mcg/actuation nasal sprayIndications :Postnasal drip Use 1 spray into each nostril at bedtime 16 each 11 5 Active famotidine (PEPCID) 20 mg tabletIndication s:Laryngeal spasm Take 1 tablet by mouth every evening 90 tablet 3 5 Active celecoxib (CeleBREX) 200 mg capsuleIndicatio ns:DDD (degenerative disc disease), lumbar Take 1 capsule by mouth every day 30 capsule 11 5 Active furosemide (LASIX) 40 mg tablet Take 1 tablet by mouth every day 30 tablet 11 5 Active montelukast (SINGULAIR) 10 mg tabletIndication s:Panlobular emphysema (HCC),Upper respiratory disease TAKE 1 TABLET BY MOUTH EVERY DAY AT NIGHT 90 tablet 3 5 Active alendronate (FOSAMAX) 70 mg tabletIndication s:Age-related osteoporosis without current pathological fracture Take 1 tablet by mouth once a week on Saturday 4 tablet 11 5 Active busPIRone (BUSPAR) 5 mg tabletIndication s:Anxiety TAKE 1 TABLET BY MOUTH THREE TIMES A DAY 270 tablet 3 5 Active diltiazem (TIAZAC) 120 mg 24 hr capsule Take 1 capsule by mouth every day 90 capsule 1 5 Active spironolactone (ALDACTONE) 25 mg tablet Take one-half tablet by mouth every day 15 tablet 11 5 Active levothyroxine (SYNTHROID) 175 mcg tablet 5 Active FLUoxetine (PROzac) 20 mg capsule Take 1 capsule (20 mg total) by mouth daily 90 capsule 5 025 Active Additional Information Patient not taking.Reported on 11/30/2024 omeprazole (PriLOSEC) 40 mg capsuleIndicatio ns:Laryngopharyn geal reflux (LPR) Take 1 capsule by mouth every day 30 capsule 11 5 Active acidophilus-pect in, citrus 100 million cell-10 mg capsule Take by mouth Activ e Active Problems Problem Noted Date Diagnosed Date Major depressive disorder, single episode, moder ate 12/08/2024 Assessment & Plan (12/08/2024 4:35 PM CDT): Not well controlled, PHQ score elevated Increase work of breathing need for oxygen Will continue to monitor and adjust medications for breathing Continue fluoxetine 20 mg daily 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 Castillo's office if continues to have significant symptoms Acid-fast bacteria present 01/07/2024 Assessment & Plan (01/07/2024 3:52 PM CDT): Patient has AFB noted in sputum; waiting for final culture; refer to ID for evaluation and treatment Primary adenocarcinoma of middle lobe of right l ashwin 11/08/2023 Overview (11/08/2023): Medically inoperable clinical stage IA3 right middle lobe lung adenocarcinoma treated with a 5 fraction course of SBRT delivering 60 Gy in 5 fractions 07/17/2023 thru 07/25/2023 with fractions 07/17/2023, 07/18/2023, 07/22/2023, 07/24/2023, 07/25/2023. Right middle lobe pulmonary nodule 03/13/2023 Acquired hypothyroidism 11/08/2022 Overview (11/08/2023): Secondary to staged total thyroidectomy for papillary thyroid cancer. Thyroid cancer 11/07/2022 Overview (11/08/2023): Pathologic stage I (pT2, pN0b, cM0, Age at diagnosis: >= 55 years) multifocal papillary thyroid carcinoma status post left thyroid lobectomy with isthmusectomy 09/25/2022 with finding of a unifocal 3.4 cm papillary thyroid carcinoma and right completion thyroidectomy 10/30/2022 with finding multifocal papillary microcarcinoma, 0.8 and 0.2 cm lesions. On 11/15/2022 she received 52.1 mCi of I-131 as thyroid remnant ablation. Papillary carcinoma of thyroid 11/01/2022 Assessment & Plan (11/09/2022 1:49 PM CDT): Continue care per Radiation Oncology Follow up as needed May remove Dermabond in one more week Hypocalcemia 10/30/2022 Papillary thyroid carcinoma 10/02/2022 Assessment & Plan (10/02/2022 4:37 PM CDT): Completion Right Thyroidectomy at least 23 hour Observation Anesthesia, bleeding, infection, injury to major and minor arteries, nerves and veins, scar formation, injury to calcium regulating glands, injury to recurrent laryngeal nerve and resulting hoarseness, benign versus malignant pathology and need for further treatment. Ionized Calcium level today and following surgery Chronic rhinitis 07/24/2022 Assessment & Plan (07/24/2022 10:35 AM CDT): Nasal saline spray (Simply saline, Little Remedies, Cherry, [place]) 2 second sprays or 2 squeezes into each nostril while looking down over the sink, do not need to sniff in. Followed by Flonase 1 spray and Astelin (azelastine) 1 sprays into each nostril while looking down over the sink, do not sniff in or blow nose after use for at least 30 minutes twice daily Muscle cramps 04/02/2022 Assessment & Plan (04/02/2022 12:18 PM ECONOMICS FACULTY MEMBER): Patient reports cramping in bilateral legs and worse at night, symptoms with walking I Ensure appropriate magnesium Rut potassium and electrolyte levels Encouraged regular exercise and stretching Paroxysmal SVT (supraventricular tachycardia) Assessment & Plan (10/09/2022 10:53 AM CDT): Stable, generally well controlled, no episodes palpitations; continue diltiazem 120 mg daily Laryngeal spasm 09/26/2021 Assessment & Plan (09/26/2021 10:15 AM CDT): Continue Flonase, Astelin and Singulair Continue omeprazole Start Pepcid 20 mg at bedtime, call if no improvement in 6-8 weeks For increase to 40 mg for 6-8 weeks, then possibly refer to GI if no improvement LPR discussed and Handout provided History of colonic polyps 03/10/2021 Age-related osteoporosis wit hout current pathological fracture 11/30/2020 Assessment & Plan (01/07/2024 3:53 PM CDT): Stable, well controlled; no falls or fractures; continue alendronate 70 mg weekly Assessment & Plan (11/08/2023 11:24 AM CDT): Stable, no falls Continue Alendronate 70 mg every Saturday Declines DEXA at this time Assessment & Plan (10/09/2022 10:54 AM CDT): Stable, no fractures or falls Continue to encourage weight-bearing exercises; continue alendronate 70 mg weekly Assessment & Plan (07/04/2021 4:29 PM ECONOMICS FACULTY MEMBER): Stable, well controlled; no new fractures or falls Continue alendronate 70 mg weekly, calcium and vitamin-D supplementation daily Assessment & Plan (04/24/2021 1:36 PM ECONOMICS FACULTY MEMBER): Stable, well controlled; no falls or fractures Continue Fosamax 70 mg weekly; calcium vitamin-D supplement mentation Encouraged resistance exercise in order to improve bone density Assessment & Plan (11/30/2020 9:23 AM CDT): New diagnosis based upon DEXA scan Will start Fosamax today, weekly dose Will check vitamin-D levels today in order to evaluate if patient needs high- dose supplementation or should continue with target of calcium 1000 mg per day, vitamin-D 1-2000 units per day Hoarseness or changing voice 11/01/2020 Assessment & Plan (11/01/2020 11:08 AM CDT): Consider Pepcid 20 mg at bedtime LPR discussed and Handout provided Laryngopharyngeal reflux (LPR) 11/01/2020 Assessment & Plan (07/04/2021 4:29 PM ECONOMICS FACULTY MEMBER): Improving, patient continues to have morning cough associated with COPD; continue with Prilosec 40 mg daily Assessment & Plan (11/01/2020 11:09 AM CDT): Consider Pepcid 20 mg at bedtime Try smaller ear dome Continue omeprazole LPR discussed and Handout provided Primary osteoarthritis of right knee 10/07/2020 Primary osteoarthritis of left knee 10/07/2020 Class 1 obesity due to exces s calories with serious comorbidity and body mass index (BMI) of 34.0 to 34.9 in adult 10/05/2020 Assessment & Plan (11/08/2023 11:20 AM CDT): Stable, well controlled; slight decrease in weight, no dietary changes Unable to perform multiple activities due to COPD, osteoarthritis and degenerative disc disease Encouraged patient continue work on dietary changes Assessment & Plan (07/04/2021 4:28 PM ECONOMICS FACULTY MEMBER): Stable, well controlled; no significant change in weight, no dietary changes Unable to perform multiple activities due to COPD, osteoarthritis and degenerative disc disease Encouraged patient continue work on dietary changes Assessment & Plan (04/24/2021 1:37 PM ECONOMICS FACULTY MEMBER): Stable, mild improvement Has poor exercise tolerance due to COPD; patient has been making dietary changes to avoid fried foods and increase vegetable intake Assessment & Plan (10/05/2020 10:18 AM CDT): Stable, not well controlled Continue to encourage dietary and activity changes to reduce weight Mild episode of recurrent major depressive disor matthew 10/05/2020 Assessment & Plan (11/08/2023 11:22 AM CDT): Chronic, well controlled Continue Sertraline 100 mg daily Assessment & Plan (10/09/2022 10:55 AM CDT): Stable, well controlled, continues to have episodes of dysthymia Has chronic medical conditions in fatigue Continue sertraline 100 mg daily Assessment & Plan (04/02/2022 12:15 PM ECONOMICS FACULTY MEMBER): Stable, well controlled; no major issues Continue sertraline 100 mg daily Assessment & Plan (11/30/2020 9:25 AM CDT): Patient is currently feeling down, mildly overwhelmed Patient has multiple responsibilities at home, and decreased support from due to his mild cognitive impairments Will continue to monitor and provide support for patient; continue sertraline 100 mg daily Discussed with patient importance of talking with counselor, patient to follow- up with counselor services at memory loss in her If no improvement, patient can discussed with clinic counseler Assessment & Plan (10/05/2020 10:19 AM CDT): Stable on Zoloft 100 mg daily Patient does report some worsening depression due to chronic medical conditions and physical limitations Will continue work improving medical conditions as well as counseling patient for her chronic medical illnesses Pulmonary HTN 01/11/2020 Assessment & Plan (12/08/2024 4:35 PM CDT): Continue to monitor; likely secondary to COPD Continue with appropriate treatment per breathing disorder; continue oxygen, 4 L by nasal cannula with activity, 2 L at rest Assessment & Plan (10/09/2022 10:53 AM CDT): Stable, well controlled; no evidence of dyspnea Will continue to monitor, continue with appropriate treatment of COPD Unspecified mood (affective) disorder 12/23/2019 DDD (degenerative disc disease), lumbar-severe L 4-5 04/27/2019 Assessment & Plan (11/08/2023 11:23 AM CDT): Chronic pain Celebrex 200 mg daily Spondylolisthesis, lumbar region-L4 onL5 grade 1 04/27/2019 Acute right-sided low back p ain with right-sided sciatica-L4 dist 04/20/2019 Aromatase inhibitor use 07/16/2018 History of external beam radiation therapy 04/17 Palpitations 12/20/2017 Assessment & Plan (04/24/2021 1:38 PM ECONOMICS FACULTY MEMBER): Stable, well controlled; has symptoms mostly when active and moving around Continue Cardizem 120 mg daily Seroma of breast 12/19/2017 Malignant neoplasm of upper- inner quadrant of left breast in female, estrogen receptor positive 10/23/2017 Cancer Staging:Clinical: cT2, cN0 - Unsigned Thyroid nodule 10/18/2017 Assessment & Plan (08/10/2022 12:44 PM CDT): Left Thyroid lobectomy Anesthesia, bleeding, infection, injury to major and minor arteries, nerves and veins, scar formation, injury to calcium regulating glands, injury to recurrent laryngeal nerve and resulting hoarseness, benign versus malignant pathology and need for further treatment. Assessment & Plan (07/24/2022 10:35 AM CDT): FNA of Left Thyroid nodule - call with results Assessment & Plan (10/05/2020 10:16 AM CDT): Unclear control, will get ultrasound, referral to ENT as well as recheck TSH Considering patient has hoarseness insensitive clear breathing, would recommend follow-up with ENT to evaluate if thyroid masses worsening History of tobacco abuse 10/18/2017 Overview (09/12/2020): Quit smoking in 1989 After-cataract with vision obscured 09/24/2016 Epiretinal membrane 09/24/2016 Benign hypertension 02/15/2016 Assessment & Plan (12/08/2024 4:34 PM CDT): Stable, well controlled, blood pressure at goal; no chest pain pressure orthostatics Continue furosemide 40 mg daily, spironolactone 12.5 mg daily Assessment & Plan (11/08/2023 11:23 AM CDT): Chronic, stable, well controlled BP at goal at visit; 110/70 Continue HCTZ 25 mg daily and Diltiazem 120 mg daily Assessment & Plan (10/09/2022 10:52 AM CDT): Stable, well controlled; blood pressure at target, has some swelling ankle, worse at night; no chest pain or headaches Continue diltiazem 120 mg daily, hydrochlorothiazide 25 mg daily Assessment & Plan (04/02/2022 12:15 PM ECONOMICS FACULTY MEMBER): BP at target today; no chest pain or headaches Continue diltiazem 120 mg daily, Assessment & Plan (07/04/2021 4:28 PM ECONOMICS FACULTY MEMBER): Stable, well controlled; blood pressure at target Continue hydrochlorothiazide 25 mg Assessment & Plan (04/24/2021 1:37 PM ECONOMICS FACULTY MEMBER): Stable, well controlled; blood pressure at target Continue hydrochlorothiazide 25 mg, Assessment & Plan (10/05/2020 10:17 AM CDT): Stable, blood pressure at target today, will continue with hydrochlorothiazide Dyspnea on exertion 02/15/2016 Assessment & Plan (11/08/2023 11:07 AM CDT): 6L when active and 2L at night COPD (chronic obstructive pulmonary disease) 09/2015 Assessment & Plan (12/08/2024 4:36 PM CDT): Stable, well controlled; improving; limits physical activities and IADLs Continue Anoro Ellipta; supplemental oxygen Assessment & Plan (03/05/2024 2:36 PM CDT): Patient has congestion and left lower lobes; concern for possible COPD exacerbation; given prior episodes of pneumonia, low threshold for starting medications; start prednisone and doxycycline; continue with nebulizer solution and daily inhaler Assessment & Plan (01/15/2024 1:20 PM CDT): Stable, improving; decreased production, continue albuterol b.i.d. 2 puffs as needed for dyspnea Assessment & Plan (01/07/2024 3:53 PM CDT): Stable, acutely worsened secondary to pneumonia; continue home oxygen, 2 L at rest, 5 L with movement Using walker p.r.n.; would benefit from powered wheelchair for mobility Continue albuterol p.r.n.; tramadol 50 mg p.r.n. for pain from cough Trelegy Ellipta 1 puff daily Assessment & Plan (11/08/2023 11:19 AM CDT): Has been worsening Has been using a walker when has to walk long distance Will schedule appt with Dr. Wise Assessment & Plan (10/09/2022 10:55 AM CDT): Not well controlled, has worsening breathing Continue Trelegy Ellipta, albuterol p.r.n. Start roflumilast 250 mcg daily once able Assessment & Plan (04/02/2022 12:17 PM ECONOMICS FACULTY MEMBER): Stable, well controlled; uses supplemental oxygen; 3 L with ambulation, no O2 at rest Well controlled with inhalers Continue Trelegy Ellipta 1 puff daily, levalbuterol p.r.n. Assessment & Plan (07/04/2021 4:30 PM ECONOMICS FACULTY MEMBER): Stable, no recent exacerbations Continue 2 L by nasal cannula with activity Rare use of rescue inhaler; azithromycin 3 times per week for prophylaxis from pulmonary infection Assessment & Plan (04/24/2021 1:36 PM ECONOMICS FACULTY MEMBER): Not well controlled, had COPD exacerbation after recent surgery, continues to have dyspnea and has not returned to baseline since treatment for COPD exacerbation Will discuss with pulmonology if patient would benefit pulmonary rehab Patient to continue controller medications Assessment & Plan (10/05/2020 10:16 AM CDT): Stable, well controlled, uses 2 L low to with ambulation while sleeping Good response to Trelegy Ellipta with rare need for rescue inhaler On azithromycin 3 times per week for prophylaxis and anti-inflammatory properties Abnormal thallium stress test 02/15/2016 Pseudophakia 11/24/2015 Nuclear senile cataract 01/18/2015 Pseudoexfoliation of lens capsule 01/18/2015 Resolved Problems Problem Noted Date Diagnosed Date Resolved Date Obesity, morbid 12/08/2024 12/08/2024 Positive colorectal cancer s creening using Cologuard test 03/10/2021 11/08/2023 Overview (03/10/2021): Added automatically from request for surgery [id number] Breast signs and symptoms 10/15/2018 Abnormal ultrasound of breast 09/26/2017 11/08/2023 Obesity with body mass index 30 or greater 02/15/2016 10/05/2020 Overview (08/17/2016): Obesity (BMI 35.0-39.9 without comorbidity) Chest pain 02/15/2016 11/08/2023 Overview (08/17/2016): Chest pain in adult Pain in shoulder 10/19/2013 11/08/2023 Encounters Date Type Department Care Team Description 12/31/2024 Telephone [facility] Pulmonary at [address] [place] [phone] Martín Wise MD Test Results 12/28/2024 Telephone [facility] [address] [phone] Cortez Mendoza MD 12/23/2024 11:00 AM CDT - 12/23/2024 11:59 PM CDT Hospital Encounter [facility] [address] [place] [address] Chronic respiratory failure with hypoxia (HCC) Discharge Disposition: Discharge to home or self care 12/16/2024 Telephone [facility] [address] [phone] Cortez Mendoza MD 11/30/2024 9:45 AM CDT Office Visit [facility] Pulmonary at [address] [place] [phone] Martín Wise MD Chronic respiratory failure with hypoxia (HCC) (Primary Dx); Centrilobular emphysema (HCC); 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); Primary adenocarcinoma of right lung (HCC); Nontuberculous mycobacterial disease of lung (HCC) 11/26/2024 1:00 PM CDT Office Visit [facility] [address] [phone] Cortez Mendoza MD Post-menopause (Primary Dx); Benign hypertension; Major depressive disorder, single episode, moderate (HCC); Pulmonary HTN (HCC); Panlobular emphysema (HCC) 11/23/2024 9:35 AM CDT Ancillary Procedure [facility] Imaging at [address] [phone] Left wrist injury, initial encounter; Acute pain of left wrist 11/23/2024 9:30 AM CDT Office Visit [facility] at [address] [phone] Cherelle Villa NP Left wrist injury, initial encounter (Primary Dx); Acute pain of left wrist 11/23/2024 Results Follow-Up [facility] at [address] [phone] Cherelle Villa NP XR Wrist Left 3 or More Views 11/16/2024 Telephone [facility] [address] [phone] Cortez Mendoza MD 11/09/2024 Results Follow-Up [facility] at [address] [place] [address] Cortez Mendoza MD SCAN - LABS 10/30/2024 Ancillary Procedure [facility] 10/30/2024 Orders Only [facility] Health Information Management [address] [place] [id number] Cortez Mendoza MD 10/29/2024 Telephone [facility] [address] [phone] Cortez Mendoza MD from Last 3 Months Immunizations Immunization Administration Dates Next Due COVID-19 MRNA (MODERNA) .5 M L (50 MCG) VACCINE (12 YEARS AND UP) 02/14/2024,02/08/2023 Influenza, Quad, Adjuvantate d, Intramuscular 01/26/2020 Influenza, Quadrivalent, Hig h Dose, Preservative Free, Intrr 02/08/2023,03/27/2022,05/03/2021 Influenza, Trivalent, Adjuva nted, Intramuscular 01/27/2018 Influenza, Trivalent, High D ose, Split, Preservative Free, Intramuscular 02/14/2024,02/13/2019,02/17/2017,02/26 Influenza, Trivalent, IM (MDV) 01/20/2019 Influenza, Unspecified 03/19/2023,2020(Deferred: Patient Refused),01/11/2021(Deferred: Patient Refused),05/13/2020(Deferred: Patient Refused),01/12/2020(Deferred: Patient Refused) Moderna SARS-CoV-2 Monovalen t Vaccination (12+ YRS) 08/25/2021,07/19/2020,06/15/2020 Pneumococcal Conjugate PCV 13 09/12/2020 Pneumococcal Conjugate Pcv20 10/20/2021 RSV, Bivalent, Protein Subun it Rsvpref, Diluent (Abrysvo) 05/12/2024 Tdap 09/12/2020 ZOSTER LIVE 09/29/2008 Surgical History Surgery Date Site/Laterality Comments OTHER SURGICAL HISTORY lcl repair left knee OTHER SURGICAL HISTORY hysterectomy and bladder repair OTHER SURGICAL HISTORY nasal septum repair OTHER SURGICAL HISTORY right bunion repair OTHER SURGICAL HISTORY lump removed from left breast; benign OTHER SURGICAL HISTORY left bunion repair OTHER SURGICAL HISTORY left 3rd trigger finger repair OTHER SURGICAL HISTORY right 3rd trigger finger release WRIST SURGERY Right EXC RT PISIFORM TONSILLECTOMY 05/13/1960 - 05/12/1961 CHOLECYSTECTOMY 05/13/1968 - 05/12/1969 Cholecystectomy CATARACT EXTRACTION 05/13/2014 - 05/12/2015 Left right done on 2016 APPENDECTOMY KNEE ARTHROSCOPY W/ LATERAL RELEASE Right BREAST SURGERY 2018 & 2019 lumpectomy on each side BLADDER SURGERY 05/13/1987 - 05/12/1988 REPLACEMENT TOTAL KNEE 01/11/2021 - 02/09/2021 Left COLONOSCOPY 2019 THYROIDECTOMY 10/30/2022 Right ABDOMINAL SURGERY JOINT REPLACEMENT SKIN BIOPSY HYSTERECTOMY Medical History Medical History Date Comments Hypertension Hypertension Osteoporosis Osteoporosis Depression Depression Hyperlipidemia Cancer (HCC) lumpectomy, jose st cancer on each side at different times; 2018 with radiation; thyroid CA 10/2022 Joint pain Arthritis Low back pain GERD (gastroesophageal reflux disease) Chronic obstructive pulmonar y disease (HCC) wears O2 at night Thyroid cancer (HCC) Obesity Pulmonary nodule right middle lo be History of COVID-19 2019; not ho spitalized Sleep apnea no CPAP; wears 2 L 02 at night Allergic rhinitis 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 Wears reading glasses Diverticulosis Anxiety Wears dentures Oxygen use Wears 2L at noc, 4L when 'moving around' History of radiation therapy for breast CA, right breast, then left breast SOB (shortness of breath) on exertion wears 4L 02 when up and about Breast cancer (HCC) Lung cancer (HCC) Thyroid cancer (HCC) Chest pain 02/15/2016 Chest pain in ad ult Pneumonia 12/10/2023 [facility] Family History * Patient is adopted Medical History Relation Name Comments COPD Father Lung cancer Father Cancer, lung; COPD Mother COPD; Cancer Mother Lung cancer Mother Relation Name Status Comments Brother 1 Brother 2 Alive Brother 3 Alive Father (Age 92) Mother (Age 88) Social History Tobacco Use Types Packs/Day Years Used Date Smoking Tobacco: Former Cigarettes 1.5 25 1 1989 Passive Smoke Exposure: Past Smokeless Tobacco: Never Tobacco Cessation:Counseling Given: Not Answered Alcohol Use Standard Drinks/Week Comments Yes 0 (1 standard drink = 0.6 oz pur e alcohol) AUDIT-C Answer Date Recorded Q1: How often do you have a drink containing alc ohol? Monthly or less 11/30/2024 Q2: How many drinks containi ng alcohol do you have on a typical day when you are drinking? 1 or 2 11/30/2024 Q3: How often do you have si x or more drinks on one occasion? 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 Gender Identity Not on file Sexual Orientation Straight 11/26/2020 9: 39 AM CDT Obstetrics History Last Filed Vital Signs Vital Sign Reading Time Taken Comments Blood Pressure 114/70 11/30/2024 9:39 AM CDT Pulse 99 11/30/2024 9:39 AM CDT Temperature 36.2 C (97.2 F) 11/30/2024 9:39 AM CDT Respiratory Rate 20 11/30/2024 9:39 AM CDT Oxygen Saturation 95% 11/30/2024 9:39 AM CDT with ox Inhaled Oxygen Concentration - - Weight 70.8 kg (156 lb 1.6 oz) 11/30/2024 9:39 A M CDT Height 12.7 cm (5) 11/30/2024 9:39 AM CDT Body Mass Index 4390.01 11/30/2024 9:39 AM CDT Plan of Treatment Health Maintenance Due Date Last Done Comments Zoster Vaccine (2 of 3) 11/24/2008 09/29/2008 Osteoporosis Screening-Bone Density Scan 10/21/2022 10/21/2020 Covid-19 Vaccine (2023-06 5 season) 2024 02/14/2024, 02/08/2023, 04/19/2022, Additional history exists Influenza Vaccine (#1) 2025 , 03/19/2023, 02/08/2023, Additional history exists Depression Screening 11/26/2025 11/26/2024, 11/26/2024, 11/08/2023, Additional history exists Fall Risk Assessment 11/26/2025 11/26/2024, 06/22/2024, 03/05/2024, Additional history exists Well Visit 65+ 11/26/2025 11/26/2024, 10/12, 09/19/2022, Additional history exists DTaP/Tdap/Td Vaccine (2 - Td or Tdap) 09/12/2030 09/12/2020 Colon Cancer Screening-CT Colonography Discontinued 07/11/2021 Colon Cancer Screening-Colonoscopy Discontinued 07/11/2021 Colon Cancer Screening-DNA Stool Discontinued 07/12/19 22, 09/27/2020 Colon Cancer Screening-FIT Discontinued 07/11/2021, Colon Cancer Screening-FOBT Discontinued 07/11/2021, 0 09/27/2020 Colon Cancer Screening-Sigmoidoscopy Discontinued 07/11/2021 Colorectal Cancer Screening Discontinued Pneumococcal vaccine 65+ Completed 10/20/2021, 0507/2020 Hepatitis B Screening Completed 11/04/2023 Goals Goal Patient Goal Type Associated Problems Recent Progress Patient-Stated? Author [facility] No Cyndi Masterson RN Note: Patient will establish a comfort-function goal and identify the pain level that will allow the patient to perform desired activities and achieve an acceptable quality of life. Medical Devices Implanted Type Area Sheet Tailer Device Identifier Shelf Expiration Date Model / Serial / Lot [employer] 6195-1-001 Cement Bone Simplex Gentamicin High Viscosity 40gm - [id number] Implanted:Qty: 1 on 01/23/2021 by Anil Castillo MD at [facility] Left: Knee [employer] 04/11/2022 6195-1-001 / / [id number] [employer] 6195-1-001 Cement Bone Simplex Gentamicin High Viscosity 40gm - [id number] Implanted:Qty: 1 on 01/23/2021 by Anil Castillo MD at [facility] Left: Knee [employer] 04/11/2022 6195-1-001 / / [id number] [employer] [id number] Attune S+ Cement Fix Bearing Knee 3 Baseplate Tibial - [id number] Implanted:Qty: 1 on 01/23/2021 by Anil Castillo MD at [facility] Left: Knee [employer] 11/09/2030 [id number] / / [id number] [employer] [id number] Attune Cemented Posterior Stabilize Knee Left 3 Narrow Component - [id number] Implanted:Qty: 1 on 01/23/2021 by Anil Castillo MD at [facility] Left: Knee [employer] 01/10/2025 [id number] / / [id number] [employer] [id number] Attune 6mm Posterior Stabilize Fix Bearing Knee 3 Insert Tibial - [id number] Implanted:Qty: 1 on 01/23/2021 by Anil Castillo MD at [facility] Left: Knee [employer] 11/09/2025 [id number] / / [id number] Procedures Procedure Name Priority Date/Time Associated Diagnosis Comments PULMONARY FUNCTION TEST (PFT) Routine 12/23/2024 11:55 AM CDT Chronic respiratory failure with hypoxia (HCC) XR WRIST LEFT 3 OR MORE VIEWS Schedule OLGA, Read OLGA (Appt Today, Awaiting Results) 11/23/2024 9:42 AM CDT Left wrist injury, initial encounter Acute pain of left wrist SCAN - LABS 10/30/2024 CT BODY OUTSIDE REFERENCE Routine 10/30/2024 12:00 AM CDT COLONOSCOPY 07/11/2021 9:42 AM ECONOMICS FACULTY MEMBER DEXA AXIAL SKELETON BONE DENSITY 1 OR MORE SITES Schedule Routine, Read Routine (OP Routine) 10/21/2020 9:36 AM CDT Abnormal bone density screening Other osteoporosis without current pathological fracture from Last 3 Months or Most Recently Relevant to Health Maintenance Results * Pulmonary Function Test -[facility]; Pulse Ox with 6 Minute Walk (12/23/2024 11:55 AM CDT) Anatomical Region Laterality Modality PFT Impressions 12/24/2024 8:37 PM CDT 1. Total 6 minute walk distance is 420 feet. At this level exertion the patient's oxygen saturation dropped to 82%. The patient required 4 L of supplemental oxygen to maintain adequate oxygen saturation with exertion. Vickey Mcmillan DO Pulmonary and Critical Care Narrative 12/24/2024 8:37 PM CDT SIX MINUTE WALK TEST Romi Zarate 12/24/2024 Interpretation: The patient walked for 6 minutes on level ground and covered total distance of 420 feet. On the Rg scale at baseline, reported dyspnea was 0. At the end of the study, reported dyspnea on the Rg scale was 3. Oxygen saturation remained above 82% throughout the study. Martín Wise MD PFT ORDERABLES Final Result * XR Wrist Left 3 or More Views (11/23/2024 9:42 AM CDT) Anatomical Region Laterality Modality Upper Extremities, Wrist Left Digital Radiography 11/23/2024 10:0 4 AM CDT Narrative 11/23/2024 10:05 AM CDT EXAM DESCRIPTION: XR WRIST LEFT 3 OR MORE VIEWS REASON FOR STUDY: Wrist pain, no prior imaging, radial pain after injury yesterday Lateral wrist pain after injury yesterday TECHNIQUE: Therefore radiographic view(s) of the left wrist . COMPARISON: No prior. FINDINGS: Decreased mineralization. No acute fracture or dislocation. Ulna minus variant. Chondrocalcinosis TFCC. 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 IMPRESSION: 1. No acute fracture. 2. 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 3. Chondrocalcinosis TFCC. 4. Ulna minus variant. THIS IS AN ELECTRONICALLY VERIFIED FINAL REPORT 11/23/2024 10:05 AM - Electronically signed by Sreekanth LÓPEZ T: Report ID: [id number] Reading Location: [id number] Procedure Note Sreekanth Mcleod MD - 11/23/2024 EXAM DESCRIPTION: XR WRIST LEFT 3 OR MORE VIEWS REASON FOR STUDY: Wrist pain, no prior imaging, radial pain after injury yesterday Lateral wrist pain after injury yesterday TECHNIQUE: Therefore radiographic view(s) of the left wrist . COMPARISON: No prior. FINDINGS: Decreased mineralization. No acute fracture or dislocation. Ulna minus variant. Chondrocalcinosis TFCC. Severe osteoarthritistriscaphe joint and 1st carpometacarpal joint. IMPRESSION: 1. No acute fracture. 2. Severe osteoarthritis triscaphe joint and 1st carpometacarpaljoint. 3. Chondrocalcinosis TFCC. 4. Ulna minus variant. 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 us Not In File Miscellaneous IMG CT PROCEDURES Rosina l Result RAD_PAC_[facility] * SCAN - LABS (10/30/2024) us Cortez Mendoza MD Final Res ult * COLONOSCOPY (07/11/2021 9:42 AM ECONOMICS FACULTY MEMBER) Anatomical Region Laterality Modality Other Narrative Procedure Note Gee Nolasco MD - 07/11/2021 9:42 AM CST [facility] Patient Name: Romi Zarate Procedure Date: 07/11/2021 9:42 AM Date of : 1945 Admit Type: Outpatient Age: 75 Gender: Female Attending MD: Gee Nolasco M.D. Room: [facility] ENDOSCOPY ROOM 2 Note Status: Finalized Patient Profile: Refer to note in patient chart for documentation of history and physical. Procedure: Colonoscopy Indications: Last colonoscopy: 2010, Positive Cologuard test Referring MD: Cortez Mendoza M.D. Providers: Gee Nolasco M.D. Impression: - Hemorrhoids found on perianal exam. - One 5 mm polyp in the ascending colon, removedwith a cold snare. Resected and retrieved. - Diverticulosis in the sigmoid colon. - The examination was otherwise normal. Recommendation: - Discharge patient to home. - Resume previous diet. - Continue present medications. - Await pathology results. - Repeat colonoscopy in 5 years for surveillance. - Return to primary care physician as previously scheduled. Medicines: Propofol per Anesthesia Complications: No immediate complications. Estimated Blood Loss: Estimated blood loss: none. Procedure: Pre-Anesthesia Assessment: - This assessment was completed [Time ofAssessment] prior to the administration of sedation. The benefits, risks and alternatives of theprocedure and sedation were discussed and informed consentwas obtained. All questions were answered. Please referto the signed informed consent document in the medical record. The bowel preparation used was Miralax and bisacodyl tablets via single dose instruction. The scope was passed under direct vision. TheColonoscope [id number] was introduced through the anus and advanced to the the cecum, identified by appendiceal orifice and ileocecal valve. The colonoscopy was performed without difficulty. The patient tolerated the procedure well. The qualityof the bowel preparation was excellent. The ileocecal valve, appendiceal orifice, and rectum were photographed. The colonoscopy was performed without difficulty. The patient tolerated the procedurewell. The quality of the bowel preparation was excellent. The ileocecal valve, appendiceal orifice, andrectum were photographed. Findings: Hemorrhoids were found on perianal exam. A 5 mm polyp was found in the ascending colon. The polyp was sessile. The polyp was removed with a cold snare. Resection and retrieval were complete. Verification of patient identification for the specimen was done by the physician and nurse using the patient's name and birthdate. Estimated blood loss was minimal. Multiple small and large-mouthed diverticula were found in thesigmoid colon. The exam was otherwise without abnormality. Electronically signed by Gee Nolsaco M.D. Gee Nolasco M.D. 07/11/2021 11:02:36 AM Number of Addenda: 0 Note Initiated On: 07/11/2021 9:42 AM Procedure Code(s): --- Professional --- 03434, Colonoscopy, flexible; with removal of tumor(s), polyp(s), or other lesion(s) by snare technique Diagnosis Code(s): --- Professional --- K57.30, Diverticulosis of large intestine without perforation orabscess without bleeding R19.5, Other fecal abnormalities D12.2, Benign neoplasm of ascending colon K64.9, Unspecified hemorrhoids CPT copyright 2020 [employer]. All rights reserved. The codes documented in this report are preliminary and upon youth counselor reviewmay be revised to meet current compliance requirements. Recognized by the [employer] for promoting quality in endoscopy Gee Nolasco MD ENDOSCOPY PROCEDURES Final Re sult * Dexa Axial Skeleton Bone Density 1 Or 2 Site (10/21/2020 9:36 AM CDT) Anatomical Region Laterality Modality Body N/A Other 10/21/2020 12:3 8 PM CDT Narrative 10/21/2020 12:39 PM CDT EXAM DESCRIPTION: DEXA AXIAL SKELETON BONE DENSITY 1 OR MORE SITES REASON FOR STUDY: 75 y/o year old F with given history of screening. Sheet Tailer/Model: MyAGENT (S/N [id number]) CLINICAL INFORMATION: Current height: 61 inches Maximum height: 63.5 inches Weight: 192 pounds Risk factors: None COMPARISON: None available. FINDINGS: AP LUMBAR SPINE L1-L4: Total BMD is 0.977 g/cm2 T-score is -0.6 Measured BMD is thought to be spuriously elevated due to facet arthropathy. LEFT HIP: Total BMD is 0.619 g/cm2 T-score is -2.6 Femoral neck BMD is 0.396 g/cm2 T-score is -4.1 IMPRESSION: Osteoporosis. FRAX not reported due to T-scores in the left hip being at or below -2.5 REFERENCE: Bone mineral density: Normal (T-score above or = -1.0) Low bone mass (T-score between -1.0 and -2.5) replaces the previously used term osteopenia Osteoporosis (T-score = or below -2.5) Medical evaluation for secondary causes of low bone mineral density may be appropriate. FRAX is a World Health Organization validated fracture risk assessment tool that calculates a person's 10 year probability of a major osteoporosis related fracture and hip fracture. According to the National Osteoporosis Foundation guidelines, postmenopausal women and men age 50 or older with low bone mass and a 10 year probability of a major osteoporosis related fracture = or greater than 20% or a 10 year probability of a hip fracture = or greater than 3% should be considered for treatment. For further information, including treatment recommendations, please refer to the 2013 ISCD Official Positions (http://www.iscd.org) and the NOF's Clinician's Guide to Prevention and Treatment of Osteoporosis (http://www.nof.org/professionals/clinical-guidelines) THIS IS AN ELECTRONICALLY VERIFIED FINAL REPORT 10/21/2020 12:39 PM - Electronically signed by Moraima Centeno M.D. TB: TB Report ID: [id number] Reading Location: [id number] Procedure Note Moraima Centeno MD - 10/21/2020 EXAM DESCRIPTION: DEXA AXIAL SKELETON BONE DENSITY 1 OR MORE SITES REASON FOR STUDY: 75 y/o year old F with given history ofscreening. Sheet Tailer/Model: MyAGENT (S/N [id number]) CLINICAL INFORMATION: Current height: 61 inches Maximum height: 63.5 inches Weight: 192 pounds Risk factors: None COMPARISON: None available. FINDINGS: AP LUMBAR SPINE L1-L4: Total BMD is 0.977 g/cm2 T-score is -0.6 Measured BMD is thought to be spuriously elevated due to facetarthropathy. LEFT HIP: Total BMD is 0.619 g/cm2 T-score is -2.6 Femoral neck BMD is 0.396 g/cm2 T-score is -4.1 IMPRESSION: Osteoporosis. FRAX not reported due to T-scores in the left hip being at or below -2.5 REFERENCE: Bone mineral density: Normal (T-score above or = -1.0) Low bone mass (T-score between -1.0 and -2.5) replaces thepreviously used term osteopenia Osteoporosis (T-score = or below -2.5) Medical evaluation for secondary causes of low bone mineral density may be appropriate. FRAX is a World Health Organization validated fracture risk assessmenttool that calculates a person's 10 year probability of a major osteoporosisrelated fracture and hip fracture. According to the National OsteoporosisFoundation guidelines, postmenopausal women and men age 50 or older with low bonemass and a 10 year probability of a major osteoporosis related fracture = or greater than 20% or a 10 year probability of a hip fracture = or greaterthan 3% should be considered for treatment. For further information, including treatment recommendations, please referto the 2013 ISCD Official Positions (http://www.iscd.org) and the NOF's Clinician's Guide to Prevention and Treatment of Osteoporosis (http://www.nof.org/professionals/clinical-guidelines) THIS IS AN ELECTRONICALLY VERIFIED FINAL REPORT 10/21/2020 12:39 PM - Electronically signed by Moraima Centeno M.D. TB: TB Report ID: [id number] Reading Location: [id number] Cortez Mendoza MD IMG DXA PROCEDURES Final Result from Last 3 Months or Most Recently Relevant to Health Maintenance Insurance [facility] MEDICARE ADVANTAGE [place] [id number] [place] [id number] Advance Directives For more information, please contact: [phone] * Full Code (Latest Code Status on File) Date Activated Date Inactivated Comments 10/30/2022 2:00 PM 11/01/2022 2:06 PM * Full Code Date Activated Date Inactivated Comments 07/11/2021 9:58 AM 07/11/2021 4:15 PM * Full Code Date Activated Date Inactivated Comments 07/11/2021 9:58 AM 07/11/2021 9:58 AM * Full Code Date Activated Date Inactivated Comments 01/23/2021 12:45 PM 01/24/2021 6:16 PM Care Teams Residential Carpenter Relationship Specialty Start Date End Date Cortez Mendoza MD [address] [place] [address] PCP - General Family Medicine 09/12/20 Vanessa De La Cruz, PA [address] [place] [address] Physician Can Conveyor Feeder Orthopedic Surgery 01/24/21 Kong Wright MD [address] [place] [address] Radiation Oncology 06/29/24
--- OUTSIDE RECORDS SUMMARY | 2024-12-31 13:07 | XMS_ITS | Encounter Summary ---
Author Organization [facility] Address [address] [place] [address] Care Team Providers Care Stone Rigger Name Role Phone Cortez Mendoza MD Primary Care Provider [phone] Vanessa De La Cruz Unavailable [phone] Kong Wright MD Unavailable [phone] Reason for Visit * Reason Onset Date Comments Test Results 12/31/2024 Encounter Details Date Type Department Care Team (Late st Contact Info) Description 12/31/2024 Telephone [facility] Pulmonary at [address] [place] [id number] Martín Wise MD [address] [place] [id number] Test Results Social History Tobacco Use Types Packs/Day Years [...] on file 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 documented in this encounter Plan of Treatment Not on file documented as of this encounter Goals Goal Patient Goal Type Associated Problems Recent Progress Patient-Stated? Author [facility] No Cyndi Masterson, RN Note: Patient will establish a comfort-function goal and identify the pain level that will allow the patient to perform desired activities and achieve an acceptable quality of life. documented as of this encounter Visit Diagnoses Not on filedocumented in this encounter Care Teams Stone Rigger Relationship Specialty Start Date End Date Cortez Mendoza MD [address] [place] [address] PCP - General Family Medicine 09/12/20 Vanessa [place] [address] Physician Seasoner Hand Orthopedic Surgery 01/24/21 Kong Wright MD [address] [place] [address] Radiation Oncology 06/29/24 documented as of this encounter
--- OUTSIDE RECORDS SUMMARY | 2024-12-31 13:07 | XMS_ITS ---
Author Organization [facility] [address] Address [address] [place] [address] Care Team Providers Care Lgsw Name Role Phone Cortez Mendoza MD Primary Care Provider [phone] Vanessa De La Cruz Unavailable [phone] Kong Wright MD Unavailable [phone] Active Problems Problem Noted Date Diagnosed Date [...] Nasal saline spray (Simply saline, Little Remedies, [place], [place]) 2 second sprays or 2 squeezes into [...] 04/02/2022 Assessment & Plan (04/02/2022 12:18 PM DIRECTOR IT): Patient reports cramping in bilateral legs and [...] weekly Assessment & Plan (07/04/2021 4:29 PM DIRECTOR IT): Stable, well controlled; no new fractures or falls Continue alendronate 70 mg weekly, calcium and vitamin-D supplementation daily Assessment & Plan (04/24/2021 1:36 PM DIRECTOR IT): Stable, well controlled; no falls or fractures [...] 11/01/2020 Assessment & Plan (07/04/2021 4:29 PM DIRECTOR IT): Improving, patient continues to have morning cough [...] changes Assessment & Plan (07/04/2021 4:28 PM DIRECTOR IT): Stable, well controlled; no significant change in weight, no dietary changes Unable to perform multiple activities due to COPD, osteoarthritis and degenerative disc disease Encouraged patient continue work on dietary changes Assessment & Plan (04/24/2021 1:37 PM DIRECTOR IT): Stable, mild improvement Has poor exercise tolerance [...] daily Assessment & Plan (04/02/2022 12:15 PM DIRECTOR IT): Stable, well controlled; no major issues Continue [...] 12/20/2017 Assessment & Plan (04/24/2021 1:38 PM DIRECTOR IT): Stable, well controlled; has symptoms mostly when [...] daily Assessment & Plan (04/02/2022 12:15 PM DIRECTOR IT): BP at target today; no chest pain or headaches Continue diltiazem 120 mg daily, Assessment & Plan (07/04/2021 4:28 PM DIRECTOR IT): Stable, well controlled; blood pressure at target Continue hydrochlorothiazide 25 mg Assessment & Plan (04/24/2021 1:37 PM DIRECTOR IT): Stable, well controlled; blood pressure at target [...] able Assessment & Plan (04/02/2022 12:17 PM DIRECTOR IT): Stable, well controlled; uses supplemental oxygen; 3 L with ambulation, no O2 at rest Well controlled with inhalers Continue Trelegy Ellipta 1 puff daily, levalbuterol p.r.n. 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 Past Treatment and Therapy Plans No past plan information found. Lifetime Dose Tracking * Chemical Lifetime Dose Automatic Entry Manual Entr y Fluoro Time 3.427 minutes 3.427 minutes 0 minutes Air kerma at the reference point (Ka,r) 17.6 mGy 1 7.6 mGy 0 mGy DLP 475 mGycm 475 mGycm 0 mGycm Resolved Problems Problem Noted Date Diagnosed Date Resolved Date Obesity, morbid 12/08/2024 12/08/2024 Positive colorectal cancer s creening using Cologuard test 03/10/2021 11/08/2023 Overview (03/10/2021): Added automatically from request for surgery [id number] Breast signs and symptoms 10/15/2018 Abnormal ultrasound of breast 09/26/2017 11/08/2023 Obesity with body mass index 30 or greater 02/15/2016 10/05/2020 Overview (08/17/2016): Obesity (BMI 35.0-39.9 without comorbidity) Chest pain 02/15/2016 11/08/2023 Overview (08/17/2016): Chest pain in adult Pain in shoulder 10/19/2013 11/08/2023
--- OUTSIDE RECORDS SUMMARY | 2024-12-31 13:07 | XMS_ITS | Clinical Summary ---
Author Organization [facility] Address [address] [address] Phone Care Team Providers Care Document Control Associate Name Role Phone Lexii Zheng Unavailable [phone] Kong Wright MD Unavailable Cortez Mendoza MD Primary Care Provider [phone] Gildardo Moss MD Unavailable Romi Cade MD Unavailable [phone] Thiago Magana MD Unavailable [phone] Martín Wise MD Unavailable [phone] Allergies Active Allergy Reactions Criticality Noted Date Comments Naproxen Hives 11/08/2022 Nitrofurantoin Hives 11/08/2022 Penicillins Nausea 11/08/2022 Sulfa Antibiotics Nausea,Vomiting 11/08/2022 Medications MAGNESIUM PO Take 1 Tablet by mouth daily. Active albuterol 108 (90 Base) MCG/ACT Aerosol Solution take 2 Puffs by inhalation every 6 hours. 0 Active azelastine (ASTELIN) 0.1 % Solution 1 [place] by Nasal route in the morning and at bedtime. 3 Active docusate sodium (COLACE) 50 MG Capsule Take 1 Capsule by mouth daily. Active famotidine (PEPCID) 20 MG Tablet Take 1 Tablet by mouth nightly. 3 Active fluticasone (FLONASE) 50 MCG/ACT Suspension 1 [place] by Nasal route daily. 9 Active HYDROcodone-aceta minophen (NORCO) 5-325 MG Tablet Take 1 Tablet by mouth every 6 hours. 3 Active levalbuterol (XOPENEX) 1.25 MG/3ML Nebulizer Soln take 1.25 mg by inhalation 3 times daily. 8 Active montelukast (SINGULAIR) 10 MG Tablet Take 10 mg by mouth nightly. 9 Active roflumilast (DALIRESP) 250 MCG Tablet Take 250 mcg by mouth daily. 3 Active OXYGEN CONCENTRATOR 2 L/min by Nasal route. Active spironolactone (ALDACTONE) 25 MG Tablet Take 12.5 mg by mouth. 4 02/04/20 25 Active Calcium Carb-Cholecalcife rol (Calcium-Vitamin D3) 250-3.125 MG-MCG Tablet Take 2 Tablets by mouth 2 times daily. 4 Active traMADol HCl 25 MG Tablet take 1 tablet by mouth every 4 hours as needed for pain 4 Active omeprazole (PriLOSEC) 40 MG CAPSULE DELAYED RELEASE TAKE 1 CAPSULE (40 MG TOTAL) BY MOUTH DAILY. Active chlordiazePOXIDE (LIBRIUM) 10 MG Capsule Take 10-20 mg by mouth. 4 Active sertraline (ZOLOFT) 100 MG Tablet Take 100 mg by mouth. 4 Active alendronate (FOSAMAX) 70 MG Tablet Take 70 mg by mouth every 7 days. 5 Active busPIRone (BUSPAR) 5 MG Tablet Take 5 mg by mouth 3 times daily. 5 Active celecoxib (CeleBREX) 200 MG Capsule Take 200 mg by mouth daily. 5 Active dilTIAZem CD (CARDIZEM CD) 120 MG CAPSULE SR 24 HR Take 120 mg by mouth daily. 5 Active furosemide (LASIX) 40 MG Tablet Take 40 mg by mouth daily. 5 Active Umeclidinium-Ahmet nterol (ANORO ELLIPTA) 62.5-25 MCG/ACT AEROSOL POWDER, BREATH ACTIVATED take 1 Puff by inhalation daily. 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 Acquired hypothyroidism 11/08/2022 Overview (11/08/2022): Secondary to staged total thyroidectomy for papillary thyroid cancer. History of therapeutic radiation 11/08/2022 Overview (07/29/2024): A. Left lower lobe lung SBRT 70 Gy in 10 fractions 07/20/2024 thru 07/31/2024. B. Right middle lobe lung SBRT 60 Gy in 5 fractions 07/17/2023 thru 07/25/2023 with fractions 07/17/2023, 07/18/2023, 07/22/2023, 07/24/2023, 07/25/2023. C. Thyroid remnant ablation with 52.1 mCi of I-131 on 11/15/2022 D. Left whole breast radiotherapy from 08/03/2019 thru 09/17/2019. E. Right whole breast radiotherapy completed 04/02/2018. From her description both courses of radiotherapy were on the order of 6 weeks, i.e. standard fractionation. History of right breast cancer 11/08/2022 Overview (11/08/2022): Stage I (pT1, cN0, cM0) right breast invasive lobular carcinoma ER positive and WI/HER2 negative with Ki-67 22%. Right breast biopsy confirming malignancy 10/02/2017. Right partial mastectomy and right axillary sentinel lymph node biopsy 12/09/2017. Oncotype DX score 15. Received right whole breast radiotherapy completed 04/02/2018. Started Arimidex 2017 which discontinued due to tiredness and fatigue and started tamoxifen July 2018 and discontinued secondary to mood swings and started Femara January 2019 and shortly thereafter also discontinued it because of intolerance issues including mood. History of left breast cancer 11/08/2022 Overview (11/08/2022): Stage I (pT1a, pN0(sn), cM0) invasive ductal carcinoma, G1 with [place] score 4. No LVSI. ER positive (8/8), WI positive (6/8), and HER2 by IHC 0 negative. Left breast biopsy confirming malignancy 05/19/2019. Left partial mastectomy and left axillary sentinel lymph node biopsy 06/17/2019. Left whole breast radiotherapy 08/03/2019 thru 09/17/2019. Started Aromasin 09/17/2019 and discontinued shortly thereafter because of intolerance issues including mood. COPD (chronic obstructive pulmonary disease) Overview (11/08/2022): First recall being told she had COPD around 2010. She has never been hospitalized for breathing difficulties. She was started on supplemental oxygen around 2015. On supplemental oxygen by nasal cannula 11/09/19 Overview (11/08/2022): Started on supplemental oxygen around 2015 and for the first several years only used at night but since 2019 uses with exertion/movement in addition to at night. History of aromatase inhibitor therapy Overview (11/08/2022): Several months of aromatase inhibitor including brief trial of tamoxifen in 2017 and 2018 for right breast lobular carcinoma. Initially started Arimidex April 2018 and switched to tamoxifen July 2018 and then switched to Femara January 2019 before discontinuing. Started Aromasin 09/17/2023 left breast IDC but discontinued shortly thereafter for the same and tolerance issues as before. Thyroid cancer 11/07/2022 Cancer Staging:Pathologic stage from 10/30/2022:Stage I(pT2, pN0b, cM0, Age at diagnosis: >= 55 years) - Signed by Kong Wright MD on 11/09/2022 Overview (05/25/2023): Pathologic stage I (pT2, pN0b, cM0, Age at diagnosis: >= 55 years) multifocal papillary thyroid carcinoma status post left thyroid lobectomy with isthmusectomy 09/25/2022 with finding of a unifocal 3.4 cm papillary thyroid carcinoma and right completion thyroidectomy 10/30/2022 with finding multifocal papillary microcarcinoma, 0.8 and 0.2 cm lesions. On 11/15/2022 she received 52.1 mCi of I-131 as thyroid remnant ablation. 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 Long-term current use of levothyroxine Resolved Problems Problem Noted Date Diagnosed Date Resolved Date Abnormal CT of the chest 02/19/2024 Elevated TSH 02/19/2024 07/02/2024 Status post total thyroidectomy 11/08/2022 05/25/2023 Overview (11/08/2022): Right completion thyroidectomy 10/30/2022 preceded by left thyroid lobectomy with isthmusectomy 09/25/2022. 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 (HCC); History of therapeutic radiation; Thyroid cancer (HCC); Elevated tumor markers; Status post total thyroidectomy; Status post radioactive iodine thyroid ablation; Acquired hypothyroidism; Long-term current use of levothyroxine; History of left breast cancer; History of right breast cancer; History of aromatase inhibitor therapy; Centrilobular emphysema (HCC); On supplemental oxygen by nasal cannula; Mycobacterium fortuitum infection Discharge Disposition: Discharged to home or Selfcare 11/10/2024 Travel 10/30/2024 3:51 PM CDT - 10/30/2024 11:59 PM CDT [facility] [address] [place] [address] Kong Wright MD Discharge Disposition: Discharged to home or Selfcare 10/30/2024 Travel from Last 3 Months Family History Medical History Relation Name Comments Lung Cancer Mother Passed from khadijah g cancer. Smoker. Thyroid Cancer Neg Hx Relation Name Status Comments Mother Social History Tobacco Use Types Packs/Day Years Used Date Smoking Tobacco: Former Cigarettes 1.5 25 0 1964 - 1989 Smokeless Tobacco: Never Tobacco Cessation:Counseling Given: Not Answered Alcohol Use Standard Drinks/Week Comments Not Currently 0 (1 standard drink = 0.6 oz pur e alcohol) Comments No Sex and Gender Information Value Date Recorded Sex Assigned at Not on file Legal Sex Female 11:12 PM CDT Gender Identity Not on file Sexual Orientation Not on file Last Filed Vital Signs Vital Sign Reading Time Taken Comments Blood Pressure 159/81 11/10/2024 2:58 PM CDT Pulse 80 11/10/2024 2:58 PM CDT Temperature 36.7 C (98 F) 11/10/2024 2:58 PM CDT Respiratory Rate 20 11/10/2024 2:58 PM CDT Oxygen Saturation 92% 11/10/2024 2:58 PM CDT Inhaled Oxygen Concentration - - Weight 74 kg (163 lb 3.2 oz) 11/10/2024 2:58 PM CDT Height 152.4 cm (5') 11/10/2024 2:58 PM CDT Body Mass Index 31.87 11/10/2024 2:58 PM CDT Plan of Treatment Upcoming Encounters Date Type Department Care Team (Late st Contact Info) Description 02/08/2025 2:00 PM CDT [facility] [address] [place] [address] Kong Wright MD [address] [place] [address] Gee De Los Santos MD [address] [place] [id number] Discharge Disposition: Discharged to home or Selfcare 02/10/2025 5:00 PM CDT [facility] [address] [place] [address] Kong Wright MD [address] [place] [address] Discharge Disposition: Discharged to home or Selfcare Health Maintenance Due Date Last Done Comments Hepatitis C Virus (HCV) Screening 1945 Zoster Immunization (1 of 2) 11/24/2008 09/29/2008 DEXA Bone Density 10/21/2022 10/21/2020 SARS-COV-2 Immunization ( season) 2024 09/21/2024, 02/14/2024, 02/08/2023, Additional history exists Influenza Immunization (#1) 01/11/202508/2023, 03/19/2023, 02/08/2023, Additional history exists DTaP/Tdap/Td Immunization Discontinued 09/12/2020 TdaP Immunization Completed 09/12/2020 Pneumococcal Immunization (50+ years) Completed 10/20/2021, 09/12/2020 Mammogram Unilateral Discontinued 07/26/2022, 07/26/2022, 07/20/2021, Additional history exists Respiratory Syncytial Virus (RSV) Immunization (Adult) Completed 05/12/2024 Hepatitis B Immunization Aged Out No longer eligible based on patient's age to complete this topic Human Papillomavirus (HPV) Immunization Aged Out No longer eligible based on patient's age to complete this topic Meningococcal Immunization (ACWY) Aged Out No longer eligible based on patient's age to complete this topic Rotavirus Immunization Aged Out No lo nger eligible based on patient's age to complete this topic Procedures Procedure Name Priority Date/Time Associated Diagnosis Comments CT CHEST W/O CONTRAST Routine 10/30/2024 4:23 PM CDT 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 (HCC) 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 (HCC) History of therapeutic radiation THYROXINE (T4) FREE Routine 10/30/2024 3 :52 PM CDT Status post total thyroidectomy Acquired hypothyroidism Long-term current use of levothyroxine Status post radioactive iodine thyroid ablation THYROID STIMULATING HORMONE (TSH) Routine 10/30/2024 3:52 PM CDT Status post total thyroidectomy Acquired hypothyroidism Long-term current use of levothyroxine THYROGLOBULIN,TUMOR MRK,S,[place] HTG2 Routine 10/30/2024 3:52 PM CDT Thyroid cancer (HCC) Status post total thyroidectomy Status post radioactive iodine thyroid ablation from Last 3 Months Results * CT CHEST W/O CONTRAST (10/30/2024 4:23 PM CDT) Anatomical Region Laterality Modality Chest N/A Computed Tomogra phy 11/09/2024 9:51 AM CDT Impressions 11/09/2024 9:53 AM CDT IMPRESSION: 1. Interval development of a nodular consolidation in the left lower lobe in the region of the previously visualized FDG avid pulmonary nodule, which may represent posttreatment/postradiation changes, however worsening disease can not be entirely excluded. Short-term follow-up chest CT in 3 months is recommended to assess for stability as clinically indicated. 2. Interval development of a couple of new pulmonary nodules in the left lower lobe measuring up to 0.9 cm, which are indeterminate in etiology and may be related to airspace disease of inflammatory or infectious etiology, however metastasis can not be entirely excluded. Continued attention on the aforementioned follow-up chest CT is recommended as clinically indicated. 3. Redemonstration of the consolidation in the posterior right middle lobe with air bronchograms along with rounded nodularity posteriorly, which has increased in size in comparison to the prior study, and findings are concerning for worsening disease. 4. Interval decrease in size of the spiculated nodule in the central right upper lobe, which likely represents improving disease. 5. Multiple additional pulmonary nodules, which are overall grossly similar to the prior study. Continued attention on follow-up imaging is recommended as clinically indicated. 6. Severe emphysematous changes of lungs with scattered subsegmental atelectasis and scarring. 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 Hx breast ca, thyroid ca, COPD and former smoker. TECHNIQUE: CT scan of the chest performed without intravenous contrast using helical scanning technique. Reconstructed coronal and sagittal MPR images reviewed. All images stored on PACS. Automated exposure control was used as a dose optimization technique for this examination. COMPARISON: 05/20/2024 FINDINGS: The sensitivity for detection of solid visceral lesions is diminished without the use of intravenous contrast. LUNGS: There is minimal to mild biapical pleural thickening and scarring. There is no definite evidence of a pneumothorax. The central airways are grossly patent. There are severe emphysematous changes of lungs with scattered subsegmental atelectasis and scarring. There is no definite evidence of a pleural effusion. There is redemonstration of the consolidation in the posterior right middle lobe with air bronchograms along with rounded nodularity posteriorly measuring 3.3 by 1.7 cm, which previously measured 2.4 by 1.[address] dated 04/17/2024, and therefore findings are concerning for worsening disease (axial image 71). There is redemonstration of the spiculated nodule in the central right upper lobe measuring 1.4 by 0.7 cm, which previously measured 1.7 by 1.0 cm, and therefore findings likely represent improving disease (axial image 24). There is interval development of a nodular consolidation in the left lower lobe in the region of the previously visualized FDG avid pulmonary nodule measuring 3.7 by 3.4 cm, which may represent posttreatment/postradiation changes, however worsening disease can not be entirely excluded (axial image 68). There is interval development of a 0.5 cm pulmonary nodule in the medial central left lower lobe (axial image 84). There is interval development of a 0.9 cm pulmonary nodule in the lateral left lower lobe (axial image 96). There is interval development of a irregular 0.9 cm pulmonary nodule in the medial left lower lobe (axial image 103). There are multiple additional nodules noted, similar to the prior study. For example, there is a stable subpleural 0.5 cm pulmonary nodule in the anterior right upper lobe (axial image 56). There is a stable subtle 0.3 cm pulmonary nodule in the lateral left upper lobe (axial image 48). There is a stable subpleural 0.5 cm pulmonary nodule in the anterolateral left upper lobe (axial image 49). MEDIASTINUM/ASHANTI: There is borderline cardiomegaly. There is no definite evidence of a pericardial effusion. There are mild atherosclerotic changes of the thoracic aorta and coronary vessels. There is no definite unenhanced CT evidence of mediastinal, hilar, or axillary lymphadenopathy. There are scattered prominent subcentimeter mediastinal lymph nodes noted with largest measuring 0.9 cm in the precarinal region, similar to the prior study (axial image 45). CORONARY ARTERY CALCIFICATION: Present. CHEST WALL: Postsurgical changes involving the right breast and left axillary region are again noted. There is no definite unenhanced CT evidence of local recurrence. HARDWARE/LINES/TUBES: None. UPPER ABDOMEN: There is a small hiatal hernia. The visualized portions of the bilateral adrenal glands are grossly stable and unremarkable. MUSCULOSKELETAL: There is mild osteopenia. There is minimal reverse S shaped scoliotic curvature of the spine with degenerative changes. Multiple old healed bilateral rib fractures are noted.. OTHER: No other significant abnormality. THIS IS AN ELECTRONICALLY VERIFIED FINAL REPORT 11/09/2024 9:51 AM - Electronically signed by Gray Irby D.O. 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 Hx breast ca, thyroid ca, COPD and former smoker. TECHNIQUE: CT scan of the chest performed without intravenous contrast using helical scanning technique. Reconstructed coronal and sagittal MPR images reviewed. All images stored on PACS. Automated exposure control was used as a dose optimization technique for this examination. COMPARISON: 05/20/2024 FINDINGS: The sensitivity for detection of solid visceral lesions is diminished without the use of intravenous contrast. LUNGS: There is minimal to mild biapical pleural thickening and scarring. There is no definite evidence of a pneumothorax. The central airways are grossly patent. There are severe emphysematous changes of lungs with scattered subsegmental atelectasis and scarring. There is no definite evidence of a pleural effusion. There is redemonstration of the consolidation in the posterior right middle lobe with air bronchograms along with rounded nodularity posteriorly measuring 3.3 by 1.7 cm, which previously measured 2.4 by 1.[address] dated 04/17/2024, and therefore findings are concerning for worsening disease (axial image 71). There is redemonstration of the spiculated nodule in the central right upper lobe measuring 1.4 by 0.7 cm, which previously measured 1.7 by 1.0 cm, and therefore findings likely represent improving disease (axial image 24). There is interval development of a nodular consolidation in the left lower lobe in the region of the previously visualized FDG avid pulmonary nodule measuring 3.7 by 3.4 cm, which may represent posttreatment/postradiation changes, however worsening disease can not be entirely excluded (axial image 68). There is interval development of a 0.5 cm pulmonary nodule in the medial central left lower lobe (axial image 84). There is interval development of a 0.9 cm pulmonary nodule in the lateral left lower lobe (axial image 96). There is interval development of a irregular 0.9 cm pulmonary nodule in the medial left lower lobe (axial image 103). There are multiple additional nodules noted, similar to the prior study. For example, there is a stable subpleural 0.5 cm pulmonary nodule in the anterior right upper lobe (axial image 56). There is a stable subtle 0.3 cm pulmonary nodule in the lateral left upper lobe (axial image 48). There is a stable subpleural 0.5 cm pulmonary nodule in the anterolateral left upper lobe (axial image 49). MEDIASTINUM/ASHANTI: There is borderline cardiomegaly. There is no definite evidence of a pericardial effusion. There are mild atherosclerotic changes of the thoracic aorta and coronary vessels. There is no definite unenhanced CT evidence of mediastinal, hilar, or axillary lymphadenopathy. There are scattered prominent subcentimeter mediastinal lymph nodes noted with largest measuring 0.9 cm in the precarinal region, similar to the prior study (axial image 45). CORONARY ARTERY CALCIFICATION: Present. CHEST WALL: Postsurgical changes involving the right breast and left axillary region are again noted. There is no definite unenhanced CT evidence of local recurrence. HARDWARE/LINES/TUBES: None. UPPER ABDOMEN: There is a small hiatal hernia. The visualized portions of the bilateral adrenal glands are grossly stable and unremarkable. MUSCULOSKELETAL: There is mild osteopenia. There is minimal reverse S shaped scoliotic curvature of the spine with degenerative changes. Multiple old healed bilateral rib fractures are noted.. OTHER: No other significant abnormality. THIS IS AN ELECTRONICALLY VERIFIED FINAL REPORT 11/09/2024 9:51 AM - Electronically signed by Gray Irby D.O. PS: PS Report ID: [id number] Reading Location: [id number] IMPRESSION: 1. Interval development of a nodular consolidation in the left lower lobe in the region of the previously visualized FDG avid pulmonary nodule, which may represent posttreatment/postradiation changes, however worsening disease can not be entirely excluded. Short-term follow-up chest CT in 3 months is recommended to assess for stability as clinically indicated. 2. Interval development of a couple of new pulmonary nodules in the left lower lobe measuring up to 0.9 cm, which are indeterminate in etiology and may be related to airspace disease of inflammatory or infectious etiology, however metastasis can not be entirely excluded. Continued attention on the aforementioned follow-up chest CT is recommended as clinically indicated. 3. Redemonstration of the consolidation in the posterior right middle lobe with air bronchograms along with rounded nodularity posteriorly, which has increased in size in comparison to the prior study, and findings are concerning for worsening disease. 4. Interval decrease in size of the spiculated nodule in the central right upper lobe, which likely represents improving disease. 5. Multiple additional pulmonary nodules, which are overall grossly similar to the prior study. Continued attention on follow-up imaging is recommended as clinically indicated. 6. Severe emphysematous changes of lungs with scattered subsegmental atelectasis and scarring. Kong Wright MD IM CT ORDERABLES Final Result * THYROGLOBULIN,TUMOR MRK,S,[place] HTG2 (10/30/2024 3:52 PM CDT) THYROGLOBULIN ANTIBODY, S <1.8 <1.8 IU/mL 11/04/2024 2:08 PM CDT [facility] THYROGLOBULIN, TUMOR MARKER, S 12 < or = 33 ng/mL 11/04/2024 2:08 PM CDT [facility] THYROGLOBULIN INTERPRETATION SEE NOTE 11/04/2024 2:08 PM CDT [facility] Comment: Thyroglobulin (Tg) reference intervals are for patients with an intact thyroid and not for patients who have had surgery for thyroid cancer. Tg reference intervals in patients that have undergone thyroidectomy or any treatment for follicular thyroid cancer are dependent on the residual mass of the thyroid tissue after surgery. Tg results, regardless of concentration, should not be interpreted as absolute evidence for the presence or absence of papillary or follicular thyroid cancer. This result needs to be interpreted in the context of the clinical evaluation. ADDITIONAL INFORMATION PLEASE NOTE: The given cutoff of <1.8 IU/mL is for the detection of potential thyroglobulin antibody (TgAb) interference in thyroglobulin immunoassays. A thyroglobulin antibody (TgAb) reference cutoff of <4.0 IU/mL may be more suitable for the evaluation of autoimmune thyroiditis. The thyroglobulin and thyroglobulin antibody testing methods are immunoenzymatic assays manufactured by [employer] and performed on the [employer] DXI 800. Values obtained from different assay methods or kits may be different and cannot be used interchangeably. The results cannot be interpreted as absolute evidence for the presence or absence of malignant disease. Test Performed by: [facility] [place] [address] [place] [address] Locomotive Engineer Diesel: Kalpana Barrera Ph.D.; CLIA# [id number] Blood Venipuncture / Unknown 10/30/2024 3:52 PM CDT 10/30/2024 5:08 PM CDT Kong Wright MD LAB SEND OUTS Final R esult [facility] US * THYROXINE (T4) FREE (10/30/2024 3:52 PM CDT) T4 FREE 0.8 0.7 - 1.9 ng/dL 10/30/2024 6:01 PM CDT [facility] Blood Venipuncture / Unknown 10/30/2024 3:52 PM CDT 10/30/2024 5:08 PM CDT Kong Wright MD CHEMISTRY ORDERABLES Fi nal Result [facility] [address] [place] [address] * (ABNORMAL) THYROID STIMULATING HORMONE (TSH) (10/30/2024 3:52 PM CDT) TSH 18.947(H) 0.300 - 5.000 mIU/L 10/30/2024 6:01 PM CDT [facility] Blood Venipuncture / Unknown 10/30/2024 3:52 PM CDT 10/30/2024 5:08 PM CDT us Kong Wright MD CHEMISTRY ORDERABLES Fi nal Result [facility] [place] [address] from Last 3 Months Insurance MEDICARE C [employer] MEDICARE C [employer] Care Teams Document Control Associate Relationship Specialty Start Date End Date Cortez Mendoza MD [address] [place] [address] PCP - General Family Medicine 11/08/22 Lexii Zhenge, [address] [facility] [address] Tamiko Flores [facility] [address] [place] [address] Consulting Physician Otolaryngology 11/07/22 Kong Wright MD [address] [place] [address] Consulting Physician Radiation Oncology 11/07/22 Gildardo Moss MD [address] [address] Consulting Physician Oncology 06/21/23 [place] [address] [facility] [address] [place] [address] Consulting Physician Pulmonary Disease 02/19/24 Thiago Magana MD [address] [facility] [address] [place] [address] Consulting Physician Infectious Disease 04/30/24 Martín Wise MD 4 [facility] [address] [place] [address] Consulting Physician Pulmonary Disease 05/27/24
--- OUTSIDE RECORDS SUMMARY | 2024-12-31 13:07 | XMS_ITS | Encounter Summary ---
Author Organization [facility] Healthcare Address [address] [place] [address] Care Team Providers Care Furniture Assembly Supervisor Name Role Phone Cortez Mendoza MD Primary Care Provider [phone] Vanessa De La Cruz Unavailable [phone] Kong Wright MD Unavailable [phone] Encounter Details Date Type Department Care Team (Late st Contact Info) Description 11/09/2024 Results Follow-Up [facility] Medical Group Primary Care at [address] [place] [address] Cortez Mendoza MD [address] [place] [address] SCAN - LABS Social History Tobacco Use Types Packs/Day Years [...] more points, staff should administer the PHQ-9) 0 11/08/2023 Hunger Vital Sign Answer Date Recorded Within the past 12 months, y ou worried that your food would run out before you got the money to buy more. Never true 06/22/19 25 Within the past 12 months, t he food you bought just didn't last and you didn't have money to get more. Never true 06/22/2024 Personal Safety Answer Date Recorded Have you ever been in or are you currently in a harmful physical or emotional relationship or is someone making you feel afraid or unsafe? 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
--- OUTSIDE RECORDS SUMMARY | 2024-12-31 13:07 | XMS_ITS ---
Author Organization [facility] Address [address] [address] Phone Care Team Providers Care Linux Server Engineer Name Role Phone Lexii Zheng DO Unavailable [phone] Kong Wright MD Unavailable [phone] Cortez Mendoza MD Primary Care Provider [phone] Gildardo Moss MD Unavailable [phone] Romi Cade MD Unavailable Thiago Magana MD Unavailable [phone] Martín Wise MD Unavailable [phone] Active Problems Problem Noted Date Diagnosed Date [...] breast invasive lobular carcinoma ER positive and AZ/HER2 negative with Ki-67 22%. Right breast biopsy [...] pN0(sn), cM0) invasive ductal carcinoma, G1 with Callicoon score 4. No LVSI. ER positive (8/8), AZ positive (6/8), and HER2 by IHC 0 [...] 07/24/2023, 07/25/2023. Long-term current use of levothyroxine Current Treatment and Therapy Plans No current plan information found. Past Treatment and Therapy Plans No past plan information found. 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) Treatment Courses* Course C4 07/20/2024 - 07/31/2024 Treatment Period Fraction Dose Fractions Total Dose Plans Planned [id number] 07/20/2024 - 07/31/2024 700 cGy 7,000 cGy Reference Points Delivered LLung_PRP 07/20/2024 - 07/31/2024 7,000 cGy * SBRT: Right Middle lobe of lungOverview* First Treatment Date Latest Treatment Date Treatment Site Technique Goal Episode Provider 07/17/2023 07/25/2023 Right Middle lob e of lung SBRT Curative * Linked Problems 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
[2024-12-31 13:11] VITALS: BP 153/86; PULSE 87; RESP 20; TEMP 36.5; O2SAT 92
--- NOTE | 2024-12-31 14:05 | ED.ANIMALBIT ---
HPI - Animal Bite General Chief Complaint: Animal Bite Stated Complaint: cat bite/scratches Time Seen by Provider: 12/31/24 14:05 Source: patient Mode of arrival: ambulatory Limitations: no limitations History of Present Illness HPI narrative: Patient accidentally stepped on her cat by accident, got agitated and bit her to the right forearm and right hand prior to arrival. Patient is telling me that CaT is indoor cat and not fully immunized. But the Cat still at home no other injuries, last tetanus shot was over 7 years ago Related Data Home Medications ?Medication ?Instructions ?Recorded ?Confirmed ?Last Taken ?Type celecoxib 200 mg capsule (Celebrex) 200 mg PO DAILY 06/03/19 04/27/24 03/10/24 History magnesium 200 mg tablet 200 mg PO HS 02/04/20 04/27/24 03/09/24 History diltiazem HCl 120 mg 120 mg PO DAILY 12/03/23 04/27/24 03/10/24 History capsule,extended release 24 hr, controlled famotidine 20 mg tablet 20 mg PO HS 12/03/23 04/27/24 03/09/24 History levalbuterol HCl 1.25 mg/3 mL 1.25 mg inhalation TID PRN 12/03/23 04/27/24 Unknown History solution for nebulization Shortness Of Breath levothyroxine 150 mcg tablet 150 mcg PO DAILY 12/03/23 04/27/24 03/10/24 History montelukast 10 mg tablet 10 mg PO HS 12/03/23 04/27/24 03/09/24 History omeprazole 40 mg capsule,delayed 40 mg PO DAILY 12/03/23 04/27/24 03/10/24 History release sertraline 100 mg tablet 100 mg PO HS 12/03/23 04/27/24 03/09/24 History calcium 250 mg (as 2 tablet PO BID 03/10/24 04/27/24 Unknown History carbonate)-vitamin D3 3.125 mcg (125 unit) tablet Allergies Allergy/AdvReac Type Severity Reaction Status Date / Time naproxen Allergy Unknown unk Verified 12/31/24 13:19 nitrofurantoin Allergy Unknown unk Verified 12/31/24 13:19 Penicillins Allergy Unknown hives Verified 12/31/24 13:19 Sulfa (Sulfonamide AdvReac Unknown Nausea and Verified 12/31/24 13:19 Antibiotics) Vomiting Review of Systems Review of Systems: All systems reviewed & are unremarkable except as noted in HPI and below PMFSH Past Medical History Medical History Diastolic dysfunction Echo from 12/04/2023 showed normal LV chamber dimension and function with an EF of 60 65%, grade 1 diastolic dysfunction, and biatrial enlargement. Chronic respiratory failure with hypoxia Basal cell carcinoma of skin Arthritis Cancer of right lung Status post radiation in 2023. Gastroesophageal reflux disease Thyroid cancer Status post thyroidectomy and radioactive iodine. Hypertension Chronic obstructive pulmonary disease Bilateral breast cancer Invasive lobular carcinoma right breast status post mastectomy and 2018 and radiation and 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 Allergies Dyslipidemia Colon polyps Anxiety Depression Surgical History Surgical History History of bladder repair surgery History of tubal ligation History of cardiac catheterization History of lumpectomy of left breast (2019) History of partial mastectomy of right breast (2017) History of total abdominal hysterectomy and bilateral salpingo-oophorectomy (1987) History of tonsillectomy (1960) History of arthroscopy of left knee (09/2015) History of colonoscopy with polypectomy History of cholecystectomy (1968) History of bunionectomy (2002) Family History Family History Mother Family history of lung cancer, Onset Age: 72 Father COPD (chronic obstructive pulmonary disease) Other Family history of malignant neoplasm Social History Social History Social History: Surrogate medical decision maker: Gee Zarate (spouse) and Kaitlynn Jackson (daughter). Code status: Modified code, no intubation. Smoking packs per day: 1.5 Smoking cigarettes per day: 30.0 Years smoked: 24 Smoking pack-years: 36.00 Smoking status: Former smoker Tobacco type: cigarettes Second hand tobacco smoke exposure: No Alcohol intake: never Alcohol use details: 1 mixed drink a week. Substance use: never Substance use type: does not use Do You Feel Safe in your Home?: Yes Lack of Transportation: No Lack of Food: Never True Current Housing: I Have Housing Concerned About Future Housing: No Difficulty Paying Gas/Electric Bills: No Difficulty Paying for Meds: No Currently Unemployed: No Education: Associate Degree Difficulty w/ Childcare or Family Care: No Additional occupation/education comments: Lives with spouse at [employer]. 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 Spiritual care concerns: No Exam Narrative: General appearance: Well-developed, well-nourished Skin: Normal color Head: Normocephalic, nontraumatic Eyes: Clear conjunctiva ENT: Oropharynx normal, ears normal, nose normal Neck: Supple, nontender Chest and respiratory: Airway patent, no respiratory distress, no accessory muscle use Heart: Regular rate/rhythm Abdomen: Soft, nontender, no organomegaly, quiet bowel sounds Vascular: Normal peripheral pulses, normal capillary refill. Musculoskeletal: right forearm showed 3 skin tear posteriorly, right hand showed a puncture wound at the web between the thumb and index, no active bleeding, no deformity Neurologic: Alert and oriented ?3, CADD OPERATOR is normal as tested, no gross motor deficit Course Vital Signs Vital signs: Vital Signs Temperature 36.5 C 12/31/24 13:11 Pulse Rate 87 12/31/24 13:11 Respiratory Rate 20 12/31/24 13:11 Blood Pressure 153/86 H 12/31/24 13:11 Pulse Oximetry 92 12/31/24 13:11 Oxygen Delivery Nasal Cannula 12/31/24 13:11 Oxygen Flow Rate 2 12/31/24 13:11 Temperature 36.5 C 12/31/24 13:11 Pulse Rate 87 12/31/24 13:11 Respiratory Rate 20 12/31/24 13:11 Blood Pressure 153/86 H 12/31/24 13:11 Pulse Oximetry 92 12/31/24 13:11 Oxygen Delivery Nasal Cannula 12/31/24 13:11 Oxygen Flow Rate 2 12/31/24 13:11 MDM - Animal Bite MDM Narrative Medical decision making narrative: cat bite to right forearm and right hand x-ray of the right hand showed no acute osseous abnormality or foreign body In the ED patient received a tetanus shot The wound cleaned with warm water and soap, topical Neosporin and dressing. Patient discharged on doxycycline Differential Diagnosis Differential diagnosis: Likely cat bite Imaging Data Radiologist's impression: Impressions Hand X-Ray 12/31/24 14:43 IMPRESSION: 1. 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 No acute osseous adenopathy. Critical Care Time Critical Care Time Critical Care Time: No Discharge Plan Discharge Clinical Impression: Cat bite Patient Disposition: Home Condition: Stable Instructions: Antibiotic Form, Doxycycline (By mouth), Animal Bite (ED) Additional Instructions: Return if symptoms are worsening , call your family physician for appointment, take Tylenol as as needed for aches and pain, continue home medications. Clean with warm water and soap, keep the wound clean Dressing Patient Language: Taiwanese Prescriptions: New doxycycline hyclate 100 mg capsule 100 mg PO BID Qty: 20 0RF No Action celecoxib [Celebrex] 200 mg capsule 200 mg PO DAILY magnesium 200 mg tablet 200 mg PO HS sertraline 100 mg tablet 100 mg PO HS omeprazole 40 mg capsule,delayed release(DR/EC) 40 mg PO DAILY famotidine 20 mg tablet 20 mg PO HS levothyroxine 150 mcg tablet 150 mcg PO DAILY diltiazem HCl 120 mg capsule,ext.rel 24h degradable 120 mg PO DAILY montelukast 10 mg tablet 10 mg PO HS levalbuterol HCl 1.25 mg/3 mL solution for nebulization 1.25 mg INHALATION TID PRN (Reason: Shortness Of Breath) tramadol 25 mg tablet 25 mg PO Q4H PRN (Reason: pain) Qty: 30 0RF furosemide 40 mg Tablet 40 mg PO DAILY Qty: 30 0RF spironolactone 25 mg tablet 12.5 mg PO DAILY Qty: 30 0RF calcium carbonate-vitamin D3 250 mg-3.125 mcg (125 unit) tablet 2 tablet PO BID Anoro Ellipta 62.5-25 mcg/actuation blister with device 1 inh inhalation DAILY Qty: 60 11RF albuterol sulfate 90 mcg/actuation HFA aerosol inhaler 1 inh inhalation QID PRN (Reason: shortness of breath or wheezing) Qty: 8.5 11RF doxepin 6 mg tablet 6 mg PO HS PRN (Reason: sleep) Qty: 30 0RF levalbuterol HCl 0.63 mg/3 mL solution for nebulization 0.63 mg inhalation Q4-6H PRN (Reason: shortness of breath or wheezing) Qty: 90 11RF ipratropium bromide 0.02 % solution 0.5 mg inhalation Q6H PRN (Reason: shortness of breath or wheezing) Qty: 75 11RF Rx Instructions: Give with levalbuterol azelastine 0.15 % (205.5 mcg) spray,non-aerosol 205.5 mcg NASAL DAILY Qty: 30 3RF Rx Instructions: administer into each nostril Follow-up/Referrals: Kelly,MD Cortez [Primary Care Provider, Unknown]
--- OUTSIDE RECORDS SUMMARY | 2024-12-31 14:29 | XMS_ITS | Encounter Summary ---
Author Organization [facility] Healthcare Address [address] [place] [address] Care Team Providers Care Deep Submergence Vehicle Operator Name Role Phone Cortez Mendoza MD Primary Care Provider [phone] Vanessa De La Cruz Unavailable [phone] Kong Wright MD Unavailable [phone] Encounter Details Date Type Department Care Team (Late st Contact Info) Description 11/23/2024 Results Follow-Up [facility] Medical Group [facility] at [place] [address] [place] [address] Cherelle Villa, DIAMOND POWDER TECHNICIAN [address] [place] [address] [address] [place] [address] XR Wrist Left 3 or [...] on file Legal Sex Female 7:14 PM MEMBERSHIP 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
--- OUTSIDE RECORDS SUMMARY | 2024-12-31 14:29 | XMS_ITS | Clinical Summary ---
Author Organization [facility] Address [address] [place] [address] Care Team Providers Care Operations Team Leader Name Role Phone Teofilo Vaca MD Primary [...] 9 Active fluticasone propionate (FLONASE) 50 mcg/spray [place], Suspension nasal inhaler INHALE 1 SPRAY INTO [...] BY MOUTH EVERY DAY 2 Active vit C,X-Ra-ujwxg-lute in-zeaxan 250-90-40-1 mg Capsule Take 1 Capsule [...] 36.4 C (97.5 F) 07/12/2020 2:31 PM SCALLOP DREDGER Respiratory Rate 16 06/17/2019 4:31 PM SCALLOP DREDGER Oxygen Saturation 91% 07/12/2020 2:31 PM SCALLOP DREDGER Inhaled Oxygen Concentration - - Weight 88.5 [...] years Discontinued Medical Devices Implanted Type Area Cvir Tech Device Identifier Shelf Expiration Date Model / Serial / Lot Hemostatic Surgicel 2x14in 1951 - [id number] Implanted:Qty : 1 on 06/17/2019 by Suze Grissom MD at [facility] Hemostatic Left: [place] [employer] [id number] 05/12/20231950 / / [id number] Insurance [facility] [id number] RX [facility] Medicare Part D [facility] [id number] Advance Directives For more information, please contact: [phone] * Full Code (Latest Code Status on File) Date Activated Date Inactivated Comments 06/17/2019 12:14 PM 06/17/2019 7:00 PM Care Teams Operations Team Leader Relationship Specialty Start Date End Date Teofilo Vaca MD [address] [place] [address] PCP - General Family Practice 09/26/17
--- OUTSIDE RECORDS SUMMARY | 2024-12-31 14:29 | XMS_ITS | Encounter Summary ---
Author Organization [facility] Address [address] [place] [address] Care Team Providers Care Integrated Logistics Programs Director Name Role Phone Tefoilo Vaca MD Primary Care Provider Encounter Details Date Type Department Care Team (Late st Contact Info) Description 12/25/2017 Chart Note [facility] Radiation Therapy [address] [place] [address] [place] [address] [place] [address] Social History Tobacco Use Types [...] on filedocumented in this encounter Care Teams Integrated Logistics Programs Director Relationship Specialty Start Date End Date Teofilo Vaca MD [address] [place] [address] PCP - General Family Practice 09/26/17 documented as of this encounter
--- OUTSIDE RECORDS SUMMARY | 2024-12-31 14:29 | XMS_ITS | Encounter Summary ---
Author Organization [facility] Healthcare Address [address] [place] [address] Care Team Providers Care Poke In Name Role Phone Cortez Mendoza MD Primary Care Provider [phone] Vanessa De La Cruz Unavailable [phone] Kong Wright MD Unavailable [phone] Encounter Details Date Type Department Care Team (Late st Contact Info) Description 11/09/2024 Results Follow-Up [facility] Medical Group Primary Care at [address] [place] [address] Cortez Mendoza MD [address] [place] [address] SCAN - LABS Social History Tobacco [...] on file Legal Sex Female 7:14 PM PLANT OPERATOR HELPER Gender Identity Not on file Sexual Orientation [...] on filedocumented in this encounter Care Teams Poke In Relationship Specialty Start Date End Date Cortez Mendoza MD [address] [place] [address] PCP - General Family Medicine 09/12/20 Vanessa De La Cruz PA [address] [place] [address] Physician Irrigating Pump Operator Orthopedic Surgery 01/24/21 Kong Wright MD [address] [place] [address] Radiation Oncology 06/29/24 documented as of this encounter
--- OUTSIDE RECORDS SUMMARY | 2024-12-31 14:29 | XMS_ITS | Encounter Summary ---
Author Organization [facility] Address [address] [place] [address] Phone Care Team Providers Care Business Continuity Analyst Name Role Phone Lexii Zheng DO Unavailable [phone] Kong Wright MD Unavailable [phone] Cortez Mendoza MD Primary Care Provider [phone] Martín Wise MD Unavailable [phone] Gildardo Moss MD Unavailable [phone] Romi Cade MD Unavailable [phone] Thiago Magana MD Unavailable [phone] Martín Wise MD Unavailable [phone] Reason for Visit * Reason Comments Medication Refill Encounter Details Date Type Department Care Team (Late st Contact Info) Description 05/18/2024 Refill [facility] Oncology Services [address] [place] [address] Kong Wright MD [address] [place], [place] [id number] Medication Refill Social History Tobacco Use Types [...] Erma Espinoza RN - 05/18/2024 10:58 AM RN RESIDENTIAL Patient had telephone visit in Apr 2024 with no changes to Levothyroxine. Pt is due to have a PET scan on 05/20/2024 so, just one month refill of 175 mcg ordered in the event a change is required. RESIDENTIAL documented in this encounter Plan of Treatment Upcoming Encounters Date Type Department Care Team (Late st Contact Info) Description 02/08/2025 2:00 PM CDT [facility] [address] [place] [address] Kong Wright MD [address] [place] [address] Gee De Los Santos MD [address] [place] [address] Discharge Disposition: Discharged to home or Selfcare 02/10/2025 5:00 PM CDT [facility]ointment [facility] [address] [place] [address] Kong Wright MD [address] [place] [address] Discharge Disposition: Discharged to home or Selfcare documented as of this encounter Visit Diagnoses Diagnosis Status post total thyroidectomy Other postprocedural status Acquired hypothyroidism Unspecified hypothyroidism Long-term current use of levothyroxine Elevated TSH Other abnormal blood chemistry documented in this encounter Care Teams Business Continuity Analyst Relationship Specialty Start Date End Date Cortez Mendoza MD [address] [place] [address] PCP - General Family Medicine 11/08/22 MarceLexii DO [address] [facility] [address] [place] [address] Consulting Physician Otolaryngology 11/07/22 Kong Wright MD [address] [place] [address] Consulting Physician Radiation Oncology 11/07/22 Martín Wise MD [address] [place] [address] [address] [place] [address] Consulting Physician Pulmonary Disease 05/03/23 05/21/24 Gildardo Moss MD [address] [place] [address] Consulting Physician Oncology 06/21/23 [place] [address] [facility] [address] [place] [address] Consulting Physician Pulmonary Disease 02/19/24 Thiago Magana MD [address] [address] Consulting Physician Infectious Disease 04/30/24 Martín Wise MD [address] [place] [address] [address] [place] [address] Consulting Physician Pulmonary Disease 05/27/24 documented as of this encounter
--- OUTSIDE RECORDS SUMMARY | 2024-12-31 14:29 | XMS_ITS | Encounter Summary ---
Author Organization [facility] Healthcare Address [address] [place] [address] Care Team Providers Care Manager Corporate Marketing Name Role Phone Cortez Mendoza MD Primary Care Provider [phone] Vanessa De La Cruz Unavailable [phone] Kong Wright MD Unavailable Reason for Visit * Reason Onset Date Comments Test Results 12/31/2024 Encounter Details Date Type Department Care Team (Late st Contact Info) Description 12/31/2024 Telephone [facility] Medical Group Pulmonary at [address] [place] [address] Martín Wise MD [address] [place] [address] Test Results Social History Tobacco Use [...] on file Legal 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
--- OUTSIDE RECORDS SUMMARY | 2024-12-31 14:30 | XMS_ITS ---
Author Organization [facility] [address] Address [address] [place] [address] Care Team Providers Care Sales Development Director Name Role Phone Cortez Mendoza MD Primary Care Provider [phone] Vanessa De La Cruz Unavailable [phone] Kong Wright MD Unavailable [phone] Active Problems Problem Noted Date Diagnosed Date [...] Nasal saline spray (Simply saline, Little Remedies, [place], [place]) 2 second sprays or 2 squeezes into [...] 04/02/2022 Assessment & Plan (04/02/2022 12:18 PM FUND RAISER): Patient reports cramping in bilateral legs and [...] weekly Assessment & Plan (07/04/2021 4:29 PM FUND RAISER): Stable, well controlled; no new fractures or falls Continue alendronate 70 mg weekly, calcium and vitamin-D supplementation daily Assessment & Plan (04/24/2021 1:36 PM FUND RAISER): Stable, well controlled; no falls or fractures [...] 11/01/2020 Assessment & Plan (07/04/2021 4:29 PM FUND RAISER): Improving, patient continues to have morning cough [...] changes Assessment & Plan (07/04/2021 4:28 PM FUND RAISER): Stable, well controlled; no significant change in weight, no dietary changes Unable to perform multiple activities due to COPD, osteoarthritis and degenerative disc disease Encouraged patient continue work on dietary changes Assessment & Plan (04/24/2021 1:37 PM FUND RAISER): Stable, mild improvement Has poor exercise tolerance [...] daily Assessment & Plan (04/02/2022 12:15 PM FUND RAISER): Stable, well controlled; no major issues Continue [...] 12/20/2017 Assessment & Plan (04/24/2021 1:38 PM FUND RAISER): Stable, well controlled; has symptoms mostly when [...] daily Assessment & Plan (04/02/2022 12:15 PM FUND RAISER): BP at target today; no chest pain or headaches Continue diltiazem 120 mg daily, Assessment & Plan (07/04/2021 4:28 PM FUND RAISER): Stable, well controlled; blood pressure at target Continue hydrochlorothiazide 25 mg Assessment & Plan (04/24/2021 1:37 PM FUND RAISER): Stable, well controlled; blood pressure at target [...] able Assessment & Plan (04/02/2022 12:17 PM FUND RAISER): Stable, well controlled; uses supplemental oxygen; 3 L with ambulation, no O2 at rest Well controlled with inhalers Continue Trelegy Ellipta 1 puff daily, levalbuterol p.r.n. Assessment & Plan (07/04/2021 4:30 PM FUND RAISER): Stable, no recent exacerbations Continue 2 L by nasal cannula with activity Rare use of rescue inhaler; azithromycin 3 times per week for prophylaxis from pulmonary infection Assessment & Plan (04/24/2021 1:36 PM FUND RAISER): Not well controlled, had COPD exacerbation after [...] (03/10/2021): Added automatically from request for surgery [id number] Breast signs and symptoms 10/15/2018 Abnormal ultrasound of breast 09/26/2017 11/08/2023 Obesity with body mass index 30 or greater 02/15/2016 10/05/2020 Overview (08/17/2016): Obesity (BMI 35.0-39.9 without comorbidity) Chest pain 02/15/2016 11/08/2023 Overview (08/17/2016): Chest pain in adult Pain in shoulder 10/19/2013 11/08/2023
--- OUTSIDE RECORDS SUMMARY | 2024-12-31 14:30 | XMS_ITS | Clinical Summary ---
Author Organization [facility] Address [address] [address] Phone Care Team Providers Care Superintendent Pier Name Role Phone Lexii Zheng Unavailable [phone] Kong Wright MD Unavailable [phone] Cortez Mendoza MD Primary Care Provider [phone] Gildardo Moss MD Unavailable Romi Cade MD Unavailable [phone] Thiago Magana MD Unavailable [phone] Martín Wise MD Unavailable [phone] Allergies Active Allergy Reactions Criticality Noted Date Comments Naproxen Hives 11/08/2022 Nitrofurantoin Hives 11/08/2022 Penicillins Nausea 11/08/2022 Sulfa Antibiotics Nausea,Vomiting 11/08/2022 Medications MAGNESIUM PO Take 1 Tablet by mouth daily. Active albuterol 108 (90 Base) MCG/ACT Aerosol Solution take 2 Puffs by inhalation every 6 hours. 0 Active azelastine (ASTELIN) 0.1 % Solution 1 Stanton by Nasal route in the morning and at bedtime. 3 Active docusate sodium (COLACE) 50 MG Capsule Take 1 Capsule by mouth daily. Active famotidine (PEPCID) 20 MG Tablet Take 1 Tablet by mouth nightly. 3 Active fluticasone (FLONASE) 50 MCG/ACT Suspension 1 Stanton by Nasal route daily. 9 Active HYDROcodone-aceta [...] breast invasive lobular carcinoma ER positive and OK/HER2 negative with Ki-67 22%. Right breast biopsy [...] pN0(sn), cM0) invasive ductal carcinoma, G1 with [place] score 4. No LVSI. ER positive (8/8), OK positive (6/8), and HER2 by IHC 0 [...] Type Department Care Team Description 11/30/2024 Refill [facility] [address] [place] [address] Kong Wright MD Medication Refill 11/10/2024 3:00 PM CDT Office Visit [facility] [address] [place] [address] Kong Wright MD Primary squamous cell carcinoma [...] - 10/30/2024 11:59 PM CDT Hospital Encounter [facility] [address] [place] [address] Kong Wright MD Discharge Disposition: Discharged to [...] Description 02/08/2025 2:00 PM CDT Office Visit [facility] [address] [place] [address] Kong Wright MD [address] [place] [address] eGe De Los Santos MD [address] [place] [address] Discharge Disposition: Discharged to home or Selfcare 02/10/2025 5:00 PM CDT Appointment [facility] [address] [place] [address] Kong Wright MD [address] [place] [address] Discharge Disposition: Discharged to home or Selfcare [...] hypothyroidism Long-term current use of levothyroxine THYROGLOBULIN,TUMOR MRK,S,UNION HTG2 Routine 10/30/2024 3:52 PM CDT Thyroid [...] Gray Irby D.O. PS: PS Report ID: [id number] Reading Location: [id number] Procedure Note Gray Irby DO - 11/09/2024 [...] Gray Irby D.O. PS: PS Report ID: [id number] Reading Location: [id number] IMPRESSION: 1. Interval development of a nodular [...] IM CT ORDERABLES Final Result * THYROGLOBULIN,TUMOR MRK,S,UNION HTG2 (10/30/2024 3:52 PM CDT) THYROGLOBULIN ANTIBODY, S <1.8 <1.8 IU/mL 11/04/2024 2:08 PM CDT [facility] THYROGLOBULIN, TUMOR MARKER, S 12 < or = 33 ng/mL 11/04/2024 2:08 PM CDT [facility] THYROGLOBULIN INTERPRETATION SEE NOTE 11/04/2024 2:08 PM CDT [facility] Comment: Thyroglobulin (Tg) reference intervals are for [...] testing methods are immunoenzymatic assays manufactured by [employer] and performed on the Advaliant DXI 800. Values obtained from different assay methods or kits may be different and cannot be used interchangeably. The results cannot be interpreted as absolute evidence for the presence or absence of malignant disease. Test Performed by: [facility] [address] [place] [address] Plant Safety Leader: Kalpana Barrera Ph.D.; CLIA# [id number] Blood Venipuncture / Unknown 10/30/2024 3:52 PM CDT 10/30/2024 5:08 PM CDT Kong Wright MD LAB SEND OUTS Final R esult [facility] US * THYROXINE (T4) FREE (10/30/2024 3:52 PM CDT) T4 FREE 0.8 0.7 - 1.9 ng/dL 10/30/2024 6:01 PM CDT [facility] Blood Venipuncture / Unknown 10/30/2024 3:52 PM CDT 10/30/2024 5:08 PM CDT Kong Wright MD CHEMISTRY ORDERABLES Fi nal Result [facility] [place] [address] * (ABNORMAL) THYROID STIMULATING HORMONE (TSH) (10/30/2024 3:52 PM CDT) TSH 18.947(H) 0.300 - 5.000 mIU/L 10/30/2024 6:01 PM CDT [facility] Blood Venipuncture / Unknown 10/30/2024 3:52 PM CDT 10/30/2024 5:08 PM CDT us Kong Wright MD CHEMISTRY ORDERABLES Fi nal Result [facility] [place] [address] from Last 3 Months Insurance MEDICARE C [employer] MEDICARE C [employer] Care Teams Superintendent Pier Relationship Specialty Start Date End Date Cortez Mendoza MD [address] [place] [address] PCP - General Family Medicine 11/08/22 Lexii Zhenge, [address] [facility] [address] Tamiko Flores [facility] [address] [place] [address] Consulting Physician Otolaryngology 11/07/22 Kong Wright MD [address] [place] [address] Consulting Physician Radiation Oncology 11/07/22 Gildardo Moss MD [address] [address] Consulting Physician Oncology 06/21/23 [place] [address] [facility] [address] [place] [address] Consulting Physician Pulmonary Disease 02/19/24 Thiago Magana MD [address] [facility] [address] [place] [address] Consulting Physician Infectious Disease 04/30/24 Martín Wise MD [address] [facility] [address] [place] [address] Consulting Physician Pulmonary Disease 05/27/24
--- OUTSIDE RECORDS SUMMARY | 2024-12-31 14:30 | XMS_ITS ---
Author Organization [facility] Address [address] [address] Phone Care Team Providers Care Honey Processor Name Role Phone Lexii Zheng DO Unavailable [phone] Kong Wrihgt MD Unavailable [phone] Cortez Mendoza MD Primary Care Provider [phone] Gildardo Moss MD Unavailable Rmoi Cade MD Unavailable [phone] Thiago Magana MD Unavailable [phone] Martín Wise MD Unavailable [phone] Active Problems Problem Noted Date Diagnosed [...] breast invasive lobular carcinoma ER positive and DE/HER2 negative with Ki-67 22%. Right breast biopsy [...] pN0(sn), cM0) invasive ductal carcinoma, G1 with [place] score 4. No LVSI. ER positive (8/8), DE positive (6/8), and HER2 by IHC 0 [...]
--- OUTSIDE RECORDS SUMMARY | 2024-12-31 14:30 | XMS_ITS | Clinical Summary ---
Author Organization [facility] [address] Address [address] [place] [address] Care Team Providers Care Aboriginal Education Worker Coordinator Name Role Phone Cortez Mendoza MD Primary Care Provider [phone] Vanessa De La Cruz Unavailable [phone] Kong Wright MD Unavailable [phone] Allergies Active Allergy Reactions Criticality Noted Date [...] Nasal saline spray (Simply saline, Little Remedies, [place], [place]) 2 second sprays or 2 squeezes into [...] Assessment & Plan (04/02/2022 12:18 PM DIRECTOR AND PROFESSOR): Patient reports cramping in bilateral legs and [...] Assessment & Plan (07/04/2021 4:29 PM DIRECTOR AND PROFESSOR): Stable, well controlled; no new fractures or falls Continue alendronate 70 mg weekly, calcium and vitamin-D supplementation daily Assessment & Plan (04/24/2021 1:36 PM DIRECTOR AND PROFESSOR): Stable, well controlled; no falls or fractures [...] Assessment & Plan (07/04/2021 4:29 PM DIRECTOR AND PROFESSOR): Improving, patient continues to have morning cough [...] Assessment & Plan (07/04/2021 4:28 PM DIRECTOR AND PROFESSOR): Stable, well controlled; no significant change in weight, no dietary changes Unable to perform multiple activities due to COPD, osteoarthritis and degenerative disc disease Encouraged patient continue work on dietary changes Assessment & Plan (04/24/2021 1:37 PM DIRECTOR AND PROFESSOR): Stable, mild improvement Has poor exercise tolerance [...] Assessment & Plan (04/02/2022 12:15 PM DIRECTOR AND PROFESSOR): Stable, well controlled; no major issues Continue [...] Assessment & Plan (04/24/2021 1:38 PM DIRECTOR AND PROFESSOR): Stable, well controlled; has symptoms mostly when [...] Assessment & Plan (04/02/2022 12:15 PM DIRECTOR AND PROFESSOR): BP at target today; no chest pain or headaches Continue diltiazem 120 mg daily, Assessment & Plan (07/04/2021 4:28 PM DIRECTOR AND PROFESSOR): Stable, well controlled; blood pressure at target Continue hydrochlorothiazide 25 mg Assessment & Plan (04/24/2021 1:37 PM DIRECTOR AND PROFESSOR): Stable, well controlled; blood pressure at target [...] Assessment & Plan (04/02/2022 12:17 PM DIRECTOR AND PROFESSOR): Stable, well controlled; uses supplemental oxygen; 3 L with ambulation, no O2 at rest Well controlled with inhalers Continue Trelegy Ellipta 1 puff daily, levalbuterol p.r.n. Assessment & Plan (07/04/2021 4:30 PM DIRECTOR AND PROFESSOR): Stable, no recent exacerbations Continue 2 L by nasal cannula with activity Rare use of rescue inhaler; azithromycin 3 times per week for prophylaxis from pulmonary infection Assessment & Plan (04/24/2021 1:36 PM DIRECTOR AND PROFESSOR): Not well controlled, had COPD exacerbation after [...] (03/10/2021): Added automatically from request for surgery [id number] Breast signs and symptoms 10/15/2018 Abnormal ultrasound of breast 09/26/2017 11/08/2023 Obesity with body mass index 30 or greater 02/15/2016 10/05/2020 Overview (08/17/2016): Obesity (BMI 35.0-39.9 without comorbidity) Chest pain 02/15/2016 11/08/2023 Overview (08/17/2016): Chest pain in adult Pain in shoulder 10/19/2013 11/08/2023 Encounters Date Type Department Care Team Description 12/31/2024 Telephone [facility] Medical Group Pulmonary at [address] [place] [address] Martín Wise MD Test Results 12/28/2024 Telephone [facility] [address] [address] Cortez Mendoza MD 12/23/2024 11:00 AM CDT - 12/23/2024 11:59 PM CDT Hospital Encounter [facility] Respiratory [address] [place] [address] Chronic respiratory failure with hypoxia (HCC) Discharge Disposition: Discharge to home or self care 12/16/2024 Telephone [facility] [address] [address] Cortez Mendoza MD 11/30/2024 9:45 AM CDT Office Visit [facility] Medical Group Pulmonary at [address] [place] [phone] Martín Wise MD Chronic respiratory failure with hypoxia (HCC) (Primary Dx); Centrilobular emphysema (HCC); 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); Primary adenocarcinoma of right lung (HCC); Nontuberculous mycobacterial disease of lung (HCC) 11/26/2024 1:00 PM CDT [facility] Visit [facility] [address] [address] Cortez Mendoza MD Post-menopause (Primary Dx); Benign hypertension; Major depressive disorder, single episode, moderate (HCC); Pulmonary HTN (HCC); Panlobular emphysema (HCC) 11/23/2024 9:35 AM CDT Ancillary Procedure [facility] Medical Group Imaging at [address] [phone] Left wrist injury, initial encounter; Acute pain of left wrist 11/23/2024 9:30 AM CDT Office Visit [facility] Group Convenient Care at [address] [address] Cherelle Villa NP Left wrist injury, initial encounter (Primary Dx); Acute pain of left wrist 11/23/2024 Results Follow-Up [facility] Medical [facility]ient Care at [address] [address] Cherelle Villa NP XR Wrist Left 3 or More Views 11/16/2024 Telephone [facility] [address] [address] Cortez Mendoza MD 11/09/2024 Results Follow-Up [facility] Primary Care at [address] [place] [address] Cortez Mendoza MD SCAN - LABS 10/30/2024 Ancillary Procedure [facility] Outside Films 10/30/2024 Orders Only [facility] Health Information Management [address] [place] [address] Cortez Mendoza MD 10/29/2024 Telephone [facility] [address] [address] Cortez Mendoza MD from Last [...] Chest pain in ad ult Pneumonia 12/10/2023 [facility] [place] [facility] Family History * Patient is adopted [...] on file Legal Sex Female 7:14 PM DIRECTOR AND PROFESSOR Gender Identity Not on file Sexual Orientation [...] of life. Medical Devices Implanted Type Area Cotton Farmworker Device Identifier Shelf Expiration Date Model / Serial / Lot [employer] 6195-1-001 Cement Bone Simplex Gentamicin High Viscosity 40gm - [id number] Implanted:Qty: 1 on 01/23/2021 by Anil Castillo MD at [facility] Left: Knee [employer] 04/11/2022 6195-1-001 / / [id number] [employer] 6195-1-001 Cement Bone Simplex Gentamicin High Viscosity 40gm - [id number] Implanted:Qty: 1 on 01/23/2021 by Anil Castillo MD at [facility] Left: Knee [employer] 04/11/2022 6195-1-001 / / [id number] [employer] [id number] Attune S+ Cement Fix Bearing Knee 3 Baseplate Tibial - [id number] Implanted:Qty: 1 on 01/23/2021 by Anil Castillo MD at [facility] Left: Knee [employer] 11/09/2030 [id number] / / [id number] [employer] [id number] Attune Cemented Posterior Stabilize Knee Left 3 Narrow Component - [id number] Implanted:Qty: 1 on 01/23/2021 by Anil Castillo MD at [facility] Left: Knee [employer] 01/10/2025 [id number] / / [id number] [employer] [id number] Attune 6mm Posterior Stabilize Fix Bearing Knee 3 Insert Tibial - [id number] Implanted:Qty: 1 on 01/23/2021 by Anil Castillo MD at [facility] Left: Knee [employer] 11/09/2025 [id number] / / [id number] Procedures Procedure Name Priority Date/Time Associated Diagnosis [...] 12:00 AM CDT COLONOSCOPY 07/11/2021 9:42 AM DIRECTOR AND PROFESSOR DEXA AXIAL SKELETON BONE DENSITY 1 OR MORE SITES Schedule Routine, Read Routine (OP Routine) 10/21/2020 9:36 AM CDT Abnormal bone density screening Other osteoporosis without current pathological fracture from Last 3 Months or Most Recently Relevant to Health Maintenance Results * Pulmonary Function Test -[facility]; Pulse Ox with 6 Minute Walk [...] signed by Sreekanth LÓPEZ T: Report ID: [id number] Reading Location: [id number] Procedure Note Sreekanth Mcleod MD - 11/23/2024 [...] signed by Sreekanth LÓPEZ T: Report ID: [id number] Reading Location: [id number] us Cherelle Villa NEGATIVE RESTORER IMG XR PROCEDURES Final Re sult * CT Body Outside Reference (10/30/2024 12:00 AM CDT) Narrative RAD_PACS[facility] - 12/03/2024 10:34 AM CDT This order has been auto-finalized and does not contain a result. us Not In File Miscellaneous IMG CT PROCEDURES Rosina l Result RAD_PAC_[facility] * SCAN - LABS (10/30/2024) us Cortez Mendoza MD Final Res ult * COLONOSCOPY (07/11/2021 9:42 AM DIRECTOR AND PROFESSOR) Anatomical Region Laterality Modality Other Narrative Procedure Note Gee Nolasco MD - 07/11/2021 9:42 AM CST [facility] Patient Name: Romi Zarate Procedure Date: 07/11/2021 9:42 AM Date of : 1945 Admit Type: Outpatient Age: 75 Gender: Female Attending MD: Gee Nolasco M.D. Room: [facility] ROOM 2 Note Status: Finalized [...] scope was passed under direct vision. TheColonoscope [id number] was introduced through the anus and advanced [...] otherwise without abnormality. Electronically signed by Gee Nolasco M.D. Gee Nolasco M.D. 07/11/2021 11:02:36 AM Number of Addenda: 0 Note Initiated On: 07/11/2021 9:42 AM Procedure Code(s): --- Professional --- 90654, Colonoscopy, flexible; with removal of tumor(s), polyp(s), or other lesion(s) by snare technique Diagnosis Code(s): --- Professional --- K57.30, Diverticulosis of large intestine without perforation orabscess without bleeding R19.5, Other fecal abnormalities D12.2, Benign neoplasm of ascending colon K64.9, Unspecified hemorrhoids CPT copyright 2020 [employer]. All rights reserved. The codes documented in this report are preliminary and upon water trainer reviewmay be revised to meet current compliance requirements. Recognized by the [place] for promoting quality [...] old F with given history of screening. Cotton Farmworker/Model: Datto (S/N [id number]) CLINICAL INFORMATION: Current height: 61 inches Maximum [...] Moraima Centeno M.D. TB: TB Report ID: [id number] Reading Location: [id number] Procedure Note Moraima Centeno MD - 10/21/2020 EXAM DESCRIPTION: DEXA AXIAL SKELETON BONE DENSITY 1 OR MORE SITES REASON FOR STUDY: 75 y/o year old F with given history ofscreening. Cotton Farmworker/Model: Datto (S/N [id number]) CLINICAL INFORMATION: Current height: 61 inches Maximum [...] Moraima Centeno M.D. TB: TB Report ID: [id number] Reading Location: [id number] Cortez Mendoza MD IMG DXA PROCEDURES Final Result from Last 3 Months or Most Recently Relevant to Health Maintenance Insurance [facility] MEDICARE ADVANTAGE [place] [id number] [place] [id number] Advance Directives For more information, please contact: [phone] * Full Code (Latest Code Status on File) Date Activated Date Inactivated Comments 10/30/2022 2:00 PM 11/01/2022 2:06 PM * Full Code Date Activated Date Inactivated Comments 07/11/2021 9:58 AM 07/11/2021 4:15 PM * Full Code Date Activated Date Inactivated Comments 07/11/2021 9:58 AM 07/11/2021 9:58 AM * Full Code Date Activated Date Inactivated Comments 01/23/2021 12:45 PM 01/24/2021 6:16 PM Care Teams Aboriginal Education Worker Coordinator Relationship Specialty Start Date End Date Cortez Mendoza MD [address] [place] [address] PCP - General Family Medicine 09/12/20 Vanessa De La Cruz, PA [address] [place] [address] Physician [facility] Orthopedic Surgery 01/24/21 Kong Wright MD [address] [place] [address] Radiation Oncology 06/29/24
[2024-12-31] MEDS: TETANUS,DIPHTHERIA,AC PERTUSSIS ADULT (0.5 ML) BOOSTRIX IM (14:40)
[2024-12-31 15:52] VITALS: BP 103/62; PULSE 69; RESP 20; O2SAT 96
--- OUTSIDE RECORDS SUMMARY | 2025-01-12 19:00 | XMS_ITS | Clinical Summary ---
Author Organization Unknown Care Team Providers Care Flap Curer Name Role Phone KARLOS CONNOR MD Unavailable Unavailable EDUIN BLOOD COUNSELOR, GREYSON Ozuna ble Unavailable MAXWELL REGISTERED NURSE FIGHT MANAGER, JUHI goodman Unavailable Payers Payer Name Policy Type Policy Number Effective Date Expira tion Date [facility] MEDICARE OON - EPISODIC NO AUTH Problems Condition Name Condition Details Condition Category Status Onset Date Resolution Date Last Treatment Date Treating Clinician Comments PANLOBULAR EMPHYSEMA Active 2023-05 00:00: 00 CHRONIC OBSTRUCTIVE PULMONARY DISEASE W (ACUTE) EXACERBATION Active 05-13 00:00: 00 PULMONARY HYPERTENSION , UNSPECIFIED Active 05-13 00:00: 00 MALIGNANT NEOPLASM OF UNSP PART OF UNSP BRONCHUS OR LUNG Active 05-13 00:00: 00 MALIGNANT NEOPLASM OF THYROID GLAND Active 05-13 00:00: 00 ESSENTIAL (PRIMARY) HYPERTENSION Active 05-13 00:00: 00 DEPRESSION, UNSPECIFIED Active 05-13 00:00: 00 ANXIETY DISORDER, UNSPECIFIED Active 05-13 00:00: 00 DEPENDENCE ON SUPPLEMENTAL OXYGEN Active 05-13 00:00: 00 HORMONE REPLACEMENT THERAPY Active 05-13 00:00: 00 OTHER GROUP HOME (CURRENT) DRUG THERAPY Active 05-13 00:00: 00 COMMUNICATIONS REPRESENTATIVE (CURRENT) USE OF INHALED STEROIDS Active 05-13 00:00: 00 COMMUNICATIONS REPRESENTATIVE (CURRENT) USE OF NON-STEROIDA L NON-INFLAM (NSAID) Active 05-13 00:00: 00 GROUP HOME (CURRENT) USE OF BISPHOSPHONA NEO Active 05-13 00:00: 00 PERSONAL HISTORY OF PNEUMONIA (RECURRENT) Active 05-13 00:00: 00 HISTORY OF FALLING Active 05-13 00:00: 00 Allergies, Adverse Reactions, Alerts Allergy Name Allergy Type Status Severity Reaction(s) Onset Date Inactive Date Treating Clinician Comments NITROFURANTO IN Propensity to adverse reactions Active 2023-05 08:24: 03 NAPROXEN Propensity to adverse reactions Active 2023-05 08:23: 55 PENICILLINS Propensity to adverse reactions Active 2023-05 08:24: 15 SULFA (SULFONAMIDE S) Propensity to adverse reactions Active 2023-05 08:24: 09 Medications Ordered Medication Name Filled Medication Name Start Date Stop Date Current Medication? Ordering Clinician Indication Dosage Frequency Signature (SIG) Comments Components albuterol sulfate HFA 90 mcg/actuati on aerosol inhaler 2023-05 00:00: 00 Yes [id number] WHEEZING/SH ORTNESS OF BREATH 2 puff EVERY 6 HOURS 2 puff EVERY 6 HOURS (route: inhalation ) Med Classific ation: Respirato ry Therapy Agents Anoro Ellipta 62.5 mcg-25 mcg/actuati on powder for inhalation 2023-05 00:00: 00 Yes [id number] COPD 1 inhalat ion ONCE DAILY 1 inhalation ONCE DAILY (route: inhalation ) Med Classific ation: Respirato ry Therapy Agents azelastine 137 mcg (0.1 %) nasal spray 2023-05 00:00: 00 Yes [id number] CONGESTION 1 spray TWICE DAILY 1 spray TWICE DAILY (route: nasal) Alternate Route: NOSTRIL - BOTH. Med Classific ation: Respirato ry Therapy Agents calcium carbonate 250 mg-vitamin D3 3.125 mcg (125 unit) tablet 2023-05 00:00: 00 Yes [id number] BONE HEALTH 2 tablet TWICE DAILY 2 tablet TWICE DAILY (route: oral) Med Classific ation: Electroly te Balance-N utritiona l Products celecoxib 200 mg capsule 2023-05 00:00: 00 Yes [id number] PAIN/INFLAM MATION 1 capsule ONCE DAILY 1 capsule ONCE DAILY (route: oral) Med Classific ation: Analgesic , Anti-infl ammatory or Antipyret ic diltiazem ER (XR/XT) 120 mg capsule,ext ended release 24 hr, controlled 2023-05 00:00: 00 Yes [id number] HEART RATE CONTROL 1 capsule ONCE DAILY 1 capsule ONCE DAILY (route: oral) Med Classific ation: Cardiovas cular Therapy Agents docusate sodium 50 mg capsule 2023-05 00:00: 00 Yes [id number] CONSTIPATIO N 1 capsule ONCE DAILY 1 capsule ONCE DAILY (route: oral) Med Classific ation: Gastroint estinal Therapy Agents famotidine 20 mg tablet 2023-05 00:00: 00 Yes [id number] PREVENT GI ULCERS 1 tablet ONCE DAILY 1 tablet ONCE DAILY (route: oral) Med Classific ation: Gastroint estinal Therapy Agents Flonase Allergy Relief 50 mcg/actuati on nasal spray,suspe nsion 2023-05 00:00: 00 Yes [id number] CONGESTION 1 spray ONCE DAILY 1 spray ONCE DAILY (route: nasal) Alternate Route: NOSTRIL - BOTH. Med Classific ation: Respirato ry Therapy Agents furosemide 40 mg tablet 2023-05 00:00: 00 Yes [id number] FLUID RETENTION 1 tablet ONCE DAILY 1 tablet ONCE DAILY (route: oral) Med Classific ation: Cardiovas cular Therapy Agents ipratropium bromide 0.02 % solution for inhalation 2023-05 00:00: 00 Yes [id number] COPD 0.5 mg EVERY 6 HOURS 0.5 mg EVERY 6 HOURS (route: inhalation ) Med Classific ation: Respirato ry Therapy Agents levalbutero l 1.25 mg/3 mL solution for nebulizatio n 2023-05 00:00: 00 Yes [id number] COPD 3 mL 3 TIMES DAILY 3 mL 3 TIMES DAILY (route: inhalation ) Med Classific ation: Respirato ry Therapy Agents levothyroxi ne 175 mcg tablet 2023-05 00:00: 00 Yes [id number] HYPOTHYROID ISM 1 tablet ONCE DAILY 1 tablet ONCE DAILY (route: oral) Med Classific ation: Endocrine magnesium 400 mg (as magnesium oxide) tablet 2023-05 00:00: 00 Yes [id number] LOW MAGNESIUM 0.5 tablet ONCE DAILY 0.5 tablet ONCE DAILY (route: oral) Med Classific ation: Electroly te Balance-N utritiona l Products montelukast 10 mg tablet 2023-05 00:00: 00 Yes [id number] ALLERGIES/C ONGESTION 1 tablet AT BEDTIME 1 tablet AT BEDTIME (route: oral) Med Classific ation: Respirato ry Therapy Agents omeprazole 40 mg capsule,del ayed release 2023-05 00:00: 00 Yes [id number] REDUCE STOMACH ACID 1 capsule ONCE DAILY 1 capsule ONCE DAILY (route: oral) Med Classific ation: Gastroint estinal Therapy Agents oxygen gas for inhalation 2023-05 00:00: 00 Yes [id number] COPD Per instruc tions O2 - CONTINUOUS Per instructio ns O2 - CONTINUOUS (route: inhalation ) Alternate Route: O2 - NASAL CANNULA. Med Classific ation: Medical Supplies and Durable Medical Equipment (DME) sertraline 100 mg tablet 2023-05 00:00: 00 11-26 23:59 :00 No [id number] MOOD 1 tablet AT BEDTIME 1 tablet AT BEDTIME (route: oral) Med Classific ation: Central Nervous System Agents spironolact one 25 mg tablet 2023-05 00:00: 00 Yes [id number] FLUID RETENTION 0.5 tablet ONCE DAILY 0.5 tablet ONCE DAILY (route: oral) Med Classific ation: Cardiovas cular Therapy Agents Tylenol Extra Strength 500 mg tablet 2023-05 00:00: 00 Yes [id number] GENERALIZED ARTHRITIS PAIN/HEADAC HE 1-2 tablet EVERY 6 HOURS 1-2 tablet EVERY 6 HOURS (route: oral) Med Classific ation: Analgesic , Anti-infl ammatory or Antipyret ic buspirone 5 mg tablet 2023-05 00:00: 00 Yes [id number] ANXIETY 1 tablet 3 TIMES DAILY 1 tablet 3 TIMES DAILY (route: oral) Med Classific ation: Central Nervous System Agents tramadol 50 mg tablet 2023-05 00:00: 00 Yes [id number] LEFT RIB PAIN 1 tablet 3 TIMES DAILY 1 tablet 3 TIMES DAILY (route: oral) Med Classific ation: Analgesic , Anti-infl ammatory or Antipyret ic alendronate 70 mg tablet 2023-05 00:00: 00 Yes [id number] OSTEOPOROSI S 1 tablet WEEKLY 1 tablet WEEKLY (route: oral) Med Classific ation: Endocrine doxepin 6 mg tablet 1-07 00:00: 00 Yes [id number] TROUBLE SLEEPING 1 tablet AT BEDTIME 1 tablet AT BEDTIME (route: oral) Med Classific ation: Central Nervous System Agents fluoxetine 20 mg capsule 7-17 00:00: 00 Yes [id number] DEPRESSION 1 capsule ONCE DAILY 1 capsule ONCE DAILY (route: oral) Alternate Route: BY MOUTH. Med Classific ation: Central Nervous System Agents Immunizations Ordered Immunization Name Filled Immunization Name Date Status Comments Refusal Reason VACCINATION STATUS UNKNOWN PER PATIENT, N/A 2024-05-12 00:00:00 INFLUENZA, TIV (INACTIVATED) 2024-02-11 00:00:00 PNEUMOCOCCAL (PPV), PPV 2021-02-28 00:00:00 Vital Signs Vital Name Observation Time Observation Value Commen ts Temperature 2024-12-16 09:17:00.000 97.9 [degF] Temperature 2024-12-03 10:13:00.000 97.7 [degF] Temperature 2024-11-20 12:15:00.000 98.1 [degF] Pulse 2024-12-16 09:17:00.000 73 /min Pulse 2024-12-03 10:13:00.000 76 /min Pulse 2024-11-20 12:15:00.000 79 /min O2 Saturation (%) 2024-12-16 09:17:00.000 97 % O2 Saturation (%) 2024-12-03 10:13:00.000 96 % O2 Saturation (%) 2024-11-20 12:15:00.000 97 % Respirations 2024-12-16 09:17:00.000 20 /min Respirations 2024-12-03 10:13:00.000 18 /min Respirations 2024-11-20 12:15:00.000 18 /min Weight (lbs) 2024-12-03 10:13:00.000 161.5 [lb_av] Weight (lbs) 2024-11-20 12:15:00.000 162.2 [lb_av] Systolic Blood Pressure 2024-12-16 09:17:00.000 114 mm [Hg] Systolic Blood Pressure 2024-12-03 10:13:00.000 102 mm [Hg] Systolic Blood Pressure 2024-11-20 12:15:00.000 126 mm [Hg] Diastolic Blood Pressure 2024-12-16 09:17:00.000 62 mm [Hg] Diastolic Blood Pressure 2024-12-03 10:13:00.000 74 mm [Hg] Diastolic Blood Pressure 2024-11-20 12:15:00.000 78 mm [Hg] Plan of Treatment Planned Activity Planned Date Details Comments Future Scheduled Test HOME HEALT H NURSE WILL INSTRUCT ABOUT COPD, APPROPRIATE BREATHING TECHNIQUES, STRATEGIES TO MANAGE COPD TO PREVENT EXACERBATIONS, STRATEGIES TO PROMOTE SLEEP, USE OF A COPD ACTION PLAN, AND WARNING SIGNS TO CALL THE AGENCY, TREATING PROVIDER, OR 911. [code = HOME HEALTH NURSE WILL INSTRUCT ABOUT COPD, APPROPRIATE BREATHING TECHNIQUES, STRATEGIES TO MANAGE COPD TO PREVENT EXACERBATIONS, STRATEGIES TO PROMOTE SLEEP, USE OF A COPD ACTION PLAN, AND WARNING SIGNS TO CALL THE AGENCY, TREATING PROVIDER, OR 911.] Future Scheduled Test HOME HEALT H NURSE TO INSTRUCT PATIENT/CAREGIVER ON THE TYPE OF OXYGEN SUPPLY SYSTEM, BREATHING DEVICE, OXYGEN SAFETY, CLEANING OF OXYGEN SUPPLIES, EMERGENCY PREPAREDNESS TIPS WHEN MANAGING OXYGEN NEEDS, SIGNS OR SYMPTOMS TO CONTACT THE AGENCY OR PHYSICIAN. [code = HOME HEALTH NURSE TO INSTRUCT PATIENT/CAREGIVER ON THE TYPE OF OXYGEN SUPPLY SYSTEM, BREATHING DEVICE, OXYGEN SAFETY, CLEANING OF OXYGEN SUPPLIES, EMERGENCY PREPAREDNESS TIPS WHEN MANAGING OXYGEN NEEDS, SIGNS OR SYMPTOMS TO CONTACT THE AGENCY OR PHYSICIAN.] Future Scheduled Test SKILLED NU RSE TO INSTRUCT PATIENT/CAREGIVER ON WHAT IS HYPERTENSION, HOW TO CHECK HIS/HER BLOOD PRESSURE, AND STRATEGIES TO USE TO CONTROL BLOOD PRESSURE SUCH MONITORING BP, MANAGING BLOOD, MONITORING WEIGHTS, ENGAGING IN PHYSICAL ACTIVITY AIMING FOR 150 MINUTES SPREAD THROUGHOUT THE WEEK. [code = SKILLED NURSE TO INSTRUCT PATIENT/CAREGIVER ON WHAT IS HYPERTENSION, HOW TO CHECK HIS/HER BLOOD PRESSURE, AND STRATEGIES TO USE TO CONTROL BLOOD PRESSURE SUCH MONITORING BP, MANAGING BLOOD, MONITORING WEIGHTS, ENGAGING IN PHYSICAL ACTIVITY AIMING FOR 150 MINUTES SPREAD THROUGHOUT THE WEEK.] Future Scheduled Test SKILLED NU RSE TO ASSESS PATIENT WITH ANXIETY DISORDER AND TEACH SYMPTOMS OF ANXIETY. [code = SKILLED NURSE TO ASSESS PATIENT WITH ANXIETY DISORDER AND TEACH SYMPTOMS OF ANXIETY.] Future Scheduled Test SKILLED NU RSE TO OBSERVE AND ASSESS PATIENT WITH GENERALIZED DEPRESSION AND TEACH DEPRESSIVE SYMPTOMS. [code = SKILLED NURSE TO OBSERVE AND ASSESS PATIENT WITH GENERALIZED DEPRESSION AND TEACH DEPRESSIVE SYMPTOMS.] Future Scheduled Test HOME HEALT H NURSE INSTRUCTED PATIENT/CAREGIVER ABOUT PULMONARY HYPERTENSION, LIFESTYLE CHANGES TO HELP WITH SYMPTOMS, AND WARNING SIGNS TO CALL THE AGENCY, PHYSICIAN, OR 911. [code = HOME HEALTH NURSE INSTRUCTED PATIENT/CAREGIVER ABOUT PULMONARY HYPERTENSION, LIFESTYLE CHANGES TO HELP WITH SYMPTOMS, AND WARNING SIGNS TO CALL THE AGENCY, PHYSICIAN, OR 911.] Future Scheduled Test HOME HEALT H NURSE WILL TEACH PATIENT/CAREGIVER ABOUT THE USE OF A SYMPTOM LOG TO MONITOR PHYSICAL SIDE EFFECTS. HOME HEALTH NURSE WILL MONITOR THE RECORDED SYMPTOM LOG AND INFORM THE PHYSICIAN OF SYMPTOMS SO CHANGES CAN BE MADE WITH PRESCRIBED MEDICATIONS/TREATMENTS TO ALLEVIATE DISCOMFORT. [code = HOME HEALTH NURSE WILL TEACH PATIENT/CAREGIVER ABOUT THE USE OF A SYMPTOM LOG TO MONITOR PHYSICAL SIDE EFFECTS. HOME HEALTH NURSE WILL MONITOR THE RECORDED SYMPTOM LOG AND INFORM THE PHYSICIAN OF SYMPTOMS SO CHANGES CAN BE MADE WITH PRESCRIBED MEDICATIONS/TREATMENTS TO ALLEVIATE DISCOMFORT.] Future Scheduled Test THE CER TIFYING PHYSICIAN, ASSOCIATED PHYSICIAN, NPP OR PA WITHIN THE SAME GROUP MAY APPROVE AND SIGN THE ORDER (ON ANY PAGE) ATTESTING THAT THE COMPREHENSIVE OUTCOME ASSESSMENTS, EVALUATIONS, AND HOME HEALTH CERTIFICATION PLANS SUPPORT HOMEBOUND STATUS. HOME HEALTH WEB-PORTAL DOCUMENTATION ACCESSED BY THE PHYSICIAN MUST BE INCORPORATED INTO THE MEDICAL RECORD TO CORROBORATE THE PHYSICIAN, NPP, OR PAS F2F ENCOUNTER TO SUPPORT ELIGIBILITY FOR HOME HEALTH SERVICES. [code = THE CERTIFYING PHYSICIAN, ASSOCIATED PHYSICIAN, NPP OR PA WITHIN THE SAME GROUP MAY APPROVE AND SIGN THE ORDER (ON ANY PAGE) ATTESTING THAT THE COMPREHENSIVE OUTCOME ASSESSMENTS, EVALUATIONS, AND HOME HEALTH CERTIFICATION PLANS SUPPORT HOMEBOUND STATUS. HOME HEALTH WEB-PORTAL DOCUMENTATION ACCESSED BY THE PHYSICIAN MUST BE INCORPORATED INTO THE MEDICAL RECORD TO CORROBORATE THE PHYSICIAN, NPP, OR PAS F2F ENCOUNTER TO SUPPORT ELIGIBILITY FOR HOME HEALTH SERVICES.] Future Scheduled Test EACH ORDER ED IN-HOME OR TELEHEALTH VISIT, THE SKILLED NURSE WILL CONDUCT A COMPREHENSIVE ASSESSMENT INCLUDING VITAL SIGNS, PAIN, SAFETY, MENTAL/COGNITIVE/PSYCHOSOCIAL STATUS, MED MANAGEMENT, NUTRITION, SKIN INTEGRITY, PRESSURE ULCER PREVENTION, AND PATIENT/CAREGIVER ABILITY TO SUPPORT ORDERED CARE. SKILLED NURSE WILL INSTRUCT ON DISEASE PROCESS, MED MGMT., FALL PREVENTION AND SAFETY, INFECTION CONTROL AND PREVENTION, WARNING SIGNS, ADDRESS RESULTS OUTSIDE OF ORDERED PARAMETERS LISTED ON CARE PLAN, AND COORDINATE DISCHARGE WITH THE TREATING PROVIDER. MAY ACCEPT ORDERS FROM THE FOLLOWING PROVIDER(S) WHO WILL BE CONSULTING ON THE CERTIFIED CARE PLAN: DR. KARLOS CONNOR, DR. MIAN CORONA, DR. LINO WYNN, DR. AVRIL LIM, AND ANYONE COVERING IN THEIR ABSENCE [code = EACH ORDERED IN-HOME OR TELEHEALTH VISIT, THE SKILLED NURSE WILL CONDUCT A COMPREHENSIVE ASSESSMENT INCLUDING VITAL SIGNS, PAIN, SAFETY, MENTAL/COGNITIVE/PSYCHOSOCIAL STATUS, MED MANAGEMENT, NUTRITION, SKIN INTEGRITY, PRESSURE ULCER PREVENTION, AND PATIENT/CAREGIVER ABILITY TO SUPPORT ORDERED CARE. SKILLED NURSE WILL INSTRUCT ON DISEASE PROCESS, MED MGMT., FALL PREVENTION AND SAFETY, INFECTION CONTROL AND PREVENTION, WARNING SIGNS, ADDRESS RESULTS OUTSIDE OF ORDERED PARAMETERS LISTED ON CARE PLAN, AND COORDINATE DISCHARGE WITH THE TREATING PROVIDER. MAY ACCEPT ORDERS FROM THE FOLLOWING PROVIDER(S) WHO WILL BE CONSULTING ON THE CERTIFIED CARE PLAN: DR. KARLOS CONNOR, DR. MIAN CORONA, DR. LINO WYNN, DR. AVRIL LIM, AND ANYONE COVERING IN THEIR ABSENCE] Goal 2024-05-14 Patient Goal - S OC 03/20/24: TO REMAIN FREE FROM FALLS, INFECTIONS, AND HOSPITALIZATIONS. TO BE ABLE TO USE MOTORIZED SCOOTER TO GO TO [facility] AND SOCIALIZE Goal Patient Goal - S OC 03/20/24: TO REMAIN FREE FROM FALLS, INFECTIONS, AND HOSPITALIZATIONS. TO BE ABLE TO USE MOTORIZED SCOOTER TO GO TO [facility] AND SOCIALIZE RECERT 05/14/23: TO REMAIN FREE FROM FALLS INFECTIONS, AND HOSPITALIZATIONS. TO IMPROVE STAMINA TO WALK LONGER. RECERT 07/16/24: TO GET OUT OF THE HOUSE MORE. TO REMAIN FREE FROM FALLS, INFECTIONS, AND HOSPITALIZATIONS. RECERT 09/11/24: TO BE ABLE TO USE WALKER TO GO TO [facility] INSTEAD OF SCOOTER RECERT- 11/12/24- TO BE FREE FROM FALLS Goal 2024-11-12 Patient Goal - S OC 03/20/24: TO REMAIN FREE FROM FALLS, INFECTIONS, AND HOSPITALIZATIONS. TO BE ABLE TO USE MOTORIZED SCOOTER TO GO TO [facility] AND SOCIALIZE RECERT 05/14/23: TO REMAIN FREE FROM FALLS INFECTIONS, AND HOSPITALIZATIONS. TO IMPROVE STAMINA TO WALK LONGER. RECERT 07/16/24: TO GET OUT OF THE HOUSE MORE. TO REMAIN FREE FROM FALLS, INFECTIONS, AND HOSPITALIZATIONS. RECERT 09/11/24: TO BE ABLE TO USE WALKER TO GO TO MAIN FACILITY INSTEAD OF SCOOTER Goal 2024-09-11 Patient Goal - S OC 03/20/24: TO REMAIN FREE FROM FALLS, INFECTIONS, AND HOSPITALIZATIONS. TO BE ABLE TO USE MOTORIZED SCOOTER TO GO TO [facility] AND SOCIALIZE RECERT 05/14/23: TO REMAIN FREE FROM FALLS INFECTIONS, AND HOSPITALIZATIONS. TO IMPROVE STAMINA TO WALK LONGER. RECERT 07/16/24: TO GET OUT OF THE HOUSE MORE. TO REMAIN FREE FROM FALLS, INFECTIONS, AND HOSPITALIZATIONS. Goal 2024-07-16 Patient Goal - S OC 03/20/24: TO REMAIN FREE FROM FALLS, INFECTIONS, AND HOSPITALIZATIONS. TO BE ABLE TO USE MOTORIZED SCOOTER TO GO TO [facility] AND SOCIALIZE RECERT 05/14/23: TO REMAIN FREE FROM FALLS INFECTIONS, AND HOSPITALIZATIONS. TO IMPROVE STAMINA TO WALK LONGER. Goal Provider Goal - PATIENT/CAREGIVER WILL DEMONSTRATE WILLINGNESS TO COLLABORATE AND CREATE A COPD ACTION PLAN, VERBALIZE UNDERSTANDING OF STRATEGIES TO PREVENT EXACERBATIONS, AND VERBALIZE WARNING SIGNS AND WHEN TO CONTACT THE TREATING PROVIDER OR 911 UPON THE END OF HOME HEALTH SERVICES. Goal Provider Goal - PATIENT/CAREGIVER WILL VERBALIZE UNDERSTANDING ON HOW TO CLEAN OXYGEN SUPPLIES, OXYGEN SAFETY, AND KNOW WHEN TO CONTACT THE PHYSICIAN BY THE END OF HOME HEALTH SERVICES. Goal Provider Goal - PATIENT/CAREGIVER WILL INDEPENDENTLY DEMONSTRATE HOW TO CHECK HIS/HER OWN BP AND VERBALIZE WHAT STRATEGIES CAN ASSIST TO CONTROL BLOOD PRESSURE. Goal Provider Goal - PATIENT/CAREGIVER WILL VERBALIZE UNDERSTANDING OF THE CONTRIBUTING FACTORS AND SYMPTOMS OF ANXIETY. Goal Provider Goal - PATIENT/CAREGIVER WILL VERBALIZE UNDERSTANDING OF THE CONTRIBUTING FACTORS AND SYMPTOMS OF DEPRESSION. Goal Provider Goal - PATIENT/CAREGIVER WILL VERBALIZE UNDERSTANDING OF PULMONARY HYPERTENSION WARNING SIGNS TO CALL 911 OR THE PHYSICIAN BY THE END OF HOME HEALTH SERVICES. Goal Provider Goal - PATIENT/CAREGIVER WILL DEMONSTRATE THE USE OF SYMPTOM LOG AND HOW TO IDENTIFY WHEN TO CALL THE TREATING PROVIDER. Goal Provider Goal - A PLAN OF CARE WILL BE ESTABLISHED THAT MEETS ALL PATIENT'S LONG TERM NEEDS AND COUNTER SIGNED BY PHYSICIAN. Goal Provider Goal - PATIENT WILL BE FREE OF FALLS AND HOSPITALIZATIONS THROUGHOUT EPISODE OF CARE. PATIENT/CAREGIVER WILL UNDERSTAND AND ADHERE TO ORDERED DIET. PATIENT/CAREGIVER WILL INDEPENDENTLY MANAGE MEDICATIONS, UNDERSTAND ANY CHANGES, SIDE EFFECTS TO REPORT BY DISCHARGE. PATIENT WILL BE FREE OF INFECTION AND UNDERSTAND MEASURES OF PREVENTION. PATIENT/CAREGIVER WILL COLLABORATE WITH SKILLED NURSE TO DEVELOP POC AT SOC AND ON AN ONGOING BASIS UPDATES ARE NEEDED. UNDERSTAND PROGRESS MADE/DISCHARGE PLANNING. ADDITIONAL ORDERS WILL BE RECEIVED FROM ALTERNATE PHYSICIANS IN A TIMELY MANNER. Encounters Start Date/Time End Date/Time Encounter Type Admission Type Attending [facility] Care Department Encounter ID Discharge Date Discharge Status Discharge Condition Discharge Reason Percent Goals Met 2024-11-15 00:00:00 2025-01-13 00:00:00 Outpatient [facility] [id number]
--- OUTSIDE RECORDS SUMMARY | 2025-01-12 19:00 | XMS_ITS | Clinical Summary ---
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, GREYSON Ozuna ble Unavailable [facility], JUHI goodman Unavailable Payers Payer Name Policy Type Policy Number Effective Date Expira tion Date [facility] OON - EPISODIC NO AUTH Problems [...] REPLACEMENT THERAPY Active 05-13 00:00: 00 OTHER PENITENTIARY (CURRENT) DRUG THERAPY Active 05-13 00:00: 00 TITLE CLERK (CURRENT) USE OF INHALED STEROIDS Active 05-13 00:00: 00 TITLE CLERK (CURRENT) USE OF NON-STEROIDA L NON-INFLAM (NSAID) Active 05-13 00:00: 00 PENITENTIARY (CURRENT) USE OF BISPHOSPHONA NEO Active 05-13 [...] on aerosol inhaler 2023-05 00:00: 00 Yes [id number] WHEEZING/SH ORTNESS OF BREATH 2 puff EVERY 6 HOURS 2 puff EVERY 6 HOURS (route: inhalation ) Med Classific ation: Respirato ry Therapy Agents Anoro Ellipta 62.5 mcg-25 mcg/actuati on powder for inhalation 2023-05 00:00: 00 Yes [id number] COPD 1 inhalat ion ONCE DAILY 1 inhalation ONCE DAILY (route: inhalation ) Med Classific ation: Respirato ry Therapy Agents azelastine 137 mcg (0.1 %) nasal spray 2023-05 00:00: 00 Yes [id number] CONGESTION 1 spray TWICE DAILY 1 spray TWICE DAILY (route: nasal) Alternate Route: NOSTRIL - BOTH. Med Classific ation: Respirato ry Therapy Agents calcium carbonate 250 mg-vitamin D3 3.125 mcg (125 unit) tablet 2023-05 00:00: 00 Yes [id number] BONE HEALTH 2 tablet TWICE DAILY 2 tablet TWICE DAILY (route: oral) Med Classific ation: Electroly te Balance-N utritiona l Products celecoxib 200 mg capsule 2023-05 00:00: 00 Yes [id number] PAIN/INFLAM MATION 1 capsule ONCE DAILY 1 capsule ONCE DAILY (route: oral) Med Classific ation: Analgesic , Anti-infl ammatory or Antipyret ic diltiazem ER (XR/XT) 120 mg capsule,ext ended release 24 hr, controlled 2023-05 00:00: 00 Yes [id number] HEART RATE CONTROL 1 capsule ONCE DAILY 1 capsule ONCE DAILY (route: oral) Med Classific ation: Cardiovas cular Therapy Agents docusate sodium 50 mg capsule 2023-05 00:00: 00 Yes [id number] CONSTIPATIO N 1 capsule ONCE DAILY 1 capsule ONCE DAILY (route: oral) Med Classific ation: Gastroint estinal Therapy Agents famotidine 20 mg tablet 2023-05 00:00: 00 Yes [id number] PREVENT GI ULCERS 1 tablet ONCE DAILY 1 tablet ONCE DAILY (route: oral) Med Classific ation: Gastroint estinal Therapy Agents Flonase Allergy Relief 50 mcg/actuati on nasal spray,suspe nsion 2023-05 00:00: 00 Yes [id number] CONGESTION 1 spray ONCE DAILY 1 spray ONCE DAILY (route: nasal) Alternate Route: NOSTRIL - BOTH. Med Classific ation: Respirato ry Therapy Agents furosemide 40 mg tablet 2023-05 00:00: 00 Yes [id number] FLUID RETENTION 1 tablet ONCE DAILY 1 tablet ONCE DAILY (route: oral) Med Classific ation: Cardiovas cular Therapy Agents ipratropium bromide 0.02 % solution for inhalation 2023-05 00:00: 00 Yes [id number] COPD 0.5 mg EVERY 6 HOURS 0.5 mg EVERY 6 HOURS (route: inhalation ) Med Classific ation: Respirato ry Therapy Agents levalbutero l 1.25 mg/3 mL solution for nebulizatio n 2023-05 00:00: 00 Yes [id number] COPD 3 mL 3 TIMES DAILY 3 mL 3 TIMES DAILY (route: inhalation ) Med Classific ation: Respirato ry Therapy Agents levothyroxi ne 175 mcg tablet 2023-05 00:00: 00 Yes [id number] HYPOTHYROID ISM 1 tablet ONCE DAILY 1 tablet ONCE DAILY (route: oral) Med Classific ation: Endocrine magnesium 400 mg (as magnesium oxide) tablet 2023-05 00:00: 00 Yes [id number] LOW MAGNESIUM 0.5 tablet ONCE DAILY 0.5 tablet ONCE DAILY (route: oral) Med Classific ation: Electroly te Balance-N utritiona l Products montelukast 10 mg tablet 2023-05 00:00: 00 Yes [id number] ALLERGIES/C ONGESTION 1 tablet AT BEDTIME 1 tablet AT BEDTIME (route: oral) Med Classific ation: Respirato ry Therapy Agents omeprazole 40 mg capsule,del ayed release 2023-05 00:00: 00 Yes [id number] REDUCE STOMACH ACID 1 capsule ONCE DAILY 1 capsule ONCE DAILY (route: oral) Med Classific ation: Gastroint estinal Therapy Agents oxygen gas for inhalation 2023-05 00:00: 00 Yes [id number] COPD Per instruc tions O2 - CONTINUOUS Per instructio ns O2 - CONTINUOUS (route: inhalation ) Alternate Route: O2 - NASAL CANNULA. Med Classific ation: Medical Supplies and Durable Medical Equipment (DME) sertraline 100 mg tablet 2023-05 00:00: 00 11-26 23:59 :00 No [id number] MOOD 1 tablet AT BEDTIME 1 tablet AT BEDTIME (route: oral) Med Classific ation: Central Nervous System Agents spironolact one 25 mg tablet 2023-05 00:00: 00 Yes [id number] FLUID RETENTION 0.5 tablet ONCE DAILY 0.5 tablet ONCE DAILY (route: oral) Med Classific ation: Cardiovas cular Therapy Agents Tylenol Extra Strength 500 mg tablet 2023-05 00:00: 00 Yes [id number] GENERALIZED ARTHRITIS PAIN/HEADAC HE 1-2 tablet EVERY 6 HOURS 1-2 tablet EVERY 6 HOURS (route: oral) Med Classific ation: Analgesic , Anti-infl ammatory or Antipyret ic buspirone 5 mg tablet 2023-05 00:00: 00 Yes [id number] ANXIETY 1 tablet 3 TIMES DAILY 1 tablet 3 TIMES DAILY (route: oral) Med Classific ation: Central Nervous System Agents tramadol 50 mg tablet 2023-05 00:00: 00 Yes [id number] LEFT RIB PAIN 1 tablet 3 TIMES DAILY 1 tablet 3 TIMES DAILY (route: oral) Med Classific ation: Analgesic , Anti-infl ammatory or Antipyret ic alendronate 70 mg tablet 2023-05 00:00: 00 Yes [id number] OSTEOPOROSI S 1 tablet WEEKLY 1 tablet WEEKLY (route: oral) Med Classific ation: Endocrine doxepin 6 mg tablet 1-07 00:00: 00 Yes [id number] TROUBLE SLEEPING 1 tablet AT BEDTIME 1 tablet AT BEDTIME (route: oral) Med Classific ation: Central Nervous System Agents fluoxetine 20 mg capsule 7-17 00:00: 00 Yes [id number] DEPRESSION 1 capsule ONCE DAILY 1 capsule [...] TO USE MOTORIZED SCOOTER TO GO TO [facility] AND SOCIALIZE Goal Patient Goal - S OC 03/20/24: TO REMAIN FREE FROM FALLS, INFECTIONS, AND HOSPITALIZATIONS. TO BE ABLE TO USE MOTORIZED SCOOTER TO GO TO [facility] AND SOCIALIZE RECERT 05/14/23: TO REMAIN FREE FROM FALLS INFECTIONS, AND HOSPITALIZATIONS. TO IMPROVE STAMINA TO WALK LONGER. RECERT 07/16/24: TO GET OUT OF THE HOUSE MORE. TO REMAIN FREE FROM FALLS, INFECTIONS, AND HOSPITALIZATIONS. RECERT 09/11/24: TO BE ABLE TO USE WALKER TO GO TO [facility] INSTEAD OF SCOOTER RECERT- 11/12/24- TO BE FREE FROM FALLS Goal 2024-11-12 Patient Goal - S OC 03/20/24: TO REMAIN FREE FROM FALLS, INFECTIONS, AND HOSPITALIZATIONS. TO BE ABLE TO USE MOTORIZED SCOOTER TO GO TO [facility] AND SOCIALIZE RECERT 05/14/23: TO REMAIN FREE [...] TO USE MOTORIZED SCOOTER TO GO TO [facility] AND SOCIALIZE RECERT 05/14/23: TO REMAIN FREE FROM FALLS INFECTIONS, AND HOSPITALIZATIONS. TO IMPROVE STAMINA TO WALK LONGER. RECERT 07/16/24: TO GET OUT OF THE HOUSE MORE. TO REMAIN FREE FROM FALLS, INFECTIONS, AND HOSPITALIZATIONS. Goal 2024-07-16 Patient Goal - S OC 03/20/24: TO REMAIN FREE FROM FALLS, INFECTIONS, AND HOSPITALIZATIONS. TO BE ABLE TO USE MOTORIZED SCOOTER TO GO TO [facility] AND SOCIALIZE RECERT 05/14/23: TO REMAIN FREE [...] WILL BE ESTABLISHED THAT MEETS ALL PATIENT'S RETIREMENT NEEDS AND COUNTER SIGNED BY PHYSICIAN. Goal [...] End Date/Time Encounter Type Admission Type Attending [facility] Care Department Encounter ID Discharge Date Discharge Status Discharge Condition Discharge Reason Percent Goals Met 2024-11-15 00:00:00 2025-01-13 00:00:00 Outpatient RECERTIFIC ATJUHI NINO [facility] [id number]
== END 2024-12-31 15:53 | disposition home or self-care (01) ==
PROVIDERS: Emergency Provider Emergency Medicine; PCP Hospitalist
DX: S51.851A Open bite of right forearm, initial encounter (principal); S61.451A Open bite of right hand, initial encounter; Z23 Encounter for immunization; J96.11 Chronic respiratory failure with hypoxia; J44.9 Chronic obstructive pulmonary disease, unspecified; I11.9 Hypertensive heart disease without heart failure; E78.5 Hyperlipidemia, unspecified; E89.0 Postprocedural hypothyroidism; M18.9 Osteoarthritis of first carpometacarpal joint, unspecified; M19.041 Primary osteoarthritis, right hand; M19.031 Primary osteoarthritis, right wrist; K21.9 Gastro-esophageal reflux disease without esophagitis; F41.9 Anxiety disorder, unspecified; F32.A Depression, unspecified; Z85.118 Personal history of other malignant neoplasm of bronchus and lung; Z85.3 Personal history of malignant neoplasm of breast; Z85.850 Personal history of malignant neoplasm of thyroid; Z85.828 Personal history of other malignant neoplasm of skin; Z92.3 Personal history of irradiation; Z86.0100 Personal history of colon polyps, unspecified; Z87.891 Personal history of nicotine dependence; Z90.11 Acquired absence of right breast and nipple; Z90.710 Acquired absence of both cervix and uterus; Z90.79 Acquired absence of other genital organ(s); Z90.722 Acquired absence of ovaries, bilateral; Z90.49 Acquired absence of other specified parts of digestive tract; Z79.899 Other long term (current) drug therapy; Z79.1 Long term (current) use of non-steroidal anti-inflammatories (NSAID); W55.01XA Bitten by cat, initial encounter
CPT/HCPCS: 73130; 90471; 90715; 99283